=== PATIENT | male | born 1960 | race African-American/Black ===

== ENCOUNTER 2016-04-05 10:54 | Inpatient (IN) | payer MEDICAID ==
[~2016-04-05] VITALS: Ht 172.7 cm; Wt 81.6 kg
[2016-04-05] VITALS (7 sets, daily range): BP systolic 98–145; BP diastolic 60–99
--- NOTE | 2016-04-05 11:02 | Emergency Room Report ---
History of Present Illness General Chief Complaint: Generalized Weakness Source: Patient, EMS Present Illness HPI Patient is a 55-year-old male presented after increased generalized weakness. The patient was brought in from a [facility]. The patient was having difficulty leaving the building. Patient denies any current complaints however he appears to be somewhat weak. Patient states that he does not drink alcohol and has not had any fever.History is limited by patient's poor cooperation. Allergies: Coded Allergies: UNABLE TO ASSESS (Unverified , 04/05/16) Patient History Past Medical History: see triage record Reviewed Nursing Documentation: PMH: Agreed, PSxH: Agreed Nursing Documentation-PMH Past Medical History: Deferred Review of Systems All Other Systems: negative except mentioned in HPI Physical Exam Vital Signs Date Time Temp Pulse Resp B/P Pulse Ox O2 Delivery O2 Flow Rate FiO2 04/05/16 10:48 67 16 153/95 98 Room Air Sp02 EP Interpretation: reviewed, normal General Appearance: normal inspection, well appearing, no apparent distress, alert, GCS 15 Head: atraumatic ENT: normal ENT inspection, hearing grossly normal, normal voice Neck: normal inspection, full range of motion, supple, no bony tend Respiratory: normal inspection, lungs clear, normal breath sounds, no respiratory distress, no retraction, no wheezing Cardiovascular #1: regular rate, rhythm, no edema Gastrointestinal: normal inspection, normal bowel sounds, non tender, soft, no guarding, no hernia Genitourinary: no CVA tenderness Musculoskeletal: normal range of motion, other - tremor, Neurologic: normal inspection, alert, responsive, speech normal, motor weakness - generalized Psychiatric: normal inspection, judgement/insight normal, mood/affect normal Skin: normal inspection, normal color, no rash Procedures Critical Care Time Critical Care Time Patient had a critical medical condition which untreated could potentially result in life or limb threatening injury. Total critical care time excluding procedures approximately 45 minutes. Medical Decision Making Diagnostic Impression: Primary Impression: Hypothermia Qualified Codes: T68.XXXA - Hypothermia, initial encounter Additional Impression: Generalized weakness ER Course Patient presented for generalized weakness.Patient presented for generalized weakness. Differential diagnosis included was not limited to anemia, urinary tract infection, electrolyte abnormality, hypothyroidism, myocardial infarction , myasthenia gravis, dehydration, among others. Because of complexity of patient's case laboratory testing and imaging studies were ordered.Patient started on IV fluids as well as a bear hugger. The patient was noted to have some improvement in his temperature. EKG showed evidence of hypothermia the patient's initial core temperature was 85.5 and was gradually rewarmed with warmed IV fluids.Dr. Massey was contacted for inpatient management of the patient's severe hypothermia which is likely due to environmental exposure Labs Test 04/05/16 11:30 White Blood Count 10.3 K/UL (4.8-10.8) Red Blood Count 2.98 M/UL (4.70-6.10) Hemoglobin 8.2 G/DL (14.2-18.0) Hematocrit 26.8 % (42.0-52.0) Mean Corpuscular Volume 90 FL (80-99) Mean Corpuscular Hemoglobin 27.6 PG (27.0-31.0) Mean Corpuscular Hemoglobin Concent 30.7 G/DL (32.0-36.0) Red Cell Distribution Width 19.2 % (11.6-14.8) Platelet Count 983 K/UL (150-450) Mean Platelet Volume 5.8 FL (6.5-10.1) Neutrophils (%) (Auto) % (45.0-75.0) Lymphocytes (%) (Auto) % (20.0-45.0) Monocytes (%) (Auto) % (1.0-10.0) Eosinophils (%) (Auto) % (0.0-3.0) Basophils (%) (Auto) % (0.0-2.0) Differential Total Cells Counted 100 Neutrophils % (Manual) 76 % (45-75) Lymphocytes % (Manual) 13 % (20-45) Monocytes % (Manual) 6 % (1-10) Eosinophils % (Manual) 0 % (0-3) Basophils % (Manual) 0 % (0-2) Band Neutrophils 5 % (0-8) Platelet Estimate Increased Platelet Morphology Normal Hypochromasia 1+ Anisocytosis 1+ Urine Color Pale yellow Urine Appearance Clear Urine pH 5 (4.5-8.0) Urine Specific [place] 1.015 (1.005-1.035) Urine Protein 1+ (NEGATIVE) Urine Glucose (UA) Negative (NEGATIVE) Urine Ketones Negative (NEGATIVE) Urine Occult Blood Negative (NEGATIVE) Urine Nitrite Negative (NEGATIVE) Urine Bilirubin Negative (NEGATIVE) Urine Urobilinogen Normal MG/DL (0.0-1.0) Urine Leukocyte Esterase Negative (NEGATIVE) Urine RBC 0-2 /HPF (0 - 0) Urine WBC 0-2 /HPF (0 - 0) Urine Squamous Epithelial Cells Few /LPF (NONE/OCC) Urine Bacteria Few /HPF (NONE) Urine Hyaline Casts 0-2 /LPF (NONE) Sodium Level 135 mEQ/L (135-145) Potassium Level 4.3 mEQ/L (3.4-4.9) Chloride Level 96 mEQ/L (98-107) Carbon Dioxide Level 24 mEQ/L (20-30) Anion Gap 15 (5-15) Blood Urea Nitrogen 14 mg/dL (7-23) Creatinine 0.7 mg/dL (0.7-1.2) Estimat Glomerular Filtration Rate > 60 mL/min (>60) Glucose Level 138 mg/dL (74-106) Calcium Level 8.9 mg/dL (8.6-10.2) Total Bilirubin < 0.2 mg/dL (0.0-1.2) Aspartate Amino Transf (AST/SGOT) 30 U/L (5-40) Alanine Aminotransferase (ALT/SGPT) 24 U/L (3-41) Alkaline Phosphatase 108 U/L (40-129) Total Protein 6.8 g/dL (6.6-8.7) Albumin 2.6 g/dL (3.5-5.2) Globulin 4.2 g/dL Albumin/Globulin Ratio 0.6 (1.0-2.7) Serum Alcohol < 10 mg/dL EKG Diagnostic Results Rate: normal Rhythm: NSR ST Segments: other - jpoint elevation, gautam waves Last Vital Signs Date Time Temp Pulse Resp B/P Pulse Ox O2 Delivery O2 Flow Rate FiO2 04/05/16 10:48 67 16 153/95 98 Room Air Status: unchanged Disposition: ADMITTED INPATIENT Condition: Yousif Mcadams Apr 05, 2016 11:02
[2016-04-05 11:48] LABS: MEAN CORPUSCULAR HEMOGLOBIN 27.6 PG (27.0-31.0); MEAN CORPUSCULAR HGB CONC 30.7 G/DL (32.0-36.0); MEAN CORPUSCULAR VOLUME 90 FL (80-99); MEAN PLATELET VOLUME 5.8 FL (6.5-10.1); PLATELET COUNT 983 K/UL (150-450); RED BLOOD COUNT 2.98 M/UL (4.70-6.10); RED CELL DISTRIBUTION WIDTH 19.2 % (11.6-14.8); WHITE BLOOD COUNT 10.3 K/UL (4.8-10.8)
[2016-04-05 11:52] LABS: APPEARANCE,URINE CLEAR; KETONES,URINE NEGATIVE (NEGATIVE); LEUKOCYTE ESTERASE ,URINE NEGATIVE (NEGATIVE); NITRITE,URINE NEGATIVE (NEGATIVE); PH,URINE 5 (4.5-8.0); PROTEIN,URINE 1+ (NEGATIVE); UROBILINOGEN,URINE NORMAL MG/DL (0.0-1.0)
[2016-04-05 11:59] LABS: ALANINE AMINOTRANSFERASE 24 U/L (3-41); ALBUMIN/GLOBULIN RATIO 0.6 (1.0-2.7); ALCOHOL < 10 mg/dL; ANION GAP 15 (5-15); ASPARTATE AMINO TRANSFERASE 30 U/L (5-40); CALCIUM 8.9 mg/dL (8.6-10.2); CARBON DIOXIDE 24 mEQ/L (20-30); CHLORIDE 96 mEQ/L (98-107); CREATININE 0.7 mg/dL (0.7-1.2); GLOMERULAR FILTRATION RATE > 60 mL/min (>60); HEMOLYSIS 16; POTASSIUM 4.3 mEQ/L (3.4-4.9); SODIUM 135 mEQ/L (135-145); TOTAL PROTEIN 6.8 g/dL (6.6-8.7)
[2016-04-05 12:11] LABS: BACTERIA,URINE FEW /HPF; HYALINE CASTS, URINE 0-2 /LPF; RBC,URINE 0-2 /HPF (0 - 0); SQUAMOUS EPITHELIAL CELL,UR FEW /LPF (NONE/OCC); WBC,URINE 0-2 /HPF (0 - 0)
[2016-04-05 12:17] LABS: ANISOCYTOSIS 1+; BAND NEUTROPHILS % (MANUAL) 5 % (0-8); BASOPHILS % (MANUAL) 0 % (0-2); EOSINOPHILS % (MANUAL) 0 % (0-3); HYPOCHROMASIA 1+; LYMPHOCYTES % (MANUAL) 13 % (20-45); NEUTROPHILS % (MANUAL) 76 % (45-75); PLATELET ESTIMATE INCREASED; PLATELET MORPHOLOGY NORMAL; TOTAL CELLS COUNTED 100
[2016-04-05] MEDS: LR 1000ml 1,000 ML IV SCH ×6 (12:47→19:05)
[2016-04-05] MEDS ORDERED: NKM (13:39)
[2016-04-05] MEDS ORDERED: Mylanta II UD 30ml ORAL PRN (14:45)
[2016-04-05] MEDS ORDERED: LORazepam Inj 2mg/ml 1ml IV PRN (14:45)
[2016-04-05] MEDS ORDERED: Zolpidem 5mg tab ORAL PRN (14:45)
[2016-04-05] MEDS ORDERED: Miralax 17gm pkt ORAL PRN (14:45)
[2016-04-05] MEDS ORDERED: Morphine Sulfate 2mg/ml Inj IVP PRN (14:45)
--- NOTE | 2016-04-05 15:26 | Infectious Diseases Prog Note ---
Assessment/Plan Problems: (1) Sepsis Assessment & Plan: will send blood culture and start vancomycin and cefepime empirically . (2) Leukocytosis Assessment & Plan: rule out sepsis, will send culture of the blood. (3) Hypothermia Assessment & Plan: unclear etiology need to rule out ischemic injury , monitor electrolytes and lactic acid. (4) Generalized weakness Assessment & Plan: suspect hypothermia related, start warming blanket , and IFV for hydration Subjective Allergies: Coded Allergies: UNABLE TO ASSESS (Unverified , 04/05/16) Objective Vital Signs Last 24 Hour Vital Signs Date Time Temp Pulse Resp B/P Pulse Ox O2 Delivery O2 Flow Rate FiO2 04/05/16 15:15 90.1 67 14 103/74 100 Room Air 04/05/16 13:33 87.5 59 12 100/75 100 Room Air 04/05/16 12:54 89.0 57 13 109/78 98 Room Air 04/05/16 11:45 66 19 145/99 100 Room Air 04/05/16 11:30 85.5 04/05/16 10:48 67 16 153/95 98 Room Air Height (Feet): 5 Height (Inches): 8.00 Weight (Pounds): 180 Laboratory Tests Test 04/05/16 11:30 White Blood Count 10.3 K/UL (4.8-10.8) Red Blood Count 2.98 M/UL (4.70-6.10) L Hemoglobin 8.2 G/DL (14.2-18.0) L Hematocrit 26.8 % (42.0-52.0) L Mean Corpuscular Volume 90 FL (80-99) Mean Corpuscular Hemoglobin 27.6 PG (27.0-31.0) Mean Corpuscular Hemoglobin Concent 30.7 G/DL (32.0-36.0) L Red Cell Distribution Width 19.2 % (11.6-14.8) H Platelet Count 983 K/UL (150-450) H Mean Platelet Volume 5.8 FL (6.5-10.1) L Neutrophils (%) (Auto) % (45.0-75.0) Lymphocytes (%) (Auto) % (20.0-45.0) Monocytes (%) (Auto) % (1.0-10.0) Eosinophils (%) (Auto) % (0.0-3.0) Basophils (%) (Auto) % (0.0-2.0) Differential Total Cells Counted 100 Neutrophils % (Manual) 76 % (45-75) H Lymphocytes % (Manual) 13 % (20-45) L Monocytes % (Manual) 6 % (1-10) Eosinophils % (Manual) 0 % (0-3) Basophils % (Manual) 0 % (0-2) Band Neutrophils 5 % (0-8) Platelet Estimate Increased H Platelet Morphology Normal Hypochromasia 1+ Anisocytosis 1+ Urine Color Pale yellow Urine Appearance Clear Urine pH 5 (4.5-8.0) Urine Specific [place] 1.015 (1.005-1.035) Urine Protein 1+ (NEGATIVE) H Urine Glucose (UA) Negative (NEGATIVE) Urine Ketones Negative (NEGATIVE) Urine Occult Blood Negative (NEGATIVE) Urine Nitrite Negative (NEGATIVE) Urine Bilirubin Negative (NEGATIVE) Urine Urobilinogen Normal MG/DL (0.0-1.0) Urine Leukocyte Esterase Negative (NEGATIVE) Urine RBC 0-2 /HPF (0 - 0) H Urine WBC 0-2 /HPF (0 - 0) Urine Squamous Epithelial Cells Few /LPF (NONE/OCC) Urine Bacteria Few /HPF (NONE) Urine Hyaline Casts 0-2 /LPF (NONE) H Sodium Level 135 mEQ/L (135-145) Potassium Level 4.3 mEQ/L (3.4-4.9) Chloride Level 96 mEQ/L (98-107) L Carbon Dioxide Level 24 mEQ/L (20-30) Anion Gap 15 (5-15) Blood Urea Nitrogen 14 mg/dL (7-23) Creatinine 0.7 mg/dL (0.7-1.2) Estimat Glomerular Filtration Rate > 60 mL/min (>60) Glucose Level 138 mg/dL (74-106) H Calcium Level 8.9 mg/dL (8.6-10.2) Total Bilirubin < 0.2 mg/dL (0.0-1.2) Aspartate Amino Transf (AST/SGOT) 30 U/L (5-40) Alanine Aminotransferase (ALT/SGPT) 24 U/L (3-41) Alkaline Phosphatase 108 U/L (40-129) Total Protein 6.8 g/dL (6.6-8.7) Albumin 2.6 g/dL (3.5-5.2) L Globulin 4.2 g/dL Albumin/Globulin Ratio 0.6 (1.0-2.7) L Serum Alcohol < 10 mg/dL Current Medications Medications (Trade) Dose Ordered Sig/Jenn Route PRN Reason Start Time Stop Time Status Last Admin Dose Admin Acetaminophen (Tylenol) 650 mg Q4H PRN ORAL fever 04/05/16 14:45 05/05/16 14:44 UNV Al Hydroxide/Mg Hydroxide (Mylanta II) 30 ml Q6H PRN ORAL dyspepsia 04/05/16 14:45 05/05/16 14:44 UNV Cefepime HCl/ Dextrose (Maxipime/D5W 50ml) 50 ml @ 100 mls/hr EVERY 12 HOURS IVPB 04/05/16 21:00 04/12/16 20:59 UNV Dextrose STAT PRN IV Hypoglycemia 04/05/16 14:45 05/05/16 14:44 UNV Lactated Ringer's 1,000 ml @ 200 mls/hr Q5H IV 04/05/16 11:45 05/05/16 11:44 04/05/16 12:47 Lactated Ringer's (Lactated Ringer's 1000ml) 1,000 ml @ 999 mls/hr Q1H1M IV 04/05/16 14:00 05/05/16 13:59 04/05/16 14:47 Lorazepam (Ativan 2mg/ml 1ml) 0.5 mg Q4H PRN IV For Anxiety 04/05/16 14:45 04/12/16 14:44 UNV Morphine Sulfate (Morphine Sulfate) 1 mg EVERY 4 HOURS PRN IVP For Pain 04/05/16 14:45 04/12/16 14:44 UNV Ondansetron HCl (Zofran) 4 mg Q6H PRN IVP Nausea & Vomiting 04/05/16 14:45 05/05/16 14:44 UNV Polyethylene Glycol (Miralax) 17 gm HSPRN PRN ORAL Constipation 04/05/16 14:45 05/05/16 14:44 UNV Vancomycin HCl 1 gm/Dextrose 250 ml @ 167 mls/hr Q12HR IVPB 04/05/16 21:00 04/10/16 20:59 UNV Zolpidem Tartrate (Ambien) 5 mg HSPRN PRN ORAL Insomnia 04/05/16 14:45 05/05/16 14:44 Sixto Schneider M.D. Apr 05, 2016 15:26
--- NOTE | 2016-04-05 18:04 | Cardiac Electrophysiology PN ---
Subjective Subjective [id number]. Hypothermia, Severe anemia Hb 8.2 Objective Last 24 Hour Vital Signs Date Time Temp Pulse Resp B/P Pulse Ox O2 Delivery O2 Flow Rate FiO2 04/05/16 16:12 91.1 71 21 102/60 100 Room Air 71 04/05/16 15:15 90.1 67 14 103/74 100 Room Air 04/05/16 13:33 87.5 59 12 100/75 100 Room Air 04/05/16 12:54 89.0 57 13 109/78 98 Room Air 04/05/16 11:45 66 19 145/99 100 Room Air 04/05/16 11:30 85.5 04/05/16 10:48 67 16 153/95 98 Room Air Laboratory Tests Test 04/05/16 11:30 White Blood Count 10.3 K/UL (4.8-10.8) Red Blood Count 2.98 M/UL (4.70-6.10) L Hemoglobin 8.2 G/DL (14.2-18.0) L Hematocrit 26.8 % (42.0-52.0) L Mean Corpuscular Volume 90 FL (80-99) Mean Corpuscular Hemoglobin 27.6 PG (27.0-31.0) Mean Corpuscular Hemoglobin Concent 30.7 G/DL (32.0-36.0) L Red Cell Distribution Width 19.2 % (11.6-14.8) H Platelet Count 983 K/UL (150-450) H Mean Platelet Volume 5.8 FL (6.5-10.1) L Neutrophils (%) (Auto) % (45.0-75.0) Lymphocytes (%) (Auto) % (20.0-45.0) Monocytes (%) (Auto) % (1.0-10.0) Eosinophils (%) (Auto) % (0.0-3.0) Basophils (%) (Auto) % (0.0-2.0) Differential Total Cells Counted 100 Neutrophils % (Manual) 76 % (45-75) H Lymphocytes % (Manual) 13 % (20-45) L Monocytes % (Manual) 6 % (1-10) Eosinophils % (Manual) 0 % (0-3) Basophils % (Manual) 0 % (0-2) Band Neutrophils 5 % (0-8) Platelet Estimate Increased H Platelet Morphology Normal Hypochromasia 1+ Anisocytosis 1+ Urine Color Pale yellow Urine Appearance Clear Urine pH 5 (4.5-8.0) Urine Specific [place] 1.015 (1.005-1.035) Urine Protein 1+ (NEGATIVE) H Urine Glucose (UA) Negative (NEGATIVE) Urine Ketones Negative (NEGATIVE) Urine Occult Blood Negative (NEGATIVE) Urine Nitrite Negative (NEGATIVE) Urine Bilirubin Negative (NEGATIVE) Urine Urobilinogen Normal MG/DL (0.0-1.0) Urine Leukocyte Esterase Negative (NEGATIVE) Urine RBC 0-2 /HPF (0 - 0) H Urine WBC 0-2 /HPF (0 - 0) Urine Squamous Epithelial Cells Few /LPF (NONE/OCC) Urine Bacteria Few /HPF (NONE) Urine Hyaline Casts 0-2 /LPF (NONE) H Sodium Level 135 mEQ/L (135-145) Potassium Level 4.3 mEQ/L (3.4-4.9) Chloride Level 96 mEQ/L (98-107) L Carbon Dioxide Level 24 mEQ/L (20-30) Anion Gap 15 (5-15) Blood Urea Nitrogen 14 mg/dL (7-23) Creatinine 0.7 mg/dL (0.7-1.2) Estimat Glomerular Filtration Rate > 60 mL/min (>60) Glucose Level 138 mg/dL (74-106) H Calcium Level 8.9 mg/dL (8.6-10.2) Total Bilirubin < 0.2 mg/dL (0.0-1.2) Aspartate Amino Transf (AST/SGOT) 30 U/L (5-40) Alanine Aminotransferase (ALT/SGPT) 24 U/L (3-41) Alkaline Phosphatase 108 U/L (40-129) Total Protein 6.8 g/dL (6.6-8.7) Albumin 2.6 g/dL (3.5-5.2) L Globulin 4.2 g/dL Albumin/Globulin Ratio 0.6 (1.0-2.7) L Serum Alcohol < 10 mg/dL DOROTHEA LEIGH Apr 05, 2016 18:04
[2016-04-05 19:08] LABS: PATH BLOOD SMEAR/OMC SENT TO PATHOLOGIST
--- NOTE | 2016-04-05 19:55 | Consultation ---
Consult Note Consult Note NEUROLOGY CONSULTATION: Full note dictated #[id number] Mr. Abelardo Chiang is a 55 y/o, RH, BM with a nebulous PH. He was apparently found in a [facility] looking ill. He was brought to the [facility] ER where his initial core temperature was 85.5 degrees F. He was thought to be possibly septic and has been admitted since then. ON EXAM: Lethargic. Aroused briefly. Unable to cooperate with mental status or motor exam. IMPRESSION: Severe encephalopathy - etiology ? 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 REC: CT of brain in AM Labs. EEG Treatment of sepsis as per . Warm body. 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 Anibal Magdaleno M.D., M.S.P.H. ANIBAL MAGDALENO Apr 05, 2016 19:55
[2016-04-05] MEDS ORDERED: Thiamine HCl 100 MG in D5W 50 ML IVPB ONE (21:30)
--- NOTE | 2016-04-05 23:07 | Consultation ---
DATE OF CONSULTATION: CONSULTING PHYSICIAN: Sixto Reilly M.D. REQUESTING PHYSICIAN: Michael Flower D.O. REASON FOR CONSULTATION: Hypothermia, weakness, and sepsis. HISTORY OF PRESENT ILLNESS: The patient is a 55-year-old male, who was brought in to [facility] for generalized weakness and was found to have hypothermic. The patient was at [facility] and he felt weak and could not leave the building. Denied any headache or blurry vision. No lightheadedness or dizziness. No recent alcohol or drug abuse. No chest pain. No palpitations. No nausea, vomiting, or diarrhea. In the emergency room, his blood pressure was 153/95 and saturating 98% on room air. Labs showed mild leukocytosis. Urinalysis was negative for any infection. Serum alcohol was less than 10. The patient was hypothermic and critical condition, so he was admitted to the hospital and I was asked by the primary provider for antibiotics recommendation and to rule out sepsis. PAST MEDICAL HISTORY: Unable to obtain at this point. The patient is a poor historian. PAST SURGICAL HISTORY: Unknown. MEDICATIONS: He was on Tylenol, morphine, MiraLAX, Zofran, Ambien, Ativan, Mylanta, dextrose, and Lactated Ringer. ALLERGY: Unable to assess. The patient does not answer questions appropriately. SOCIAL HISTORY: No recent drugs, tobacco, or alcohol. He is retired. He lives with family. FAMILY HISTORY: Not contributory. REVIEW OF SYSTEMS: A 14-point of system reviewed were all negative apart from the one I mentioned above in my History and Physical. PHYSICAL EXAMINATION: VITAL SIGNS: Temperature 90.1 degrees, pulse 67, respirations 14, blood pressure 103/73, and pulse oximetry 100% on room air. GENERAL: A middle-aged male, up in bed, alert, and not in distress. HEENT: Normocephalic and atraumatic. Pupils are reactive to light. Normal oral mucosa. No thrush. NECK: Supple. No lymphadenopathy. Good range of motion. LUNGS: Clear bilaterally. Normal breathing sounds. No wheezing. No rhonchi. CARDIOVASCULAR: Regular rate and rhythm. No murmur. No gallop. ABDOMEN: Soft, nontender, and nondistended. Positive bowel sounds. No hepatosplenomegaly. EXTREMITY: No edema. No cyanosis. SKIN: No rash. No hives. LABORATORY DATA: Laboratory showed white count of 10.3, hemoglobin of 8.2, hematocrit of 26.8, and platelet count of 983,000. BUN of 14 and creatinine 0.7. AST of 30, ALT of 24, and total protein of 6.8. Urinalysis showed few bacteria, negative leukocyte esterase, and negative nitrate. Toxicology, seroma alcohol was less than 10. ASSESSMENT AND PLAN: 1. Sepsis. We will send blood culture and start vancomycin and cefepime empirically and monitor culture results. 2. Leukocytosis, rule out sepsis. Send blood culture and urine culture. Start wide spectrum antibiotic therapy. 3. Hypothermia. Recommend warming blanket. Unclear etiology at this point. Need to rule out ischemic injury versus sepsis. Continue to monitor and provide lactic acid and warming device to bring his temperature up. 4. Generalized weakness, suspect due to hypothermia. Start warming blanket. Continue intravenous fluid for hydration. Check TSH. We will send blood culture to rule out infection. Sixto Reilly M.D. DR: BABS JOB#: [id number] CC:
[2016-04-06] VITALS: BP 114/78
--- NOTE | 2016-04-06 00:48 | Consultation ---
DATE OF CONSULTATION: 04/05/2016 CARDIOLOGY CONSULTATION CONSULTING PHYSICIAN: Don Paez M.D. REFERRING PHYSICIAN: Sangeeta Massey M.D. REASON FOR CONSULTATION: Generalized weakness and hypothermia. HISTORY OF PRESENT ILLNESS: The patient is a 55-year-old gentleman, who was brought in from a [facility] after he had an episode of generalized weakness. The patient was having difficulty in the building. The patient did not have any fever and does not drink alcohol. However, the patient is a poor historian. The patient was seen in the emergency room and was found to be very hypothermic. Temperature was 85.5 and the EKG showed evidence of hypothermia. The patient was then admitted to a step-down unit and a Cardiology consultation was obtained for further evaluation and management. At the time of my evaluation, the patient is in sinus rhythm. Denies any chest pain or shortness of breath. He has not had any arrhythmias. PAST MEDICAL HISTORY: Negative. MEDICATIONS: At home includes and ibuprofen. FAMILY HISTORY: Noncontributory. REVIEW OF SYSTEM: His review of systems was negative other than what was mentioned in history of present illness. PHYSICAL EXAMINATION: VITAL SIGNS: Blood pressure is 109/78, pulse is 80, respirations 14, and he is afebrile. HEAD AND NECK: Shows no JVD. LUNGS: Clear. CARDIOVASCULAR: Shows regular S1 and S2 with no gallop or murmur. ABDOMEN: Soft. EXTREMITIES: No pitting edema. LABORATORY DATA: His labs show white count of 10.3, hemoglobin 8.1, hematocrit 26.8, and platelet count of 983,000. Sodium 135, potassium 4.3, BUN of 14, creatinine 0.7, and glucose of 138. Urine toxicology screen was negative. Alcohol urinalysis was negative. ASSESSMENT AND PLAN: Generalized weakness due to combination of hypothermia as well as profound anemia. His hemoglobin is only 8.2. He has no obvious source of gastrointestinal bleed. We will watch the patient on telemetry. We will get an echocardiogram to rule out for ejection fraction and wall motion abnormality and repeat the echocardiogram and completely rule out myocardial infarction protocol. The patient will be also evaluated by Gastrointestinal and Hematology in view of severe thrombocytosis as well as anemia with hemoglobin of 8.2. Thank you very much, Dr. Massey, for allowing me to participate in the care of this patient. Please do not hesitate to contact me for any questions regarding my evaluation. Don Paez M.D. DR: ARIAN JOB#: [id number] CC:
--- NOTE | 2016-04-06 01:08 | Consultation ---
DATE OF CONSULTATION: 04/05/2016 NEUROLOGY CONSULTATION REQUESTING PHYSICIAN: Sangeeta Massey M.D. HISTORY: Mr. Abelardo Chiang is a 55-year-old, right-handed, black gentleman, with a nebulous past history. He was apparently found in a [facility] looking quite ill. The paramedics were called in and he was brought into [facility]. When he was first examined his initial core temperature was 85.5 degrees Fahrenheit. He was given warm intravenous fluids and his temperature was brought up. He was then thought to be possibly septic and started on antibiotics and then admitted for further evaluation and management. This consultation was requested to evaluate the patient for his altered mental state and generalized weakness. The patient was unable to give me any history. PAST MEDICAL HISTORY: Unavailable. FAMILY HISTORY: Unavailable. PERSONAL HISTORY: Unavailable other than him being homeless. PRESENT MEDICATIONS: Include cefepime, vancomycin, Tylenol p.r.n., morphine p.r.n., MiraLAX p.r.n., Zofran p.r.n., Ambien p.r.n., Ativan as needed, Mylanta p.r.n. PHYSICAL EXAMINATION: GENERAL: He is a well-developed relatively well-nourished, black gentleman, lying in bed, in no acute distress being warmed with Pippa hugger blanket. VITAL SIGNS: Pulse 80 per minute, blood pressure 109/78 mmHg, respirations 14 per minute, temperature 91.1 degrees Fahrenheit rectal. HEAD: Normocephalic and atraumatic. EENT: Examination benign. NECK: No neck rigidity was observed. NEUROLOGICAL EXAMINATION: MENTAL STATUS EXAMINATION: He was lethargic and could only be aroused briefly with vigorous vocal stimulation and on painful stimulation. He was unable to cooperate for further mental status testing. SPEECH: He was significantly dysarthric when he said a few words. LANGUAGE: Could not be tested adequately because of his altered mental state. CRANIAL NERVE EXAMINATION: II: He did blink to threat. III, IV & : The external ocular movements were full. The pupils were 3 mm in diameter, equal, round, regular, and reactive to light. V: He had normal facial sensations, and the temporales, masseters, and pterygoids functioned normally. VII: He had normal facial expressions and no facial asymmetry. VIII: He seemed to be able to hear and had no nystagmus. IX & X: The gag reflex was present but diminished. XI: The sternocleidomastoids and trapezii did function. XII: The tongue was in the midline without any fasciculations or atrophy. MOTOR SYSTEM: The tone was normal in all four extremities. Examination of muscle mass revealed no focal wasting. Examination of power was exceedingly difficult to perform because of his inability to cooperate however when deep painful stimuli were applied he moved all four extremities equally with relatively good strength. SENSORY EXAMINATION: He responded appropriately to deep pain. He was unable to cooperate for the sensory modalities. REFLEXES: A 2++ and bilaterally symmetrical at the biceps, triceps, brachioradialis and knees and 1+ at both knees and ankles. The plantar responses were flexor bilaterally. COORDINATION: Could not be tested. STANCE: Could not be tested. GAIT: Could not be tested. DIAGNOSTIC IMPRESSION: 1. Mr. Abelardo Chiang is a 55-year-old, right-handed, black gentleman, with nebulous past history who was found in a [facility] with an altered mental state and generally weak. When he was brought into the [facility] he was significantly hypothermic and possibly septic. Since he has been here he has improved minimally and continues to be cognitively impoverished and lethargic. 2. On neurological examination, at this time, he is lethargic and can only be aroused for brief periods of time. He is significantly dysarthric and unable to cooperate for further mental status testing, but does not demonstrate any focal or lateralizing findings. 3. Laboratory data on admission revealed that his WBC count was at 10.3, he was significantly anemic with a hemoglobin of 8.2, his platelet count was elevated to 987,000 and his WBC count showed left-sided shift. His chemistry panel revealed that his glucose was elevated to 138. His albumin was low at 2.6. His serum alcohol was <10. The Urinalysis was relatively benign. 4. The patient's history and neurological examination are most compatible with possible sepsis associated with significant hypothermia, the source of the sepsis is unclear at this point in time. RECOMMENDATIONS: 1. Agree with management thus far. 2. Agree with aggressive treatment of possible sepsis with broad-spectrum antibiotics as per Dr. Reilly. 3. Agree with warming the patient up with a Pippa hugger blanket. 4. The patient should be worked up thoroughly for other treatable causes of altered mental state. 5. An EEG will be ordered to evaluate the patient for the degree and type of cerebral dysfunction. 6. CT scan of the brain without contrast will be ordered to evaluate the patient for intracranial pathology. 7. If the patient is not significantly better in the next day or so we may have to perform a lumbar puncture to exclude a central nervous system infectious process. 8. Depending on how the patient fares over the next day or so, further recommendations will be given. Thank you for entrusting me with the care of Mr. Chiang. I shall follow him with you. Royal Magdaleno M.D., M.S.P.H. DR: Federico JOB#: [id number] [facility]
[2016-04-06 04:00] VITALS: BP 104/54
[2016-04-06 06:14] LABS: MEAN CORPUSCULAR HEMOGLOBIN 28.7 PG (27.0-31.0); MEAN CORPUSCULAR HGB CONC 30.5 G/DL (32.0-36.0); MEAN CORPUSCULAR VOLUME 94 FL (80-99); MEAN PLATELET VOLUME 6.4 FL (6.5-10.1); PLATELET COUNT 895 K/UL (150-450); RED BLOOD COUNT 2.74 M/UL (4.70-6.10); RED CELL DISTRIBUTION WIDTH 20.9 % (11.6-14.8); WHITE BLOOD COUNT 9.6 K/UL (4.8-10.8)
[2016-04-06 06:43] LABS: TROPONIN I < 0.30 ng/mL (<=0.30)
[2016-04-06 08:00] VITALS: BP 113/61
[2016-04-06 08:02] LABS: HEMOGLOBIN A1C 6.3 % (< 6.0)
[2016-04-06 08:05] LABS: CRP QUANT 16.5 mg/dL (< 0.5); MAGNESIUM 1.8 mg/dL (1.7-2.5); PHOSPHORUS 5.1 mg/dL (2.5-4.8)
[2016-04-06 08:06] LABS: ALANINE AMINOTRANSFERASE 22 U/L (3-41); ALBUMIN/GLOBULIN RATIO 0.5 (1.0-2.7); ANION GAP 14 (5-15); ASPARTATE AMINO TRANSFERASE 24 U/L (5-40); CALCIUM 8.5 mg/dL (8.6-10.2); CARBON DIOXIDE 26 mEQ/L (20-30); CHLORIDE 104 mEQ/L (98-107); CHOLESTEROL 145 mg/dL (< 200); CHOLESTEROL/HDL RATIO 3.8 (3.3-4.4); CREATININE 0.9 mg/dL (0.7-1.2); GLOMERULAR FILTRATION RATE > 60 mL/min (>60); HEMOLYSIS 1; LDL CHOLESTEROL (CALC.) 91 mg/dL (60-99); POTASSIUM 4.4 mEQ/L (3.4-4.9); SODIUM 144 mEQ/L (135-145)
[2016-04-06] MEDS ORDERED: Acetaminophen 500mg (ES) tab ORAL PRN (08:15)
[2016-04-06 08:25] LABS: FERRITIN 613 ng/mL (10-230)
[2016-04-06 08:34] LABS: ANISOCYTOSIS 2+; BAND NEUTROPHILS % (MANUAL) 10 % (0-8); BASOPHILS % (MANUAL) 0 % (0-2); EOSINOPHILS % (MANUAL) 0 % (0-3); HYPOCHROMASIA 1+; LYMPHOCYTES % (MANUAL) 11 % (20-45); NEUTROPHILS % (MANUAL) 70 % (45-75); NUCLEATED RED BLOOD CELLS 1 /100 WBC; PLATELET ESTIMATE INCREASED; PLATELET MORPHOLOGY NORMAL; POLYCHROMASIA OCCASIONAL; TOTAL CELLS COUNTED 100
--- NOTE | 2016-04-06 09:25 | Cardiac Electrophysiology PN ---
Assessment/Plan Assessment/Plan 1. Generalized weakness due to combination of hypothermia as well as profound anemia. His hemoglobin is only 7.9. We will watch the patient on telemetry. 2D echocardiogram pending. 2. Severe thrombocytosis almost a Million as well as anemia with hemoglobin of 8.2.Follow up Dr Giang. Stool OB pending. 3. AMS. Head CT and EEG and neuro follow up Dr Magdaleno. WD RN Subjective Subjective Alert in NAD. No arrhythmia on tele.Scheduled for CT scan of head today. Objective Last 24 Hour Vital Signs Date Time Temp Pulse Resp B/P Pulse Ox O2 Delivery O2 Flow Rate FiO2 04/06/16 04:00 96.8 92 20 104/54 100 Room Air 92 04/06/16 04:00 90 04/06/16 00:00 96.8 89 22 114/78 97 Room Air 04/06/16 00:00 87 04/05/16 20:00 96 04/05/16 20:00 96.1 82 13 98/62 98 Room Air 04/05/16 17:59 91.4 80 14 109/78 96 Room Air 04/05/16 17:30 91.1 73 21 102/60 100 Room Air 73 04/05/16 16:12 91.1 71 21 102/60 100 Room Air 71 04/05/16 15:15 90.1 67 14 103/74 100 Room Air 04/05/16 13:33 87.5 59 12 100/75 100 Room Air 04/05/16 12:54 89.0 57 13 109/78 98 Room Air 04/05/16 11:45 66 19 145/99 100 Room Air 04/05/16 11:30 85.5 04/05/16 10:48 67 16 153/95 98 Room Air Intake and Output 04/05/16 04/06/16 19:00 07:00 Intake Total 710 ml 1060 ml Output Total 1000 ml Balance 710 ml 60 ml Intake Oral 0 ml 500 ml IV Total 700 ml 550 ml Other 10 ml 10 ml Output Urine Total 1000 ml # Voids 1 3 Laboratory Tests Test 04/05/16 11:30 04/06/16 04:30 White Blood Count 10.3 K/UL (4.8-10.8) 9.6 K/UL (4.8-10.8) Red Blood Count 2.98 M/UL (4.70-6.10) L 2.74 M/UL (4.70-6.10) L Hemoglobin 8.2 G/DL (14.2-18.0) L 7.9 G/DL (14.2-18.0) L Hematocrit 26.8 % (42.0-52.0) L 25.7 % (42.0-52.0) L Mean Corpuscular Volume 90 FL (80-99) 94 FL (80-99) Mean Corpuscular Hemoglobin 27.6 PG (27.0-31.0) 28.7 PG (27.0-31.0) Mean Corpuscular Hemoglobin Concent 30.7 G/DL (32.0-36.0) L 30.5 G/DL (32.0-36.0) L Red Cell Distribution Width 19.2 % (11.6-14.8) H 20.9 % (11.6-14.8) H Platelet Count 983 K/UL (150-450) H 895 K/UL (150-450) H Mean Platelet Volume 5.8 FL (6.5-10.1) L 6.4 FL (6.5-10.1) L Neutrophils (%) (Auto) % (45.0-75.0) % (45.0-75.0) Lymphocytes (%) (Auto) % (20.0-45.0) % (20.0-45.0) Monocytes (%) (Auto) % (1.0-10.0) % (1.0-10.0) Eosinophils (%) (Auto) % (0.0-3.0) % (0.0-3.0) Basophils (%) (Auto) % (0.0-2.0) % (0.0-2.0) Differential Total Cells Counted 100 100 Neutrophils % (Manual) 76 % (45-75) H 70 % (45-75) Lymphocytes % (Manual) 13 % (20-45) L 11 % (20-45) L Monocytes % (Manual) 6 % (1-10) 9 % (1-10) Eosinophils % (Manual) 0 % (0-3) 0 % (0-3) Basophils % (Manual) 0 % (0-2) 0 % (0-2) Band Neutrophils 5 % (0-8) 10 % (0-8) H Platelet Estimate Increased H Increased H Platelet Morphology Normal Normal Hypochromasia 1+ 1+ Anisocytosis 1+ 2+ Urine Color Pale yellow Urine Appearance Clear Urine pH 5 (4.5-8.0) Urine Specific [place] 1.015 (1.005-1.035) Urine Protein 1+ (NEGATIVE) H Urine Glucose (UA) Negative (NEGATIVE) Urine Ketones Negative (NEGATIVE) Urine Occult Blood Negative (NEGATIVE) Urine Nitrite Negative (NEGATIVE) Urine Bilirubin Negative (NEGATIVE) Urine Urobilinogen Normal MG/DL (0.0-1.0) Urine Leukocyte Esterase Negative (NEGATIVE) Urine RBC 0-2 /HPF (0 - 0) H Urine WBC 0-2 /HPF (0 - 0) Urine Squamous Epithelial Cells Few /LPF (NONE/OCC) Urine Bacteria Few /HPF (NONE) Urine Hyaline Casts 0-2 /LPF (NONE) H Jak2 V617F Mutation Detection Pending JAK2 V617F Mutation Background Pending JAK2 V617F Reviewed By Pending Sodium Level 135 mEQ/L (135-145) 144 mEQ/L (135-145) Potassium Level 4.3 mEQ/L (3.4-4.9) 4.4 mEQ/L (3.4-4.9) Chloride Level 96 mEQ/L (98-107) L 104 mEQ/L (98-107) Carbon Dioxide Level 24 mEQ/L (20-30) 26 mEQ/L (20-30) Anion Gap 15 (5-15) 14 (5-15) Blood Urea Nitrogen 14 mg/dL (7-23) 12 mg/dL (7-23) Creatinine 0.7 mg/dL (0.7-1.2) 0.9 mg/dL (0.7-1.2) Estimat Glomerular Filtration Rate > 60 mL/min (>60) > 60 mL/min (>60) Glucose Level 138 mg/dL (74-106) H 176 mg/dL (74-106) H Calcium Level 8.9 mg/dL (8.6-10.2) 8.5 mg/dL (8.6-10.2) L Total Bilirubin < 0.2 mg/dL (0.0-1.2) < 0.2 mg/dL (0.0-1.2) Aspartate Amino Transf (AST/SGOT) 30 U/L (5-40) 24 U/L (5-40) Alanine Aminotransferase (ALT/SGPT) 24 U/L (3-41) 22 U/L (3-41) Alkaline Phosphatase 108 U/L (40-129) 112 U/L (40-129) Total Protein 6.8 g/dL (6.6-8.7) 6.0 g/dL (6.6-8.7) L Albumin 2.6 g/dL (3.5-5.2) L 2.2 g/dL (3.5-5.2) L Globulin 4.2 g/dL 3.8 g/dL Albumin/Globulin Ratio 0.6 (1.0-2.7) L 0.5 (1.0-2.7) L Serum Alcohol < 10 mg/dL Rapid Plasma Reagin Pending Nucleated Red Blood Cells 1 /100 WBC Polychromasia Occasional Hemoglobin A1c 6.3 % (< 6.0) H Uric Acid 8.0 mg/dL (3.0-7.5) H Phosphorus Level 5.1 mg/dL (2.5-4.8) H Magnesium Level 1.8 mg/dL (1.7-2.5) Ferritin 613 ng/mL (10-230) H Gamma Glutamyl Transpeptidase 58 U/L (8-61) Total Creatine Kinase 41 U/L (38-174) Troponin I < 0.30 ng/mL (<=0.30) C-Reactive Protein, Quantitative 16.5 mg/dL (< 0.5) H Pro-B-Type Natriuretic Peptide 351 pg/mL (0-125) H Triglycerides Level 78 mg/dL (< 150) Cholesterol Level 145 mg/dL (< 200) LDL Cholesterol 91 mg/dL (60-99) HDL Cholesterol 38 mg/dL (> 60) Cholesterol/HDL Ratio 3.8 (3.3-4.4) Vitamin B12 Level 1927 pg/mL (211-946) H Folate Pending Thyroid Stimulating Hormone (TSH) 5.150 uIU/mL (0.300-4.500) Free Thyroxine 1.28 ng/dL (0.86-1.85) Objective HEAD AND NECK: Shows no JVD. LUNGS: Clear. CARDIOVASCULAR: Shows regular S1 and S2 with no gallop or murmur. ABDOMEN: Soft. EXTREMITIES: No pitting edema. DOROTHEA LEIGH Apr 06, 2016 09:25
[2016-04-06] MEDS: Aspirin Baby 81mg ORAL SCH (10:43)
--- NOTE | 2016-04-06 11:38 | Consultation ---
History of Present Illness General Date patient seen: Apr 06, 2016 Chief Complaint: Generalized Weakness Reason for Consultation: inpatient management Present Illness HPI 55-year-old male, apparently homelessBIBA with CC of increased generalized weakness. The patient was brought in from a [facility]. Pt was found to be hypotermic and having chills. He is admitted to telemetry for further work up. Allergies: Coded Allergies: UNABLE TO ASSESS (Unverified , 04/05/16) Medication History Scheduled No Known Medications* (NKM - No Known Medications*), 0 ., (Reported) Patient History Healthcare decision maker Resuscitation status Full Code Advanced Directive on File Past Medical/Surgical History Past Medical/Surgical History: (1) Generalized weakness Review of Systems All Other Systems: negative except mentioned in HPI Physical Exam General Appearance: WD/WN Lines, tubes and drains: PICC HEENT: atraumatic Neck: non-tender, normal alignment Respiratory/Chest: chest wall non-tender, lungs clear Cardiovascular/Chest: normal peripheral pulses, normal rate Abdomen: normal bowel sounds, non tender Genitourinary/Rectal: normal genital exam, heme negative stool Last 24 Hour Vital Signs Date Time Temp Pulse Resp B/P Pulse Ox O2 Delivery O2 Flow Rate FiO2 04/06/16 08:00 97 04/06/16 08:00 97.1 89 20 113/61 100 Room Air 04/06/16 04:00 96.8 92 20 104/54 100 Room Air 92 04/06/16 04:00 90 04/06/16 00:00 96.8 89 22 114/78 97 Room Air 04/06/16 00:00 87 04/05/16 20:00 96 04/05/16 20:00 96.1 82 13 98/62 98 Room Air 04/05/16 17:59 91.4 80 14 109/78 96 Room Air 04/05/16 17:30 91.1 73 21 102/60 100 Room Air 73 04/05/16 16:12 91.1 71 21 102/60 100 Room Air 71 04/05/16 15:15 90.1 67 14 103/74 100 Room Air 04/05/16 13:33 87.5 59 12 100/75 100 Room Air 04/05/16 12:54 89.0 57 13 109/78 98 Room Air 04/05/16 11:45 66 19 145/99 100 Room Air Intake and Output 04/05/16 04/06/16 19:00 07:00 Intake Total 710 ml 1060 ml Output Total 1000 ml Balance 710 ml 60 ml Intake Oral 0 ml 500 ml IV Total 700 ml 550 ml Other 10 ml 10 ml Output Urine Total 1000 ml # Voids 1 3 Laboratory Tests Test 04/06/16 04:30 White Blood Count 9.6 K/UL (4.8-10.8) Red Blood Count 2.74 M/UL (4.70-6.10) L Hemoglobin 7.9 G/DL (14.2-18.0) L Hematocrit 25.7 % (42.0-52.0) L Mean Corpuscular Volume 94 FL (80-99) Mean Corpuscular Hemoglobin 28.7 PG (27.0-31.0) Mean Corpuscular Hemoglobin Concent 30.5 G/DL (32.0-36.0) L Red Cell Distribution Width 20.9 % (11.6-14.8) H Platelet Count 895 K/UL (150-450) H Mean Platelet Volume 6.4 FL (6.5-10.1) L Neutrophils (%) (Auto) % (45.0-75.0) Lymphocytes (%) (Auto) % (20.0-45.0) Monocytes (%) (Auto) % (1.0-10.0) Eosinophils (%) (Auto) % (0.0-3.0) Basophils (%) (Auto) % (0.0-2.0) Differential Total Cells Counted 100 Neutrophils % (Manual) 70 % (45-75) Lymphocytes % (Manual) 11 % (20-45) L Monocytes % (Manual) 9 % (1-10) Eosinophils % (Manual) 0 % (0-3) Basophils % (Manual) 0 % (0-2) Band Neutrophils 10 % (0-8) H Nucleated Red Blood Cells 1 /100 WBC Platelet Estimate Increased H Platelet Morphology Normal Polychromasia Occasional Hypochromasia 1+ Anisocytosis 2+ Sodium Level 144 mEQ/L (135-145) Potassium Level 4.4 mEQ/L (3.4-4.9) Chloride Level 104 mEQ/L (98-107) Carbon Dioxide Level 26 mEQ/L (20-30) Anion Gap 14 (5-15) Blood Urea Nitrogen 12 mg/dL (7-23) Creatinine 0.9 mg/dL (0.7-1.2) Estimat Glomerular Filtration Rate > 60 mL/min (>60) Glucose Level 176 mg/dL (74-106) H Hemoglobin A1c 6.3 % (< 6.0) H Uric Acid 8.0 mg/dL (3.0-7.5) H Calcium Level 8.5 mg/dL (8.6-10.2) L Phosphorus Level 5.1 mg/dL (2.5-4.8) H Magnesium Level 1.8 mg/dL (1.7-2.5) Ferritin 613 ng/mL (10-230) H Total Bilirubin < 0.2 mg/dL (0.0-1.2) Gamma Glutamyl Transpeptidase 58 U/L (8-61) Aspartate Amino Transf (AST/SGOT) 24 U/L (5-40) Alanine Aminotransferase (ALT/SGPT) 22 U/L (3-41) Alkaline Phosphatase 112 U/L (40-129) Total Creatine Kinase 41 U/L (38-174) Troponin I < 0.30 ng/mL (<=0.30) C-Reactive Protein, Quantitative 16.5 mg/dL (< 0.5) H Pro-B-Type Natriuretic Peptide 351 pg/mL (0-125) H Total Protein 6.0 g/dL (6.6-8.7) L Albumin 2.2 g/dL (3.5-5.2) L Globulin 3.8 g/dL Albumin/Globulin Ratio 0.5 (1.0-2.7) L Triglycerides Level 78 mg/dL (< 150) Cholesterol Level 145 mg/dL (< 200) LDL Cholesterol 91 mg/dL (60-99) HDL Cholesterol 38 mg/dL (> 60) Cholesterol/HDL Ratio 3.8 (3.3-4.4) Vitamin B12 Level 1927 pg/mL (211-946) H Folate Pending Thyroid Stimulating Hormone (TSH) 5.150 uIU/mL (0.300-4.500) Free Thyroxine 1.28 ng/dL (0.86-1.85) Height (Feet): 5 Height (Inches): 8.00 Weight (Pounds): 180 Medications Current Medications Medications (Trade) Dose Ordered Sig/Jenn Route PRN Reason Start Time Stop Time Status Last Admin Dose Admin Acetaminophen (Tylenol) 500 mg 30 MIN BEFORE BLOOD PRN ORAL 30 MIN PRIOR TO BLOOD TRANSFUS 04/06/16 08:15 05/06/16 08:14 Acetaminophen (Tylenol) 650 mg Q4H PRN ORAL fever 04/05/16 14:45 05/05/16 14:44 Al Hydroxide/Mg Hydroxide (Mylanta II) 30 ml Q6H PRN ORAL dyspepsia 04/05/16 14:45 05/05/16 14:44 Aspirin (ASA) 81 mg DAILY ORAL 04/06/16 10:00 05/06/16 09:59 04/06/16 10:43 Cefepime HCl/ Dextrose (Maxipime/D5W 50ml) 50 ml @ 100 mls/hr EVERY 12 HOURS IVPB 04/05/16 21:00 04/12/16 20:59 04/06/16 08:50 Dextrose STAT PRN IV Hypoglycemia 04/05/16 14:45 05/05/16 14:44 Diphenhydramine HCl (Benadryl) 50 mg 30MIN BEFORE BLOOD PRN ORAL PRIOR TO BLOOD TRANSFUSION 04/06/16 08:15 05/06/16 08:14 Lorazepam (Ativan 2mg/ml 1ml) 0.5 mg Q4H PRN IV For Anxiety 04/05/16 14:45 04/12/16 14:44 Morphine Sulfate (Morphine Sulfate) 1 mg EVERY 4 HOURS PRN IVP For Pain 04/05/16 14:45 04/12/16 14:44 Ondansetron HCl (Zofran) 4 mg Q6H PRN IVP Nausea & Vomiting 04/05/16 14:45 05/05/16 14:44 Polyethylene Glycol (Miralax) 17 gm HSPRN PRN ORAL Constipation 04/05/16 14:45 05/05/16 14:44 Vancomycin HCl 1.25 gm/Dextrose 250 ml @ 167 mls/hr Q12HR@0600,1800 IVPB 04/05/16 19:30 04/10/16 19:29 04/06/16 05:30 Zolpidem Tartrate (Ambien) 5 mg HSPRN PRN ORAL Insomnia 04/05/16 14:45 05/05/16 14:44 Assessment/Plan Problem List: (1) Hypothermia ICD Codes: T68.XXXA - Hypothermia, initial encounter SNOMED: 940319467 Qualifiers: Qualified Codes: T68.XXXA - Hypothermia, initial encounter (2) Generalized weakness ICD Codes: R53.1 - Weakness SNOMED: 33793911 (3) Sepsis ICD Codes: A41.9 - Sepsis, unspecified organism SNOMED: 59829466 (4) Symptomatic anemia ICD Codes: D64.9 - Anemia, unspecified SNOMED: 745108744 Assessment/Plan mechanical warming mccormick culture broad spectrum abx marriage and family social worker pt/ot MARSHA CAMEJO Apr 06, 2016 11:38
[2016-04-06 12:00] VITALS: BP 124/81
[2016-04-06 12:54] LABS: INR 1.2 (0.9-1.1); PROTHROMBIN TIME 12.3 SEC (9.30-11.50)
[2016-04-06 13:21] LABS: RETICULOCYTE COUNT 1.8 % (0.0-2.0)
--- NOTE | 2016-04-06 15:59 | General Progress Note ---
Assessment/Plan Assessment/Plan Assessment: 1. Anemia 2/2 chronic disease, ferritin elevated, tibc low. Does not have iron deficiency and occult pending 2. Thrombocytosis is likely related to hx of anemia - reactive process 3. Leukocytosis, rule out sepsis. Send blood culture and urine culture. on wide spectrum antibiotic therapy. 4. Hypothermia. Recommend warming blanket. Unclear etiology at this point. 5. Generalized weakness, suspect due to hypothermia. 6. Coagulopathy 7. Weakness Recommendations: 1. Monitor counts 2. Transfuse as needed 3. pRBC transfuse if hgb <7 4. Transfuse plt if plt <10k 5. Imaging US abd 6. Anemia w/u reviewed 7. Jak2 mutation analysis pending 8. DOES not need a bone marrow bx 9. Consider GI eval for anemia in 55 yo male 10. Alcohol cessation recommended 11. Followup renal, ID, cards, pulm recs Sincerely, Chuy Benitez MD Subjective Constitutional: Reports: no symptoms HEENT: Reports: no symptoms Cardiovascular: Reports: no symptoms Respiratory: Reports: no symptoms Gastrointestinal/Abdominal: Reports: no symptoms Genitourinary: Reports: no symptoms Neurologic/Psychiatric: Reports: no symptoms Endocrine: Reports: no symptoms Hematologic/Lymphatic: Reports: anemia Allergies: Coded Allergies: UNABLE TO ASSESS (Unverified , 04/05/16) Subjective stable, no bleeding reported Objective Last 24 Hour Vital Signs Date Time Temp Pulse Resp B/P Pulse Ox O2 Delivery O2 Flow Rate FiO2 04/06/16 12:00 102 04/06/16 12:00 98.1 102 20 124/81 100 Room Air 04/06/16 08:00 97 04/06/16 08:00 97.1 89 20 113/61 100 Room Air 04/06/16 04:00 96.8 92 20 104/54 100 Room Air 92 04/06/16 04:00 90 04/06/16 00:00 96.8 89 22 114/78 97 Room Air 04/06/16 00:00 87 04/05/16 20:00 96 04/05/16 20:00 96.1 82 13 98/62 98 Room Air 04/05/16 17:59 91.4 80 14 109/78 96 Room Air 04/05/16 17:30 91.1 73 21 102/60 100 Room Air 73 04/05/16 16:12 91.1 71 21 102/60 100 Room Air 71 Intake and Output 04/05/16 04/06/16 19:00 07:00 Intake Total 710 ml 1060 ml Output Total 1000 ml Balance 710 ml 60 ml Intake Oral 0 ml 500 ml IV Total 700 ml 550 ml Other 10 ml 10 ml Output Urine Total 1000 ml # Voids 1 3 Laboratory Tests 04/06/16 04:30: White Blood Count 9.6, Red Blood Count 2.74L, Hemoglobin 7.9L, Hematocrit 25.7L , Mean Corpuscular Volume 94, Mean Corpuscular Hemoglobin 28.7, Mean Corpuscular Hemoglobin Concent 30.5L, Red Cell Distribution Width 20.9H, Platelet Count 895H, Mean Platelet Volume 6.4L, Neutrophils (%) (Auto) , Lymphocytes (%) (Auto) , Monocytes (%) (Auto) , Eosinophils (%) (Auto) , Basophils (%) (Auto) , Differential Total Cells Counted 100, Neutrophils % ( Manual) 70, Lymphocytes % (Manual) 11L, Monocytes % (Manual) 9, Eosinophils % ( Manual) 0, Basophils % (Manual) 0, Band Neutrophils 10H, Nucleated Red Blood Cells 1, Platelet Estimate IncreasedH, Platelet Morphology Normal, Polychromasia Occasional, Hypochromasia 1+, Anisocytosis 2+, Sodium Level 144, Potassium Level 4.4, Chloride Level 104, Carbon Dioxide Level 26, Anion Gap 14, Blood Urea Nitrogen 12, Creatinine 0.9, Estimat Glomerular Filtration Rate > 60 , Glucose Level 176H, Hemoglobin A1c 6.3H, Uric Acid 8.0H, Calcium Level 8.5L, Phosphorus Level 5.1H, Magnesium Level 1.8, Ferritin 613H, Total Bilirubin < 0.2 , Gamma Glutamyl Transpeptidase 58, Aspartate Amino Transf (AST/SGOT) 24, Alanine Aminotransferase (ALT/SGPT) 22, Alkaline Phosphatase 112, Total Creatine Kinase 41, Troponin I < 0.30, C-Reactive Protein, Quantitative 16.5H, Pro-B-Type Natriuretic Peptide 351H, Total Protein 6.0L, Albumin 2.2L, Globulin 3.8, Albumin/Globulin Ratio 0.5L, Triglycerides Level 78, Cholesterol Level 145 , LDL Cholesterol 91, HDL Cholesterol 38, Cholesterol/HDL Ratio 3.8, Vitamin B12 Level 1927H, Folate [Pending], Thyroid Stimulating Hormone (TSH) 5.150H, Free Thyroxine 1.28 04/06/16 12:30: Erythrocyte Sedimentation Rate 137H, Reticulocyte Count 1.8, Prothrombin Time 12.3H, Prothromb Time International Ratio 1.2H, Activated Partial Thromboplast Time 34H, Iron Level 19L, Total Iron Binding Capacity 193L, Percent Iron Saturation 10L, Unsaturated Iron Binding 174, Lactate Dehydrogenase 169, Carcinoembryonic Antigen 4.8H Height (Feet): 5 Height (Inches): 8.00 Weight (Pounds): 180 General Appearance: no apparent distress EENT: normal ENT inspection Neck: supple Cardiovascular: regular rhythm Respiratory/Chest: chest wall non-tender Abdomen: non tender Genitourinary/Rectal: heme negative stool Extremities: non-tender Edema: 1+ Leg (L), 1+ Leg (R) Edema: mild edema Neurologic: alert Skin: warm/dry Chuy Benitez Apr 06, 2016 15:59
[2016-04-06 16:09] VITALS: BP 120/75
--- NOTE | 2016-04-06 18:00 | Infectious Diseases Prog Note ---
Assessment/Plan Problems: (1) Sepsis Assessment & Plan: will send blood culture and start vancomycin and cefepime empirically . (2) Leukocytosis Assessment & Plan: rule out sepsis, will send culture of the blood. (3) Hypothermia Assessment & Plan: unclear etiology need to rule out ischemic injury , monitor electrolytes and lactic acid. (4) Generalized weakness Assessment & Plan: suspect hypothermia related, start warming blanket , and IFV for hydration (5) DVT (deep vein thrombosis) in Assessment & Plan: recommend anticoagulation and inr monitor, hematology is following Subjective Constitutional: Reports: no symptoms HEENT: Reports: no symptoms Respiratory: Reports: no symptoms Cardiovascular: Reports: no symptoms Gastrointestinal/Abdominal: Reports: no symptoms Genitourinary: Reports: no symptoms Neurologic: Reports: no symptoms Psychiatric: Reports: no symptoms Skin: Reports: no symptoms Allergies: Coded Allergies: UNABLE TO ASSESS (Unverified , 04/05/16) Objective Vital Signs Last 24 Hour Vital Signs Date Time Temp Pulse Resp B/P Pulse Ox O2 Delivery O2 Flow Rate FiO2 04/06/16 17:09 98.1 04/06/16 16:09 98.1 103 14 120/75 96 Room Air 04/06/16 16:00 102 04/06/16 12:00 102 04/06/16 12:00 98.1 102 20 124/81 100 Room Air 04/06/16 08:00 97 04/06/16 08:00 97.1 89 20 113/61 100 Room Air 04/06/16 04:00 96.8 92 20 104/54 100 Room Air 92 04/06/16 04:00 90 04/06/16 00:00 96.8 89 22 114/78 97 Room Air 04/06/16 00:00 87 04/05/16 20:00 96 04/05/16 20:00 96.1 82 13 98/62 98 Room Air 04/05/16 17:59 91.4 80 14 109/78 96 Room Air Height (Feet): 5 Height (Inches): 8.00 Weight (Pounds): 180 General Appearance: WD/WN, no acute distress HEENT: normocephalic, atraumatic, anicteric, mucous membranes moist Respiratory/Chest: chest wall non-tender, lungs clear, normal breath sounds, no respiratory distress, no accessory muscle use Cardiovascular: normal peripheral pulses, normal rate, regular rhythm, no gallop/murmur Abdomen: normal bowel sounds, soft, non tender, no organomegaly, non distended , no mass Extremities: no cyanosis, no clubbing, other - swelling Laboratory Tests Test 04/06/16 04:30 04/06/16 12:30 White Blood Count 9.6 K/UL (4.8-10.8) Red Blood Count 2.74 M/UL (4.70-6.10) L Hemoglobin 7.9 G/DL (14.2-18.0) L Hematocrit 25.7 % (42.0-52.0) L Mean Corpuscular Volume 94 FL (80-99) Mean Corpuscular Hemoglobin 28.7 PG (27.0-31.0) Mean Corpuscular Hemoglobin Concent 30.5 G/DL (32.0-36.0) L Red Cell Distribution Width 20.9 % (11.6-14.8) H Platelet Count 895 K/UL (150-450) H Mean Platelet Volume 6.4 FL (6.5-10.1) L Neutrophils (%) (Auto) % (45.0-75.0) Lymphocytes (%) (Auto) % (20.0-45.0) Monocytes (%) (Auto) % (1.0-10.0) Eosinophils (%) (Auto) % (0.0-3.0) Basophils (%) (Auto) % (0.0-2.0) Differential Total Cells Counted 100 Neutrophils % (Manual) 70 % (45-75) Lymphocytes % (Manual) 11 % (20-45) L Monocytes % (Manual) 9 % (1-10) Eosinophils % (Manual) 0 % (0-3) Basophils % (Manual) 0 % (0-2) Band Neutrophils 10 % (0-8) H Nucleated Red Blood Cells 1 /100 WBC Platelet Estimate Increased H Platelet Morphology Normal Polychromasia Occasional Hypochromasia 1+ Anisocytosis 2+ Sodium Level 144 mEQ/L (135-145) Potassium Level 4.4 mEQ/L (3.4-4.9) Chloride Level 104 mEQ/L (98-107) Carbon Dioxide Level 26 mEQ/L (20-30) Anion Gap 14 (5-15) Blood Urea Nitrogen 12 mg/dL (7-23) Creatinine 0.9 mg/dL (0.7-1.2) Estimat Glomerular Filtration Rate > 60 mL/min (>60) Glucose Level 176 mg/dL (74-106) H Hemoglobin A1c 6.3 % (< 6.0) H Uric Acid 8.0 mg/dL (3.0-7.5) H Calcium Level 8.5 mg/dL (8.6-10.2) L Phosphorus Level 5.1 mg/dL (2.5-4.8) H Magnesium Level 1.8 mg/dL (1.7-2.5) Ferritin 613 ng/mL (10-230) H Total Bilirubin < 0.2 mg/dL (0.0-1.2) Gamma Glutamyl Transpeptidase 58 U/L (8-61) Aspartate Amino Transf (AST/SGOT) 24 U/L (5-40) Alanine Aminotransferase (ALT/SGPT) 22 U/L (3-41) Alkaline Phosphatase 112 U/L (40-129) Total Creatine Kinase 41 U/L (38-174) Troponin I < 0.30 ng/mL (<=0.30) C-Reactive Protein, Quantitative 16.5 mg/dL (< 0.5) H Pro-B-Type Natriuretic Peptide 351 pg/mL (0-125) H Total Protein 6.0 g/dL (6.6-8.7) L Albumin 2.2 g/dL (3.5-5.2) L Globulin 3.8 g/dL Albumin/Globulin Ratio 0.5 (1.0-2.7) L Triglycerides Level 78 mg/dL (< 150) Cholesterol Level 145 mg/dL (< 200) LDL Cholesterol 91 mg/dL (60-99) HDL Cholesterol 38 mg/dL (> 60) Cholesterol/HDL Ratio 3.8 (3.3-4.4) Vitamin B12 Level 1927 pg/mL (211-946) H Folate Pending Thyroid Stimulating Hormone (TSH) 5.150 uIU/mL (0.300-4.500) Free Thyroxine 1.28 ng/dL (0.86-1.85) Erythrocyte Sedimentation Rate 137 MM/HR (0-20) H Reticulocyte Count 1.8 % (0.0-2.0) Prothrombin Time 12.3 SEC (9.30-11.50) H Prothromb Time International Ratio 1.2 (0.9-1.1) H Activated Partial Thromboplast Time 34 SEC (23-33) H Iron Level 19 ug/dL (59-158) L Total Iron Binding Capacity 193 ug/dL (250-400) L Percent Iron Saturation 10 % (15-50) L Unsaturated Iron Binding 174 ug/dL (112-346) Lactate Dehydrogenase 169 U/L (135-230) Carcinoembryonic Antigen 4.8 ng/mL H Current Medications Medications (Trade) Dose Ordered Sig/Jenn Route PRN Reason Start Time Stop Time Status Last Admin Dose Admin Acetaminophen (Tylenol) 500 mg 30 MIN BEFORE BLOOD PRN ORAL 30 MIN PRIOR TO BLOOD TRANSFUS 04/06/16 08:15 05/06/16 08:14 04/06/16 16:10 Acetaminophen (Tylenol) 650 mg Q4H PRN ORAL fever 04/05/16 14:45 05/05/16 14:44 Al Hydroxide/Mg Hydroxide (Mylanta II) 30 ml Q6H PRN ORAL dyspepsia 04/05/16 14:45 05/05/16 14:44 Aspirin (ASA) 81 mg DAILY ORAL 04/06/16 10:00 05/06/16 09:59 04/06/16 10:43 Cefepime HCl/ Dextrose (Maxipime/D5W 50ml) 50 ml @ 100 mls/hr EVERY 12 HOURS IVPB 04/05/16 21:00 04/12/16 20:59 04/06/16 08:50 Dextrose STAT PRN IV Hypoglycemia 04/05/16 14:45 05/05/16 14:44 Diphenhydramine HCl (Benadryl) 50 mg 30MIN BEFORE BLOOD PRN ORAL PRIOR TO BLOOD TRANSFUSION 04/06/16 08:15 05/06/16 08:14 04/06/16 16:09 Lorazepam (Ativan 2mg/ml 1ml) 0.5 mg Q4H PRN IV For Anxiety 04/05/16 14:45 04/12/16 14:44 Morphine Sulfate (Morphine Sulfate) 1 mg EVERY 4 HOURS PRN IVP For Pain 04/05/16 14:45 04/12/16 14:44 Ondansetron HCl (Zofran) 4 mg Q6H PRN IVP Nausea & Vomiting 04/05/16 14:45 05/05/16 14:44 Polyethylene Glycol (Miralax) 17 gm HSPRN PRN ORAL Constipation 04/05/16 14:45 05/05/16 14:44 Vancomycin HCl 1.25 gm/Dextrose 250 ml @ 167 mls/hr Q12HR@0600,1800 IVPB 04/05/16 19:30 04/10/16 19:29 04/06/16 05:30 Zolpidem Tartrate (Ambien) 5 mg HSPRN PRN ORAL Insomnia 04/05/16 14:45 05/05/16 14:44 Sixto Reilly M.D. Apr 06, 2016 18:00
[2016-04-06] MEDS ORDERED: NS 275ml ONE (18:09)
[2016-04-06] MEDS ORDERED: Tubing IV Secondary IV ONE (18:09)
--- NOTE | 2016-04-06 18:10 | Neurology Progress Note ---
Interim History Interim History Interim History Mr. Chiang feels much better today. He is awake and responsive today. He has been warmed up. He tells me that he has been homeless for quite some time now. 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 He remembers that he was cold and went into a adventism and when he was walking out of the adventism he collapsed. Review of Systems Neuro Review of Systems Benign. Objective Physical Exam Last Vital Signs Date Time Temp Pulse Resp B/P Pulse Ox O2 Delivery O2 Flow Rate FiO2 04/06/16 17:09 98.1 04/06/16 16:09 103 14 120/75 96 Room Air Laboratory Tests Test 04/06/16 04:30 04/06/16 12:30 White Blood Count 9.6 K/UL (4.8-10.8) Red Blood Count 2.74 M/UL (4.70-6.10) L Hemoglobin 7.9 G/DL (14.2-18.0) L Hematocrit 25.7 % (42.0-52.0) L Mean Corpuscular Volume 94 FL (80-99) Mean Corpuscular Hemoglobin 28.7 PG (27.0-31.0) Mean Corpuscular Hemoglobin Concent 30.5 G/DL (32.0-36.0) L Red Cell Distribution Width 20.9 % (11.6-14.8) H Platelet Count 895 K/UL (150-450) H Mean Platelet Volume 6.4 FL (6.5-10.1) L Neutrophils (%) (Auto) % (45.0-75.0) Lymphocytes (%) (Auto) % (20.0-45.0) Monocytes (%) (Auto) % (1.0-10.0) Eosinophils (%) (Auto) % (0.0-3.0) Basophils (%) (Auto) % (0.0-2.0) Differential Total Cells Counted 100 Neutrophils % (Manual) 70 % (45-75) Lymphocytes % (Manual) 11 % (20-45) L Monocytes % (Manual) 9 % (1-10) Eosinophils % (Manual) 0 % (0-3) Basophils % (Manual) 0 % (0-2) Band Neutrophils 10 % (0-8) H Nucleated Red Blood Cells 1 /100 WBC Platelet Estimate Increased H Platelet Morphology Normal Polychromasia Occasional Hypochromasia 1+ Anisocytosis 2+ Sodium Level 144 mEQ/L (135-145) Potassium Level 4.4 mEQ/L (3.4-4.9) Chloride Level 104 mEQ/L (98-107) Carbon Dioxide Level 26 mEQ/L (20-30) Anion Gap 14 (5-15) Blood Urea Nitrogen 12 mg/dL (7-23) Creatinine 0.9 mg/dL (0.7-1.2) Estimat Glomerular Filtration Rate > 60 mL/min (>60) Glucose Level 176 mg/dL (74-106) H Hemoglobin A1c 6.3 % (< 6.0) H Uric Acid 8.0 mg/dL (3.0-7.5) H Calcium Level 8.5 mg/dL (8.6-10.2) L Phosphorus Level 5.1 mg/dL (2.5-4.8) H Magnesium Level 1.8 mg/dL (1.7-2.5) Ferritin 613 ng/mL (10-230) H Total Bilirubin < 0.2 mg/dL (0.0-1.2) Gamma Glutamyl Transpeptidase 58 U/L (8-61) Aspartate Amino Transf (AST/SGOT) 24 U/L (5-40) Alanine Aminotransferase (ALT/SGPT) 22 U/L (3-41) Alkaline Phosphatase 112 U/L (40-129) Total Creatine Kinase 41 U/L (38-174) Troponin I < 0.30 ng/mL (<=0.30) C-Reactive Protein, Quantitative 16.5 mg/dL (< 0.5) H Pro-B-Type Natriuretic Peptide 351 pg/mL (0-125) H Total Protein 6.0 g/dL (6.6-8.7) L Albumin 2.2 g/dL (3.5-5.2) L Globulin 3.8 g/dL Albumin/Globulin Ratio 0.5 (1.0-2.7) L Triglycerides Level 78 mg/dL (< 150) Cholesterol Level 145 mg/dL (< 200) LDL Cholesterol 91 mg/dL (60-99) HDL Cholesterol 38 mg/dL (> 60) Cholesterol/HDL Ratio 3.8 (3.3-4.4) Vitamin B12 Level 1927 pg/mL (211-946) H Folate Pending Thyroid Stimulating Hormone (TSH) 5.150 uIU/mL (0.300-4.500) Free Thyroxine 1.28 ng/dL (0.86-1.85) Erythrocyte Sedimentation Rate 137 MM/HR (0-20) H Reticulocyte Count 1.8 % (0.0-2.0) Prothrombin Time 12.3 SEC (9.30-11.50) H Prothromb Time International Ratio 1.2 (0.9-1.1) H Activated Partial Thromboplast Time 34 SEC (23-33) H Iron Level 19 ug/dL (59-158) L Total Iron Binding Capacity 193 ug/dL (250-400) L Percent Iron Saturation 10 % (15-50) L Unsaturated Iron Binding 174 ug/dL (112-346) Lactate Dehydrogenase 169 U/L (135-230) Carcinoembryonic Antigen 4.8 ng/mL H Neurologic Exam Objective PHYSICAL EXAMINATION: GENERAL: He is a well-developed relatively well-nourished, black gentleman, lying in bed, in no acute distress. HEAD: Normocephalic and atraumatic. EENT: Examination benign. NECK: No neck rigidity was observed. NEUROLOGICAL EXAMINATION: MENTAL STATUS EXAMINATION: He was awake but subdued. He was oriented to person, place and time. He was able to recall 3/3 words immediately and could remember them in 1 and 3 minutes. He was able to remember presidents Obama through Jonas. SPEECH: He was mildly dysarthric and hypophonic. LANGUAGE: Normal. CRANIAL NERVE EXAMINATION: II: The visual lim were intact on confrontation testing. III, IV & : The external ocular movements were full. The pupils were 3 mm in diameter, equal, round, regular, and reactive to light. V: He had normal facial sensations, and the temporales, masseters, and pterygoids functioned normally. VII: He had normal facial expressions and no facial asymmetry. VIII: He was able to hear well and had no nystagmus. IX: The palate moved symmetrically on phonation. X: He had no hoarseness of voice. XI: The sternocleidomastoids and trapezii did function. XII: The tongue was in the midline without any fasciculations or atrophy. MOTOR SYSTEM: The tone was normal in all four extremities. Examination of muscle mass revealed no focal wasting. Examination of power revealed G 5/5 power except for G 4+/5 in the iliopsoas muscles. SENSORY EXAMINATION: He responded appropriately to deep pain. He was unable to cooperate for the sensory modalities. REFLEXES: 2+ and bilaterally symmetrical at the biceps, triceps, brachioradialis and knees and 1+ at both knees and ankles. The plantar responses were flexor bilaterally. COORDINATION: He performed well on finger to nose testing. STANCE: Could not be tested. GAIT: Could not be tested. Impression/Recommendations Diagnostic Impression 1. Mr. Abelardo Chiang is a 55-year-old, right-handed, black gentleman, with nebulous past history who was found in a adventism with an altered mental state and generally weak. When he was brought into the [facility] Emergency Room he was significantly hypothermic and possibly septic. He had then improved minimally but continued to be cognitively impoverished and lethargic. 2. He feels much better today. He is awake and responsive. He has been warmed up. 3. On neurological examination, at this time, he is awake but subdued, he is fully oriented,has mild memory problems, and mild proximal lower extremity weakness. 4. Laboratory data on admission revealed that his WBC count was at 10.3, he was significantly anemic with a hemoglobin of 8.2, his platelet count was elevated to 987,000 and his WBC count showed left-sided shift. His chemistry panel revealed that his glucose was elevated to 138. His albumin was low at 2.6. His serum alcohol was <10. The urinalysis was relatively benign. His ESR was elevated to 137. 5. The patient's history and neurological examination are most compatible with possible sepsis associated with significant hypothermia, the source of the sepsis is unclear at this point in time. 6. He has improved significantly today. Recommendations 1. Continue present management. 2. Aggressive treatment of possible sepsis with broad-spectrum antibiotics as per Dr. Reilly. 3. Await EEG to evaluate the patient for the degree and type of cerebral dysfunction. 4. Await CT scan of the brain without contrast to evaluate the patient for intracranial pathology. 5. Observe. Anibal Magdaleno M.D., M.ANIBAL CARRASQUILLO Apr 06, 2016 18:10
[2016-04-06] MEDS: Heparin 25,000u/D5W 500ml 500 ML IV SCH (19:26)
[2016-04-06] MEDS ORDERED: Heparin 5000 units/ml inj IV ONE (19:30)
[2016-04-06 20:04] VITALS: BP 116/76
--- NOTE | 2016-04-06 20:24 | Cardiology Report ---
APPROVED REPORT EXAM: Two-dimensional and M-mode echocardiogram with Doppler and color Doppler. M-Mode DIMENSIONS IVSd1.3 (0.7-1.1cm)Left Atrium (MM)4.0 (1.6-4.0cm) LVDd5.2 (3.5-5.6cm)Aortic Root3.7 (2.0-3.7cm) PWd1.1 (0.7-1.1cm)Aortic Cusp Exc.1.8 (1.5-2.0cm) LVDs4.7 (2.5-4.0cm) PWs1.2 cm Technically difficult study due to poor acoustic windows. Left ventricular ejection fraction estimated to be 45-50%. Mid anterior septal hypokinesis. Trivial circumferential pericardial effusion. Mild left ventricular enlargment. Mild left ventricular hypertrophy. Enlargment of right ventricule. Focal aortic valve sclerosis with adequate cusp excursion Thickened mitral valve leaflets with normal excursion. Mitral annulus and aortic root calcification. Pulmonic valve not well visualized. Normal tricuspid valve structure. IVC at 1.8cm with physiologic collapse. A color flow and spectral Doppler study was performed and revealed: Trace aortic regurgitation. Trace mitral regurgitation. Mitral inflow velocities not indicated. Mild tricuspid regurgitation. Tricuspid systolic velocities suggests peak right ventricular systolic pressure of 42mmHg. Consistent with mild pulmonary hypertension.
[2016-04-07] VITALS (23 sets, daily range): BP systolic 105–148; BP diastolic 51–98
[2016-04-07 02:04] LABS: BASOPHILS % (AUTO) 0.4 % (0.0-2.0); LYMPHOCYTES % (AUTO) 22.8 % (20.0-45.0); MEAN CORPUSCULAR HEMOGLOBIN 28.8 PG (27.0-31.0); MEAN CORPUSCULAR HGB CONC 33.2 G/DL (32.0-36.0); MEAN CORPUSCULAR VOLUME 87 FL (80-99); MEAN PLATELET VOLUME 5.9 FL (6.5-10.1); MONOCYTES % (AUTO) 9.8 % (1.0-10.0); NEUTROPHILS % (AUTO) 66.9 % (45.0-75.0); PLATELET COUNT 765 K/UL (150-450); RED BLOOD COUNT 2.88 M/UL (4.70-6.10); RED CELL DISTRIBUTION WIDTH 17.5 % (11.6-14.8); WHITE BLOOD COUNT 9.9 K/UL (4.8-10.8)
--- NOTE | 2016-04-07 06:07 | History and Physical Report ---
DATE OF ADMISSION: 04/05/2016 HISTORY OF PRESENT ILLNESS: The patient has been admitted for severe hyponatremia. The patient is completely encephalopathic, cannot get any reliable history from him at this point, but the patient apparently history of alcoholism, he is homeless, awake and oriented x2, but only complains of neck pain. However, is a very poor historian. At this point, he is confused and cannot give any reliable history also complains of he cannot walk. The patient has severe environmental exposure to cold. Initial temperature is about 85.5. PAST MEDICAL HISTORY: Alcohol abuse and degenerative joint disease. PAST SURGICAL HISTORY: None. The patient apparently homeless. MEDICATIONS: None. SOCIAL HISTORY: The patient smokes, history of alcohol abuse, illicit drug abuse. FAMILY HISTORY: Noncontributory. REVIEW OF SYSTEMS: HEENT: Denies headache. Respiratory: Denies shortness of breath. No cough. Cardiovascular: Denies chest pain. Gastrointestinal: Denies nausea, vomiting, or diarrhea. Extremities: Denies lower extremity pain. extremity weakness and unable to walk. Very poor historian . PHYSICAL EXAMINATION: VITAL SIGNS: Temperature is 97.1 degrees, pulse 89, and blood pressure 113/61. HEENT: PERRLA. NECK: Supple. No lymphadenopathy. CHEST: Clear to auscultation. GASTROINTESTINAL: Soft, nontender, and nondistended. No organomegaly. EXTREMITIES: 1+ edema. Reflexes are equal on both sides. Oriented to time and name only. LABORATORY DATA: WBC is 10.3 hemoglobin 13.2, and platelets 183,000. Sodium is 144, potassium 4.4, BUN 12, creatinine , and glucose is 176. TSH of 5.1. ASSESSMENT AND PLAN: Alcohol abuse, hypothermia, altered mental status, encephalopathy rule out etiology, sepsis, and severe hypothermia. PLAN: We have initiated measures and have consult with Dr. Paez, Dr. Alexis, Dr. Reilly, and Dr. Mueller and Dr. Magdaleno for the above-mentioned diagnoses and treatment and to see if there is ulcer in brain involved or there is any stroke causing . Ali Edilberto Massey DR: Noni JOB#: [id number] CC:
[2016-04-07] MEDS: Aspirin Baby 81mg ORAL SCH (08:26)
--- NOTE | 2016-04-07 11:02 | General Progress Note ---
Assessment/Plan Assessment/Plan Assessment: 1. Anemia 2/2 chronic disease, ferritin elevated, tibc low. Does not have iron deficiency 2. Thrombocytosis is likely related to hx of anemia - reactive process 3. Leukocytosis, rule out sepsis. Send blood culture and urine culture. on wide spectrum antibiotic therapy. 4. Hypothermia. Recommend warming blanket. Unclear etiology at this point. 5. Generalized weakness, suspect due to hypothermia. 6. Coagulopathy 7. Weakness Recommendations: 1. Monitor counts 2. Transfuse as needed 3. pRBC transfuse if hgb <7 4. Transfuse plt if plt <10k 5. Imaging US abd 6. Anemia w/u reviewed 7. Jak2 mutation analysis pending 8. DOES not need a bone marrow bx 9. Consider GI eval for anemia in 55 yo male 10. Alcohol cessation recommended 11. Followup renal, ID, cards, pulm recs 12. DW Staff Sincerely, Chuy Benitez MD Subjective Constitutional: Reports: no symptoms HEENT: Reports: no symptoms Cardiovascular: Reports: no symptoms Respiratory: Reports: no symptoms Gastrointestinal/Abdominal: Reports: no symptoms Genitourinary: Reports: no symptoms Neurologic/Psychiatric: Reports: no symptoms Endocrine: Reports: no symptoms Hematologic/Lymphatic: Reports: anemia Allergies: Coded Allergies: UNABLE TO ASSESS (Unverified , 04/05/16) Subjective stable, no bleeding reported today Objective Last 24 Hour Vital Signs Date Time Temp Pulse Resp B/P Pulse Ox O2 Delivery O2 Flow Rate FiO2 04/07/16 08:00 98.4 135 20 133/87 93 Room Air 04/07/16 08:00 115 04/07/16 04:07 98.1 107 22 138/77 98 Room Air 04/07/16 04:00 110 04/07/16 00:06 98.4 105 21 137/86 100 Room Air 04/07/16 00:00 108 04/06/16 20:04 98.1 100 14 116/76 97 Room Air 04/06/16 20:00 101 04/06/16 17:09 98.1 04/06/16 16:09 98.1 103 14 120/75 96 Room Air 04/06/16 16:00 102 04/06/16 12:00 102 04/06/16 12:00 98.1 102 20 124/81 100 Room Air Intake and Output 04/06/16 04/07/16 18:59 06:59 Intake Total 517 ml 1189.930 ml Output Total 500 ml 1000 ml Balance 17 ml 189.930 ml Intake Oral 300 ml 200 ml IV Total 217 ml 739.930 ml Blood Product 250 ml Output Urine Total 500 ml 1000 ml # Voids 3 # Bowel Movements 2 Laboratory Tests 04/06/16 12:30: Erythrocyte Sedimentation Rate 137H, Reticulocyte Count 1.8, Prothrombin Time 12.3H, Prothromb Time International Ratio 1.2H, Activated Partial Thromboplast Time 34H, Iron Level 19L, Total Iron Binding Capacity 193L, Percent Iron Saturation 10L, Unsaturated Iron Binding 174, Lactate Dehydrogenase 169, Carcinoembryonic Antigen 4.8H 04/07/16 01:45: Activated Partial Thromboplast Time 69H, White Blood Count 9.9, Red Blood Count 2.88L, Hemoglobin 8.3L, Hematocrit 25.0L, Mean Corpuscular Volume 87, Mean Corpuscular Hemoglobin 28.8, Mean Corpuscular Hemoglobin Concent 33.2, Red Cell Distribution Width 17.5H, Platelet Count 765H, Mean Platelet Volume 5.9L, Neutrophils (%) (Auto) 66.9, Lymphocytes (%) (Auto) 22.8, Monocytes (%) (Auto) 9.8, Eosinophils (%) (Auto) 0.0, Basophils (%) (Auto) 0.4 Height (Feet): 5 Height (Inches): 8.00 Weight (Pounds): 180 General Appearance: no apparent distress EENT: TMs normal Neck: supple Cardiovascular: regular rhythm Respiratory/Chest: chest wall non-tender Abdomen: no organomegaly Extremities: non-tender Edema: no edema noted Leg (L), no edema noted Leg (R) Edema: mild edema Neurologic: alert Skin: warm/dry Chuy Bentiez Apr 07, 2016 11:02
--- NOTE | 2016-04-07 11:24 | Pulmonology Progress Note ---
Assessment/Plan Problems: (1) DVT (deep venous thrombosis) (2) Hypothermia (3) Generalized weakness (4) Sepsis Assessment & Plan: all cultures are negative, (5) Symptomatic anemia Assessment/Plan heparin drip start coumadine dc antibiotcs, cultures are negative, pt is afebrile, no sign of any infection, if pt spikes temp or wbc rises will reculture ct angio to rule out PE Subjective ROS Limited/Unobtainable: No Interval Events: no new complains Allergies: Coded Allergies: UNABLE TO ASSESS (Unverified , 04/05/16) Objective Last 24 Hour Vital Signs Date Time Temp Pulse Resp B/P Pulse Ox O2 Delivery O2 Flow Rate FiO2 04/07/16 08:00 98.4 135 20 133/87 93 Room Air 04/07/16 08:00 115 04/07/16 04:07 98.1 107 22 138/77 98 Room Air 04/07/16 04:00 110 04/07/16 00:06 98.4 105 21 137/86 100 Room Air 04/07/16 00:00 108 04/06/16 20:04 98.1 100 14 116/76 97 Room Air 04/06/16 20:00 101 04/06/16 17:09 98.1 04/06/16 16:09 98.1 103 14 120/75 96 Room Air 04/06/16 16:00 102 04/06/16 12:00 102 04/06/16 12:00 98.1 102 20 124/81 100 Room Air Intake and Output 04/06/16 04/07/16 19:00 07:00 Intake Total 350 ml 1213.323 ml Output Total 500 ml 1000 ml Balance -150 ml 213.323 ml Intake Oral 300 ml 200 ml IV Total 50 ml 763.323 ml Blood Product 250 ml Output Urine Total 500 ml 1000 ml # Voids 3 # Bowel Movements 2 General Appearance: WD/WN HEENT: normocephalic, atraumatic Respiratory/Chest: chest wall non-tender, lungs clear Cardiovascular: normal peripheral pulses, normal rate Abdomen: normal bowel sounds, no organomegaly Neurologic/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 Complete 04/05/16 11:42 Rectum VRE Culture - Final NO VANCOMYCIN RESISTANT ENTEROCOCCUS ... Complete Laboratory Tests 04/06/16 12:30: Erythrocyte Sedimentation Rate 137H, Reticulocyte Count 1.8, Prothrombin Time 12.3H, Prothromb Time International Ratio 1.2H, Activated Partial Thromboplast Time 34H, Iron Level 19L, Total Iron Binding Capacity 193L, Percent Iron Saturation 10L, Unsaturated Iron Binding 174, Lactate Dehydrogenase 169, Carcinoembryonic Antigen 4.8H 04/07/16 01:45: Activated Partial Thromboplast Time 69H, White Blood Count 9.9, Red Blood Count 2.88L, Hemoglobin 8.3L, Hematocrit 25.0L, Mean Corpuscular Volume 87, Mean Corpuscular Hemoglobin 28.8, Mean Corpuscular Hemoglobin Concent 33.2, Red Cell Distribution Width 17.5H, Platelet Count 765H, Mean Platelet Volume 5.9L, Neutrophils (%) (Auto) 66.9, Lymphocytes (%) (Auto) 22.8, Monocytes (%) (Auto) 9.8, Eosinophils (%) (Auto) 0.0, Basophils (%) (Auto) 0.4 Current Medications Medications (Trade) Dose Ordered Sig/Jenn Route PRN Reason Start Time Stop Time Status Last Admin Dose Admin Acetaminophen (Tylenol) 500 mg 30 MIN BEFORE BLOOD PRN ORAL 30 MIN PRIOR TO BLOOD TRANSFUS 04/06/16 08:15 05/06/16 08:14 04/06/16 16:10 Acetaminophen (Tylenol) 650 mg Q4H PRN ORAL fever 04/05/16 14:45 05/05/16 14:44 Al Hydroxide/Mg Hydroxide (Mylanta II) 30 ml Q6H PRN ORAL dyspepsia 04/05/16 14:45 05/05/16 14:44 Aspirin 81 mg 81 mg DAILY ORAL 04/06/16 10:00 05/06/16 09:59 04/07/16 08:26 Cefepime HCl/ Dextrose (Maxipime/D5W 50ml) 50 ml @ 100 mls/hr EVERY 12 HOURS IVPB 04/05/16 21:00 04/12/16 20:59 04/07/16 08:26 Dextrose STAT PRN IV Hypoglycemia 04/05/16 14:45 05/05/16 14:44 Diphenhydramine HCl (Benadryl) 50 mg 30MIN BEFORE BLOOD PRN ORAL PRIOR TO BLOOD TRANSFUSION 04/06/16 08:15 05/06/16 08:14 04/06/16 16:09 Heparin Sodium/ Dextrose (Heparin) 500 ml @ 29.393 mls/ hr adjust per protocol IV 04/06/16 19:30 05/06/16 19:29 04/06/16 19:26 Lorazepam (Ativan 2mg/ml 1ml) 0.5 mg Q4H PRN IV For Anxiety 04/05/16 14:45 04/12/16 14:44 Morphine Sulfate (Morphine Sulfate) 1 mg EVERY 4 HOURS PRN IVP For Pain 04/05/16 14:45 04/12/16 14:44 Ondansetron HCl (Zofran) 4 mg Q6H PRN IVP Nausea & Vomiting 04/05/16 14:45 05/05/16 14:44 Polyethylene Glycol (Miralax) 17 gm HSPRN PRN ORAL Constipation 04/05/16 14:45 05/05/16 14:44 Vancomycin HCl 1.25 gm/Dextrose 250 ml @ 167 mls/hr Q12HR@0600,1800 IVPB 04/05/16 19:30 04/10/16 19:29 04/07/16 05:49 Zolpidem Tartrate (Ambien) 5 mg HSPRN PRN ORAL Insomnia 04/05/16 14:45 05/05/16 14:44 MARSHA CAMEJO Apr 07, 2016 11:24
--- NOTE | 2016-04-07 11:25 | Neurology Progress Note ---
Interim History Interim History Interim History Mr. Chiang continues to feel much better. He is awake and responsive. He is able to maintain his temperature using regular blankets. He denies any new neurologic symptoms. The mind is clear. He feels stronger generally. Review of Systems Neuro Review of Systems Benign. Objective Physical Exam Last Vital Signs Date Time Temp Pulse Resp B/P Pulse Ox O2 Delivery O2 Flow Rate FiO2 04/07/16 08:00 98.4 135 20 133/87 93 Room Air Laboratory Tests Test 04/06/16 12:30 04/07/16 01:45 Erythrocyte Sedimentation Rate 137 MM/HR (0-20) H Reticulocyte Count 1.8 % (0.0-2.0) Prothrombin Time 12.3 SEC (9.30-11.50) H Prothromb Time International Ratio 1.2 (0.9-1.1) H Activated Partial Thromboplast Time 34 SEC (23-33) H 69 SEC (23-33) H Iron Level 19 ug/dL (59-158) L Total Iron Binding Capacity 193 ug/dL (250-400) L Percent Iron Saturation 10 % (15-50) L Unsaturated Iron Binding 174 ug/dL (112-346) Lactate Dehydrogenase 169 U/L (135-230) Carcinoembryonic Antigen 4.8 ng/mL H White Blood Count 9.9 K/UL (4.8-10.8) Red Blood Count 2.88 M/UL (4.70-6.10) L Hemoglobin 8.3 G/DL (14.2-18.0) L Hematocrit 25.0 % (42.0-52.0) L Mean Corpuscular Volume 87 FL (80-99) Mean Corpuscular Hemoglobin 28.8 PG (27.0-31.0) Mean Corpuscular Hemoglobin Concent 33.2 G/DL (32.0-36.0) Red Cell Distribution Width 17.5 % (11.6-14.8) H Platelet Count 765 K/UL (150-450) H Mean Platelet Volume 5.9 FL (6.5-10.1) L Neutrophils (%) (Auto) 66.9 % (45.0-75.0) Lymphocytes (%) (Auto) 22.8 % (20.0-45.0) Monocytes (%) (Auto) 9.8 % (1.0-10.0) Eosinophils (%) (Auto) 0.0 % (0.0-3.0) Basophils (%) (Auto) 0.4 % (0.0-2.0) Neurologic Exam Objective PHYSICAL EXAMINATION: GENERAL: He is a well-developed, relatively well-nourished, black gentleman, lying in bed, in no acute distress. HEAD: Normocephalic and atraumatic. EENT: Examination benign. NECK: No neck rigidity was observed. NEUROLOGICAL EXAMINATION: MENTAL STATUS EXAMINATION: He was awake and more alert. He was oriented to person, place and time. He was able to recall 3/3 words immediately and could remember them in 1 and 3 minutes. He was able to remember presidents Obama through Jonas. SPEECH: He was mildly dysarthric and hypophonic. LANGUAGE: Normal. CRANIAL NERVE EXAMINATION: II: The visual lim were intact on confrontation testing. III, IV & : The external ocular movements were full. The pupils were 3 mm in diameter, equal, round, regular, and reactive to light. V: He had normal facial sensations, and the temporales, masseters, and pterygoids functioned normally. VII: He had normal facial expressions and no facial asymmetry. VIII: He was able to hear well and had no nystagmus. IX: The palate moved symmetrically on phonation. X: He had no hoarseness of voice. XI: The sternocleidomastoids and trapezii did function. XII: The tongue was in the midline without any fasciculations or atrophy. MOTOR SYSTEM: The tone was normal in all four extremities. Examination of muscle mass revealed no focal wasting. Examination of power revealed G 5/5 power except for G 4++/5 in the iliopsoas muscles. SENSORY EXAMINATION: He responded appropriately to deep pain. He was unable to cooperate for the sensory modalities. REFLEXES: 1++ and bilaterally symmetrical at the biceps, triceps, brachioradialis and knees. 1+ at both ankles. The plantar responses were flexor bilaterally. COORDINATION: He performed well on finger to nose testing. STANCE: Could not be tested. GAIT: Could not be tested. Impression/Recommendations Diagnostic Impression 1. Mr. Abelardo Chiang is a 55-year-old, right-handed, black gentleman, with nebulous past history who was found in a taoist with an altered mental state and generally weak. When he was brought into the [facility] Emergency Room he was significantly hypothermic and possibly septic. He had then improved minimally but continued to be cognitively impoverished and lethargic. 2. He feels much better today. He is awake and more alert. He is able to maintain his body temperature with regular blankets. 3. On neurological examination, at this time, he is awake and more alert, he is fully oriented, has mild memory problems, and mild proximal lower extremity weakness. 4. Laboratory data on admission revealed that his WBC count was at 10.3, he was significantly anemic with a hemoglobin of 8.2, his platelet count was elevated to 987,000 and his WBC count showed left-sided shift. His chemistry panel revealed that his glucose was elevated to 138. His albumin was low at 2.6. His serum alcohol was <10. The urinalysis was relatively benign. His ESR was elevated to 137. 5. The EEG done on 04/06/16 revealed a mild encephalopathy. 6. The patient's history and neurological examination are most compatible with possible sepsis associated with significant hypothermia, the source of the sepsis is unclear at this point in time. 7. He has improved significantly today. Recommendations 1. Continue present management. 2. Aggressive treatment of possible sepsis with broad-spectrum antibiotics as per Dr. Reilly. 3. Await CT scan of the brain without contrast to evaluate the patient for intracranial pathology. 4. Observe. Anibal Vega M.D., M.S.P.H. ANIBAL VEGA Apr 07, 2016 11:25
--- NOTE | 2016-04-07 11:32 | General Progress Note ---
Assessment/Plan Problem List: (1) Hypothermia ICD Codes: T68.XXXA - Hypothermia, initial encounter SNOMED: 279852980 Qualifiers: Qualified Codes: T68.XXXA - Hypothermia, initial encounter (2) Symptomatic anemia ICD Codes: D64.9 - Anemia, unspecified SNOMED: 070705490 (3) Generalized weakness ICD Codes: R53.1 - Weakness SNOMED: 95411207 Status: progressing Assessment/Plan afebrile vitals stable hypothermia r/o sepsis reviewed chart and labs Subjective Constitutional: Reports: no symptoms HEENT: Reports: no symptoms Respiratory: Reports: no symptoms Allergies: Coded Allergies: UNABLE TO ASSESS (Unverified , 04/05/16) Objective Last 24 Hour Vital Signs Date Time Temp Pulse Resp B/P Pulse Ox O2 Delivery O2 Flow Rate FiO2 04/07/16 08:00 98.4 135 20 133/87 93 Room Air 04/07/16 08:00 115 04/07/16 04:07 98.1 107 22 138/77 98 Room Air 04/07/16 04:00 110 04/07/16 00:06 98.4 105 21 137/86 100 Room Air 04/07/16 00:00 108 04/06/16 20:04 98.1 100 14 116/76 97 Room Air 04/06/16 20:00 101 04/06/16 17:09 98.1 04/06/16 16:09 98.1 103 14 120/75 96 Room Air 04/06/16 16:00 102 04/06/16 12:00 102 04/06/16 12:00 98.1 102 20 124/81 100 Room Air Intake and Output 04/06/16 04/07/16 19:00 07:00 Intake Total 350 ml 1213.323 ml Output Total 500 ml 1000 ml Balance -150 ml 213.323 ml Intake Oral 300 ml 200 ml IV Total 50 ml 763.323 ml Blood Product 250 ml Output Urine Total 500 ml 1000 ml # Voids 3 # Bowel Movements 2 Laboratory Tests 04/06/16 12:30: Erythrocyte Sedimentation Rate 137H, Reticulocyte Count 1.8, Prothrombin Time 12.3H, Prothromb Time International Ratio 1.2H, Activated Partial Thromboplast Time 34H, Iron Level 19L, Total Iron Binding Capacity 193L, Percent Iron Saturation 10L, Unsaturated Iron Binding 174, Lactate Dehydrogenase 169, Carcinoembryonic Antigen 4.8H 04/07/16 01:45: Activated Partial Thromboplast Time 69H, White Blood Count 9.9, Red Blood Count 2.88L, Hemoglobin 8.3L, Hematocrit 25.0L, Mean Corpuscular Volume 87, Mean Corpuscular Hemoglobin 28.8, Mean Corpuscular Hemoglobin Concent 33.2, Red Cell Distribution Width 17.5H, Platelet Count 765H, Mean Platelet Volume 5.9L, Neutrophils (%) (Auto) 66.9, Lymphocytes (%) (Auto) 22.8, Monocytes (%) (Auto) 9.8, Eosinophils (%) (Auto) 0.0, Basophils (%) (Auto) 0.4 Height (Feet): 5 Height (Inches): 8.00 Weight (Pounds): 180 Sangeeta Massey MD Apr 07, 2016 11:32
[2016-04-07] MEDS ORDERED: Diltiazem 25mg/5ml IV ONE (12:00)
[2016-04-07] MEDS ORDERED: Metoprolol 5mg/5ml Inj IVP PRN (12:00)
[2016-04-07] MEDS ORDERED: Heparin 5000 units/ml inj IV ONE (12:00)
[2016-04-07] MEDS: Heparin 25,000u/D5W 500ml 500 ML IV SCH (12:04)
[2016-04-07] MEDS ORDERED: Digoxin 0.5mg/2ml Inj IVP ONE (12:20)
--- NOTE | 2016-04-07 16:39 | Infectious Diseases Prog Note ---
Assessment/Plan Problems: (1) Sepsis Assessment & Plan: await blood culture, continue vancomycin and cefepime empirically . (2) Leukocytosis Assessment & Plan: rule out sepsis, await culture of the blood, continue wide spectrum antibiotics for now until blood culture is negative for 48 hours . (3) Hypothermia Assessment & Plan: unclear etiology need to rule out ischemic injury , monitor electrolytes and lactic acid. (4) Generalized weakness Assessment & Plan: suspect hypothermia related, check TSH (5) DVT (deep venous thrombosis) Assessment & Plan: continue anticoagulation, monitor INR, CTA of the lung to rule out PE is pending Subjective ROS Limited/Unobtainable: Yes Allergies: Coded Allergies: UNABLE TO ASSESS (Unverified , 04/05/16) Subjective he is more awake and alert today, no longer hypothermic, denied any fever or chills. Objective Vital Signs Last 24 Hour Vital Signs Date Time Temp Pulse Resp B/P Pulse Ox O2 Delivery O2 Flow Rate FiO2 04/07/16 15:00 98 19 120/67 99 Room Air 04/07/16 14:30 98 19 120/56 99 Room Air 04/07/16 14:00 100 20 119/51 100 Room Air 04/07/16 13:34 104 114/98 04/07/16 13:30 100 22 109/61 99 Room Air 04/07/16 13:29 102 114/88 04/07/16 13:00 100 04/07/16 13:00 119 21 105/88 100 Room Air 04/07/16 12:30 98.0 141 22 114/88 100 Room Air 04/07/16 12:20 141 04/07/16 12:00 126 04/07/16 11:54 160 133/87 04/07/16 08:00 98.4 135 20 133/87 93 Room Air 04/07/16 08:00 115 04/07/16 04:07 98.1 107 22 138/77 98 Room Air 04/07/16 04:00 110 04/07/16 00:06 98.4 105 21 137/86 100 Room Air 04/07/16 00:00 108 04/06/16 20:04 98.1 100 14 116/76 97 Room Air 04/06/16 20:00 101 04/06/16 17:09 98.1 Height (Feet): 5 Height (Inches): 8.00 Weight (Pounds): 180 General Appearance: WD/WN, no acute distress HEENT: normocephalic, atraumatic, anicteric, mucous membranes moist, PERRL Respiratory/Chest: chest wall non-tender, normal breath sounds, no respiratory distress, no accessory muscle use, respiratory distress Cardiovascular: normal peripheral pulses, normal rate, regular rhythm, no gallop/murmur, no JVD Abdomen: normal bowel sounds, soft, non tender, no organomegaly, non distended , no mass, no scars Extremities: no cyanosis, no clubbing Skin: no rash Microbiology Date/Time Source Procedure Growth Status 04/05/16 11:42 Nasal Nares MRSA Culture - Final NO METHICILLIN RESISTANT STAPH AUREUS... Complete 04/05/16 11:42 Rectum VRE Culture - Final NO VANCOMYCIN RESISTANT ENTEROCOCCUS ... Complete Laboratory Tests Test 04/07/16 01:45 04/07/16 05:05 White Blood Count 9.9 K/UL (4.8-10.8) Red Blood Count 2.88 M/UL (4.70-6.10) L Hemoglobin 8.3 G/DL (14.2-18.0) L Hematocrit 25.0 % (42.0-52.0) L Mean Corpuscular Volume 87 FL (80-99) Mean Corpuscular Hemoglobin 28.8 PG (27.0-31.0) Mean Corpuscular Hemoglobin Concent 33.2 G/DL (32.0-36.0) Red Cell Distribution Width 17.5 % (11.6-14.8) H Platelet Count 765 K/UL (150-450) H Mean Platelet Volume 5.9 FL (6.5-10.1) L Neutrophils (%) (Auto) 66.9 % (45.0-75.0) Lymphocytes (%) (Auto) 22.8 % (20.0-45.0) Monocytes (%) (Auto) 9.8 % (1.0-10.0) Eosinophils (%) (Auto) 0.0 % (0.0-3.0) Basophils (%) (Auto) 0.4 % (0.0-2.0) Activated Partial Thromboplast Time 69 SEC (23-33) H 5'-Nucleotidase Pending Current Medications Medications (Trade) Dose Ordered Sig/Jenn Route PRN Reason Start Time Stop Time Status Last Admin Dose Admin Acetaminophen (Tylenol) 500 mg 30 MIN BEFORE BLOOD PRN ORAL 30 MIN PRIOR TO BLOOD TRANSFUS 04/06/16 08:15 05/06/16 08:14 04/06/16 16:10 Acetaminophen (Tylenol) 650 mg Q4H PRN ORAL fever 04/05/16 14:45 05/05/16 14:44 Al Hydroxide/Mg Hydroxide (Mylanta II) 30 ml Q6H PRN ORAL dyspepsia 04/05/16 14:45 05/05/16 14:44 Aspirin 81 mg 81 mg DAILY ORAL 04/06/16 10:00 05/06/16 09:59 04/07/16 08:26 Dextrose (Dextrose 50%) STAT PRN IV Hypoglycemia 04/05/16 14:45 05/05/16 14:44 Diltiazem HCl/ Dextrose (Cardizem/D5W 100ml) 125 ml @ 0 mls/hr Q24H IV 04/07/16 13:00 04/08/16 12:59 04/07/16 13:34 Diphenhydramine HCl (Benadryl) 50 mg 30MIN BEFORE BLOOD PRN ORAL PRIOR TO BLOOD TRANSFUSION 04/06/16 08:15 05/06/16 08:14 04/06/16 16:09 Heparin Sodium/ Dextrose (Heparin) 500 ml @ 29.393 mls/ hr adjust per protocol IV 04/06/16 19:30 05/06/16 19:29 04/07/16 12:04 Lorazepam (Ativan 2mg/ml 1ml) 0.5 mg Q4H PRN IV For Anxiety 04/05/16 14:45 04/12/16 14:44 Metoprolol Tartrate (Lopressor) 5 mg Q1H PRN IVP spb more than 120 04/07/16 12:00 05/07/16 11:59 Morphine Sulfate (Morphine Sulfate) 1 mg EVERY 4 HOURS PRN IVP For Pain 04/05/16 14:45 04/12/16 14:44 Ondansetron HCl (Zofran) 4 mg Q6H PRN IVP Nausea & Vomiting 04/05/16 14:45 05/05/16 14:44 Polyethylene Glycol (Miralax) 17 gm HSPRN PRN ORAL Constipation 04/05/16 14:45 05/05/16 14:44 Warfarin Sodium (Coumadin per pharmacy) 1 ea DAILY PRN MISC Per rx protocol 04/07/16 11:30 05/07/16 11:29 Warfarin Sodium 7.5 mg 7.5 mg COUMADIN ONCE ORAL 04/07/16 17:00 04/07/16 17:01 Zolpidem Tartrate (Ambien) 5 mg HSPRN PRN ORAL Insomnia 04/05/16 14:45 05/05/16 14:44 Sixto Reilly M.D. Apr 07, 2016 16:39
[2016-04-07] MEDS ORDERED: Warfarin Sodium 7.5mg ORAL ONE (17:00)
--- NOTE | 2016-04-07 17:00 | Cardiac Electrophysiology PN ---
Assessment/Plan Status Narrative Technically difficult study due to poor acoustic windows. Left ventricular ejection fraction estimated to be 45-50%. Mid anterior septal hypokinesis. Trivial circumferential pericardial effusion. Mild left ventricular enlargment. Mild left ventricular hypertrophy. Enlargment of right ventricule. Focal aortic valve sclerosis with adequate cusp excursion Thickened mitral valve leaflets with normal excursion. Mitral annulus and aortic root calcification. Pulmonic valve not well visualized. Normal tricuspid valve structure. IVC at 1.8cm with physiologic collapse. Assessment/Plan 1. Recurrent SVT. Add Digoxin 0.25 mg po daily and start Cardizem 60 mg po q6 hr. DC Cardizem drip. 2. Generalized weakness due to combination of hypothermia, profound anemia. His hemoglobin is only 7.9. 3.Mild Cardiomyopathy EF 45-50% Could be due to SVT tachy myopathy. 4. Severe thrombocytosis almost a Million as well as anemia with hemoglobin of 8.2.Follow up Dr Giang. 5. AMS. Head CT and EEG and neuro follow up Dr Magdaleno. 6. Right leg Soleus DVT on Heparin and Coumadin per pharmacy. BRIGIDA RN and Dr Mueller Transfer to tele Subjective Subjective Transferred to ICU for recurrent SVT with rate 170s. Got 0.5 mg IV Digoxin. On Cardizem drip.Alert in NAD. Objective Last 24 Hour Vital Signs Date Time Temp Pulse Resp B/P Pulse Ox O2 Delivery O2 Flow Rate FiO2 04/07/16 16:00 99.0 87 18 138/96 100 Room Air 04/07/16 15:30 98 19 133/55 100 Room Air 04/07/16 15:00 98 19 120/67 99 Room Air 04/07/16 14:30 98 19 120/56 99 Room Air 04/07/16 14:00 100 20 119/51 100 Room Air 04/07/16 13:34 104 114/98 04/07/16 13:30 100 22 109/61 99 Room Air 04/07/16 13:29 102 114/88 04/07/16 13:00 100 04/07/16 13:00 119 21 105/88 100 Room Air 04/07/16 12:30 98.0 141 22 114/88 100 Room Air 04/07/16 12:20 141 04/07/16 12:00 126 04/07/16 11:54 160 133/87 04/07/16 08:00 98.4 135 20 133/87 93 Room Air 04/07/16 08:00 115 04/07/16 04:07 98.1 107 22 138/77 98 Room Air 04/07/16 04:00 110 04/07/16 00:06 98.4 105 21 137/86 100 Room Air 04/07/16 00:00 108 04/06/16 20:04 98.1 100 14 116/76 97 Room Air 04/06/16 20:00 101 04/06/16 17:09 98.1 Intake and Output 04/06/16 04/07/16 19:00 07:00 Intake Total 350 ml 1213.323 ml Output Total 500 ml 1000 ml Balance -150 ml 213.323 ml Intake Oral 300 ml 200 ml IV Total 50 ml 763.323 ml Blood Product 250 ml Output Urine Total 500 ml 1000 ml # Voids 3 # Bowel Movements 2 Laboratory Tests Test 04/07/16 01:45 04/07/16 05:05 White Blood Count 9.9 K/UL (4.8-10.8) Red Blood Count 2.88 M/UL (4.70-6.10) L Hemoglobin 8.3 G/DL (14.2-18.0) L Hematocrit 25.0 % (42.0-52.0) L Mean Corpuscular Volume 87 FL (80-99) Mean Corpuscular Hemoglobin 28.8 PG (27.0-31.0) Mean Corpuscular Hemoglobin Concent 33.2 G/DL (32.0-36.0) Red Cell Distribution Width 17.5 % (11.6-14.8) H Platelet Count 765 K/UL (150-450) H Mean Platelet Volume 5.9 FL (6.5-10.1) L Neutrophils (%) (Auto) 66.9 % (45.0-75.0) Lymphocytes (%) (Auto) 22.8 % (20.0-45.0) Monocytes (%) (Auto) 9.8 % (1.0-10.0) Eosinophils (%) (Auto) 0.0 % (0.0-3.0) Basophils (%) (Auto) 0.4 % (0.0-2.0) Activated Partial Thromboplast Time 69 SEC (23-33) H 5'-Nucleotidase Pending Microbiology Date/Time Source Procedure Growth Status 04/05/16 11:42 Nasal Nares MRSA Culture - Final NO METHICILLIN RESISTANT STAPH AUREUS... Complete 04/05/16 11:42 Rectum VRE Culture - Final NO VANCOMYCIN RESISTANT ENTEROCOCCUS ... Complete Objective HEAD AND NECK: Shows no JVD. LUNGS: Clear. CARDIOVASCULAR: Shows regular S1 and S2 with no gallop or murmur. ABDOMEN: Soft. EXTREMITIES: No pitting edema. DOROTHEA LEIGH Apr 07, 2016 17:00
[2016-04-07] MEDS ORDERED: Tubing Blood Filter IV ONE (17:36)
[2016-04-07] MEDS ORDERED: NS 275ml ONE (17:36)
--- NOTE | 2016-04-07 18:00 | General Progress Note ---
Assessment/Plan Assessment/Plan Assessment: 1. 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 For distal DVTs, evidence for improved outcomes with anticoagulation is equivocal and thus can consider this later option as well. Reference: Paraleti 2014 in "How do I treat" [place] [employer] Guidelines 2. Thrombocytosis is likely related to hx of anemia - reactive process 3. Leukocytosis, rule out sepsis. Send blood culture and urine culture. on wide spectrum antibiotic therapy. 4. Hypothermia. Recommend warming blanket. Unclear etiology at this point. 5. Generalized weakness, suspect due to hypothermia. 6. Coagulopathy 7. Anemia 2/2 chronic disease, ferritin elevated, tibc low. Does not have iron deficiency Recommendations: 1. Monitor counts 2. Transfuse as needed 3. pRBC transfuse if hgb <7 4. Transfuse plt if plt <10k 5. Imaging US abd 6. Anemia w/u reviewed 7. Jak2 mutation analysis pending 8. DOES not need a bone marrow bx 9. Followup renal, ID, cards, pulm recs 10. DW Staff Sincerely, Chuy Benitez MD Subjective Constitutional: Reports: no symptoms HEENT: Reports: no symptoms Cardiovascular: Reports: no symptoms Respiratory: Reports: no symptoms Gastrointestinal/Abdominal: Reports: poor appetite Genitourinary: Reports: no symptoms Neurologic/Psychiatric: Reports: no symptoms Endocrine: Reports: no symptoms Hematologic/Lymphatic: Reports: anemia Allergies: Coded Allergies: UNABLE TO ASSESS (Unverified , 04/05/16) Subjective stable, no bleeding, newly diagnosed distal dvt Objective Last 24 Hour Vital Signs Date Time Temp Pulse Resp B/P Pulse Ox O2 Delivery O2 Flow Rate FiO2 04/07/16 17:22 92 04/07/16 17:21 92 127/87 04/07/16 17:00 98 18 127/87 99 Room Air 04/07/16 16:30 88 16 138/94 99 Room Air 04/07/16 16:00 99.0 87 18 138/96 100 Room Air 04/07/16 15:30 98 19 133/55 100 Room Air 04/07/16 15:00 98 19 120/67 99 Room Air 04/07/16 14:30 98 19 120/56 99 Room Air 04/07/16 14:00 100 20 119/51 100 Room Air 04/07/16 13:34 104 114/98 04/07/16 13:30 100 22 109/61 99 Room Air 04/07/16 13:29 102 114/88 04/07/16 13:00 100 04/07/16 13:00 119 21 105/88 100 Room Air 04/07/16 12:30 98.0 141 22 114/88 100 Room Air 04/07/16 12:20 141 04/07/16 12:00 126 04/07/16 11:54 160 133/87 04/07/16 08:00 98.4 135 20 133/87 93 Room Air 04/07/16 08:00 115 04/07/16 04:07 98.1 107 22 138/77 98 Room Air 04/07/16 04:00 110 04/07/16 00:06 98.4 105 21 137/86 100 Room Air 04/07/16 00:00 108 04/06/16 20:04 98.1 100 14 116/76 97 Room Air 04/06/16 20:00 101 Intake and Output 04/06/16 04/07/16 19:00 07:00 Intake Total 350 ml 1213.323 ml Output Total 500 ml 1000 ml Balance -150 ml 213.323 ml Intake Oral 300 ml 200 ml IV Total 50 ml 763.323 ml Blood Product 250 ml Output Urine Total 500 ml 1000 ml # Voids 3 # Bowel Movements 2 Laboratory Tests 04/07/16 01:45: White Blood Count 9.9, Red Blood Count 2.88L, Hemoglobin 8.3L, Hematocrit 25.0L , Mean Corpuscular Volume 87, Mean Corpuscular Hemoglobin 28.8, Mean Corpuscular Hemoglobin Concent 33.2, Red Cell Distribution Width 17.5H, Platelet Count 765H, Mean Platelet Volume 5.9L, Neutrophils (%) (Auto) 66.9, Lymphocytes (%) (Auto) 22.8, Monocytes (%) (Auto) 9.8, Eosinophils (%) (Auto) 0.0, Basophils (%) (Auto) 0.4, Activated Partial Thromboplast Time 69H 04/07/16 05:05: 5'-Nucleotidase [Pending] 04/07/16 17:25: Vancomycin Level Trough [Pending] Height (Feet): 5 Height (Inches): 8.00 Weight (Pounds): 180 General Appearance: no apparent distress EENT: TMs normal Neck: supple Cardiovascular: regular rhythm Respiratory/Chest: normal breath sounds Abdomen: non tender Extremities: non-tender Edema: 1+ Leg (L), 1+ Leg (R) Edema: mild edema Neurologic: alert Skin: normal pigmentation Chuy Benitez Apr 07, 2016 18:00
--- NOTE | 2016-04-07 18:37 | Electroencephalogram ---
DATE OF PROCEDURE: 04/06/2016 REQUESTING PHYSICIAN: Sangeeta Massey M.D. PROCEDURE PERFORMED: Electroencephalogram. HISTORY: This EEG was performed on a 55-year-old gentleman, who was found with an alteration in mental state and severe hypothermia. The patient has been warmed up, but continues to have an altered mental state and thus this EEG was performed to evaluate the patient for the degree and type of cerebral dysfunction. TECHNICAL NOTE: This EEG was performed on a [employer] with electrodes placed on the scalp according to the International 10-20 system. [id number] and [id number] montages were used. The EEG was technically satisfactory and was performed in the awake, drowsy, and sleep states. OBSERVATIONS: In the reportedly awake state, the background activity consisted of 8-8.5 Hz alpha activity with intermixed theta frequencies. Drowsiness was characterized by dissolution of alpha rhythm and the appearance of slow frequencies in the 5-6 Hz theta range. Stage II sleep was characterized by further slowing of the background in the delta and theta range, the presence of vertex waves, and 14 Hz sleep spindles. No focal abnormalities or epileptiform discharges were seen. IMPRESSION: This is an abnormal EEG characterized by an unusually large amount of intermixed theta activity seen during the reportedly awake state. COMMENT: This study is consistent with an encephalopathy of a mild degree. Royal Magdaleno M.D., M.S.P.H. DR: SMITH JOB#: [id number] [facility]
--- NOTE | 2016-04-07 20:33 | Cardiology Report ---
APPROVED REPORT EKG Measurement Heart [id number] Normal sinus rhythm ST elevation, consider early repolarization, pericarditis, or injury Nonspecific T wave abnormality Prolonged QT Abnormal ECG
[2016-04-07] MEDS ORDERED: Cefepime HCl 1 GM in D5W 55 ML IVPB SCH (21:00)
[2016-04-08] VITALS (11 sets, daily range): BP systolic 116–156; BP diastolic 73–103
[2016-04-08] MEDS: Heparin 25,000u/D5W 500ml 500 ML IV SCH (03:20)
[2016-04-08 05:26] LABS: BASOPHILS % (AUTO) 0.4 % (0.0-2.0); EOSINOPHILS % (AUTO) 0.1 % (0.0-3.0); MEAN CORPUSCULAR HEMOGLOBIN 28.9 PG (27.0-31.0); MEAN CORPUSCULAR HGB CONC 33.1 G/DL (32.0-36.0); MEAN CORPUSCULAR VOLUME 87 FL (80-99); MEAN PLATELET VOLUME 5.8 FL (6.5-10.1); MONOCYTES % (AUTO) 7.2 % (1.0-10.0); NEUTROPHILS % (AUTO) 69.2 % (45.0-75.0); PLATELET COUNT 733 K/UL (150-450); RED BLOOD COUNT 3.04 M/UL (4.70-6.10); RED CELL DISTRIBUTION WIDTH 17.4 % (11.6-14.8); WHITE BLOOD COUNT 11.4 K/UL (4.8-10.8)
[2016-04-08 05:33] LABS: INR 1.2 (0.9-1.1); PROTHROMBIN TIME 12.1 SEC (9.30-11.50)
[2016-04-08] MEDS ORDERED: Heparin 25,000u/D5W 500ml 500 ML IV SCH ×2 (06:00→09:20)
[2016-04-08 06:10] LABS: ALANINE AMINOTRANSFERASE 16 U/L (3-41); ALBUMIN/GLOBULIN RATIO 0.4 (1.0-2.7); ANION GAP 13 (5-15); ASPARTATE AMINO TRANSFERASE 21 U/L (5-40); CALCIUM 8.9 mg/dL (8.6-10.2); CARBON DIOXIDE 26 mEQ/L (20-30); CHLORIDE 104 mEQ/L (98-107); GLOMERULAR FILTRATION RATE > 60 mL/min (>60); HEMOLYSIS 0; MAGNESIUM 1.6 mg/dL (1.7-2.5); PHOSPHORUS 4.5 mg/dL (2.5-4.8); POTASSIUM 3.7 mEQ/L (3.4-4.9); SODIUM 143 mEQ/L (135-145); TOTAL PROTEIN 6.4 g/dL (6.6-8.7)
[2016-04-08] MEDS ORDERED: Heparin 5000 units/ml inj IV ONE (06:30)
[2016-04-08] MEDS ORDERED: Acetaminophen 500mg (ES) tab ORAL PRN (07:15)
[2016-04-08] MEDS ORDERED: Metoprolol 5mg/5ml Inj IVP PRN (08:00)
[2016-04-08] MEDS ORDERED: Mylanta II UD 30ml ORAL PRN (08:45)
[2016-04-08] MEDS ORDERED: Miralax 17gm pkt ORAL PRN (09:00)
[2016-04-08] MEDS ORDERED: LORazepam Inj 2mg/ml 1ml IV PRN (09:00)
[2016-04-08] MEDS ORDERED: Morphine Sulfate 2mg/ml Inj IVP PRN (09:00)
--- NOTE | 2016-04-08 09:16 | Cardiac Electrophysiology PN ---
Assessment/Plan Status Narrative Technically difficult study due to poor acoustic windows. Left ventricular ejection fraction estimated to be 45-50%. Mid anterior septal hypokinesis. Trivial circumferential pericardial effusion. Mild left ventricular enlargment. Mild left ventricular hypertrophy. Enlargment of right ventricule. Focal aortic valve sclerosis with adequate cusp excursion Thickened mitral valve leaflets with normal excursion. Mitral annulus and aortic root calcification. Pulmonic valve not well visualized. Normal tricuspid valve structure. IVC at 1.8cm with physiologic collapse. Assessment/Plan 1. Recurrent SVT. Continue Digoxin 0.25 mg po daily and Cardizem 60 mg po q6 hr. 2. Generalized weakness due to combination of hypothermia, profound anemia. His hemoglobin is only 7.9. 3. 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 Switch Cardizem to Coreg and add lisinopril in am if no SVT. 4. Severe thrombocytosis almost a Million as well as anemia with hemoglobin of 8.2.Follow up Dr Giang. 5. AMS. Head CT and EEG and neuro follow up Dr Magdaleno. 6. Right leg Soleus DVT on Heparin and Coumadin per pharmacy. BRIGIDA RN Subjective Subjective Transferred out of ICU as SVT did not recur on Dig and Cardizem.Alert in NAD. Objective Last 24 Hour Vital Signs Date Time Temp Pulse Resp B/P Pulse Ox O2 Delivery O2 Flow Rate FiO2 04/08/16 06:36 80 131/75 04/08/16 06:00 80 16 132/79 99 Room Air 04/08/16 05:00 80 18 130/79 99 Room Air 04/08/16 04:00 80 04/08/16 04:00 97.5 77 18 136/80 100 Room Air 04/08/16 03:00 77 18 125/73 99 Room Air 04/08/16 02:00 77 12 141/101 97 Room Air 04/08/16 01:00 80 14 156/103 100 Room Air 04/08/16 00:39 86 140/87 04/08/16 00:00 98.6 77 16 128/80 100 Room Air 04/07/16 23:01 78 04/07/16 23:00 78 11 138/93 100 Room Air 04/07/16 22:00 81 12 130/84 100 Room Air 04/07/16 21:00 78 12 137/93 100 Room Air 04/07/16 20:30 76 12 145/93 98 Room Air 04/07/16 20:00 80 04/07/16 20:00 97.7 79 12 142/86 99 Room Air 04/07/16 19:30 80 12 120/79 98 Room Air 04/07/16 19:00 81 20 120/78 99 Room Air 04/07/16 18:30 87 22 136/89 98 Room Air 04/07/16 18:00 91 18 148/98 99 Room Air 04/07/16 17:30 90 18 138/94 100 Room Air 04/07/16 17:22 92 04/07/16 17:21 92 127/87 04/07/16 17:00 98 18 127/87 99 Room Air 04/07/16 16:30 88 16 138/94 99 Room Air 04/07/16 16:00 99.0 87 18 138/96 100 Room Air 04/07/16 15:30 98 19 133/55 100 Room Air 04/07/16 15:00 98 19 120/67 99 Room Air 04/07/16 14:30 98 19 120/56 99 Room Air 04/07/16 14:00 100 20 119/51 100 Room Air 04/07/16 13:34 104 114/98 04/07/16 13:30 100 22 109/61 99 Room Air 04/07/16 13:29 102 114/88 04/07/16 13:00 100 04/07/16 13:00 119 21 105/88 100 Room Air 04/07/16 12:30 98.0 141 22 114/88 100 Room Air 04/07/16 12:20 141 04/07/16 12:00 126 04/07/16 11:54 160 133/87 Intake and Output 04/07/16 04/08/16 19:00 07:00 Intake Total 937.05 ml 790.4 ml Output Total 1100 ml 1380 ml Balance -162.95 ml -589.6 ml Intake Oral 440 ml 320 ml IV Total 497.05 ml 470.4 ml Output Urine Total 1100 ml 1380 ml # Bowel Movements 1 1 Laboratory Tests Test 04/07/16 17:25 04/07/16 21:20 04/08/16 04:00 D-Dimer 2778 ng/mL (<500) H Vancomycin Level Trough 19.8 ug/mL (5.0-12.0) H Stool Occult Blood Pending White Blood Count 11.4 K/UL (4.8-10.8) H Red Blood Count 3.04 M/UL (4.70-6.10) L Hemoglobin 8.8 G/DL (14.2-18.0) L Hematocrit 26.5 % (42.0-52.0) L Mean Corpuscular Volume 87 FL (80-99) Mean Corpuscular Hemoglobin 28.9 PG (27.0-31.0) Mean Corpuscular Hemoglobin Concent 33.1 G/DL (32.0-36.0) Red Cell Distribution Width 17.4 % (11.6-14.8) H Platelet Count 733 K/UL (150-450) H Mean Platelet Volume 5.8 FL (6.5-10.1) L Neutrophils (%) (Auto) 69.2 % (45.0-75.0) Lymphocytes (%) (Auto) 23.0 % (20.0-45.0) Monocytes (%) (Auto) 7.2 % (1.0-10.0) Eosinophils (%) (Auto) 0.1 % (0.0-3.0) Basophils (%) (Auto) 0.4 % (0.0-2.0) Prothrombin Time 12.1 SEC (9.30-11.50) H Prothromb Time International Ratio 1.2 (0.9-1.1) H Activated Partial Thromboplast Time 55 SEC (23-33) H Sodium Level 143 mEQ/L (135-145) Potassium Level 3.7 mEQ/L (3.4-4.9) Chloride Level 104 mEQ/L (98-107) Carbon Dioxide Level 26 mEQ/L (20-30) Anion Gap 13 (5-15) Blood Urea Nitrogen 13 mg/dL (7-23) Creatinine 1.0 mg/dL (0.7-1.2) Estimat Glomerular Filtration Rate > 60 mL/min (>60) Glucose Level 99 mg/dL (74-106) Calcium Level 8.9 mg/dL (8.6-10.2) Phosphorus Level 4.5 mg/dL (2.5-4.8) Magnesium Level 1.6 mg/dL (1.7-2.5) L Total Bilirubin < 0.2 mg/dL (0.0-1.2) Aspartate Amino Transf (AST/SGOT) 21 U/L (5-40) Alanine Aminotransferase (ALT/SGPT) 16 U/L (3-41) Alkaline Phosphatase 103 U/L (40-129) Total Protein 6.4 g/dL (6.6-8.7) L Albumin 2.1 g/dL (3.5-5.2) L Globulin 4.3 g/dL Albumin/Globulin Ratio 0.4 (1.0-2.7) L Thyroid Stimulating Hormone (TSH) 4.040 uIU/mL (0.300-4.500) Digoxin Level 0.6 ng/mL (0.5-2.0) Microbiology Date/Time Source Procedure Growth Status 04/05/16 11:42 Nasal Nares MRSA Culture - Final NO METHICILLIN RESISTANT STAPH AUREUS... Complete 04/05/16 11:42 Rectum VRE Culture - Final NO VANCOMYCIN RESISTANT ENTEROCOCCUS ... Complete Objective HEAD AND NECK: Shows no JVD. LUNGS: Clear. CARDIOVASCULAR: Shows regular S1 and S2 with no gallop or murmur. ABDOMEN: Soft. EXTREMITIES: No pitting edema. DOROTHEA LEIGH Apr 08, 2016 09:16
[2016-04-08] MEDS: Aspirin Baby 81mg ORAL SCH (09:22)
[2016-04-08] MEDS: Cefepime HCl 1 GM in D5W 55 ML IVPB SCH ×2 (09:27→20:21)
--- NOTE | 2016-04-08 11:05 | General Progress Note ---
Assessment/Plan Assessment/Plan Assessment: 1. 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 For distal DVTs, evidence for improved outcomes with anticoagulation is equivocal and thus can consider this later option as well. Reference: Paraleti 2014 in "How do I treat" [place] [employer] Guidelines 2. Thrombocytosis is likely related to hx of anemia - reactive process 3. Leukocytosis, rule out sepsis. Send blood culture and urine culture. on wide spectrum antibiotic therapy. 4. Hypothermia. Recommend warming blanket. Unclear etiology at this point. 5. Generalized weakness, suspect due to hypothermia. 6. Coagulopathy 7. Anemia 2/2 chronic disease, ferritin elevated, tibc low. Does not have iron deficiency Recommendations: 1. Monitor counts 2. Transfuse as needed 3. pRBC transfuse if hgb <7 4. Transfuse plt if plt <10k 5. Imaging US abd 6. Anemia w/u reviewed 7. Jak2 mutation analysis pending 8. DOES not need a bone marrow bx 9. Followup renal, ID, cards, pulm recs 10. DW Staff Sincerely, Chuy Benitez MD Subjective Constitutional: Reports: no symptoms HEENT: Reports: no symptoms Cardiovascular: Reports: no symptoms Respiratory: Reports: no symptoms Gastrointestinal/Abdominal: Reports: poor appetite Genitourinary: Reports: no symptoms Neurologic/Psychiatric: Reports: no symptoms Endocrine: Reports: no symptoms Hematologic/Lymphatic: Reports: anemia Allergies: Coded Allergies: UNABLE TO ASSESS (Unverified , 04/05/16) Subjective stable, no bleeding, on coumadin Objective Last 24 Hour Vital Signs Date Time Temp Pulse Resp B/P Pulse Ox O2 Delivery O2 Flow Rate FiO2 04/08/16 09:23 82 04/08/16 08:00 77 04/08/16 08:00 97.5 82 16 141/100 97 Room Air 04/08/16 06:36 80 131/75 04/08/16 06:00 80 16 132/79 99 Room Air 04/08/16 05:00 80 18 130/79 99 Room Air 04/08/16 04:00 80 04/08/16 04:00 97.5 77 18 136/80 100 Room Air 04/08/16 03:00 77 18 125/73 99 Room Air 04/08/16 02:00 77 12 141/101 97 Room Air 04/08/16 01:00 80 14 156/103 100 Room Air 04/08/16 00:39 86 140/87 04/08/16 00:00 98.6 77 16 128/80 100 Room Air 04/07/16 23:01 78 04/07/16 23:00 78 11 138/93 100 Room Air 04/07/16 22:00 81 12 130/84 100 Room Air 04/07/16 21:00 78 12 137/93 100 Room Air 04/07/16 20:30 76 12 145/93 98 Room Air 04/07/16 20:00 80 04/07/16 20:00 97.7 79 12 142/86 99 Room Air 04/07/16 19:30 80 12 120/79 98 Room Air 04/07/16 19:00 81 20 120/78 99 Room Air 04/07/16 18:30 87 22 136/89 98 Room Air 04/07/16 18:00 91 18 148/98 99 Room Air 04/07/16 17:30 90 18 138/94 100 Room Air 04/07/16 17:22 92 04/07/16 17:21 92 127/87 04/07/16 17:00 98 18 127/87 99 Room Air 04/07/16 16:30 88 16 138/94 99 Room Air 04/07/16 16:00 99.0 87 18 138/96 100 Room Air 04/07/16 15:30 98 19 133/55 100 Room Air 04/07/16 15:00 98 19 120/67 99 Room Air 04/07/16 14:30 98 19 120/56 99 Room Air 04/07/16 14:00 100 20 119/51 100 Room Air 04/07/16 13:34 104 114/98 04/07/16 13:30 100 22 109/61 99 Room Air 04/07/16 13:29 102 114/88 04/07/16 13:00 100 04/07/16 13:00 119 21 105/88 100 Room Air 04/07/16 12:30 98.0 141 22 114/88 100 Room Air 04/07/16 12:20 141 04/07/16 12:00 126 04/07/16 11:54 160 133/87 Intake and Output 04/07/16 04/08/16 19:00 07:00 Intake Total 937.05 ml 790.4 ml Output Total 1100 ml 1380 ml Balance -162.95 ml -589.6 ml Intake Oral 440 ml 320 ml IV Total 497.05 ml 470.4 ml Output Urine Total 1100 ml 1380 ml # Bowel Movements 1 1 Laboratory Tests 04/07/16 17:25: D-Dimer 2778H, Vancomycin Level Trough 19.8H 04/07/16 21:20: Stool Occult Blood [Pending] 04/08/16 04:00: White Blood Count 11.4H, Red Blood Count 3.04L, Hemoglobin 8.8L, Hematocrit 26.5L, Mean Corpuscular Volume 87, Mean Corpuscular Hemoglobin 28.9, Mean Corpuscular Hemoglobin Concent 33.1, Red Cell Distribution Width 17.4H, Platelet Count 733H, Mean Platelet Volume 5.8L, Neutrophils (%) (Auto) 69.2, Lymphocytes (%) (Auto) 23.0, Monocytes (%) (Auto) 7.2, Eosinophils (%) (Auto) 0.1, Basophils (%) (Auto) 0.4, Prothrombin Time 12.1H, Prothromb Time International Ratio 1.2H, Activated Partial Thromboplast Time 55H, Sodium Level 143, Potassium Level 3.7, Chloride Level 104, Carbon Dioxide Level 26, Anion Gap 13, Blood Urea Nitrogen 13, Creatinine 1.0, Estimat Glomerular Filtration Rate > 60, Glucose Level 99, Calcium Level 8.9, Phosphorus Level 4.5, Magnesium Level 1.6L, Total Bilirubin < 0.2, Aspartate Amino Transf (AST/SGOT) 21, Alanine Aminotransferase (ALT/SGPT) 16, Alkaline Phosphatase 103, Total Protein 6.4L, Albumin 2.1L, Globulin 4.3, Albumin/Globulin Ratio 0.4L, Thyroid Stimulating Hormone (TSH) 4.040, Digoxin Level 0.6 Height (Feet): 5 Height (Inches): 8.00 Weight (Pounds): 180 General Appearance: WD/WN EENT: normal ENT inspection Neck: supple Cardiovascular: normal rate Respiratory/Chest: normal breath sounds, no accessory muscle use Abdomen: normal bowel sounds Genitourinary/Rectal: normal rectal exam Extremities: non-tender Edema: 1+ Leg (L), 1+ Leg (R) Edema: mild edema Neurologic: alert Chuy Benitez Apr 08, 2016 11:05
--- NOTE | 2016-04-08 13:52 | Pulmonology Progress Note ---
Assessment/Plan Problems: (1) DVT (deep venous thrombosis) (2) Hypothermia (3) Generalized weakness (4) Sepsis Assessment & Plan: all cultures are negative, (5) Symptomatic anemia Assessment/Plan I started the Heparin drip becuase of dvt and pulmonary hypertension seen on ECHO and ordered CT angio to look for PE, since patient is refusing CT angio, I will dc the heparin and coumadine and follow Hematology recommendation about F /U for dvt. Subjective Interval Events: no new compliand, refusing CT angio Constitutional: Reports: no symptoms HEENT: Repors: no symptoms Allergies: Coded Allergies: UNABLE TO ASSESS (Unverified , 04/05/16) Objective Last 24 Hour Vital Signs Date Time Temp Pulse Resp B/P Pulse Ox O2 Delivery O2 Flow Rate FiO2 04/08/16 12:07 73 118/77 04/08/16 12:00 70 04/08/16 12:00 97.7 73 18 118/77 96 Room Air 04/08/16 09:23 82 04/08/16 08:00 77 04/08/16 08:00 97.5 82 16 141/100 97 Room Air 04/08/16 06:36 80 131/75 04/08/16 06:00 80 16 132/79 99 Room Air 04/08/16 05:00 80 18 130/79 99 Room Air 04/08/16 04:00 80 04/08/16 04:00 97.5 77 18 136/80 100 Room Air 04/08/16 03:00 77 18 125/73 99 Room Air 04/08/16 02:00 77 12 141/101 97 Room Air 04/08/16 01:00 80 14 156/103 100 Room Air 04/08/16 00:39 86 140/87 04/08/16 00:00 98.6 77 16 128/80 100 Room Air 04/07/16 23:01 78 04/07/16 23:00 78 11 138/93 100 Room Air 04/07/16 22:00 81 12 130/84 100 Room Air 04/07/16 21:00 78 12 137/93 100 Room Air 04/07/16 20:30 76 12 145/93 98 Room Air 04/07/16 20:00 80 04/07/16 20:00 97.7 79 12 142/86 99 Room Air 04/07/16 19:30 80 12 120/79 98 Room Air 04/07/16 19:00 81 20 120/78 99 Room Air 04/07/16 18:30 87 22 136/89 98 Room Air 04/07/16 18:00 91 18 148/98 99 Room Air 04/07/16 17:30 90 18 138/94 100 Room Air 04/07/16 17:22 92 04/07/16 17:21 92 127/87 04/07/16 17:00 98 18 127/87 99 Room Air 04/07/16 16:30 88 16 138/94 99 Room Air 04/07/16 16:00 99.0 87 18 138/96 100 Room Air 04/07/16 15:30 98 19 133/55 100 Room Air 04/07/16 15:00 98 19 120/67 99 Room Air 04/07/16 14:30 98 19 120/56 99 Room Air 04/07/16 14:00 100 20 119/51 100 Room Air Intake and Output 04/07/16 04/08/16 19:00 07:00 Intake Total 937.05 ml 790.4 ml Output Total 1100 ml 1380 ml Balance -162.95 ml -589.6 ml Intake Oral 440 ml 320 ml IV Total 497.05 ml 470.4 ml Output Urine Total 1100 ml 1380 ml # Bowel Movements 1 1 General Appearance: WD/WN HEENT: normocephalic, atraumatic Respiratory/Chest: chest wall non-tender, lungs clear Cardiovascular: normal peripheral pulses, normal rate Abdomen: normal bowel sounds, soft, non tender, no organomegaly Neurologic/Psychiatric: histologist II-XII grossly normal Laboratory Tests 04/07/16 17:25: D-Dimer 2778H, Vancomycin Level Trough 19.8H 04/07/16 21:20: Stool Occult Blood [Pending] 04/08/16 04:00: White Blood Count 11.4H, Red Blood Count 3.04L, Hemoglobin 8.8L, Hematocrit 26.5L, Mean Corpuscular Volume 87, Mean Corpuscular Hemoglobin 28.9, Mean Corpuscular Hemoglobin Concent 33.1, Red Cell Distribution Width 17.4H, Platelet Count 733H, Mean Platelet Volume 5.8L, Neutrophils (%) (Auto) 69.2, Lymphocytes (%) (Auto) 23.0, Monocytes (%) (Auto) 7.2, Eosinophils (%) (Auto) 0.1, Basophils (%) (Auto) 0.4, Prothrombin Time 12.1H, Prothromb Time International Ratio 1.2H, Activated Partial Thromboplast Time 55H, Sodium Level 143, Potassium Level 3.7, Chloride Level 104, Carbon Dioxide Level 26, Anion Gap 13, Blood Urea Nitrogen 13, Creatinine 1.0, Estimat Glomerular Filtration Rate > 60, Glucose Level 99, Calcium Level 8.9, Phosphorus Level 4.5, Magnesium Level 1.6L, Total Bilirubin < 0.2, Aspartate Amino Transf (AST/SGOT) 21, Alanine Aminotransferase (ALT/SGPT) 16, Alkaline Phosphatase 103, Total Protein 6.4L, Albumin 2.1L, Globulin 4.3, Albumin/Globulin Ratio 0.4L, Thyroid Stimulating Hormone (TSH) 4.040, Digoxin Level 0.6 04/08/16 12:50: Activated Partial Thromboplast Time 91H Current Medications Medications (Trade) Dose Ordered Sig/Jenn Route PRN Reason Start Time Stop Time Status Last Admin Dose Admin Acetaminophen (Tylenol) 500 mg 30 MIN BEFORE BLOOD PRN ORAL 30 MIN PRIOR TO BLOOD TRANSFUS 04/08/16 07:15 05/08/16 07:14 Acetaminophen (Tylenol) 650 mg Q4H PRN ORAL fever 04/08/16 09:00 05/08/16 08:59 Al Hydroxide/Mg Hydroxide (Mylanta II) 30 ml Q6H PRN ORAL dyspepsia 04/08/16 08:45 05/08/16 08:44 Aspirin (ASA) 81 mg DAILY ORAL 04/08/16 09:00 05/08/16 08:59 04/08/16 09:22 Cefepime HCl 1 gm/ Dextrose 55 ml @ 110 mls/hr EVERY 12 HOURS IVPB 04/08/16 09:00 04/14/16 08:59 04/08/16 09:27 Dextrose (Dextrose 50%) STAT PRN IV Hypoglycemia 04/08/16 09:00 05/08/16 08:59 Digoxin (Lanoxin) 0.25 mg DAILY ORAL 04/08/16 09:00 05/08/16 08:59 04/08/16 09:23 Diltiazem HCl (Cardizem) 60 mg EVERY 6 HOURS ORAL 04/08/16 12:00 2/12/17 11:59 04/08/16 12:07 Diphenhydramine HCl (Benadryl) 50 mg 30MIN BEFORE BLOOD PRN ORAL PRIOR TO BLOOD TRANSFUSION 04/08/16 07:15 05/08/16 07:14 Heparin Sodium/ Dextrose 500 ml @ 32.659 mls/ hr adjust per protocol IV 04/08/16 09:20 05/08/16 09:19 Lorazepam (Ativan 2mg/ml 1ml) 0.5 mg Q4H PRN IV For Anxiety 04/08/16 09:00 04/15/16 08:59 Metoprolol Tartrate (Lopressor) 5 mg Q1H PRN IVP spb more than 120 04/08/16 08:00 05/08/16 07:59 Morphine Sulfate (Morphine Sulfate) 1 mg Q4H PRN IVP For Pain 04/08/16 09:00 04/15/16 08:59 Ondansetron HCl (Zofran) 4 mg Q6H PRN IVP Nausea & Vomiting 04/08/16 08:45 05/08/16 08:44 Polyethylene Glycol (Miralax) 17 gm HSPRN PRN ORAL Constipation 04/08/16 09:00 05/08/16 08:59 Vancomycin HCl (Vanco rx to dose) 1 ea DAILY PRN MISC . 04/06/16 09:00 05/06/16 08:59 Vancomycin HCl/ Dextrose (Vancomycin/D5W 250ml) 250 ml @ 167 mls/hr Q12HR@0600,1800 IVPB 04/08/16 18:00 04/11/16 17:59 Warfarin Sodium (Coumadin per pharmacy) 1 ea DAILY PRN MISC Per rx protocol 04/08/16 09:00 05/08/16 08:59 Zolpidem Tartrate (Ambien) 5 mg HSPRN PRN ORAL Insomnia 04/08/16 18:00 05/08/16 17:59 MARSHA CAMEJO Apr 08, 2016 13:52
--- NOTE | 2016-04-08 16:11 | Neurology Progress Note ---
Interim History Interim History Interim History Mr. Chiagn feels much better. He is awake and responsive. He has been able to maintain his temperature. He denies any new neurologic symptoms. The mind is clear. He feels stronger generally. Plans are to go to a friends home tomorrow. Review of Systems Neuro Review of Systems Benign. Objective Physical Exam Last Vital Signs Date Time Temp Pulse Resp B/P Pulse Ox O2 Delivery O2 Flow Rate FiO2 04/08/16 12:07 73 118/77 04/08/16 12:00 97.7 18 96 Room Air Laboratory Tests Test 04/07/16 17:25 04/07/16 21:20 04/08/16 04:00 04/08/16 12:50 D-Dimer 2778 ng/mL (<500) H Vancomycin Level Trough 19.8 ug/mL (5.0-12.0) H Stool Occult Blood Pending White Blood Count 11.4 K/UL (4.8-10.8) H Red Blood Count 3.04 M/UL (4.70-6.10) L Hemoglobin 8.8 G/DL (14.2-18.0) L Hematocrit 26.5 % (42.0-52.0) L Mean Corpuscular Volume 87 FL (80-99) Mean Corpuscular Hemoglobin 28.9 PG (27.0-31.0) Mean Corpuscular Hemoglobin Concent 33.1 G/DL (32.0-36.0) Red Cell Distribution Width 17.4 % (11.6-14.8) H Platelet Count 733 K/UL (150-450) H Mean Platelet Volume 5.8 FL (6.5-10.1) L Neutrophils (%) (Auto) 69.2 % (45.0-75.0) Lymphocytes (%) (Auto) 23.0 % (20.0-45.0) Monocytes (%) (Auto) 7.2 % (1.0-10.0) Eosinophils (%) (Auto) 0.1 % (0.0-3.0) Basophils (%) (Auto) 0.4 % (0.0-2.0) Prothrombin Time 12.1 SEC (9.30-11.50) H Prothromb Time International Ratio 1.2 (0.9-1.1) H Activated Partial Thromboplast Time 55 SEC (23-33) H 91 SEC (23-33) H Sodium Level 143 mEQ/L (135-145) Potassium Level 3.7 mEQ/L (3.4-4.9) Chloride Level 104 mEQ/L (98-107) Carbon Dioxide Level 26 mEQ/L (20-30) Anion Gap 13 (5-15) Blood Urea Nitrogen 13 mg/dL (7-23) Creatinine 1.0 mg/dL (0.7-1.2) Estimat Glomerular Filtration Rate > 60 mL/min (>60) Glucose Level 99 mg/dL (74-106) Calcium Level 8.9 mg/dL (8.6-10.2) Phosphorus Level 4.5 mg/dL (2.5-4.8) Magnesium Level 1.6 mg/dL (1.7-2.5) L Total Bilirubin < 0.2 mg/dL (0.0-1.2) Aspartate Amino Transf (AST/SGOT) 21 U/L (5-40) Alanine Aminotransferase (ALT/SGPT) 16 U/L (3-41) Alkaline Phosphatase 103 U/L (40-129) Total Protein 6.4 g/dL (6.6-8.7) L Albumin 2.1 g/dL (3.5-5.2) L Globulin 4.3 g/dL Albumin/Globulin Ratio 0.4 (1.0-2.7) L Thyroid Stimulating Hormone (TSH) 4.040 uIU/mL (0.300-4.500) Digoxin Level 0.6 ng/mL (0.5-2.0) Neurologic Exam Objective PHYSICAL EXAMINATION: GENERAL: He is a well-developed, relatively well-nourished, black gentleman, lying in bed, in no acute distress. HEAD: Normocephalic and atraumatic. EENT: Examination benign. NECK: No neck rigidity was observed. NEUROLOGICAL EXAMINATION: MENTAL STATUS EXAMINATION: He was awake and more alert. He was oriented to person, place and time. He was able to recall 3/3 words immediately and could remember them in 1 and 3 minutes. He was able to remember presidents Obama through Jonas. SPEECH: He was mildly dysarthric and hypophonic. LANGUAGE: Normal. CRANIAL NERVE EXAMINATION: II: The visual lim were intact on confrontation testing. III, IV & : The external ocular movements were full. The pupils were 3 mm in diameter, equal, round, regular, and reactive to light. V: He had normal facial sensations, and the temporales, masseters, and pterygoids functioned normally. VII: He had normal facial expressions and no facial asymmetry. VIII: He was able to hear well and had no nystagmus. IX: The palate moved symmetrically on phonation. X: He had no hoarseness of voice. XI: The sternocleidomastoids and trapezii did function. XII: The tongue was in the midline without any fasciculations or atrophy. MOTOR SYSTEM: The tone was normal in all four extremities. Examination of muscle mass revealed no focal wasting. Examination of power revealed G 5/5 power except for G 5-/5 in the iliopsoas muscles. SENSORY EXAMINATION: He responded appropriately to pin prick and light touch. REFLEXES: 1++ and bilaterally symmetrical at the biceps, triceps, brachioradialis and knees. 1+ at both ankles. The plantar responses were flexor bilaterally. COORDINATION: He performed well on finger to nose testing. STANCE: He stood up with support. GAIT: He was able to walk with support. Impression/Recommendations Diagnostic Impression 1. Mr. Abelardo Chiang is a 55-year-old, right-handed, black gentleman, with nebulous past history who was found in a confucianism with an altered mental state and generally weak. When he was brought into the [facility] Emergency Room he was significantly hypothermic and possibly septic. He had then improved minimally but continued to be cognitively impoverished and lethargic. 2. He feels much better. He is awake and alert. He is able to maintain his body temperature. He is able to walk well. 3. On neurological examination, at this time, he is awake and more alert, he is fully oriented, has mild memory problems, and mild proximal lower extremity weakness. He howerver can stand and walk now. 4. Laboratory data on admission revealed that his WBC count was at 10.3, he was significantly anemic with a hemoglobin of 8.2, his platelet count was elevated to 987,000 and his WBC count showed left-sided shift. His chemistry panel revealed that his glucose was elevated to 138. His albumin was low at 2.6. His serum alcohol was <10. The urinalysis was relatively benign. His ESR was elevated to 137. 5. The EEG done on 04/06/16 revealed a mild encephalopathy. 6. The patient's history and neurological examination are most compatible with possible sepsis associated with significant hypothermia. 7. He has improved significantly. Recommendations 1. Continue present management. 2. Aggressive treatment of infectious process as per Dr. Reilly. 3. Await CT scan of the brain without contrast to evaluate the patient for intracranial pathology. 4. Observe. 5. Encourage to increase activity. Anibal Vega M.D., M.S.P.Rox. ANIBAL VEGA Apr 08, 2016 16:11
[2016-04-08] MEDS ORDERED: Zolpidem 5mg tab ORAL PRN (18:00)
--- NOTE | 2016-04-08 18:16 | Infectious Diseases Prog Note ---
Assessment/Plan Problems: (1) Sepsis Assessment & Plan: await blood culture result which was ordered on 04/05, continue vancomycin and cefepime empirically for now . (2) Leukocytosis Assessment & Plan: rule out sepsis, await culture of the blood, continue wide spectrum antibiotics for now until blood culture is negative for 48 hours . (3) Hypothermia Assessment & Plan: improved, unclear etiology need to rule out ischemic injury , monitor electrolytes and lactic acid. (4) Generalized weakness Assessment & Plan: suspect hypothermia related, check TSH (5) DVT (deep venous thrombosis) Assessment & Plan: continue anticoagulation, monitor INR, CTA of the lung to rule out PE is pending Subjective Respiratory: Reports: dry cough Neurologic: Reports: weakness Allergies: Coded Allergies: UNABLE TO ASSESS (Unverified , 04/05/16) All Systems: reviewed and negative except above Subjective he was doing better , no longer hypothermic, denied any fever or chills. Objective Vital Signs Last 24 Hour Vital Signs Date Time Temp Pulse Resp B/P Pulse Ox O2 Delivery O2 Flow Rate FiO2 04/08/16 17:45 81 116/73 04/08/16 16:00 97.6 81 21 116/73 96 Room Air 04/08/16 12:07 73 118/77 04/08/16 12:00 70 04/08/16 12:00 97.7 73 18 118/77 96 Room Air 04/08/16 09:23 82 04/08/16 08:00 77 04/08/16 08:00 97.5 82 16 141/100 97 Room Air 04/08/16 06:36 80 131/75 04/08/16 06:00 80 16 132/79 99 Room Air 04/08/16 05:00 80 18 130/79 99 Room Air 04/08/16 04:00 80 04/08/16 04:00 97.5 77 18 136/80 100 Room Air 04/08/16 03:00 77 18 125/73 99 Room Air 04/08/16 02:00 77 12 141/101 97 Room Air 04/08/16 01:00 80 14 156/103 100 Room Air 04/08/16 00:39 86 140/87 04/08/16 00:00 98.6 77 16 128/80 100 Room Air 04/07/16 23:01 78 04/07/16 23:00 78 11 138/93 100 Room Air 04/07/16 22:00 81 12 130/84 100 Room Air 04/07/16 21:00 78 12 137/93 100 Room Air 04/07/16 20:30 76 12 145/93 98 Room Air 04/07/16 20:00 80 04/07/16 20:00 97.7 79 12 142/86 99 Room Air 04/07/16 19:30 80 12 120/79 98 Room Air 04/07/16 19:00 81 20 120/78 99 Room Air 04/07/16 18:30 87 22 136/89 98 Room Air Height (Feet): 5 Height (Inches): 8.00 Weight (Pounds): 180 General Appearance: WD/WN, no acute distress HEENT: normocephalic, atraumatic, anicteric, mucous membranes moist Respiratory/Chest: chest wall non-tender, normal breath sounds, no respiratory distress, no accessory muscle use Cardiovascular: normal peripheral pulses, normal rate, regular rhythm, no gallop/murmur Abdomen: normal bowel sounds, soft, non tender, no organomegaly, non distended , no mass, no scars Extremities: no cyanosis, no clubbing Skin: no rash, no lesions Laboratory Tests Test 04/07/16 21:20 04/08/16 04:00 04/08/16 12:50 Stool Occult Blood Pending White Blood Count 11.4 K/UL (4.8-10.8) H Red Blood Count 3.04 M/UL (4.70-6.10) L Hemoglobin 8.8 G/DL (14.2-18.0) L Hematocrit 26.5 % (42.0-52.0) L Mean Corpuscular Volume 87 FL (80-99) Mean Corpuscular Hemoglobin 28.9 PG (27.0-31.0) Mean Corpuscular Hemoglobin Concent 33.1 G/DL (32.0-36.0) Red Cell Distribution Width 17.4 % (11.6-14.8) H Platelet Count 733 K/UL (150-450) H Mean Platelet Volume 5.8 FL (6.5-10.1) L Neutrophils (%) (Auto) 69.2 % (45.0-75.0) Lymphocytes (%) (Auto) 23.0 % (20.0-45.0) Monocytes (%) (Auto) 7.2 % (1.0-10.0) Eosinophils (%) (Auto) 0.1 % (0.0-3.0) Basophils (%) (Auto) 0.4 % (0.0-2.0) Prothrombin Time 12.1 SEC (9.30-11.50) H Prothromb Time International Ratio 1.2 (0.9-1.1) H Activated Partial Thromboplast Time 55 SEC (23-33) H 91 SEC (23-33) H Sodium Level 143 mEQ/L (135-145) Potassium Level 3.7 mEQ/L (3.4-4.9) Chloride Level 104 mEQ/L (98-107) Carbon Dioxide Level 26 mEQ/L (20-30) Anion Gap 13 (5-15) Blood Urea Nitrogen 13 mg/dL (7-23) Creatinine 1.0 mg/dL (0.7-1.2) Estimat Glomerular Filtration Rate > 60 mL/min (>60) Glucose Level 99 mg/dL (74-106) Calcium Level 8.9 mg/dL (8.6-10.2) Phosphorus Level 4.5 mg/dL (2.5-4.8) Magnesium Level 1.6 mg/dL (1.7-2.5) L Total Bilirubin < 0.2 mg/dL (0.0-1.2) Aspartate Amino Transf (AST/SGOT) 21 U/L (5-40) Alanine Aminotransferase (ALT/SGPT) 16 U/L (3-41) Alkaline Phosphatase 103 U/L (40-129) Total Protein 6.4 g/dL (6.6-8.7) L Albumin 2.1 g/dL (3.5-5.2) L Globulin 4.3 g/dL Albumin/Globulin Ratio 0.4 (1.0-2.7) L Thyroid Stimulating Hormone (TSH) 4.040 uIU/mL (0.300-4.500) Digoxin Level 0.6 ng/mL (0.5-2.0) Current Medications Medications (Trade) Dose Ordered Sig/Jenn Route PRN Reason Start Time Stop Time Status Last Admin Dose Admin Acetaminophen (Tylenol) 500 mg 30 MIN BEFORE BLOOD PRN ORAL 30 MIN PRIOR TO BLOOD TRANSFUS 04/08/16 07:15 05/08/16 07:14 Acetaminophen (Tylenol) 650 mg Q4H PRN ORAL fever 04/08/16 09:00 05/08/16 08:59 Al Hydroxide/Mg Hydroxide (Mylanta II) 30 ml Q6H PRN ORAL dyspepsia 04/08/16 08:45 05/08/16 08:44 Aspirin (ASA) 81 mg DAILY ORAL 04/08/16 09:00 05/08/16 08:59 04/08/16 09:22 Cefepime HCl 1 gm/ Dextrose 55 ml @ 110 mls/hr EVERY 12 HOURS IVPB 04/08/16 09:00 04/14/16 08:59 04/08/16 09:27 Dextrose (Dextrose 50%) STAT PRN IV Hypoglycemia 04/08/16 09:00 05/08/16 08:59 Digoxin (Lanoxin) 0.25 mg DAILY ORAL 04/08/16 09:00 05/08/16 08:59 04/08/16 09:23 Diltiazem HCl (Cardizem) 60 mg EVERY 6 HOURS ORAL 04/08/16 12:00 05/08/16 11:59 04/08/16 17:45 Diphenhydramine HCl (Benadryl) 50 mg 30MIN BEFORE BLOOD PRN ORAL PRIOR TO BLOOD TRANSFUSION 04/08/16 07:15 05/08/16 07:14 Lorazepam (Ativan 2mg/ml 1ml) 0.5 mg Q4H PRN IV For Anxiety 04/08/16 09:00 04/15/16 08:59 Metoprolol Tartrate (Lopressor) 5 mg Q1H PRN IVP spb more than 120 04/08/16 08:00 05/08/16 07:59 Morphine Sulfate (Morphine Sulfate) 1 mg Q4H PRN IVP For Pain 04/08/16 09:00 04/15/16 08:59 Ondansetron HCl (Zofran) 4 mg Q6H PRN IVP Nausea & Vomiting 04/08/16 08:45 05/08/16 08:44 Polyethylene Glycol (Miralax) 17 gm HSPRN PRN ORAL Constipation 04/08/16 09:00 05/08/16 08:59 Vancomycin HCl (Vanco rx to dose) 1 ea DAILY PRN MISC . 04/06/16 09:00 2/10/17 08:59 Vancomycin HCl/ Dextrose (Vancomycin/D5W 250ml) 250 ml @ 167 mls/hr Q12HR@0600,1800 IVPB 04/08/16 18:00 04/11/16 17:59 04/08/16 17:45 Zolpidem Tartrate (Ambien) 5 mg HSPRN PRN ORAL Insomnia 04/08/16 18:00 05/08/16 17:59 Sixto Reilly M.D. Apr 08, 2016 18:16
[2016-04-09] VITALS: BP 157/112
[2016-04-09 04:00] VITALS: BP 153/85
[2016-04-09 07:47] VITALS: BP 142/89
--- NOTE | 2016-04-09 08:29 | Diagnostic Imaging Report ---
Indication: Altered mental status Technique: Contiguous 5 mm thick transaxial imaging of the head obtained in a Siemens Sensation [address] scanner. Soft tissue and bone windows generated. Total Dose length Product (DLP): [address] Dose Index Volume (CTDIvol): 70.38 mGy Comparison: none Findings: There is mild prominence of the ventricles, basal cisterns, and cerebral sulci consistent with atrophy. Mild, nonspecific, white matter hypoattenuation is noted throughout the brain consistent with chronic small vessel disease. There is no midline shift, edema, acute hemorrhage, mass effect, or abnormal extra-axial fluid collections. Bones and extra osseous soft tissues are unremarkable. Impression: No acute intracranial bleed, mass effect or edema. Mild atrophy of the brain. Nonspecific white matter hypoattenuation probably due to chronic small vessel disease. The CT scanner at [facility] is accredited by the [employer] [employer] and the scans are performed using protocols designed to limit radiation exposure to as low as reasonably achievable to attain images of sufficient resolution adequate for diagnostic evaluation.
[2016-04-09] MEDS: Cefepime HCl 1 GM in D5W 55 ML IVPB SCH ×2 (09:09→20:48)
[2016-04-09] MEDS: Aspirin Baby 81mg ORAL SCH (09:10)
--- NOTE | 2016-04-09 10:45 | Pulmonology Progress Note ---
Assessment/Plan Problems: (1) DVT (deep venous thrombosis) (2) Hypothermia (3) Generalized weakness (4) Sepsis Assessment & Plan: all cultures are negative, (5) Symptomatic anemia Assessment/Plan no need for antibiotics, never had fever, all cultures are negative heart rate controlled DVT in leg is too small to treat dc planning might need placement Subjective ROS Limited/Unobtainable: No Interval Events: looks comfortable Allergies: Coded Allergies: No Known Allergies (Unverified , 04/08/16) Per pt, he is not allergic to any medications or food. Objective Last 24 Hour Vital Signs Date Time Temp Pulse Resp B/P Pulse Ox O2 Delivery O2 Flow Rate FiO2 04/09/16 09:09 83 04/09/16 08:00 71 04/09/16 07:47 97.0 83 18 142/89 95 Room Air 04/09/16 05:43 73 153/85 04/09/16 04:00 73 04/09/16 04:00 97.7 82 18 153/85 97 Room Air 04/09/16 00:10 82 157/112 04/09/16 00:00 98.2 82 18 157/112 96 Room Air 04/09/16 00:00 75 04/08/16 20:00 97.2 77 20 133/79 96 Room Air 04/08/16 20:00 78 04/08/16 17:45 81 116/73 04/08/16 16:00 97.6 81 21 116/73 96 Room Air 04/08/16 16:00 89 04/08/16 12:07 73 118/77 04/08/16 12:00 70 04/08/16 12:00 97.7 73 18 118/77 96 Room Air Intake and Output 04/08/16 04/09/16 19:00 07:00 Intake Total 816.272 ml 617 ml Output Total 400 ml 1300 ml Balance 416.272 ml -683 ml Intake Oral 500 ml 240 ml IV Total 316.272 ml 377 ml Output Urine Total 400 ml 1300 ml General Appearance: WD/WN HEENT: normocephalic, atraumatic Respiratory/Chest: chest wall non-tender, lungs clear, chest wall tender Cardiovascular: normal rate Abdomen: normal bowel sounds, soft, non tender Extremities: no clubbing 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, no motor/sensory deficits Microbiology Date/Time Source Procedure Growth Status 04/07/16 05:05 Blood Blood Culture - Preliminary NO GROWTH AFTER 24 HOURS Resulted 04/07/16 05:00 Blood Blood Culture - Preliminary NO GROWTH AFTER 24 HOURS Resulted Laboratory Tests 04/08/16 12:50: Activated Partial Thromboplast Time 91H 04/08/16 21:30: Stool Occult Blood [Pending] Current Medications Medications (Trade) Dose Ordered Sig/Jenn Route PRN Reason Start Time Stop Time Status Last Admin Dose Admin Acetaminophen (Tylenol) 500 mg 30 MIN BEFORE BLOOD PRN ORAL 30 MIN PRIOR TO BLOOD TRANSFUS 04/08/16 07:15 05/08/16 07:14 Acetaminophen (Tylenol) 650 mg Q4H PRN ORAL fever 04/08/16 09:00 05/08/16 08:59 Al Hydroxide/Mg Hydroxide (Mylanta II) 30 ml Q6H PRN ORAL dyspepsia 04/08/16 08:45 05/08/16 08:44 Aspirin (ASA) 81 mg DAILY ORAL 04/08/16 09:00 05/08/16 08:59 04/09/16 09:10 Cefepime HCl 1 gm/ Dextrose 55 ml @ 110 mls/hr EVERY 12 HOURS IVPB 04/08/16 09:00 04/14/16 08:59 04/09/16 09:09 Dextrose (Dextrose 50%) STAT PRN IV Hypoglycemia 04/08/16 09:00 05/08/16 08:59 Digoxin (Lanoxin) 0.25 mg DAILY ORAL 04/08/16 09:00 05/08/16 08:59 04/09/16 09:09 Diltiazem HCl (Cardizem) 60 mg EVERY 6 HOURS ORAL 04/08/16 12:00 05/08/16 11:59 04/09/16 05:43 Diphenhydramine HCl (Benadryl) 50 mg 30MIN BEFORE BLOOD PRN ORAL PRIOR TO BLOOD TRANSFUSION 04/08/16 07:15 05/08/16 07:14 Lorazepam (Ativan 2mg/ml 1ml) 0.5 mg Q4H PRN IV For Anxiety 04/08/16 09:00 04/15/16 08:59 Metoprolol Tartrate (Lopressor) 5 mg Q1H PRN IVP spb more than 120 04/08/16 08:00 05/08/16 07:59 Morphine Sulfate (Morphine Sulfate) 1 mg Q4H PRN IVP For Pain 04/08/16 09:00 04/15/16 08:59 Ondansetron HCl (Zofran) 4 mg Q6H PRN IVP Nausea & Vomiting 04/08/16 08:45 05/08/16 08:44 Polyethylene Glycol (Miralax) 17 gm HSPRN PRN ORAL Constipation 04/08/16 09:00 05/08/16 08:59 Vancomycin HCl (Vanco rx to dose) 1 ea DAILY PRN MISC . 04/06/16 09:00 05/06/16 08:59 Vancomycin HCl/ Dextrose (Vancomycin/D5W 250ml) 250 ml @ 167 mls/hr Q12HR@0600,1800 IVPB 04/08/16 18:00 04/11/16 17:59 04/09/16 05:43 Zolpidem Tartrate (Ambien) 5 mg HSPRN PRN ORAL Insomnia 04/08/16 18:00 05/08/16 17:59 MARSHA CAMEJO Apr 09, 2016 10:45
[2016-04-09 11:47] VITALS: BP 135/91
--- NOTE | 2016-04-09 12:39 | Cardiac Electrophysiology PN ---
Assessment/Plan Status Narrative Technically difficult study due to poor acoustic windows. Left ventricular ejection fraction estimated to be 45-50%. Mid anterior septal hypokinesis. Trivial circumferential pericardial effusion. Mild left ventricular enlargment. Mild left ventricular hypertrophy. Enlargment of right ventricule. Focal aortic valve sclerosis with adequate cusp excursion Thickened mitral valve leaflets with normal excursion. Mitral annulus and aortic root calcification. Pulmonic valve not well visualized. Normal tricuspid valve structure. IVC at 1.8cm with physiologic collapse. Assessment/Plan 1. Recurrent SVT. Continue Digoxin 0.25 mg po daily and change Cardizem to Lopressor 50 bid. 2. NSVT 5 beats change Cardizem to Lopressor. 2. Generalized weakness due to combination of hypothermia, profound anemia. His hemoglobin is only 7.9. 3. 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 On Lopressor 25 bid and add lisinopril. 4. Severe thrombocytosis almost a Million as well as anemia with hemoglobin of 8.2.Follow up Dr Giang. 5. AMS. Head CT and EEG and neuro follow up Dr Magdaleno. 6. Right leg Soleus DVT. Refusing Heparin. Coumadin per pharmacy. DW RN Subjective Subjective No further SVT on Dig and Cardizem.Alert in NAD.Just 5 beats of NSVT at 5 am. Refusing to take meds or CT angio. Objective Last 24 Hour Vital Signs Date Time Temp Pulse Resp B/P Pulse Ox O2 Delivery O2 Flow Rate FiO2 04/09/16 12:13 73 135/91 04/09/16 11:47 97.0 73 18 135/91 97 Room Air 04/09/16 09:09 83 04/09/16 08:00 71 04/09/16 07:47 97.0 83 18 142/89 95 Room Air 04/09/16 05:43 73 153/85 04/09/16 04:00 73 04/09/16 04:00 97.7 82 18 153/85 97 Room Air 04/09/16 00:10 82 157/112 04/09/16 00:00 98.2 82 18 157/112 96 Room Air 04/09/16 00:00 75 04/08/16 20:00 97.2 77 20 133/79 96 Room Air 04/08/16 20:00 78 04/08/16 17:45 81 116/73 04/08/16 16:00 97.6 81 21 116/73 96 Room Air 04/08/16 16:00 89 Intake and Output 04/08/16 04/09/16 19:00 07:00 Intake Total 816.272 ml 617 ml Output Total 400 ml 1300 ml Balance 416.272 ml -683 ml Intake Oral 500 ml 240 ml IV Total 316.272 ml 377 ml Output Urine Total 400 ml 1300 ml Laboratory Tests Test 04/08/16 12:50 04/08/16 21:30 Activated Partial Thromboplast Time 91 SEC (23-33) H Stool Occult Blood Pending Microbiology Date/Time Source Procedure Growth Status 04/07/16 05:05 Blood Blood Culture - Preliminary NO GROWTH AFTER 24 HOURS Resulted 04/07/16 05:00 Blood Blood Culture - Preliminary NO GROWTH AFTER 24 HOURS Resulted Objective HEAD AND NECK: Shows no JVD. LUNGS: Clear. CARDIOVASCULAR: Shows regular S1 and S2 with no gallop or murmur. ABDOMEN: Soft. EXTREMITIES: No pitting edema. DOROTHEA LEIGH Apr 09, 2016 12:39
--- NOTE | 2016-04-09 13:26 | General Progress Note ---
Assessment/Plan Problem List: (1) Hypothermia ICD Codes: T68.XXXA - Hypothermia, initial encounter SNOMED: 160290422 Qualifiers: Qualified Codes: T68.XXXA - Hypothermia, initial encounter (2) Symptomatic anemia ICD Codes: D64.9 - Anemia, unspecified SNOMED: 769577559 (3) Generalized weakness ICD Codes: R53.1 - Weakness SNOMED: 33952578 Status: progressing Assessment/Plan afebrile vitals stable hypothermia clinicaly improving reviewed chart and labs Subjective ROS Limited/Unobtainable: Yes Allergies: Coded Allergies: No Known Allergies (Unverified , 04/08/16) Per pt, he is not allergic to any medications or food. Objective Last 24 Hour Vital Signs Date Time Temp Pulse Resp B/P Pulse Ox O2 Delivery O2 Flow Rate FiO2 04/09/16 12:13 73 135/91 04/09/16 11:47 97.0 73 18 135/91 97 Room Air 04/09/16 09:09 83 04/09/16 08:00 71 04/09/16 07:47 97.0 83 18 142/89 95 Room Air 04/09/16 05:43 73 153/85 04/09/16 04:00 73 04/09/16 04:00 97.7 82 18 153/85 97 Room Air 04/09/16 00:10 82 157/112 04/09/16 00:00 98.2 82 18 157/112 96 Room Air 04/09/16 00:00 75 04/08/16 20:00 97.2 77 20 133/79 96 Room Air 04/08/16 20:00 78 04/08/16 17:45 81 116/73 04/08/16 16:00 97.6 81 21 116/73 96 Room Air 04/08/16 16:00 89 Intake and Output 04/08/16 04/09/16 19:00 07:00 Intake Total 816.272 ml 617 ml Output Total 400 ml 1300 ml Balance 416.272 ml -683 ml Intake Oral 500 ml 240 ml IV Total 316.272 ml 377 ml Output Urine Total 400 ml 1300 ml Laboratory Tests 04/08/16 21:30: Stool Occult Blood [Pending] Height (Feet): 5 Height (Inches): 8.00 Weight (Pounds): 180 Cardiovascular: normal rate Abdomen: normal bowel sounds, soft Hadadz,Ali MD Apr 09, 2016 13:26
--- NOTE | 2016-04-09 14:20 | General Progress Note ---
Assessment/Plan Assessment/Plan Assessment: 1. Isolated distal deep vein thrombosis (IDDVT) of the soleal vein (asymptomatic ) - given that he is asymptomatic will discontinue anticoagulation and reimage in 2 weeks to see if he has clot extension, and at that time can reconsider anticoagulation. For distal DVTs, evidence for improved outcomes with anticoagulation is equivocal and thus can consider this later option as well. Reference: Paraleti 2014 in "How do I treat" [place] [employer] Guidelines 2. Thrombocytosis is likely related to hx of anemia - reactive process 3. Leukocytosis, rule out sepsis. Send blood culture and urine culture. on wide spectrum antibiotic therapy. 4. Hypothermia. Recommend warming blanket. Unclear etiology at this point. 5. Generalized weakness, suspect due to hypothermia. 6. Coagulopathy 7. Anemia 2/2 chronic disease, ferritin elevated, tibc low. Does not have iron deficiency Recommendations: 1. Monitor counts 2. Transfuse as needed 3. pRBC transfuse if hgb <7 4. Transfuse plt if plt <10k 5. Imaging US abd 6. Anemia w/u reviewed 7. Agree does not require anticoagulation as outpatient 8. DOES not need a bone marrow bx 9. Followup renal, ID, cards, pulm recs 10. Staff Sincerely, Salvador Benitez MD Subjective Constitutional: Reports: no symptoms HEENT: Reports: no symptoms Cardiovascular: Reports: no symptoms Respiratory: Reports: no symptoms Gastrointestinal/Abdominal: Reports: no symptoms Genitourinary: Reports: no symptoms Neurologic/Psychiatric: Reports: no symptoms Endocrine: Reports: no symptoms Hematologic/Lymphatic: Reports: anemia Allergies: Coded Allergies: No Known Allergies (Unverified , 04/08/16) Per pt, he is not allergic to any medications or food. Subjective stable, no fevers, or chills, no bleeding, no hematochezia Objective Last 24 Hour Vital Signs Date Time Temp Pulse Resp B/P Pulse Ox O2 Delivery O2 Flow Rate FiO2 04/09/16 12:13 73 135/91 04/09/16 12:00 76 04/09/16 11:47 97.0 73 18 135/91 97 Room Air 04/09/16 09:09 83 04/09/16 08:00 71 04/09/16 07:47 97.0 83 18 142/89 95 Room Air 04/09/16 05:43 73 153/85 04/09/16 04:00 73 04/09/16 04:00 97.7 82 18 153/85 97 Room Air 04/09/16 00:10 82 157/112 04/09/16 00:00 98.2 82 18 157/112 96 Room Air 04/09/16 00:00 75 04/08/16 20:00 97.2 77 20 133/79 96 Room Air 04/08/16 20:00 78 04/08/16 17:45 81 116/73 04/08/16 16:00 97.6 81 21 116/73 96 Room Air 04/08/16 16:00 89 Intake and Output 04/08/16 04/09/16 18:59 06:59 Intake Total 816.272 ml 617 ml Output Total 400 ml 1300 ml Balance 416.272 ml -683 ml Intake Oral 500 ml 240 ml IV Total 316.272 ml 377 ml Output Urine Total 400 ml 1300 ml Laboratory Tests 04/08/16 21:30: Stool Occult Blood [Pending] Height (Feet): 5 Height (Inches): 8.00 Weight (Pounds): 180 General Appearance: no apparent distress EENT: TMs normal Neck: supple Cardiovascular: regular rhythm Respiratory/Chest: normal breath sounds Abdomen: non tender Extremities: non-tender Edema: 1+ Leg (L), 1+ Leg (R) Edema: mild edema Neurologic: alert Skin: warm/dry SALVADOR BENITEZ Apr 09, 2016 14:19
--- NOTE | 2016-04-09 14:27 | Infectious Diseases Prog Note ---
Assessment/Plan Problems: (1) Sepsis Assessment & Plan: await blood culture result which was ordered on 04/05, continue vancomycin and cefepime empirically for now . (2) Leukocytosis Assessment & Plan: rule out sepsis, await culture of the blood, continue wide spectrum antibiotics for now until blood culture is negative for 48 hours . (3) Hypothermia Assessment & Plan: improved, unclear etiology need to rule out ischemic injury , monitor electrolytes and lactic acid. 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 All Systems: reviewed and negative except above Subjective he was doing well , no longer hypothermic, denied any fever or chills, no nausea or vomiting . Objective Vital Signs Last 24 Hour Vital Signs Date Time Temp Pulse Resp B/P Pulse Ox O2 Delivery O2 Flow Rate FiO2 04/09/16 12:13 73 135/91 04/09/16 12:00 76 04/09/16 11:47 97.0 73 18 135/91 97 Room Air 04/09/16 09:09 83 04/09/16 08:00 71 04/09/16 07:47 97.0 83 18 142/89 95 Room Air 04/09/16 05:43 73 153/85 04/09/16 04:00 73 04/09/16 04:00 97.7 82 18 153/85 97 Room Air 04/09/16 00:10 82 157/112 04/09/16 00:00 98.2 82 18 157/112 96 Room Air 04/09/16 00:00 75 04/08/16 20:00 97.2 77 20 133/79 96 Room Air 04/08/16 20:00 78 04/08/16 17:45 81 116/73 04/08/16 16:00 97.6 81 21 116/73 96 Room Air 04/08/16 16:00 89 Height (Feet): 5 Height (Inches): 8.00 Weight (Pounds): 180 General Appearance: WD/WN, no acute distress HEENT: normocephalic, atraumatic, anicteric, mucous membranes moist, PERRL Respiratory/Chest: chest wall non-tender, normal breath sounds, no respiratory distress, no accessory muscle use Cardiovascular: normal peripheral pulses, normal rate, regular rhythm, no gallop/murmur, no JVD Abdomen: normal bowel sounds, soft, non tender, no organomegaly, non distended , no mass Extremities: no cyanosis, no clubbing Skin: no rash, no lesions, no ulcers Microbiology Date/Time Source Procedure Growth Status 04/07/16 05:05 Blood Blood Culture - Preliminary NO GROWTH AFTER 24 HOURS Resulted 04/07/16 05:00 Blood Blood Culture - Preliminary NO GROWTH AFTER 24 HOURS Resulted Laboratory Tests Test 04/08/16 21:30 Stool Occult Blood Pending Current Medications Medications (Trade) Dose Ordered Sig/Jenn Route PRN Reason Start Time Stop Time Status Last Admin Dose Admin Acetaminophen (Tylenol) 500 mg 30 MIN BEFORE BLOOD PRN ORAL 30 MIN PRIOR TO BLOOD TRANSFUS 04/08/16 07:15 05/08/16 07:14 Acetaminophen (Tylenol) 650 mg Q4H PRN ORAL fever 04/08/16 09:00 05/08/16 08:59 Al Hydroxide/Mg Hydroxide (Mylanta II) 30 ml Q6H PRN ORAL dyspepsia 04/08/16 08:45 05/08/16 08:44 Aspirin (ASA) 81 mg DAILY ORAL 04/08/16 09:00 05/08/16 08:59 04/09/16 09:10 Cefepime HCl 1 gm/ Dextrose 55 ml @ 110 mls/hr EVERY 12 HOURS IVPB 04/08/16 09:00 04/14/16 08:59 04/09/16 09:09 Dextrose (Dextrose 50%) STAT PRN IV Hypoglycemia 04/08/16 09:00 05/08/16 08:59 Digoxin (Lanoxin) 0.25 mg DAILY ORAL 04/08/16 09:00 05/08/16 08:59 04/09/16 09:09 Diphenhydramine HCl (Benadryl) 50 mg 30MIN BEFORE BLOOD PRN ORAL PRIOR TO BLOOD TRANSFUSION 04/08/16 07:15 05/08/16 07:14 Lisinopril (Zestril) 10 mg DAILY ORAL 04/10/16 09:00 05/10/16 08:59 Lorazepam (Ativan 2mg/ml 1ml) 0.5 mg Q4H PRN IV For Anxiety 04/08/16 09:00 04/15/16 08:59 Metoprolol Tartrate (Lopressor) 5 mg Q1H PRN IVP spb more than 120 04/08/16 08:00 05/08/16 07:59 Metoprolol Tartrate (Lopressor) 50 mg Q12HR ORAL 04/09/16 21:00 05/09/16 20:59 Morphine Sulfate (Morphine Sulfate) 1 mg Q4H PRN IVP For Pain 04/08/16 09:00 04/15/16 08:59 Ondansetron HCl (Zofran) 4 mg Q6H PRN IVP Nausea & Vomiting 04/08/16 08:45 05/08/16 08:44 Polyethylene Glycol (Miralax) 17 gm HSPRN PRN ORAL Constipation 04/08/16 09:00 05/08/16 08:59 Vancomycin HCl (Vanco rx to dose) 1 ea DAILY PRN MISC . 04/06/16 09:00 05/06/16 08:59 Vancomycin HCl/ Dextrose (Vancomycin/D5W 250ml) 250 ml @ 167 mls/hr Q12HR@0600,1800 IVPB 04/08/16 18:00 04/11/16 17:59 04/09/16 05:43 Zolpidem Tartrate (Ambien) 5 mg HSPRN PRN ORAL Insomnia 04/08/16 18:00 05/08/16 17:59 Sixto Reilly M.D. Apr 09, 2016 14:27
--- NOTE | 2016-04-09 15:18 | Neurology Progress Note ---
Interim History Interim History Interim History Mr. Chiang feels much better. He is awake and responsive. He has been able to maintain his temperature. He denies any new neurologic symptoms. The mind is clear. He feels stronger generally. His appetite is good. He is steadier on his feet when he walks. Review of Systems Neuro Review of Systems Benign. Objective Physical Exam Last Vital Signs Date Time Temp Pulse Resp B/P Pulse Ox O2 Delivery O2 Flow Rate FiO2 04/09/16 12:13 73 135/91 04/09/16 11:47 97.0 18 97 Room Air Laboratory Tests Test 04/08/16 21:30 Stool Occult Blood Pending Neurologic Exam Objective PHYSICAL EXAMINATION: GENERAL: He is a well-developed, relatively well-nourished, black gentleman, lying in bed, in no acute distress. HEAD: Normocephalic and atraumatic. EENT: Examination benign. NECK: No neck rigidity was observed. NEUROLOGICAL EXAMINATION: MENTAL STATUS EXAMINATION: He was awake and more alert. He was oriented to person, place and time. He was able to recall 3/3 words immediately and could remember them in 1 and 3 minutes. He was able to remember presidents Obama through Jonas. SPEECH: He was mildly dysarthric and hypophonic. LANGUAGE: Normal. CRANIAL NERVE EXAMINATION: II: The visual lim were intact on confrontation testing. III, IV & : The external ocular movements were full. The pupils were 3 mm in diameter, equal, round, regular, and reactive to light. V: He had normal facial sensations, and the temporales, masseters, and pterygoids functioned normally. VII: He had normal facial expressions and no facial asymmetry. VIII: He was able to hear well and had no nystagmus. IX: The palate moved symmetrically on phonation. X: He had no hoarseness of voice. XI: The sternocleidomastoids and trapezii did function. XII: The tongue was in the midline without any fasciculations or atrophy. MOTOR SYSTEM: The tone was normal in all four extremities. Examination of muscle mass revealed no focal wasting. Examination of power revealed G 5/5 power except for G 5-/5 in the iliopsoas muscles. SENSORY EXAMINATION: He responded appropriately to pin prick and light touch. REFLEXES: 1++ and bilaterally symmetrical at the biceps, triceps, brachioradialis and knees. 1+ at both ankles. The plantar responses were flexor bilaterally. COORDINATION: He performed well on finger to nose testing. STANCE: He stood up with support. GAIT: He was able to walk with support. Impression/Recommendations Diagnostic Impression 1. Mr. Abelardo Chiang is a 55-year-old, right-handed, black gentleman, with nebulous past history who was found in a sabianism with an altered mental state and generally weak. When he was brought into the [facility] Emergency Room he was significantly hypothermic and possibly septic. He had then improved minimally but continued to be cognitively impoverished and lethargic. 2. He feels much better now. He is awake and alert. He is able to maintain his body temperature. The mind is clear. The strength is good. He is able to walk well. 3. On neurological examination, at this time, he is awake and alert, he is fully oriented, he has mild memory problems, and mild proximal lower extremity weakness. He however can stand and walk. 4. Laboratory data on admission revealed that his WBC count was at 10.3, he was significantly anemic with a hemoglobin of 8.2, his platelet count was elevated to 987,000 and his WBC count showed left-sided shift. His chemistry panel revealed that his glucose was elevated to 138. His albumin was low at 2.6. His serum alcohol was <10. The urinalysis was relatively benign. His ESR was elevated to 137. 5. The EEG done on 04/06/16 revealed a mild encephalopathy. 6. The CT of the brain done on 04/06/16 revealed atrophy and mild DWM changes but no acute pathology. 7. The patient's history and neurological examination are most compatible with possible sepsis associated with significant hypothermia. 8. He has improved significantly. Recommendations 1. Continue present management. 2. Encourage to increase activity. 3. Make sure patient goes to a safe place when he leaves the hospital. Anibal Magdaleno M.D., M.S.P.ANIBAL HIGGINS Apr 09, 2016 15:18
[2016-04-09 16:00] VITALS: BP 146/91
[2016-04-09] MEDS ORDERED: Acetaminophen 500mg (ES) tab ORAL PRN (18:45)
[2016-04-09 19:00] VITALS: BP 142/80
[2016-04-09] MEDS ORDERED: Metoprolol 5mg/5ml Inj IVP PRN (19:00)
[2016-04-09] MEDS ORDERED: Mylanta II UD 30ml ORAL PRN (20:45)
[2016-04-09] MEDS: Metoprolol 50mg tab ORAL SCH (20:46)
[2016-04-09] MEDS ORDERED: LORazepam Inj 2mg/ml 1ml IV PRN (21:00)
[2016-04-09] MEDS ORDERED: Morphine Sulfate 2mg/ml Inj IVP PRN (21:00)
[2016-04-09] MEDS ORDERED: Metoprolol 50mg tab ORAL SCH (21:00)
[2016-04-10] VITALS: BP 119/62
[2016-04-10 04:00] VITALS: BP 112/60
[2016-04-10 07:28] LABS: BASOPHILS % (AUTO) 0.3 % (0.0-2.0); EOSINOPHILS % (AUTO) 0.1 % (0.0-3.0); LYMPHOCYTES % (AUTO) 14.6 % (20.0-45.0); MEAN CORPUSCULAR HEMOGLOBIN 28.8 PG (27.0-31.0); MEAN CORPUSCULAR VOLUME 87 FL (80-99); MEAN PLATELET VOLUME 6.4 FL (6.5-10.1); MONOCYTES % (AUTO) 8.7 % (1.0-10.0); NEUTROPHILS % (AUTO) 76.3 % (45.0-75.0); PLATELET COUNT 610 K/UL (150-450); RED BLOOD COUNT 3.31 M/UL (4.70-6.10); RED CELL DISTRIBUTION WIDTH 17.4 % (11.6-14.8); WHITE BLOOD COUNT 11.5 K/UL (4.8-10.8)
--- NOTE | 2016-04-10 08:04 | General Progress Note ---
Assessment/Plan Assessment/Plan Assessment: 1. Isolated distal deep vein thrombosis (IDDVT) of the soleal vein (asymptomatic ) - given that he is asymptomatic will discontinue anticoagulation and reimage in 2 weeks to see if he has clot extension, and at that time can reconsider anticoagulation. For distal DVTs, evidence for improved outcomes with anticoagulation is equivocal and thus can consider this later option as well. Reference: Paraleti 2014 in "How do I treat" [place] [employer] Guidelines 2. Thrombocytosis is likely related to hx of anemia - reactive process 3. Leukocytosis, rule out sepsis. Send blood culture and urine culture. on wide spectrum antibiotic therapy. 4. Hypothermia. Recommend warming blanket. Unclear etiology at this point. 5. Generalized weakness, suspect due to hypothermia. 6. Coagulopathy 7. Anemia 2/2 chronic disease, ferritin elevated, tibc low. Does not have iron deficiency, improved Recommendations: 1. Monitor counts, improving 2. Transfuse as needed 3. pRBC transfuse if hgb <7 4. Transfuse plt if plt <10k 5. Imaging US abd 6. Anemia w/u reviewed 7. Agree does not require anticoagulation as outpatient 8. DOES not need a bone marrow bx 9. Followup renal, ID, cards, pulm recs 10. Staff Sincerely, Salvador Benitez MD Subjective Constitutional: Reports: no symptoms HEENT: Reports: no symptoms Cardiovascular: Reports: no symptoms Respiratory: Reports: no symptoms Gastrointestinal/Abdominal: Reports: poor appetite Genitourinary: Reports: no symptoms Neurologic/Psychiatric: Reports: no symptoms Endocrine: Reports: no symptoms Hematologic/Lymphatic: Reports: anemia Allergies: Coded Allergies: No Known Allergies (Unverified , 04/08/16) Per pt, he is not allergic to any medications or food. Subjective stable, no fevers, or chills, no bleeding, no hematochezia Objective Last 24 Hour Vital Signs Date Time Temp Pulse Resp B/P Pulse Ox O2 Delivery O2 Flow Rate FiO2 04/10/16 04:00 97.0 70 18 112/60 96 Room Air 04/10/16 00:00 96.9 72 18 119/62 100 Room Air 04/09/16 20:46 75 146/91 04/09/16 19:00 97.0 82 20 142/80 98 Room Air 04/09/16 16:00 98.1 75 20 146/91 98 Room Air 04/09/16 12:13 73 135/91 04/09/16 12:00 76 04/09/16 11:47 97.0 73 18 135/91 97 Room Air 04/09/16 09:09 83 Intake and Output 04/09/16 04/10/16 19:00 07:00 Intake Total 498 ml 535 ml Balance 498 ml 535 ml Intake Oral 360 ml 480 ml IV Total 138 ml 55 ml # Voids 2 6 # Bowel Movements 1 1 Laboratory Tests 04/10/16 01:45: Stool Occult Blood [Pending] 04/10/16 05:20: White Blood Count 11.5H, Red Blood Count 3.31L, Hemoglobin 9.5L, Hematocrit 28.9L, Mean Corpuscular Volume 87, Mean Corpuscular Hemoglobin 28.8, Mean Corpuscular Hemoglobin Concent 33.0, Red Cell Distribution Width 17.4H, Platelet Count 610H, Mean Platelet Volume 6.4L, Neutrophils (%) (Auto) 76.3H, Lymphocytes (%) (Auto) 14.6L, Monocytes (%) (Auto) 8.7, Eosinophils (%) (Auto) 0.1, Basophils (%) (Auto) 0.3, Prothrombin Time [Pending], Prothromb Time International Ratio [Pending], Activated Partial Thromboplast Time [Pending], Sodium Level [Pending], Potassium Level [Pending], Chloride Level [Pending], Carbon Dioxide Level [Pending], Blood Urea Nitrogen [Pending], Creatinine [ Pending], Estimat Glomerular Filtration Rate [Pending], Glucose Level [Pending] , Calcium Level [Pending], Phosphorus Level [Pending], Magnesium Level [Pending] , Total Bilirubin [Pending], Aspartate Amino Transf (AST/SGOT) [Pending], Alanine Aminotransferase (ALT/SGPT) [Pending], Alkaline Phosphatase [Pending], Total Protein [Pending], Albumin [Pending], Globulin [Pending] Height (Feet): 5 Height (Inches): 8.00 Weight (Pounds): 180 General Appearance: no apparent distress EENT: TMs normal Neck: supple Cardiovascular: regular rhythm Respiratory/Chest: lungs clear Abdomen: normal bowel sounds Extremities: non-tender Edema: 1+ Leg (L), 1+ Leg (R) Edema: mild edema Neurologic: no motor/sensory deficits Skin: warm/dry SALVADOR BENITEZ Apr 10, 2016 08:04
[2016-04-10 08:19] LABS: ALANINE AMINOTRANSFERASE 17 U/L (3-41); ALBUMIN/GLOBULIN RATIO 0.5 (1.0-2.7); ANION GAP 15 (5-15); ASPARTATE AMINO TRANSFERASE 23 U/L (5-40); CALCIUM 8.8 mg/dL (8.6-10.2); CARBON DIOXIDE 26 mEQ/L (20-30); CHLORIDE 100 mEQ/L (98-107); CREATININE 0.8 mg/dL (0.7-1.2); GLOMERULAR FILTRATION RATE > 60 mL/min (>60); HEMOLYSIS 0; MAGNESIUM 1.8 mg/dL (1.7-2.5); PHOSPHORUS 3.5 mg/dL (2.5-4.8); POTASSIUM 3.6 mEQ/L (3.4-4.9); SODIUM 141 mEQ/L (135-145); TOTAL PROTEIN 6.5 g/dL (6.6-8.7)
[2016-04-10 08:33] LABS: INR 1.1 (0.9-1.1); PROTHROMBIN TIME 10.8 SEC (9.30-11.50)
[2016-04-10 08:58] VITALS: BP 166/98
[2016-04-10] MEDS ORDERED: Lisinopril 10mg tab ORAL SCH (09:00)
[2016-04-10] MEDS ORDERED: Miralax 17gm pkt ORAL PRN (09:00)
[2016-04-10] MEDS: Cefepime HCl 1 GM in D5W 55 ML IVPB SCH (10:33)
[2016-04-10] MEDS: Aspirin Baby 81mg ORAL SCH (10:34)
[2016-04-10] MEDS: Lisinopril 10mg tab ORAL SCH (10:34)
[2016-04-10] MEDS: Metoprolol 50mg tab ORAL SCH ×2 (10:34→20:18)
[2016-04-10 12:25] VITALS: BP 156/90
--- NOTE | 2016-04-10 13:24 | General Progress Note ---
Assessment/Plan Problem List: (1) Hypothermia ICD Codes: T68.XXXA - Hypothermia, initial encounter SNOMED: 550668702 Qualifiers: Qualified Codes: T68.XXXA - Hypothermia, initial encounter (2) Symptomatic anemia ICD Codes: D64.9 - Anemia, unspecified SNOMED: 161137448 (3) Generalized weakness ICD Codes: R53.1 - Weakness SNOMED: 48207122 Status: progressing Assessment/Plan vitals stable no wheezing sepsis is improving lytes improved hypothermia resolved clinically improving Subjective ROS Limited/Unobtainable: Yes Constitutional: Reports: no symptoms Allergies: Coded Allergies: No Known Allergies (Unverified , 04/08/16) Per pt, he is not allergic to any medications or food. Objective Last 24 Hour Vital Signs Date Time Temp Pulse Resp B/P Pulse Ox O2 Delivery O2 Flow Rate FiO2 04/10/16 12:25 98.6 89 15 156/90 95 04/10/16 10:34 95 166/98 04/10/16 10:34 166/98 04/10/16 10:34 95 04/10/16 08:58 100.9 95 16 166/98 94 Room Air 04/10/16 04:00 97.0 70 18 112/60 96 Room Air 04/10/16 00:00 96.9 72 18 119/62 100 Room Air 04/09/16 20:46 75 146/91 04/09/16 19:00 97.0 82 20 142/80 98 Room Air 04/09/16 16:00 98.1 75 20 146/91 98 Room Air Intake and Output 04/09/16 04/10/16 19:00 07:00 Intake Total 498 ml 535 ml Balance 498 ml 535 ml Intake Oral 360 ml 480 ml IV Total 138 ml 55 ml # Voids 2 6 # Bowel Movements 1 1 Laboratory Tests 04/10/16 01:45: Stool Occult Blood Positive 04/10/16 05:20: White Blood Count 11.5H, Red Blood Count 3.31L, Hemoglobin 9.5L, Hematocrit 28.9L, Mean Corpuscular Volume 87, Mean Corpuscular Hemoglobin 28.8, Mean Corpuscular Hemoglobin Concent 33.0, Red Cell Distribution Width 17.4H, Platelet Count 610H, Mean Platelet Volume 6.4L, Neutrophils (%) (Auto) 76.3H, Lymphocytes (%) (Auto) 14.6L, Monocytes (%) (Auto) 8.7, Eosinophils (%) (Auto) 0.1, Basophils (%) (Auto) 0.3, Prothrombin Time 10.8, Prothromb Time International Ratio 1.1, Activated Partial Thromboplast Time 30, Sodium Level 141, Potassium Level 3.6, Chloride Level 100, Carbon Dioxide Level 26, Anion Gap 15, Blood Urea Nitrogen 11, Creatinine 0.8, Estimat Glomerular Filtration Rate > 60, Glucose Level 114H, Calcium Level 8.8, Phosphorus Level 3.5, Magnesium Level 1.8, Total Bilirubin < 0.2, Aspartate Amino Transf (AST/SGOT) 23 , Alanine Aminotransferase (ALT/SGPT) 17, Alkaline Phosphatase 88, Total Protein 6.5L, Albumin 2.4L, Globulin 4.1, Albumin/Globulin Ratio 0.5L Height (Feet): 5 Height (Inches): 8.00 Weight (Pounds): 180 EENT: PERRL/EOMI Neck: supple Cardiovascular: normal peripheral pulses Respiratory/Chest: lungs clear Abdomen: soft Sangeeta Massey MD Apr 10, 2016 13:24
--- NOTE | 2016-04-10 13:42 | Neurology Progress Note ---
Interim History Interim History Interim History Mr. Chiang feels better generally. He says he was feeling feverish earlier. He is awake and responsive. He has been able to maintain his temperature. He denies any new neurologic symptoms. The mind is clear. He feels stronger generally. His appetite is good. He is steadier on his feet when he walks. Review of Systems Neuro Review of Systems Benign. Objective Physical Exam Last Vital Signs Date Time Temp Pulse Resp B/P Pulse Ox O2 Delivery O2 Flow Rate FiO2 04/10/16 12:25 98.6 89 15 156/90 95 04/10/16 08:58 Room Air Laboratory Tests Test 04/10/16 01:45 04/10/16 05:20 Stool Occult Blood Positive (NEGATIVE) White Blood Count 11.5 K/UL (4.8-10.8) H Red Blood Count 3.31 M/UL (4.70-6.10) L Hemoglobin 9.5 G/DL (14.2-18.0) L Hematocrit 28.9 % (42.0-52.0) L Mean Corpuscular Volume 87 FL (80-99) Mean Corpuscular Hemoglobin 28.8 PG (27.0-31.0) Mean Corpuscular Hemoglobin Concent 33.0 G/DL (32.0-36.0) Red Cell Distribution Width 17.4 % (11.6-14.8) H Platelet Count 610 K/UL (150-450) H Mean Platelet Volume 6.4 FL (6.5-10.1) L Neutrophils (%) (Auto) 76.3 % (45.0-75.0) H Lymphocytes (%) (Auto) 14.6 % (20.0-45.0) L Monocytes (%) (Auto) 8.7 % (1.0-10.0) Eosinophils (%) (Auto) 0.1 % (0.0-3.0) Basophils (%) (Auto) 0.3 % (0.0-2.0) Prothrombin Time 10.8 SEC (9.30-11.50) Prothromb Time International Ratio 1.1 (0.9-1.1) Activated Partial Thromboplast Time 30 SEC (23-33) Sodium Level 141 mEQ/L (135-145) Potassium Level 3.6 mEQ/L (3.4-4.9) Chloride Level 100 mEQ/L (98-107) Carbon Dioxide Level 26 mEQ/L (20-30) Anion Gap 15 (5-15) Blood Urea Nitrogen 11 mg/dL (7-23) Creatinine 0.8 mg/dL (0.7-1.2) Estimat Glomerular Filtration Rate > 60 mL/min (>60) Glucose Level 114 mg/dL (74-106) H Calcium Level 8.8 mg/dL (8.6-10.2) Phosphorus Level 3.5 mg/dL (2.5-4.8) Magnesium Level 1.8 mg/dL (1.7-2.5) Total Bilirubin < 0.2 mg/dL (0.0-1.2) Aspartate Amino Transf (AST/SGOT) 23 U/L (5-40) Alanine Aminotransferase (ALT/SGPT) 17 U/L (3-41) Alkaline Phosphatase 88 U/L (40-129) Total Protein 6.5 g/dL (6.6-8.7) L Albumin 2.4 g/dL (3.5-5.2) L Globulin 4.1 g/dL Albumin/Globulin Ratio 0.5 (1.0-2.7) L Neurologic Exam Objective PHYSICAL EXAMINATION: GENERAL: He is a well-developed, relatively well-nourished, black gentleman, lying in bed, in no acute distress. HEAD: Normocephalic and atraumatic. EENT: Examination benign. NECK: No neck rigidity was observed. NEUROLOGICAL EXAMINATION: MENTAL STATUS EXAMINATION: He was awake and more alert. He was oriented to person, place and time. He was able to recall 3/3 words immediately and could remember them in 1 and 3 minutes. He was able to remember presidents Obama through Jonas. SPEECH: He was mildly dysarthric and hypophonic. LANGUAGE: Normal. CRANIAL NERVE EXAMINATION: II: The visual lim were intact on confrontation testing. III, IV & : The external ocular movements were full. The pupils were 3 mm in diameter, equal, round, regular, and reactive to light. V: He had normal facial sensations, and the temporales, masseters, and pterygoids functioned normally. VII: He had normal facial expressions and no facial asymmetry. VIII: He was able to hear well and had no nystagmus. IX: The palate moved symmetrically on phonation. X: He had no hoarseness of voice. XI: The sternocleidomastoids and trapezii did function. XII: The tongue was in the midline without any fasciculations or atrophy. MOTOR SYSTEM: The tone was normal in all four extremities. Examination of muscle mass revealed no focal wasting. Examination of power revealed G 5/5 power except for G 5-/5 in the iliopsoas muscles. SENSORY EXAMINATION: He responded appropriately to pin prick and light touch. REFLEXES: 1++ and bilaterally symmetrical at the biceps, triceps, brachioradialis and knees. 1+ at both ankles. The plantar responses were flexor bilaterally. COORDINATION: He performed well on finger to nose testing. STANCE: He stood up with support. GAIT: He was able to walk with support. Impression/Recommendations Diagnostic Impression 1. Mr. Abelardo Chiang is a 55-year-old, right-handed, black gentleman, with nebulous past history who was found in a [facility] with an altered mental state and generally weak. When he was brought into the [facility] Emergency Room he was significantly hypothermic and possibly septic. He had then improved minimally but continued to be cognitively impoverished and lethargic. 2. He feels better generally, but was feeling feverish this morning - his temperature was elevated to 100.9 degrees F. He is awake and alert. The mind is clear. The strength is good. He is able to walk well. 3. On neurological examination, at this time, he is awake and alert, he is fully oriented, he has mild memory problems, and mild proximal lower extremity weakness. He can stand and walk well. 4. Laboratory data on admission revealed that his WBC count was at 10.3, he was significantly anemic with a hemoglobin of 8.2, his platelet count was elevated to 987,000 and his WBC count showed left-sided shift. His chemistry panel revealed that his glucose was elevated to 138. His albumin was low at 2.6. His serum alcohol was <10. The urinalysis was relatively benign. His ESR was elevated to 137. 5. The EEG done on 04/06/16 revealed a mild encephalopathy. 6. The CT of the brain done on 04/06/16 revealed atrophy and mild DWM changes but no acute pathology. 7. The patient's history and neurological examination are most compatible with possible sepsis associated with significant hypothermia. 8. He has improved significantly. 9. He had a fever this morning that has now defervesced. Recommendations 1. Continue present management. 2. Encourage to increase activity. 3. Make sure patient goes to a safe place when he leaves the hospital. Anibal Magdaleno M.D., M.S.P.H. ANIBAL MAGDALENO Apr 10, 2016 13:42
--- NOTE | 2016-04-10 16:12 | Infectious Diseases Prog Note ---
Assessment/Plan Problems: (1) Sepsis Assessment & Plan: blood culture so far negative for 48 hours , but it was done while on antibiotics therapy , will D/C vancomycin and cefepime for now , and monitor vitals, off antibiotics. (2) Leukocytosis Assessment & Plan: no evidence of sepsis, blood culture is negative for 48 hours, suspect due to DVT . (3) Hypothermia Assessment & Plan: improved, unclear etiology need to rule out ischemic injury , monitor electrolytes and lactic acid. (4) Generalized weakness Assessment & Plan: suspect hypothermia related, check TSH (5) DVT (deep venous thrombosis) Assessment & Plan: continue anticoagulation, monitor INR, CTA of the lung was canceled by probation and parole officer Subjective Constitutional: Reports: fatigue Neurologic: Reports: weakness Allergies: Coded Allergies: No Known Allergies (Unverified , 04/08/16) Per pt, he is not allergic to any medications or food. All Systems: reviewed and negative except above Subjective he was doing well , no longer hypothermic, denied any fever or chills, no nausea or vomiting . Objective Vital Signs Last 24 Hour Vital Signs Date Time Temp Pulse Resp B/P Pulse Ox O2 Delivery O2 Flow Rate FiO2 04/10/16 12:25 98.6 89 15 156/90 95 04/10/16 10:34 95 166/98 04/10/16 10:34 166/98 04/10/16 10:34 95 04/10/16 08:58 100.9 95 16 166/98 94 Room Air 04/10/16 04:00 97.0 70 18 112/60 96 Room Air 04/10/16 00:00 96.9 72 18 119/62 100 Room Air 04/09/16 20:46 75 146/91 04/09/16 19:00 97.0 82 20 142/80 98 Room Air Height (Feet): 5 Height (Inches): 8.00 Weight (Pounds): 180 General Appearance: WD/WN, no acute distress HEENT: normocephalic, atraumatic, anicteric, mucous membranes moist, PERRL Respiratory/Chest: chest wall non-tender, lungs clear, normal breath sounds, no respiratory distress, no accessory muscle use Cardiovascular: normal peripheral pulses, normal rate, regular rhythm, no gallop/murmur, no JVD Abdomen: normal bowel sounds, soft, non tender, no organomegaly, non distended , no mass, no scars Extremities: no cyanosis, no clubbing Skin: no rash, no lesions, no ulcers Laboratory Tests Test 04/10/16 01:45 04/10/16 05:20 Stool Occult Blood Positive (NEGATIVE) White Blood Count 11.5 K/UL (4.8-10.8) H Red Blood Count 3.31 M/UL (4.70-6.10) L Hemoglobin 9.5 G/DL (14.2-18.0) L Hematocrit 28.9 % (42.0-52.0) L Mean Corpuscular Volume 87 FL (80-99) Mean Corpuscular Hemoglobin 28.8 PG (27.0-31.0) Mean Corpuscular Hemoglobin Concent 33.0 G/DL (32.0-36.0) Red Cell Distribution Width 17.4 % (11.6-14.8) H Platelet Count 610 K/UL (150-450) H Mean Platelet Volume 6.4 FL (6.5-10.1) L Neutrophils (%) (Auto) 76.3 % (45.0-75.0) H Lymphocytes (%) (Auto) 14.6 % (20.0-45.0) L Monocytes (%) (Auto) 8.7 % (1.0-10.0) Eosinophils (%) (Auto) 0.1 % (0.0-3.0) Basophils (%) (Auto) 0.3 % (0.0-2.0) Prothrombin Time 10.8 SEC (9.30-11.50) Prothromb Time International Ratio 1.1 (0.9-1.1) Activated Partial Thromboplast Time 30 SEC (23-33) Sodium Level 141 mEQ/L (135-145) Potassium Level 3.6 mEQ/L (3.4-4.9) Chloride Level 100 mEQ/L (98-107) Carbon Dioxide Level 26 mEQ/L (20-30) Anion Gap 15 (5-15) Blood Urea Nitrogen 11 mg/dL (7-23) Creatinine 0.8 mg/dL (0.7-1.2) Estimat Glomerular Filtration Rate > 60 mL/min (>60) Glucose Level 114 mg/dL (74-106) H Calcium Level 8.8 mg/dL (8.6-10.2) Phosphorus Level 3.5 mg/dL (2.5-4.8) Magnesium Level 1.8 mg/dL (1.7-2.5) Total Bilirubin < 0.2 mg/dL (0.0-1.2) Aspartate Amino Transf (AST/SGOT) 23 U/L (5-40) Alanine Aminotransferase (ALT/SGPT) 17 U/L (3-41) Alkaline Phosphatase 88 U/L (40-129) Total Protein 6.5 g/dL (6.6-8.7) L Albumin 2.4 g/dL (3.5-5.2) L Globulin 4.1 g/dL Albumin/Globulin Ratio 0.5 (1.0-2.7) L Current Medications Medications (Trade) Dose Ordered Sig/Jenn Route PRN Reason Start Time Stop Time Status Last Admin Dose Admin Acetaminophen (Tylenol) 500 mg 30 MIN BEFORE BLOOD PRN ORAL 30 MIN PRIOR TO BLOOD TRANSFUS 04/09/16 18:45 05/09/16 18:44 Acetaminophen (Tylenol) 650 mg Q4H PRN ORAL fever 04/09/16 21:00 05/09/16 20:59 Al Hydroxide/Mg Hydroxide (Mylanta II) 30 ml Q6H PRN ORAL dyspepsia 04/09/16 20:45 05/09/16 20:44 Aspirin (ASA) 81 mg DAILY ORAL 04/10/16 09:00 05/10/16 08:59 04/10/16 10:34 Dextrose (Dextrose 50%) STAT PRN IV Hypoglycemia 04/10/16 09:00 05/10/16 08:59 Digoxin (Lanoxin) 0.25 mg DAILY ORAL 04/10/16 09:00 05/10/16 08:59 04/10/16 10:34 Diphenhydramine HCl (Benadryl) 50 mg 30MIN BEFORE BLOOD PRN ORAL PRIOR TO BLOOD TRANSFUSION 04/09/16 18:45 05/09/16 18:44 Lisinopril (Zestril) 10 mg DAILY ORAL 04/10/16 09:00 05/10/16 08:59 04/10/16 10:34 Lorazepam (Ativan 2mg/ml 1ml) 0.5 mg Q4H PRN IV For Anxiety 04/09/16 21:00 04/16/16 20:59 Metoprolol Tartrate (Lopressor) 50 mg Q12HR ORAL 04/09/16 21:00 05/09/16 20:59 04/10/16 10:34 Morphine Sulfate (Morphine Sulfate) 1 mg Q4H PRN IVP For Pain 04/09/16 21:00 04/16/16 20:59 Ondansetron HCl (Zofran) 4 mg Q6H PRN IVP Nausea & Vomiting 04/09/16 20:45 05/09/16 20:44 Polyethylene Glycol (Miralax) 17 gm HSPRN PRN ORAL Constipation 04/10/16 09:00 05/10/16 08:59 Zolpidem Tartrate (Ambien) 5 mg HSPRN PRN ORAL Insomnia 04/10/16 18:00 05/10/16 17:59 Sixto Reilly M.D. Apr 10, 2016 16:11
[2016-04-10 16:50] VITALS: BP 155/98
[2016-04-10] MEDS ORDERED: Zolpidem 5mg tab ORAL PRN (18:00)
--- NOTE | 2016-04-10 19:04 | Pulmonology Progress Note ---
Assessment/Plan Problems: (1) DVT (deep venous thrombosis) (2) Hypothermia (3) Generalized weakness (4) Sepsis Assessment & Plan: all cultures are negative, (5) Symptomatic anemia Assessment/Plan no need for antibiotics, never had fever, all cultures are negative heart rate controlled DVT in leg is too small to treat dc planning might need placement Subjective ROS Limited/Unobtainable: No Constitutional: Reports: anorexia, fatigue Skin: Reports: rash, ulcer Musculoskeletal: Reports: pain, swelling Allergies: Coded Allergies: No Known Allergies (Unverified , 04/08/16) Per pt, he is not allergic to any medications or food. Objective Last 24 Hour Vital Signs Date Time Temp Pulse Resp B/P Pulse Ox O2 Delivery O2 Flow Rate FiO2 04/10/16 16:50 99.7 92 14 155/98 94 Room Air 04/10/16 12:25 98.6 89 15 156/90 95 04/10/16 10:34 95 166/98 04/10/16 10:34 166/98 04/10/16 10:34 95 04/10/16 08:58 100.9 95 16 166/98 94 Room Air 04/10/16 04:00 97.0 70 18 112/60 96 Room Air 04/10/16 00:00 96.9 72 18 119/62 100 Room Air 04/09/16 20:46 75 146/91 Intake and Output 04/09/16 04/10/16 19:00 07:00 Intake Total 498 ml 535 ml Balance 498 ml 535 ml Intake Oral 360 ml 480 ml IV Total 138 ml 55 ml # Voids 2 6 # Bowel Movements 1 1 General Appearance: no acute distress HEENT: normocephalic, atraumatic, anicteric, PERRL Respiratory/Chest: chest wall non-tender, decreased breath sounds, accessory muscle use Cardiovascular: normal peripheral pulses, normal rate, regular rhythm, no JVD Abdomen: normal bowel sounds, soft, non tender, no organomegaly Genitourinary: normal external genitalia Extremities: no cyanosis Skin: rash, lesions, ulcers 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, no motor/sensory deficits Laboratory Tests 04/10/16 01:45: Stool Occult Blood Positive 04/10/16 05:20: White Blood Count 11.5H, Red Blood Count 3.31L, Hemoglobin 9.5L, Hematocrit 28.9L, Mean Corpuscular Volume 87, Mean Corpuscular Hemoglobin 28.8, Mean Corpuscular Hemoglobin Concent 33.0, Red Cell Distribution Width 17.4H, Platelet Count 610H, Mean Platelet Volume 6.4L, Neutrophils (%) (Auto) 76.3H, Lymphocytes (%) (Auto) 14.6L, Monocytes (%) (Auto) 8.7, Eosinophils (%) (Auto) 0.1, Basophils (%) (Auto) 0.3, Prothrombin Time 10.8, Prothromb Time International Ratio 1.1, Activated Partial Thromboplast Time 30, Sodium Level 141, Potassium Level 3.6, Chloride Level 100, Carbon Dioxide Level 26, Anion Gap 15, Blood Urea Nitrogen 11, Creatinine 0.8, Estimat Glomerular Filtration Rate > 60, Glucose Level 114H, Calcium Level 8.8, Phosphorus Level 3.5, Magnesium Level 1.8, Total Bilirubin < 0.2, Aspartate Amino Transf (AST/SGOT) 23 , Alanine Aminotransferase (ALT/SGPT) 17, Alkaline Phosphatase 88, Total Protein 6.5L, Albumin 2.4L, Globulin 4.1, Albumin/Globulin Ratio 0.5L Current Medications Medications (Trade) Dose Ordered Sig/Jenn Route PRN Reason Start Time Stop Time Status Last Admin Dose Admin Acetaminophen (Tylenol) 500 mg 30 MIN BEFORE BLOOD PRN ORAL 30 MIN PRIOR TO BLOOD TRANSFUS 04/09/16 18:45 05/09/16 18:44 Acetaminophen (Tylenol) 650 mg Q4H PRN ORAL fever 04/09/16 21:00 05/09/16 20:59 Al Hydroxide/Mg Hydroxide (Mylanta II) 30 ml Q6H PRN ORAL dyspepsia 04/09/16 20:45 05/09/16 20:44 Aspirin (ASA) 81 mg DAILY ORAL 04/10/16 09:00 05/10/16 08:59 04/10/16 10:34 Dextrose (Dextrose 50%) STAT PRN IV Hypoglycemia 04/10/16 09:00 05/10/16 08:59 Digoxin (Lanoxin) 0.25 mg DAILY ORAL 04/10/16 09:00 05/10/16 08:59 04/10/16 10:34 Diphenhydramine HCl (Benadryl) 50 mg 30MIN BEFORE BLOOD PRN ORAL PRIOR TO BLOOD TRANSFUSION 04/09/16 18:45 05/09/16 18:44 Lisinopril (Zestril) 10 mg DAILY ORAL 04/10/16 09:00 05/10/16 08:59 04/10/16 10:34 Lorazepam (Ativan 2mg/ml 1ml) 0.5 mg Q4H PRN IV For Anxiety 04/09/16 21:00 04/16/16 20:59 Metoprolol Tartrate (Lopressor) 50 mg Q12HR ORAL 04/09/16 21:00 05/09/16 20:59 04/10/16 10:34 Morphine Sulfate (Morphine Sulfate) 1 mg Q4H PRN IVP For Pain 04/09/16 21:00 04/16/16 20:59 Ondansetron HCl (Zofran) 4 mg Q6H PRN IVP Nausea & Vomiting 04/09/16 20:45 05/09/16 20:44 Polyethylene Glycol (Miralax) 17 gm HSPRN PRN ORAL Constipation 04/10/16 09:00 05/10/16 08:59 Zolpidem Tartrate (Ambien) 5 mg HSPRN PRN ORAL Insomnia 04/10/16 18:00 05/10/16 17:59 MARSHA CAMEJO Apr 10, 2016 19:04
[2016-04-10 20:00] VITALS: BP 138/70
[2016-04-11] VITALS: BP 149/95
[2016-04-11 04:00] VITALS: BP 146/82
[2016-04-11 08:00] VITALS: BP 145/81
[2016-04-11] MEDS: Aspirin Baby 81mg ORAL SCH (08:23)
[2016-04-11] MEDS: Lisinopril 10mg tab ORAL SCH (08:23)
[2016-04-11] MEDS: Metoprolol 50mg tab ORAL SCH ×2 (08:25→20:13)
--- NOTE | 2016-04-11 08:38 | General Progress Note ---
Assessment/Plan Assessment/Plan Assessment: 1. Isolated distal deep vein thrombosis (IDDVT) of the soleal vein (asymptomatic ) - given that he is asymptomatic, have discontinued anticoagulation and recommend to reimage in 2 weeks to see if he has proximal clot extension, and at that time can reconsider anticoagulation. For distal DVTs, evidence for improved outcomes with anticoagulation is equivocal. Reference: Paraleti 2014 in "How do I treat" [place] [employer] Guidelines 2. Thrombocytosis is likely related to hx of anemia - reactive process 3. Leukocytosis, rule out sepsis. Send blood culture and urine culture. on wide spectrum antibiotic therapy. 4. Hypothermia. Recommend warming blanket. Unclear etiology at this point. 5. Generalized weakness, suspect due to hypothermia. 6. Coagulopathy 7. Anemia 2/2 chronic disease, ferritin elevated, tibc low. Does not have iron deficiency, improved Recommendations: 1. Monitor counts, improving 2. Transfuse as needed 3. pRBC transfuse if hgb <7 4. Transfuse plt if plt <10k 5. Imaging US abd 6. Anemia w/u reviewed 7. Agree does not require anticoagulation 8. DVT ppx with heparin sq 9. Followup renal, ID, cards, pulm recs 10. DW Staff Sincerely, Chuy Benitez MD Subjective Constitutional: Reports: no symptoms HEENT: Reports: no symptoms Cardiovascular: Reports: no symptoms Respiratory: Reports: no symptoms Gastrointestinal/Abdominal: Reports: no symptoms Genitourinary: Reports: no symptoms Neurologic/Psychiatric: Reports: no symptoms Endocrine: Reports: no symptoms Hematologic/Lymphatic: Reports: anemia Allergies: Coded Allergies: No Known Allergies (Unverified , 04/08/16) Per pt, he is not allergic to any medications or food. Subjective stable, no bleeding, h/h better Objective Last 24 Hour Vital Signs Date Time Temp Pulse Resp B/P Pulse Ox O2 Delivery O2 Flow Rate FiO2 04/11/16 08:25 100 145/81 04/11/16 08:24 100 04/11/16 08:23 145/81 04/11/16 08:00 99.1 100 21 145/81 95 Room Air 04/11/16 06:03 98.1 04/11/16 04:02 102.0 04/11/16 04:00 102.0 101 19 146/82 91 Room Air 04/11/16 00:00 102.2 102 20 149/95 96 Room Air 04/10/16 20:18 92 155/98 04/10/16 20:00 97.7 82 18 138/70 100 Room Air 04/10/16 16:50 99.7 92 14 155/98 94 Room Air 04/10/16 12:25 98.6 89 15 156/90 95 04/10/16 10:34 95 166/98 04/10/16 10:34 166/98 04/10/16 10:34 95 04/10/16 08:58 100.9 95 16 166/98 94 Room Air Intake and Output 04/10/16 04/11/16 19:00 07:00 Intake Total 1600 ml 470 ml Output Total 1300 ml 1500 ml Balance 300 ml -1030 ml Intake Oral 1600 ml 470 ml Output Urine Total 1300 ml 1500 ml # Bowel Movements 1 1 Height (Feet): 5 Height (Inches): 8.00 Weight (Pounds): 180 General Appearance: WD/WN EENT: TMs normal Neck: supple Cardiovascular: regular rhythm Respiratory/Chest: normal breath sounds Abdomen: normal bowel sounds Extremities: non-tender Edema: 1+ Leg (L), 1+ Leg (R) Edema: moderate edema Neurologic: alert Skin: warm/dry Chuy Benitez Apr 11, 2016 08:38
[2016-04-11] MEDS ORDERED: Vancomycin 1 GM in D5W 275 ML IVPB SCH (09:00)
[2016-04-11] MEDS ORDERED: Rx Monitoring Vancomycin MISC PRN (09:15)
[2016-04-11] MEDS: Heparin 5000 units/ml inj SUBQ SCH ×3 (09:40→22:15)
[2016-04-11] MEDS ORDERED: Piperacillin/Tazobactam 3.375 GM in D5W 110 ML IVPB SCH (10:00)
[2016-04-11] MEDS: Vancomycin 1 GM in NS 275 ML IVPB SCH ×2 (10:00→22:12)
[2016-04-11] MEDS ORDERED: Vancomycin 1 GM in NS 275 ML IVPB SCH (10:00)
--- NOTE | 2016-04-11 11:47 | General Progress Note ---
Assessment/Plan Problem List: (1) Hypothermia ICD Codes: T68.XXXA - Hypothermia, initial encounter SNOMED: 269308577 Qualifiers: Qualified Codes: T68.XXXA - Hypothermia, initial encounter (2) Symptomatic anemia ICD Codes: D64.9 - Anemia, unspecified SNOMED: 192179689 (3) Generalized weakness ICD Codes: R53.1 - Weakness SNOMED: 79757730 Status: progressing Assessment/Plan afebrile reviewed chart and labs no acute events Subjective ROS Limited/Unobtainable: Yes Allergies: Coded Allergies: No Known Allergies (Unverified , 04/08/16) Per pt, he is not allergic to any medications or food. Objective Last 24 Hour Vital Signs Date Time Temp Pulse Resp B/P Pulse Ox O2 Delivery O2 Flow Rate FiO2 04/11/16 08:25 100 145/81 04/11/16 08:24 100 04/11/16 08:23 145/81 04/11/16 08:00 99.1 100 21 145/81 95 Room Air 04/11/16 06:03 98.1 04/11/16 04:02 102.0 04/11/16 04:00 102.0 101 19 146/82 91 Room Air 04/11/16 00:00 102.2 102 20 149/95 96 Room Air 04/10/16 20:18 92 155/98 04/10/16 20:00 97.7 82 18 138/70 100 Room Air 04/10/16 16:50 99.7 92 14 155/98 94 Room Air 04/10/16 12:25 98.6 89 15 156/90 95 Intake and Output 04/10/16 04/11/16 19:00 07:00 Intake Total 1600 ml 470 ml Output Total 1300 ml 1500 ml Balance 300 ml -1030 ml Intake Oral 1600 ml 470 ml Output Urine Total 1300 ml 1500 ml # Bowel Movements 1 1 Height (Feet): 5 Height (Inches): 8.00 Weight (Pounds): 180 EENT: PERRL/EOMI Neck: supple Cardiovascular: normal rate Respiratory/Chest: lungs clear Sangeeta Massey MD Apr 11, 2016 11:47
[2016-04-11 11:49] VITALS: BP 134/63
--- NOTE | 2016-04-11 11:54 | Neurology Progress Note ---
Interim History Interim History Interim History Mr. Chiang feels better generally. He is still bothered by a cough. He is awake and responsive. He has been able to maintain his temperature. He denies any new neurologic symptoms. The mind is clear. He feels stronger generally. His appetite is good. He is steadier on his feet when he walks. Review of Systems Neuro Review of Systems Benign. Objective Physical Exam Last Vital Signs Date Time Temp Pulse Resp B/P Pulse Ox O2 Delivery O2 Flow Rate FiO2 04/11/16 11:49 98.6 82 21 134/63 95 Room Air Neurologic Exam Objective PHYSICAL EXAMINATION: GENERAL: He is a well-developed, relatively well-nourished, black gentleman, lying in bed, in no acute distress. HEAD: Normocephalic and atraumatic. EENT: Examination benign. NECK: No neck rigidity was observed. NEUROLOGICAL EXAMINATION: MENTAL STATUS EXAMINATION: He was awake and alert. He was oriented to person, place and time. He was able to recall 3/3 words immediately and could remember them in 1 and 3 minutes. He was able to remember presidents Obama through Jonas. SPEECH: Normal. LANGUAGE: Normal. CRANIAL NERVE EXAMINATION: II: The visual lim were intact on confrontation testing. III, IV & : The external ocular movements were full. The pupils were 3 mm in diameter, equal, round, regular, and reactive to light. V: He had normal facial sensations, and the temporales, masseters, and pterygoids functioned normally. VII: He had normal facial expressions and no facial asymmetry. VIII: He was able to hear well and had no nystagmus. IX: The palate moved symmetrically on phonation. X: He had no hoarseness of voice. XI: The sternocleidomastoids and trapezii did function. XII: The tongue was in the midline without any fasciculations or atrophy. MOTOR SYSTEM: The tone was normal in all four extremities. Examination of muscle mass revealed no focal wasting. Examination of power revealed G 5/5 power except for G 5-/5 in the iliopsoas muscles. SENSORY EXAMINATION: He responded appropriately to pin prick and light touch. REFLEXES: 1++ and bilaterally symmetrical at the biceps, triceps, brachioradialis and knees. 1+ at both ankles. The plantar responses were flexor bilaterally. COORDINATION: He performed well on finger to nose testing. STANCE: He stood up with support. GAIT: He was able to walk with support. Impression/Recommendations Diagnostic Impression 1. Mr. Abelardo Chiang is a 55-year-old, right-handed, black gentleman, with nebulous past history who was found in a protest[facility] with an altered mental state and generally weak. When he was brought into the [facility] Emergency Room he was significantly hypothermic and possibly septic. He had then improved minimally but continued to be cognitively impoverished and lethargic. 2. He feels better generally, but is bothered by a cough. He is awake and alert. The mind is clear. The strength is good. He is able to walk well. 3. On neurological examination, at this time, he is awake and alert, he is fully oriented, he has mild memory problems, and mild proximal lower extremity weakness. He can stand and walk well. 4. Laboratory data on admission revealed that his WBC count was at 10.3, he was significantly anemic with a hemoglobin of 8.2, his platelet count was elevated to 987,000 and his WBC count showed left-sided shift. His chemistry panel revealed that his glucose was elevated to 138. His albumin was low at 2.6. His serum alcohol was <10. The urinalysis was relatively benign. His ESR was elevated to 137. 5. The EEG done on 04/06/16 revealed a mild encephalopathy. 6. The CT of the brain done on 04/06/16 revealed atrophy and mild DWM changes but no acute pathology. 7. The patient's history and neurological examination are most compatible with possible sepsis associated with significant hypothermia. 8. He has improved significantly. 9. He is still bothered by a cough. Recommendations 1. Continue present management. 2. Encourage to increase activity. 3. Make sure patient goes to a safe place when he leaves the hospital. Anibal Magdaleno M.D., M.S.P.ANIBAL HIGGINS Apr 11, 2016 11:54
[2016-04-11] MEDS: Piperacillin/Tazobactam 3.375 GM in D5W 110 ML IVPB SCH ×2 (12:10→20:14)
--- NOTE | 2016-04-11 12:17 | Cardiac Electrophysiology PN ---
Assessment/Plan Status Narrative Technically difficult study due to poor acoustic windows. Left ventricular ejection fraction estimated to be 45-50%. Mid anterior septal hypokinesis. Trivial circumferential pericardial effusion. Mild left ventricular enlargment. Mild left ventricular hypertrophy. Enlargment of right ventricule. Focal aortic valve sclerosis with adequate cusp excursion Thickened mitral valve leaflets with normal excursion. Mitral annulus and aortic root calcification. Pulmonic valve not well visualized. Normal tricuspid valve structure. IVC at 1.8cm with physiologic collapse. Assessment/Plan 1. Recurrent SVT. Continue Digoxin 0.25 mg po daily and Lopressor 50 bid. 2. NSVT 5 beats . No syncope.Continue Lopressor. 2. Generalized weakness due to combination of hypothermia, profound anemia. His hemoglobin is only 7.9. 3. 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 On Lopressor 50 bid and lisinopril. 4. Severe thrombocytosis almost a Million as well as anemia with hemoglobin of 8.2.Follow up Dr Giang. 5. AMS. Head CT and EEG and neuro follow up Dr Magdaleno. 6. Isolated distal deep vein thrombosis of the Right soleal vein, Per Dr Giang "given that he is asymptomatic, have discontinued anticoagulation and recommend to reimage in 2 weeks to see if he has proximal clot extension, and at that time can reconsider anticoagulation". 7. Anemia and Stool OB positive. DW RN Subjective Subjective Continue Dig and Metoprolol for SVT.Alert in NAD. Transferred to nonmonitored bed.. Objective Last 24 Hour Vital Signs Date Time Temp Pulse Resp B/P Pulse Ox O2 Delivery O2 Flow Rate FiO2 04/11/16 11:49 98.6 82 21 134/63 95 Room Air 04/11/16 08:25 100 145/81 04/11/16 08:24 100 04/11/16 08:23 145/81 04/11/16 08:00 99.1 100 21 145/81 95 Room Air 04/11/16 06:03 98.1 04/11/16 04:02 102.0 04/11/16 04:00 102.0 101 19 146/82 91 Room Air 04/11/16 00:00 102.2 102 20 149/95 96 Room Air 04/10/16 20:18 92 155/98 04/10/16 20:00 97.7 82 18 138/70 100 Room Air 04/10/16 16:50 99.7 92 14 155/98 94 Room Air 04/10/16 12:25 98.6 89 15 156/90 95 Intake and Output 04/10/16 04/11/16 19:00 07:00 Intake Total 1600 ml 470 ml Output Total 1300 ml 1500 ml Balance 300 ml -1030 ml Intake Oral 1600 ml 470 ml Output Urine Total 1300 ml 1500 ml # Bowel Movements 1 1 Labs Test 04/10/16 01:45 04/10/16 05:20 Stool Occult Blood Positive (NEGATIVE) White Blood Count 11.5 K/UL (4.8-10.8) Red Blood Count 3.31 M/UL (4.70-6.10) Hemoglobin 9.5 G/DL (14.2-18.0) Hematocrit 28.9 % (42.0-52.0) Mean Corpuscular Volume 87 FL (80-99) Mean Corpuscular Hemoglobin 28.8 PG (27.0-31.0) Mean Corpuscular Hemoglobin Concent 33.0 G/DL (32.0-36.0) Red Cell Distribution Width 17.4 % (11.6-14.8) Platelet Count 610 K/UL (150-450) Mean Platelet Volume 6.4 FL (6.5-10.1) Neutrophils (%) (Auto) 76.3 % (45.0-75.0) Lymphocytes (%) (Auto) 14.6 % (20.0-45.0) Monocytes (%) (Auto) 8.7 % (1.0-10.0) Eosinophils (%) (Auto) 0.1 % (0.0-3.0) Basophils (%) (Auto) 0.3 % (0.0-2.0) Prothrombin Time 10.8 SEC (9.30-11.50) Prothromb Time International Ratio 1.1 (0.9-1.1) Activated Partial Thromboplast Time 30 SEC (23-33) Sodium Level 141 mEQ/L (135-145) Potassium Level 3.6 mEQ/L (3.4-4.9) Chloride Level 100 mEQ/L (98-107) Carbon Dioxide Level 26 mEQ/L (20-30) Anion Gap 15 (5-15) Blood Urea Nitrogen 11 mg/dL (7-23) Creatinine 0.8 mg/dL (0.7-1.2) Estimat Glomerular Filtration Rate > 60 mL/min (>60) Glucose Level 114 mg/dL (74-106) Calcium Level 8.8 mg/dL (8.6-10.2) Phosphorus Level 3.5 mg/dL (2.5-4.8) Magnesium Level 1.8 mg/dL (1.7-2.5) Total Bilirubin < 0.2 mg/dL (0.0-1.2) Aspartate Amino Transf (AST/SGOT) 23 U/L (5-40) Alanine Aminotransferase (ALT/SGPT) 17 U/L (3-41) Alkaline Phosphatase 88 U/L (40-129) Total Protein 6.5 g/dL (6.6-8.7) Albumin 2.4 g/dL (3.5-5.2) Globulin 4.1 g/dL Albumin/Globulin Ratio 0.5 (1.0-2.7) Current Medications Medications (Trade) Dose Ordered Sig/Jenn Route PRN Reason Start Time Stop Time Status Last Admin Dose Admin Acetaminophen (Tylenol) 500 mg 30 MIN BEFORE BLOOD PRN ORAL 30 MIN PRIOR TO BLOOD TRANSFUS 04/09/16 18:45 05/09/16 18:44 Acetaminophen (Tylenol) 650 mg Q4H PRN ORAL fever 04/09/16 21:00 05/09/16 20:59 04/11/16 03:03 Al Hydroxide/Mg Hydroxide (Mylanta II) 30 ml Q6H PRN ORAL dyspepsia 04/09/16 20:45 05/09/16 20:44 Aspirin (ASA) 81 mg DAILY ORAL 04/10/16 09:00 05/10/16 08:59 04/11/16 08:23 Dextrose (Dextrose 50%) STAT PRN IV Hypoglycemia 04/10/16 09:00 05/10/16 08:59 Digoxin (Lanoxin) 0.25 mg DAILY ORAL 04/10/16 09:00 05/10/16 08:59 04/11/16 08:24 Diphenhydramine HCl (Benadryl) 50 mg 30MIN BEFORE BLOOD PRN ORAL PRIOR TO BLOOD TRANSFUSION 04/09/16 18:45 05/09/16 18:44 Heparin Sodium (Porcine) (Heparin 5000 units/ml) 5,000 units EVERY 8 HOURS SUBQ 04/11/16 09:00 05/11/16 08:59 04/11/16 09:40 Lisinopril (Zestril) 10 mg DAILY ORAL 04/10/16 09:00 05/10/16 08:59 04/11/16 08:23 Lorazepam (Ativan 2mg/ml 1ml) 0.5 mg Q4H PRN IV For Anxiety 04/09/16 21:00 04/16/16 20:59 Metoprolol Tartrate (Lopressor) 50 mg Q12HR ORAL 04/09/16 21:00 05/09/16 20:59 04/11/16 08:25 Morphine Sulfate (Morphine Sulfate) 1 mg Q4H PRN IVP For Pain 04/09/16 21:00 04/16/16 20:59 Ondansetron HCl (Zofran) 4 mg Q6H PRN IVP Nausea & Vomiting 04/09/16 20:45 05/09/16 20:44 Piperacillin Sod/ Tazobactam Sod/ Dextrose (Zosyn/D5W 100ml) 110 ml @ 27.5 mls/hr Q8H IVPB 04/11/16 11:30 04/18/16 11:29 Polyethylene Glycol (Miralax) 17 gm HSPRN PRN ORAL Constipation 04/10/16 09:00 05/10/16 08:59 Vancomycin HCl 1 ea 1 ea DAILY PRN MISC PRN RX PROTOCOL 04/11/16 09:15 05/11/16 09:14 Vancomycin HCl 1 gm/Sodium Chloride 275 ml @ 183.708 mls/hr Q12H IVPB 04/11/16 10:00 04/16/16 09:59 04/11/16 10:00 Zolpidem Tartrate (Ambien) 5 mg HSPRN PRN ORAL Insomnia 04/10/16 18:00 05/10/16 17:59 Objective HEAD AND NECK: Shows no JVD. LUNGS: Clear. CARDIOVASCULAR: Shows regular S1 and S2 with no gallop or murmur. ABDOMEN: Soft. EXTREMITIES: No pitting edema. DOROTHEA LEIGH Apr 11, 2016 12:17
--- NOTE | 2016-04-11 15:21 | Pulmonology Progress Note ---
Assessment/Plan Problems: (1) DVT (deep venous thrombosis) (2) Hypothermia (3) Generalized weakness (4) Sepsis Assessment & Plan: all cultures are negative, (5) Symptomatic anemia Assessment/Plan no need for antibiotics, never had fever, all cultures are negative heart rate controlled DVT in leg is too small to treat dc planning might need placement Subjective Respiratory: Reports: dry cough, shortness of breath Musculoskeletal: Reports: pain, stiffness, swelling Allergies: Coded Allergies: No Known Allergies (Unverified , 04/08/16) Per pt, he is not allergic to any medications or food. Objective Last 24 Hour Vital Signs Date Time Temp Pulse Resp B/P Pulse Ox O2 Delivery O2 Flow Rate FiO2 04/11/16 11:49 98.6 82 21 134/63 95 Room Air 04/11/16 08:25 100 145/81 04/11/16 08:24 100 04/11/16 08:23 145/81 04/11/16 08:00 99.1 100 21 145/81 95 Room Air 04/11/16 06:03 98.1 04/11/16 04:02 102.0 04/11/16 04:00 102.0 101 19 146/82 91 Room Air 04/11/16 00:00 102.2 102 20 149/95 96 Room Air 04/10/16 20:18 92 155/98 04/10/16 20:00 97.7 82 18 138/70 100 Room Air 04/10/16 16:50 99.7 92 14 155/98 94 Room Air Intake and Output 04/10/16 04/11/16 19:00 07:00 Intake Total 1600 ml 470 ml Output Total 1300 ml 1500 ml Balance 300 ml -1030 ml Intake Oral 1600 ml 470 ml Output Urine Total 1300 ml 1500 ml # Bowel Movements 1 1 General Appearance: no acute distress HEENT: normocephalic, atraumatic, PERRL Respiratory/Chest: chest wall non-tender, decreased breath sounds, accessory muscle use Cardiovascular: normal peripheral pulses, normal rate, regular rhythm, no JVD Abdomen: normal bowel sounds, soft, non tender, no organomegaly, non distended Extremities: no cyanosis Skin: rash, lesions Neurologic/Psychiatric: chemist steroids II-XII grossly normal, no motor/sensory deficits Laboratory Tests 04/11/16 13:00: Hepatitis A IgM Antibody [Pending], Hepatitis B Surface Antigen [Pending], Hepatitis B Core IgM Antibody [Pending], Hepatitis C Antibody [Pending], HIV (1& 2) Antibody Rapid Negative Current Medications Medications (Trade) Dose Ordered Sig/Jenn Route PRN Reason Start Time Stop Time Status Last Admin Dose Admin Acetaminophen (Tylenol) 500 mg 30 MIN BEFORE BLOOD PRN ORAL 30 MIN PRIOR TO BLOOD TRANSFUS 04/09/16 18:45 05/09/16 18:44 Acetaminophen (Tylenol) 650 mg Q4H PRN ORAL fever 04/09/16 21:00 05/09/16 20:59 04/11/16 03:03 Al Hydroxide/Mg Hydroxide (Mylanta II) 30 ml Q6H PRN ORAL dyspepsia 04/09/16 20:45 05/09/16 20:44 Aspirin (ASA) 81 mg DAILY ORAL 04/10/16 09:00 05/10/16 08:59 04/11/16 08:23 Dextrose (Dextrose 50%) STAT PRN IV Hypoglycemia 04/10/16 09:00 05/10/16 08:59 Digoxin (Lanoxin) 0.25 mg DAILY ORAL 04/10/16 09:00 05/10/16 08:59 04/11/16 08:24 Diphenhydramine HCl (Benadryl) 50 mg 30MIN BEFORE BLOOD PRN ORAL PRIOR TO BLOOD TRANSFUSION 04/09/16 18:45 05/09/16 18:44 Heparin Sodium (Porcine) (Heparin 5000 units/ml) 5,000 units EVERY 8 HOURS SUBQ 04/11/16 09:00 05/11/16 08:59 04/11/16 09:40 Lisinopril (Zestril) 10 mg DAILY ORAL 04/10/16 09:00 05/10/16 08:59 04/11/16 08:23 Lorazepam (Ativan 2mg/ml 1ml) 0.5 mg Q4H PRN IV For Anxiety 04/09/16 21:00 04/16/16 20:59 Metoprolol Tartrate (Lopressor) 50 mg Q12HR ORAL 04/09/16 21:00 05/09/16 20:59 04/11/16 08:25 Morphine Sulfate (Morphine Sulfate) 1 mg Q4H PRN IVP For Pain 04/09/16 21:00 04/16/16 20:59 Ondansetron HCl (Zofran) 4 mg Q6H PRN IVP Nausea & Vomiting 04/09/16 20:45 05/09/16 20:44 Piperacillin Sod/ Tazobactam Sod/ Dextrose (Zosyn/D5W 100ml) 110 ml @ 27.5 mls/hr Q8H IVPB 04/11/16 11:30 04/18/16 11:29 04/11/16 12:10 Polyethylene Glycol (Miralax) 17 gm HSPRN PRN ORAL Constipation 04/10/16 09:00 05/10/16 08:59 Vancomycin HCl 1 ea 1 ea DAILY PRN MISC PRN RX PROTOCOL 04/11/16 09:15 05/11/16 09:14 Vancomycin HCl 1 gm/Sodium Chloride 275 ml @ 183.708 mls/hr Q12H IVPB 04/11/16 10:00 04/16/16 09:59 04/11/16 10:00 Zolpidem Tartrate (Ambien) 5 mg HSPRN PRN ORAL Insomnia 04/10/16 18:00 05/10/16 17:59 MARSHA CAMEJO Apr 11, 2016 15:21
--- NOTE | 2016-04-11 15:59 | Infectious Diseases Prog Note ---
Assessment/Plan Problems: (1) Sepsis Assessment & Plan: spiked fever this am off antibiotics, unclear source, his blood culture on 04/07 so far remained negative, but it was done while on antibiotics therapy , will restart vancomycin and add zosyn for now , repeat blood culture , and order WBC thallium scan to look for source of infection. (2) Leukocytosis Assessment & Plan: with recurrent fever off antibiotics, needs to rule out occult infection, will order WBC thalium scan, and restart wide spectrum antibiotics . (3) Hypothermia Assessment & Plan: improved, unclear etiology need to rule out ischemic injury , monitor electrolytes and lactic acid. 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 All Systems: reviewed and negative except above Subjective he had fever earlier, off antibiotics, no chills, no nausea or vomiting, no diarrhea. Objective Vital Signs Last 24 Hour Vital Signs Date Time Temp Pulse Resp B/P Pulse Ox O2 Delivery O2 Flow Rate FiO2 04/11/16 11:49 98.6 82 21 134/63 95 Room Air 04/11/16 08:25 100 145/81 04/11/16 08:24 100 04/11/16 08:23 145/81 04/11/16 08:00 99.1 100 21 145/81 95 Room Air 04/11/16 06:03 98.1 04/11/16 04:02 102.0 04/11/16 04:00 102.0 101 19 146/82 91 Room Air 04/11/16 00:00 102.2 102 20 149/95 96 Room Air 04/10/16 20:18 92 155/98 04/10/16 20:00 97.7 82 18 138/70 100 Room Air 04/10/16 16:50 99.7 92 14 155/98 94 Room Air Height (Feet): 5 Height (Inches): 8.00 Weight (Pounds): 180 General Appearance: WD/WN, no acute distress HEENT: normocephalic, atraumatic, anicteric, mucous membranes moist Respiratory/Chest: chest wall non-tender, lungs clear, normal breath sounds, no respiratory distress, no accessory muscle use Cardiovascular: normal peripheral pulses, normal rate, regular rhythm, no gallop/murmur, no JVD Abdomen: normal bowel sounds, soft, non tender, no organomegaly, non distended , no mass, no scars Extremities: no cyanosis, no clubbing Skin: no rash, no lesions, no ulcers Laboratory Tests Test 04/11/16 13:00 Hepatitis A IgM Antibody Pending Hepatitis B Surface Antigen Pending Hepatitis B Core IgM Antibody Pending Hepatitis C Antibody Pending HIV (1&2) Antibody Rapid Negative (NEGATIVE) Current Medications Medications (Trade) Dose Ordered Sig/Jenn Route PRN Reason Start Time Stop Time Status Last Admin Dose Admin Acetaminophen (Tylenol) 500 mg 30 MIN BEFORE BLOOD PRN ORAL 30 MIN PRIOR TO BLOOD TRANSFUS 04/09/16 18:45 05/09/16 18:44 Acetaminophen (Tylenol) 650 mg Q4H PRN ORAL fever 04/09/16 21:00 05/09/16 20:59 04/11/16 03:03 Al Hydroxide/Mg Hydroxide (Mylanta II) 30 ml Q6H PRN ORAL dyspepsia 04/09/16 20:45 05/09/16 20:44 Aspirin (ASA) 81 mg DAILY ORAL 04/10/16 09:00 05/10/16 08:59 04/11/16 08:23 Dextrose (Dextrose 50%) STAT PRN IV Hypoglycemia 04/10/16 09:00 05/10/16 08:59 Digoxin (Lanoxin) 0.25 mg DAILY ORAL 04/10/16 09:00 05/10/16 08:59 04/11/16 08:24 Diphenhydramine HCl (Benadryl) 50 mg 30MIN BEFORE BLOOD PRN ORAL PRIOR TO BLOOD TRANSFUSION 04/09/16 18:45 05/09/16 18:44 Heparin Sodium (Porcine) (Heparin 5000 units/ml) 5,000 units EVERY 8 HOURS SUBQ 04/11/16 09:00 05/11/16 08:59 04/11/16 09:40 Lisinopril (Zestril) 10 mg DAILY ORAL 04/10/16 09:00 05/10/16 08:59 04/11/16 08:23 Lorazepam (Ativan 2mg/ml 1ml) 0.5 mg Q4H PRN IV For Anxiety 04/09/16 21:00 04/16/16 20:59 Metoprolol Tartrate (Lopressor) 50 mg Q12HR ORAL 04/09/16 21:00 05/09/16 20:59 04/11/16 08:25 Morphine Sulfate (Morphine Sulfate) 1 mg Q4H PRN IVP For Pain 04/09/16 21:00 04/16/16 20:59 Ondansetron HCl (Zofran) 4 mg Q6H PRN IVP Nausea & Vomiting 04/09/16 20:45 05/09/16 20:44 Piperacillin Sod/ Tazobactam Sod/ Dextrose (Zosyn/D5W 100ml) 110 ml @ 27.5 mls/hr Q8H IVPB 04/11/16 11:30 04/18/16 11:29 04/11/16 12:10 Polyethylene Glycol (Miralax) 17 gm HSPRN PRN ORAL Constipation 04/10/16 09:00 05/10/16 08:59 Vancomycin HCl 1 ea 1 ea DAILY PRN MISC PRN RX PROTOCOL 04/11/16 09:15 05/11/16 09:14 Vancomycin HCl 1 gm/Sodium Chloride 275 ml @ 183.708 mls/hr Q12H IVPB 04/11/16 10:00 04/16/16 09:59 04/11/16 10:00 Zolpidem Tartrate (Ambien) 5 mg HSPRN PRN ORAL Insomnia 04/10/16 18:00 05/10/16 17:59 Sixto Reilly M.D. Apr 11, 2016 15:59
[2016-04-11 16:00] VITALS: BP 142/84
[2016-04-11 19:00] VITALS: BP 155/92
[2016-04-12] VITALS: BP 153/98
[2016-04-12] MEDS: Piperacillin/Tazobactam 3.375 GM in D5W 110 ML IVPB SCH ×3 (03:54→19:50)
[2016-04-12 04:00] VITALS: BP 148/89
[2016-04-12] MEDS: Heparin 5000 units/ml inj SUBQ SCH ×3 (06:24→21:56)
[2016-04-12 08:15] VITALS: BP 152/98
[2016-04-12] MEDS: Lisinopril 10mg tab ORAL SCH (08:47)
[2016-04-12] MEDS: Aspirin Baby 81mg ORAL SCH (08:47)
[2016-04-12] MEDS: Metoprolol 50mg tab ORAL SCH ×2 (08:47→21:55)
[2016-04-12] MEDS: Vancomycin 1 GM in NS 275 ML IVPB SCH ×2 (09:57→21:55)
--- NOTE | 2016-04-12 12:08 | Consultation ---
DATE OF CONSULTATION: 04/05/2016 HEMATOLOGY/ONCOLOGY CONSULTATION CONSULTING PHYSICIAN: Chuy Benitez M.D. REFERRING PHYSICIAN: Sangeeta Massey M.D. REASON FOR CONSULTATION: Evaluation of anemia, hemoglobin 8.2. IDENTIFICATION DATA: Dear Dr. Sangeeta Massey, This is a pleasant 55-year-old male with past medical history, which is significant for generalized weakness, otherwise, he was brought in by ambulance from the [facility], unknown 00:52. The patient was having difficulty leaving the building for review of the report. The patient was admitted for weakness, was noted to have severe low hemoglobin, and was found to be septic and leukocytosis. Antibiotics were begun, he was started on antibiotics as well as 01:26. He was started on fluids as well and placed in a warm blanket for hypothermia. His temperature at that time was 89 degrees Fahrenheit and currently is 91.4 degrees Fahrenheit. His temperature is doing well. The patient's prognosis remains poor. Hematology service was consulted for evaluation of the patient's anemia as well as thrombocytosis. PAST MEDICAL HISTORY: Currently no past medical history besides as noted above. PAST SURGICAL HISTORY: None noted. ALLERGIES: Unable to assess. SOCIAL HISTORY: No alcohol, tobacco, or illicit drug use. REVIEW OF SYSTEMS: Unable to assess. PHYSICAL EXAMINATION: GENERAL: No distress. VITAL SIGNS: Temperature 91.4 degrees Fahrenheit, pulse of 80, respiratory rate 12, blood pressure 109/78, and pulse oximetry 96% on room air. PULMONARY: Clear breath sounds. CARDIOVASCULAR: Regular rate and rhythm. ABDOMEN: Soft, nontender, nondistended. EXTREMITIES: A 1+ edema. Laboratory And Diagnostic Data: WBC 10.3, hemoglobin 8.7, hematocrit 27, and platelets are 283,000. BUN of 14 and creatinine 0.7. Serum alcohol less than 10. Urinalysis is negative for any 03:07. ASSESSMENT: 1. Thrombocytosis probably secondary to anemia, reactive process. 2. 03:14. 3. Gastrointestinal bleed. 4. Elevated blood sugar. 5. Generalized weakness. 6. Hypothermia. 7. Neutrophilia. RECOMMENDATIONS: 1. Monitor counts. 2. Occult blood pending. 3. Anemia workup has been ordered. 4. JAK2 bowel pending for thrombocytosis. 5. Review of the peripheral smear ordered. 6. Anemia workup ordered by Nephrology service. 7. Antibiotics as needed. 8. Pippa Hugger for elevation of temperature. 9. DVT prophylaxis with SCDs. 10. Duplex of lower extremity ordered. 11. Regular diet ordered. 12. . Thank you, Dr. Massey, for this kind referral. Please do not hesitate to contact me if you have any further questions. Chuy Benitez M.D. DR: MELANY JOB#: [id number] CC:
[2016-04-12 12:11] VITALS: BP 162/88
--- NOTE | 2016-04-12 12:51 | General Progress Note ---
Assessment/Plan Problem List: (1) Hypothermia ICD Codes: T68.XXXA - Hypothermia, initial encounter SNOMED: 165295361 Qualifiers: Qualified Codes: T68.XXXA - Hypothermia, initial encounter (2) Symptomatic anemia ICD Codes: D64.9 - Anemia, unspecified SNOMED: 910451332 (3) Generalized weakness ICD Codes: R53.1 - Weakness SNOMED: 42240854 Status: progressing Assessment/Plan afebrile vitals stable no wheezing reviewec chart and labs Subjective ROS Limited/Unobtainable: Yes Constitutional: Reports: no symptoms Allergies: Coded Allergies: No Known Allergies (Unverified , 04/08/16) Per pt, he is not allergic to any medications or food. Objective Last 24 Hour Vital Signs Date Time Temp Pulse Resp B/P Pulse Ox O2 Delivery O2 Flow Rate FiO2 04/12/16 12:11 100.2 94 20 162/88 99 Room Air 04/12/16 08:47 105 152/98 04/12/16 08:47 152/98 04/12/16 08:47 105 04/12/16 08:15 97.5 105 20 152/98 97 Room Air 04/12/16 04:00 97.7 100 18 148/89 91 Room Air 04/12/16 00:00 100.0 86 18 153/98 99 Room Air 04/11/16 21:12 100.8 04/11/16 20:13 89 142/84 04/11/16 19:00 101.7 93 18 155/92 98 Room Air 04/11/16 16:00 100.8 89 18 142/84 99 Room Air Intake and Output 04/11/16 04/12/16 19:00 07:00 Intake Total 540 ml 295.0 ml Output Total 900 ml 500 ml Balance -360 ml -205.0 ml Intake Oral 540 ml 240 ml IV Total 55.0 ml Output Urine Total 900 ml 500 ml # Voids 2 3 Laboratory Tests 04/11/16 13:00: Hepatitis A IgM Antibody Negative, Hepatitis B Surface Antigen Negative, Hepatitis B Core IgM Antibody Negative, Hepatitis C Antibody 0.2, HIV (1&2) Antibody Rapid Negative Height (Feet): 5 Height (Inches): 8.00 Weight (Pounds): 180 EENT: PERRL/EOMI Neck: supple Cardiovascular: normal rate Respiratory/Chest: lungs clear Abdomen: soft Sangeeta Massey MD Apr 12, 2016 12:51
--- NOTE | 2016-04-12 15:41 | Pulmonology Progress Note ---
Assessment/Plan Problems: (1) Fever (2) DVT (deep venous thrombosis) (3) Hypothermia (4) Generalized weakness (5) Symptomatic anemia (6) SVT (supraventricular tachycardia) (7) Homelessness Assessment/Plan all cultures are negative, BC 04/07 negative Indium scan symptomatic treatment f/u h/h Subjective ROS Limited/Unobtainable: No Interval Events: no new complains Allergies: Coded Allergies: No Known Allergies (Unverified , 04/08/16) Per pt, he is not allergic to any medications or food. Objective Last 24 Hour Vital Signs Date Time Temp Pulse Resp B/P Pulse Ox O2 Delivery O2 Flow Rate FiO2 04/12/16 14:46 99.1 04/12/16 14:44 99.1 04/12/16 12:11 100.2 94 20 162/88 99 Room Air 04/12/16 08:47 105 152/98 04/12/16 08:47 152/98 04/12/16 08:47 105 04/12/16 08:15 97.5 105 20 152/98 97 Room Air 04/12/16 04:00 97.7 100 18 148/89 91 Room Air 04/12/16 00:00 100.0 86 18 153/98 99 Room Air 04/11/16 20:13 89 142/84 04/11/16 19:00 101.7 93 18 155/92 98 Room Air 04/11/16 16:00 100.8 89 18 142/84 99 Room Air Intake and Output 04/11/16 04/12/16 19:00 07:00 Intake Total 540 ml 295.0 ml Output Total 900 ml 500 ml Balance -360 ml -205.0 ml Intake Oral 540 ml 240 ml IV Total 55.0 ml Output Urine Total 900 ml 500 ml # Voids 2 3 General Appearance: WD/WN HEENT: normocephalic Cardiovascular: normal peripheral pulses, normal rate Abdomen: normal bowel sounds, soft, non tender Extremities: no cyanosis Skin: no lesions Neurologic/Psychiatric: continuous towel roller II-XII grossly normal Current Medications Medications (Trade) Dose Ordered Sig/Jenn Route PRN Reason Start Time Stop Time Status Last Admin Dose Admin Acetaminophen (Tylenol) 500 mg 30 MIN BEFORE BLOOD PRN ORAL 30 MIN PRIOR TO BLOOD TRANSFUS 04/09/16 18:45 05/09/16 18:44 Acetaminophen (Tylenol) 650 mg Q4H PRN ORAL fever 04/09/16 21:00 05/09/16 20:59 04/12/16 11:56 Al Hydroxide/Mg Hydroxide (Mylanta II) 30 ml Q6H PRN ORAL dyspepsia 04/09/16 20:45 05/09/16 20:44 Aspirin (ASA) 81 mg DAILY ORAL 04/10/16 09:00 05/10/16 08:59 04/12/16 08:47 Dextrose (Dextrose 50%) STAT PRN IV Hypoglycemia 04/10/16 09:00 05/10/16 08:59 Digoxin (Lanoxin) 0.25 mg DAILY ORAL 04/10/16 09:00 05/10/16 08:59 04/12/16 08:47 Diphenhydramine HCl (Benadryl) 50 mg 30MIN BEFORE BLOOD PRN ORAL PRIOR TO BLOOD TRANSFUSION 04/09/16 18:45 05/09/16 18:44 Heparin Sodium (Porcine) (Heparin 5000 units/ml) 5,000 units EVERY 8 HOURS SUBQ 04/11/16 09:00 05/11/16 08:59 04/12/16 14:40 Lisinopril (Zestril) 10 mg DAILY ORAL 04/10/16 09:00 05/10/16 08:59 04/12/16 08:47 Lorazepam (Ativan 2mg/ml 1ml) 0.5 mg Q4H PRN IV For Anxiety 04/09/16 21:00 04/16/16 20:59 Metoprolol Tartrate (Lopressor) 50 mg Q12HR ORAL 04/09/16 21:00 05/09/16 20:59 04/12/16 08:47 Morphine Sulfate (Morphine Sulfate) 1 mg Q4H PRN IVP For Pain 04/09/16 21:00 04/16/16 20:59 Ondansetron HCl (Zofran) 4 mg Q6H PRN IVP Nausea & Vomiting 04/09/16 20:45 05/09/16 20:44 Piperacillin Sod/ Tazobactam Sod/ Dextrose (Zosyn/D5W 100ml) 110 ml @ 27.5 mls/hr Q8H IVPB 04/11/16 11:30 04/18/16 11:29 04/12/16 12:30 Polyethylene Glycol (Miralax) 17 gm HSPRN PRN ORAL Constipation 04/10/16 09:00 05/10/16 08:59 04/12/16 08:46 Vancomycin HCl 1 ea 1 ea DAILY PRN MISC PRN RX PROTOCOL 04/11/16 09:15 05/11/16 09:14 Vancomycin HCl 1 gm/Sodium Chloride 275 ml @ 183.708 mls/hr Q12H IVPB 04/11/16 10:00 04/16/16 09:59 04/12/16 09:57 Zolpidem Tartrate (Ambien) 5 mg HSPRN PRN ORAL Insomnia 04/10/16 18:00 05/10/16 17:59 MARSHA CAMEJO Apr 12, 2016 15:41
[2016-04-12 16:00] VITALS: BP 137/77
--- NOTE | 2016-04-12 16:50 | Cardiac Electrophysiology PN ---
Assessment/Plan Status Narrative Technically difficult study due to poor acoustic windows. Left ventricular ejection fraction estimated to be 45-50%. Mid anterior septal hypokinesis. Trivial circumferential pericardial effusion. Mild left ventricular enlargment. Mild left ventricular hypertrophy. Enlargment of right ventricule. Focal aortic valve sclerosis with adequate cusp excursion Thickened mitral valve leaflets with normal excursion. Mitral annulus and aortic root calcification. Pulmonic valve not well visualized. Normal tricuspid valve structure. IVC at 1.8cm with physiologic collapse. Assessment/Plan 1. Recurrent SVT. Stable on Digoxin 0.25 mg po daily and Lopressor 50 bid. 2. NSVT 5 beats . No syncope.Continue Lopressor. EF 45-50% 2. Generalized weakness due to combination of hypothermia, profound anemia. His hemoglobin is only 7.9. 3. 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 On Lopressor 50 bid and lisinopril. 4. Severe thrombocytosis almost a Million as well as anemia with hemoglobin of 8.2. Follow up Dr Giang. 5. AMS. Head CT and EEG and neuro follow up Dr Magdaleno. 6. Isolated distal deep vein thrombosis of the Right soleal vein, Per Dr Giang "given that he is asymptomatic. Off anticoagulation and to reimage in 2 weeks to see if he has proximal clot extension, and at that time can reconsider anticoagulation". 7. Anemia and Stool OB positive. 8. Fever and sepsis on broadspectrum antibiotics. BRIGIDA RN and Dr Mueller Subjective Subjective On Dig and Metoprolol for SVT. Off tele.Off and on fever Objective Last 24 Hour Vital Signs Date Time Temp Pulse Resp B/P Pulse Ox O2 Delivery O2 Flow Rate FiO2 04/12/16 16:00 97.3 89 20 137/77 100 Room Air 04/12/16 14:46 99.1 04/12/16 14:44 99.1 04/12/16 12:11 100.2 94 20 162/88 99 Room Air 04/12/16 08:47 105 152/98 04/12/16 08:47 152/98 04/12/16 08:47 105 04/12/16 08:15 97.5 105 20 152/98 97 Room Air 04/12/16 04:00 97.7 100 18 148/89 91 Room Air 04/12/16 00:00 100.0 86 18 153/98 99 Room Air 04/11/16 20:13 89 142/84 04/11/16 19:00 101.7 93 18 155/92 98 Room Air Intake and Output 04/11/16 04/12/16 19:00 07:00 Intake Total 540 ml 295.0 ml Output Total 900 ml 500 ml Balance -360 ml -205.0 ml Intake Oral 540 ml 240 ml IV Total 55.0 ml Output Urine Total 900 ml 500 ml # Voids 2 3 Current Medications Medications (Trade) Dose Ordered Sig/Jenn Route PRN Reason Start Time Stop Time Status Last Admin Dose Admin Acetaminophen (Tylenol) 500 mg 30 MIN BEFORE BLOOD PRN ORAL 30 MIN PRIOR TO BLOOD TRANSFUS 04/09/16 18:45 05/09/16 18:44 Acetaminophen (Tylenol) 650 mg Q4H PRN ORAL fever 04/09/16 21:00 05/09/16 20:59 04/12/16 11:56 Al Hydroxide/Mg Hydroxide (Mylanta II) 30 ml Q6H PRN ORAL dyspepsia 04/09/16 20:45 05/09/16 20:44 Aspirin (ASA) 81 mg DAILY ORAL 04/10/16 09:00 05/10/16 08:59 04/12/16 08:47 Dextrose (Dextrose 50%) STAT PRN IV Hypoglycemia 04/10/16 09:00 05/10/16 08:59 Digoxin (Lanoxin) 0.25 mg DAILY ORAL 04/10/16 09:00 05/10/16 08:59 04/12/16 08:47 Diphenhydramine HCl (Benadryl) 50 mg 30MIN BEFORE BLOOD PRN ORAL PRIOR TO BLOOD TRANSFUSION 04/09/16 18:45 05/09/16 18:44 Heparin Sodium (Porcine) (Heparin 5000 units/ml) 5,000 units EVERY 8 HOURS SUBQ 04/11/16 09:00 05/11/16 08:59 04/12/16 14:40 Lisinopril (Zestril) 10 mg DAILY ORAL 04/10/16 09:00 05/10/16 08:59 04/12/16 08:47 Lorazepam (Ativan 2mg/ml 1ml) 0.5 mg Q4H PRN IV For Anxiety 04/09/16 21:00 04/16/16 20:59 Metoprolol Tartrate (Lopressor) 50 mg Q12HR ORAL 04/09/16 21:00 05/09/16 20:59 04/12/16 08:47 Morphine Sulfate (Morphine Sulfate) 1 mg Q4H PRN IVP For Pain 04/09/16 21:00 04/16/16 20:59 Ondansetron HCl (Zofran) 4 mg Q6H PRN IVP Nausea & Vomiting 04/09/16 20:45 05/09/16 20:44 Piperacillin Sod/ Tazobactam Sod/ Dextrose (Zosyn/D5W 100ml) 110 ml @ 27.5 mls/hr Q8H IVPB 04/11/16 11:30 04/18/16 11:29 04/12/16 12:30 Polyethylene Glycol (Miralax) 17 gm HSPRN PRN ORAL Constipation 04/10/16 09:00 05/10/16 08:59 04/12/16 08:46 Vancomycin HCl 1 ea 1 ea DAILY PRN MISC PRN RX PROTOCOL 04/11/16 09:15 05/11/16 09:14 Vancomycin HCl 1 gm/Sodium Chloride 275 ml @ 183.708 mls/hr Q12H IVPB 04/11/16 10:00 04/16/16 09:59 04/12/16 09:57 Zolpidem Tartrate (Ambien) 5 mg HSPRN PRN ORAL Insomnia 04/10/16 18:00 05/10/16 17:59 Objective HEAD AND NECK: Shows no JVD. LUNGS: Clear. CARDIOVASCULAR: Shows regular S1 and S2 with no gallop or murmur. ABDOMEN: Soft. EXTREMITIES: No pitting edema. DOROTHEA LEIGH Apr 12, 2016 16:50
--- NOTE | 2016-04-12 16:52 | Infectious Diseases Prog Note ---
Assessment/Plan Problems: (1) Sepsis Assessment & Plan: has mild fever this am on antibiotics, unclear source, his blood culture on 04/07 so far remained negative, but it was done while on antibiotics therapy , will continue vancomycin and and zosyn for now , repeat blood culture , and await WBC thallium scan result to look for source of infection. (2) Leukocytosis Assessment & Plan: with recurrent fever off antibiotics, needs to rule out occult infection, await WBC thalium scan, and continue wide spectrum antibiotics . (3) Hypothermia Assessment & Plan: improved, unclear etiology need to rule out ischemic injury , monitor electrolytes and lactic acid. (4) Generalized weakness Assessment & Plan: suspect hypothermia related, check TSH (5) DVT (deep venous thrombosis) Assessment & Plan: continue anticoagulation, monitor INR, CTA of the lung was canceled by live hanger Subjective Constitutional: Reports: fatigue Allergies: Coded Allergies: No Known Allergies (Unverified , 04/08/16) Per pt, he is not allergic to any medications or food. All Systems: reviewed and negative except above Subjective he denied any fever today,no chills, no nausea or vomiting, no diarrhea. Objective Vital Signs Last 24 Hour Vital Signs Date Time Temp Pulse Resp B/P Pulse Ox O2 Delivery O2 Flow Rate FiO2 04/12/16 16:00 97.3 89 20 137/77 100 Room Air 04/12/16 14:46 99.1 04/12/16 14:44 99.1 04/12/16 12:11 100.2 94 20 162/88 99 Room Air 04/12/16 08:47 105 152/98 04/12/16 08:47 152/98 04/12/16 08:47 105 04/12/16 08:15 97.5 105 20 152/98 97 Room Air 04/12/16 04:00 97.7 100 18 148/89 91 Room Air 04/12/16 00:00 100.0 86 18 153/98 99 Room Air 04/11/16 20:13 89 142/84 04/11/16 19:00 101.7 93 18 155/92 98 Room Air Height (Feet): 5 Height (Inches): 8.00 Weight (Pounds): 180 General Appearance: WD/WN, no acute distress HEENT: normocephalic, atraumatic, anicteric, mucous membranes moist Respiratory/Chest: chest wall non-tender, lungs clear, normal breath sounds, no respiratory distress, no accessory muscle use Cardiovascular: normal peripheral pulses, normal rate, regular rhythm, no gallop/murmur Abdomen: normal bowel sounds, soft, non tender, no organomegaly, non distended , no mass, no scars Extremities: no cyanosis, no clubbing Skin: no rash, no lesions, no ulcers Current Medications Medications (Trade) Dose Ordered Sig/Jenn Route PRN Reason Start Time Stop Time Status Last Admin Dose Admin Acetaminophen (Tylenol) 500 mg 30 MIN BEFORE BLOOD PRN ORAL 30 MIN PRIOR TO BLOOD TRANSFUS 04/09/16 18:45 05/09/16 18:44 Acetaminophen (Tylenol) 650 mg Q4H PRN ORAL fever 04/09/16 21:00 05/09/16 20:59 04/12/16 11:56 Al Hydroxide/Mg Hydroxide (Mylanta II) 30 ml Q6H PRN ORAL dyspepsia 04/09/16 20:45 05/09/16 20:44 Aspirin (ASA) 81 mg DAILY ORAL 04/10/16 09:00 05/10/16 08:59 04/12/16 08:47 Dextrose (Dextrose 50%) STAT PRN IV Hypoglycemia 04/10/16 09:00 05/10/16 08:59 Digoxin (Lanoxin) 0.25 mg DAILY ORAL 04/10/16 09:00 05/10/16 08:59 04/12/16 08:47 Diphenhydramine HCl (Benadryl) 50 mg 30MIN BEFORE BLOOD PRN ORAL PRIOR TO BLOOD TRANSFUSION 04/09/16 18:45 05/09/16 18:44 Heparin Sodium (Porcine) (Heparin 5000 units/ml) 5,000 units EVERY 8 HOURS SUBQ 04/11/16 09:00 05/11/16 08:59 04/12/16 14:40 Lisinopril (Zestril) 10 mg DAILY ORAL 04/10/16 09:00 05/10/16 08:59 04/12/16 08:47 Lorazepam (Ativan 2mg/ml 1ml) 0.5 mg Q4H PRN IV For Anxiety 04/09/16 21:00 04/16/16 20:59 Metoprolol Tartrate (Lopressor) 50 mg Q12HR ORAL 04/09/16 21:00 05/09/16 20:59 04/12/16 08:47 Morphine Sulfate (Morphine Sulfate) 1 mg Q4H PRN IVP For Pain 04/09/16 21:00 04/16/16 20:59 Ondansetron HCl (Zofran) 4 mg Q6H PRN IVP Nausea & Vomiting 04/09/16 20:45 05/09/16 20:44 Piperacillin Sod/ Tazobactam Sod/ Dextrose (Zosyn/D5W 100ml) 110 ml @ 27.5 mls/hr Q8H IVPB 04/11/16 11:30 04/18/16 11:29 04/12/16 12:30 Polyethylene Glycol (Miralax) 17 gm HSPRN PRN ORAL Constipation 04/10/16 09:00 05/10/16 08:59 04/12/16 08:46 Vancomycin HCl 1 ea 1 ea DAILY PRN MISC PRN RX PROTOCOL 04/11/16 09:15 05/11/16 09:14 Vancomycin HCl 1 gm/Sodium Chloride 275 ml @ 183.708 mls/hr Q12H IVPB 04/11/16 10:00 04/16/16 09:59 04/12/16 09:57 Zolpidem Tartrate (Ambien) 5 mg HSPRN PRN ORAL Insomnia 04/10/16 18:00 05/10/16 17:59 Sixto Reilly M.D. Apr 12, 2016 16:52
[2016-04-12 20:00] VITALS: BP 153/98
[2016-04-12 22:08] LABS: ANION GAP 13 (5-15); CARBON DIOXIDE 24 mEQ/L (20-30); CHLORIDE 100 mEQ/L (98-107); CREATININE 0.9 mg/dL (0.7-1.2); GLOMERULAR FILTRATION RATE > 60 mL/min (>60); HEMOLYSIS 7; POTASSIUM 3.9 mEQ/L (3.4-4.9); SODIUM 137 mEQ/L (135-145)
[2016-04-13] VITALS: BP 151/52
--- NOTE | 2016-04-13 | General Progress Note ---
Assessment/Plan Assessment/Plan Assessment: 1. Isolated distal deep vein thrombosis (IDDVT) of the soleal vein (asymptomatic ) - given that he is asymptomatic, have discontinued anticoagulation and recommend to reimage in 2 weeks to see if he has proximal clot extension, and at that time can reconsider anticoagulation. For distal DVTs, evidence for improved outcomes with anticoagulation is equivocal. Reference: Paraleti 2014 in "How do I treat" [place] [employer] Guidelines 2. Thrombocytosis is likely related to hx of anemia - reactive process, better 3. Leukocytosis, rule out sepsis. Send blood culture and urine culture. on wide spectrum antibiotic therapy. Better 4. Hypothermia.Improved. 5. Generalized weakness, suspect due to hypothermia. 6. Coagulopathy, better 7. Anemia 2/2 chronic disease, ferritin elevated, tibc low. Does not have iron deficiency, improved Recommendations: 1. Monitor counts 2. Transfuse as needed 3. pRBC transfuse if hgb <7 4. Transfuse plt if plt <10k 5. Imaging US abd 6. Anemia w/u reviewed 7. Agree does not require anticoagulation 8. DVT ppx with heparin sq 9. Followup renal, ID, cards, pulm recs 10. DW Staff Sincerely, Chuy Benitez MD Subjective Constitutional: Reports: no symptoms HEENT: Reports: no symptoms Cardiovascular: Reports: no symptoms Respiratory: Reports: no symptoms Gastrointestinal/Abdominal: Reports: poor appetite Genitourinary: Reports: no symptoms Neurologic/Psychiatric: Reports: no symptoms Endocrine: Reports: no symptoms Hematologic/Lymphatic: Reports: anemia Allergies: Coded Allergies: No Known Allergies (Unverified , 04/08/16) Per pt, he is not allergic to any medications or food. Subjective stable, without bleeding Objective Last 24 Hour Vital Signs Date Time Temp Pulse Resp B/P Pulse Ox O2 Delivery O2 Flow Rate FiO2 04/12/16 21:55 89 137/77 04/12/16 20:49 99.5 04/12/16 20:00 100.4 92 20 153/98 Room Air 04/12/16 16:00 97.3 89 20 137/77 100 Room Air 04/12/16 14:46 99.1 04/12/16 12:11 100.2 94 20 162/88 99 Room Air 04/12/16 08:47 105 152/98 04/12/16 08:47 152/98 04/12/16 08:47 105 04/12/16 08:15 97.5 105 20 152/98 97 Room Air 04/12/16 04:00 97.7 100 18 148/89 91 Room Air 04/12/16 00:00 100.0 86 18 153/98 99 Room Air Intake and Output 04/11/16 04/12/16 19:00 07:00 Intake Total 540 ml 295.0 ml Output Total 900 ml 500 ml Balance -360 ml -205.0 ml Intake Oral 540 ml 240 ml IV Total 55.0 ml Output Urine Total 900 ml 500 ml # Voids 2 3 Laboratory Tests 04/12/16 20:55: Sodium Level 137, Potassium Level 3.9, Chloride Level 100, Carbon Dioxide Level 24, Anion Gap 13, Blood Urea Nitrogen 11, Creatinine 0.9, Estimat Glomerular Filtration Rate > 60, Glucose Level 143H, Calcium Level 8.0L, Vancomycin Level Trough 10.2 Height (Feet): 5 Height (Inches): 8.00 Weight (Pounds): 180 General Appearance: no apparent distress EENT: TMs normal Neck: supple Cardiovascular: normal peripheral pulses Respiratory/Chest: normal breath sounds Abdomen: no mass Extremities: normal range of motion Edema: 1+ Leg (L), 1+ Leg (R) Edema: mild edema Neurologic: alert Skin: warm/dry Chuy Benitez Apr 13, 2016 00:00
[2016-04-13] MEDS: Piperacillin/Tazobactam 3.375 GM in D5W 110 ML IVPB SCH ×2 (02:47→11:30)
[2016-04-13 04:00] VITALS: BP 142/82
[2016-04-13] MEDS: Heparin 5000 units/ml inj SUBQ SCH ×3 (05:31→21:23)
[2016-04-13 08:00] VITALS: BP 157/91
[2016-04-13] MEDS ORDERED: Vancomycin 1.25 GM in NS 275 ML IVPB SCH (09:00)
[2016-04-13] MEDS: Metoprolol 50mg tab ORAL SCH ×2 (09:24→21:22)
[2016-04-13] MEDS: Aspirin Baby 81mg ORAL SCH (09:24)
[2016-04-13] MEDS: Lisinopril 10mg tab ORAL SCH (09:25)
--- NOTE | 2016-04-13 11:39 | General Progress Note ---
Assessment/Plan Problem List: (1) Hypothermia ICD Codes: T68.XXXA - Hypothermia, initial encounter SNOMED: 796682826 Qualifiers: Qualified Codes: T68.XXXA - Hypothermia, initial encounter (2) Symptomatic anemia ICD Codes: D64.9 - Anemia, unspecified SNOMED: 489946562 (3) Generalized weakness ICD Codes: R53.1 - Weakness SNOMED: 47486599 Status: progressing Assessment/Plan apparently refusing to go to senior care reviewed chart and labs Subjective ROS Limited/Unobtainable: Yes Constitutional: Reports: no symptoms Allergies: Coded Allergies: No Known Allergies (Unverified , 04/08/16) Per pt, he is not allergic to any medications or food. Objective Last 24 Hour Vital Signs Date Time Temp Pulse Resp B/P Pulse Ox O2 Delivery O2 Flow Rate FiO2 04/13/16 10:23 102.4 04/13/16 09:25 157/91 04/13/16 09:25 97 04/13/16 09:24 97 157/91 04/13/16 08:00 102.4 97 19 157/91 98 Room Air 04/13/16 04:00 96.8 87 18 142/82 99 Room Air 04/13/16 00:00 98.8 87 18 151/52 93 Room Air 04/12/16 21:55 89 137/77 04/12/16 20:00 100.4 92 20 153/98 Room Air 04/12/16 16:00 97.3 89 20 137/77 100 Room Air 04/12/16 14:46 99.1 04/12/16 12:11 100.2 94 20 162/88 99 Room Air Intake and Output 04/12/16 04/13/16 19:00 07:00 Intake Total 480 ml 595.0 ml Output Total 300 ml Balance 180 ml 595.0 ml Intake Oral 480 ml 485 ml IV Total 110.0 ml Output Urine Total 300 ml # Voids 3 6 # Bowel Movements 2 Laboratory Tests 04/12/16 20:55: Sodium Level 137, Potassium Level 3.9, Chloride Level 100, Carbon Dioxide Level 24, Anion Gap 13, Blood Urea Nitrogen 11, Creatinine 0.9, Estimat Glomerular Filtration Rate > 60, Glucose Level 143H, Calcium Level 8.0L, Vancomycin Level Trough 10.2 Height (Feet): 5 Height (Inches): 8.00 Weight (Pounds): 180 EENT: PERRL/EOMI Cardiovascular: normal rate Respiratory/Chest: lungs clear Abdomen: soft Sangeeta Massey MD Apr 13, 2016 11:39
[2016-04-13 12:00] VITALS: BP 139/75
[2016-04-13] MEDS: Vancomycin oral 125mg/2.5ml ORAL SCH ×2 (13:31→17:04)
--- NOTE | 2016-04-13 13:46 | General Progress Note ---
Assessment/Plan Assessment/Plan Assessment: 1. Isolated distal deep vein thrombosis (IDDVT) of the soleal vein (asymptomatic ) - given that he is asymptomatic, does not require anticoagulation and recommend to reimage in 2 weeks. Reference: Paraleti 2014 in "How do I treat" [place] [employer]emat[employer] Guidelines 2. Thrombocytosis is likely related to hx of anemia - reactive process, improved 3. Leukocytosis, rule out sepsis. Send blood culture and urine culture. on wide spectrum antibiotic therapy. Better 4. Hypothermia.Improved. 5. Generalized weakness, suspect due to hypothermia. 6. Coagulopathy, better 7. Anemia 2/2 chronic disease, ferritin elevated, tibc low. Does not have iron deficiency, improved Recommendations: 1. Monitor counts 2. Transfuse as needed 3. pRBC transfuse if hgb <7 4. Transfuse plt if plt <10k 5. Anemia w/u reviewed 6. Agree does not require anticoagulation 7. DVT ppx with heparin sq 8. Followup renal, ID, cards, pulm recs 9. DW Staff Sincerely, Chuy Benitez MD Subjective Constitutional: Reports: no symptoms HEENT: Reports: no symptoms Cardiovascular: Reports: no symptoms Respiratory: Reports: no symptoms Gastrointestinal/Abdominal: Reports: poor appetite Genitourinary: Reports: no symptoms Neurologic/Psychiatric: Reports: no symptoms Endocrine: Reports: no symptoms Hematologic/Lymphatic: Reports: anemia Allergies: Coded Allergies: No Known Allergies (Unverified , 04/08/16) Per pt, he is not allergic to any medications or food. Subjective stable, is without any bleeding Objective Last 24 Hour Vital Signs Date Time Temp Pulse Resp B/P Pulse Ox O2 Delivery O2 Flow Rate FiO2 04/13/16 12:00 100.8 82 20 139/75 93 Room Air 04/13/16 10:23 102.4 04/13/16 09:25 157/91 04/13/16 09:25 97 04/13/16 09:24 97 157/91 04/13/16 08:00 102.4 97 19 157/91 98 Room Air 04/13/16 04:00 96.8 87 18 142/82 99 Room Air 04/13/16 00:00 98.8 87 18 151/52 93 Room Air 04/12/16 21:55 89 137/77 04/12/16 20:00 100.4 92 20 153/98 Room Air 04/12/16 16:00 97.3 89 20 137/77 100 Room Air 04/12/16 14:46 99.1 Intake and Output 04/12/16 04/13/16 19:00 07:00 Intake Total 480 ml 595.0 ml Output Total 300 ml Balance 180 ml 595.0 ml Intake Oral 480 ml 485 ml IV Total 110.0 ml Output Urine Total 300 ml # Voids 3 6 # Bowel Movements 2 Laboratory Tests 04/12/16 20:55: Sodium Level 137, Potassium Level 3.9, Chloride Level 100, Carbon Dioxide Level 24, Anion Gap 13, Blood Urea Nitrogen 11, Creatinine 0.9, Estimat Glomerular Filtration Rate > 60, Glucose Level 143H, Calcium Level 8.0L, Vancomycin Level Trough 10.2 Height (Feet): 5 Height (Inches): 8.00 Weight (Pounds): 180 General Appearance: no apparent distress EENT: normal ENT inspection Neck: supple Cardiovascular: regular rhythm Respiratory/Chest: normal breath sounds Abdomen: non tender Extremities: non-tender Edema: 1+ Leg (L), 1+ Leg (R) Edema: mild edema Neurologic: alert Skin: warm/dry Chuy Benitez Apr 13, 2016 13:46
--- NOTE | 2016-04-13 15:35 | Cardiac Electrophysiology PN ---
Assessment/Plan Status Narrative Technically difficult study due to poor acoustic windows. Left ventricular ejection fraction estimated to be 45-50%. Mid anterior septal hypokinesis. Trivial circumferential pericardial effusion. Mild left ventricular enlargment. Mild left ventricular hypertrophy. Enlargment of right ventricule. Focal aortic valve sclerosis with adequate cusp excursion Thickened mitral valve leaflets with normal excursion. Mitral annulus and aortic root calcification. Pulmonic valve not well visualized. Normal tricuspid valve structure. IVC at 1.8cm with physiologic collapse. Assessment/Plan 1. Recurrent SVT. Continue Digoxin 0.25 mg daily and Lopressor 50 bid. 2. NSVT 5 beats . No syncope.Continue Lopressor. EF 45-50% 2. Generalized weakness due to combination of hypothermia, profound anemia. His hemoglobin is only 7.9. 3. 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 On Lopressor 50 bid and lisinopril. 4. Severe thrombocytosis almost a Million as well as anemia with hemoglobin of 8.2. Follow up Dr Giang. 5. AMS. Head CT and EEG and neuro follow up Dr Magdaleno. 6. Isolated distal deep vein thrombosis of the Right soleal vein, Per Dr Giang "given that he is asymptomatic. Off anticoagulation and to reimage in 2 weeks to see if he has proximal clot extension, and at that time can reconsider anticoagulation". 7. Anemia and Stool OB positive. 8. Fever and sepsis on broadspectrum antibiotics. BRIGIDA RN. Repeat labs in am. Subjective Subjective No events overnight. Comfortable in NAD. Objective Last 24 Hour Vital Signs Date Time Temp Pulse Resp B/P Pulse Ox O2 Delivery O2 Flow Rate FiO2 04/13/16 12:00 100.8 82 20 139/75 93 Room Air 04/13/16 10:23 102.4 04/13/16 09:25 157/91 04/13/16 09:25 97 04/13/16 09:24 97 157/91 04/13/16 08:00 102.4 97 19 157/91 98 Room Air 04/13/16 04:00 96.8 87 18 142/82 99 Room Air 04/13/16 00:00 98.8 87 18 151/52 93 Room Air 04/12/16 21:55 89 137/77 04/12/16 20:00 100.4 92 20 153/98 Room Air 04/12/16 16:00 97.3 89 20 137/77 100 Room Air Intake and Output 04/12/16 04/13/16 19:00 07:00 Intake Total 480 ml 595.0 ml Output Total 300 ml Balance 180 ml 595.0 ml Intake Oral 480 ml 485 ml IV Total 110.0 ml Output Urine Total 300 ml # Voids 3 6 # Bowel Movements 2 Laboratory Tests Test 04/12/16 20:55 Sodium Level 137 mEQ/L (135-145) Potassium Level 3.9 mEQ/L (3.4-4.9) Chloride Level 100 mEQ/L (98-107) Carbon Dioxide Level 24 mEQ/L (20-30) Anion Gap 13 (5-15) Blood Urea Nitrogen 11 mg/dL (7-23) Creatinine 0.9 mg/dL (0.7-1.2) Estimat Glomerular Filtration Rate > 60 mL/min (>60) Glucose Level 143 mg/dL (74-106) H Calcium Level 8.0 mg/dL (8.6-10.2) L Vancomycin Level Trough 10.2 ug/mL (5.0-12.0) Microbiology Date/Time Source Procedure Growth Status 04/13/16 01:00 Stool Clostridium difficile Toxin Assay - Final Complete Objective HEAD AND NECK: Shows no JVD. LUNGS: Clear. CARDIOVASCULAR: Shows regular S1 and S2 with no gallop or murmur. ABDOMEN: Soft. EXTREMITIES: No pitting edema. DOROTHEA LEIGH Apr 13, 2016 15:35
[2016-04-13 16:00] VITALS: BP 154/87
--- NOTE | 2016-04-13 17:07 | Infectious Diseases Prog Note ---
Assessment/Plan Problems: (1) C. difficile colitis Assessment & Plan: with leukocytosis , and sepsis, will start him on oral vancomycin for 14 days, and stop zosyn and vancomycin. (2) Sepsis Assessment & Plan: due to C diff colitis, will stop vancomycin and zosyn and start oral vancomycin , blood culture on 04/07 so far remained negative, WBC thallium scan didn't show any focus of infection as per discussion with radiologist . (3) Hypothermia Assessment & Plan: improved, unclear etiology need to rule out ischemic injury , monitor electrolytes and lactic acid. (4) Generalized weakness Assessment & Plan: due to the above , improving, continue PT/OT (5) DVT (deep venous thrombosis) Assessment & Plan: continue anticoagulation, monitor INR, CTA of the lung was canceled by diplomatic courier Subjective Constitutional: Denies: anorexia, chills, drenching sweats, fatigue, fever, no symptoms, other HEENT: Denies: congestion, coryza, dysphagia, hearing change, no symptoms, other, visual change Respiratory: Denies: dry cough, no symptoms, other, productive cough, shortness of breath Breasts: Denies: discharge, no symptoms, other, swelling, tenderness Cardiovascular: Denies: chest pain, dyspnea on exertion, no symptoms, other, palpitations Gastrointestinal/Abdominal: Denies: bloating, blood in stool, constipation, diarrhea, nausea, no symptoms, other, vomiting Genitourinary: Denies: dysuria, frequency, hematuria, no symptoms, nocturia, other Neurologic: Denies: confusion, headache, no symptoms, numbness, other, weakness Psychiatric: Denies: anxiety, depression, no symptoms, other Skin: Denies: no symptoms, other, rash, ulcer Allergies: Coded Allergies: No Known Allergies (Unverified , 04/08/16) Per pt, he is not allergic to any medications or food. Subjective he denied any fever today,no chills, no nausea or vomiting, no diarrhea. Objective Vital Signs Last 24 Hour Vital Signs Date Time Temp Pulse Resp B/P Pulse Ox O2 Delivery O2 Flow Rate FiO2 04/13/16 16:00 101.5 18 154/87 95 Room Air 04/13/16 12:00 100.8 82 20 139/75 93 Room Air 04/13/16 10:23 102.4 04/13/16 09:25 157/91 04/13/16 09:25 97 04/13/16 09:24 97 157/91 04/13/16 08:00 102.4 97 19 157/91 98 Room Air 04/13/16 04:00 96.8 87 18 142/82 99 Room Air 04/13/16 00:00 98.8 87 18 151/52 93 Room Air 04/12/16 21:55 89 137/77 04/12/16 20:00 100.4 92 20 153/98 Room Air Height (Feet): 5 Height (Inches): 8.00 Weight (Pounds): 180 General Appearance: WD/WN, no acute distress HEENT: normocephalic, atraumatic, anicteric, mucous membranes moist Respiratory/Chest: chest wall non-tender, lungs clear, normal breath sounds, no respiratory distress, no accessory muscle use Cardiovascular: normal peripheral pulses, normal rate, regular rhythm, no gallop/murmur Abdomen: normal bowel sounds, soft, non tender, no organomegaly, non distended , no mass Extremities: no cyanosis, no clubbing Skin: no rash, no lesions, no ulcers Microbiology Date/Time Source Procedure Growth Status 04/13/16 01:00 Stool Clostridium difficile Toxin Assay - Final Complete Laboratory Tests Test 04/12/16 20:55 Sodium Level 137 mEQ/L (135-145) Potassium Level 3.9 mEQ/L (3.4-4.9) Chloride Level 100 mEQ/L (98-107) Carbon Dioxide Level 24 mEQ/L (20-30) Anion Gap 13 (5-15) Blood Urea Nitrogen 11 mg/dL (7-23) Creatinine 0.9 mg/dL (0.7-1.2) Estimat Glomerular Filtration Rate > 60 mL/min (>60) Glucose Level 143 mg/dL (74-106) H Calcium Level 8.0 mg/dL (8.6-10.2) L Vancomycin Level Trough 10.2 ug/mL (5.0-12.0) Current Medications Medications (Trade) Dose Ordered Sig/Jenn Route PRN Reason Start Time Stop Time Status Last Admin Dose Admin Acetaminophen (Tylenol) 500 mg 30 MIN BEFORE BLOOD PRN ORAL 30 MIN PRIOR TO BLOOD TRANSFUS 04/09/16 18:45 05/09/16 18:44 Acetaminophen (Tylenol) 650 mg Q4H PRN ORAL fever 04/09/16 21:00 05/09/16 20:59 04/13/16 09:24 Al Hydroxide/Mg Hydroxide (Mylanta II) 30 ml Q6H PRN ORAL dyspepsia 04/09/16 20:45 05/09/16 20:44 Aspirin (ASA) 81 mg DAILY ORAL 04/10/16 09:00 05/10/16 08:59 04/13/16 09:24 Dextrose (Dextrose 50%) STAT PRN IV Hypoglycemia 04/10/16 09:00 05/10/16 08:59 Digoxin (Lanoxin) 0.25 mg DAILY ORAL 04/10/16 09:00 05/10/16 08:59 04/13/16 09:25 Diphenhydramine HCl (Benadryl) 50 mg 30MIN BEFORE BLOOD PRN ORAL PRIOR TO BLOOD TRANSFUSION 04/09/16 18:45 05/09/16 18:44 Heparin Sodium (Porcine) (Heparin 5000 units/ml) 5,000 units EVERY 8 HOURS SUBQ 04/11/16 09:00 05/11/16 08:59 04/13/16 13:33 Lisinopril (Zestril) 10 mg DAILY ORAL 04/10/16 09:00 05/10/16 08:59 04/13/16 09:25 Lorazepam (Ativan 2mg/ml 1ml) 0.5 mg Q4H PRN IV For Anxiety 04/09/16 21:00 04/16/16 20:59 Metoprolol Tartrate (Lopressor) 50 mg Q12HR ORAL 04/09/16 21:00 05/09/16 20:59 04/13/16 09:24 Morphine Sulfate (Morphine Sulfate) 1 mg Q4H PRN IVP For Pain 04/09/16 21:00 04/16/16 20:59 Ondansetron HCl (Zofran) 4 mg Q6H PRN IVP Nausea & Vomiting 04/09/16 20:45 05/09/16 20:44 Polyethylene Glycol (Miralax) 17 gm HSPRN PRN ORAL Constipation 04/10/16 09:00 05/10/16 08:59 04/12/16 08:46 Vancomycin HCl (Vancomycin) 125 mg Q6HR ORAL 04/13/16 13:30 04/20/16 13:29 04/13/16 13:31 Zolpidem Tartrate (Ambien) 5 mg HSPRN PRN ORAL Insomnia 04/10/16 18:00 05/10/16 17:59 Sixto Reilly M.D. Apr 13, 2016 17:07
--- NOTE | 2016-04-13 17:28 | Pulmonology Progress Note ---
Assessment/Plan Problems: (1) C. difficile colitis (2) Fever (3) DVT (deep venous thrombosis) (4) Hypothermia (5) Generalized weakness (6) Symptomatic anemia (7) SVT (supraventricular tachycardia) (8) Homelessness Assessment/Plan Cdiff most likely secondary to intiatil abx use on admission all cultures are negative, BC 04/07 negative Indium scan symptomatic treatment on oral vancomycin Subjective ROS Limited/Unobtainable: No Interval Events: improivng Allergies: Coded Allergies: No Known Allergies (Unverified , 04/08/16) Per pt, he is not allergic to any medications or food. Objective Last 24 Hour Vital Signs Date Time Temp Pulse Resp B/P Pulse Ox O2 Delivery O2 Flow Rate FiO2 04/13/16 16:00 101.5 18 154/87 95 Room Air 04/13/16 12:00 100.8 82 20 139/75 93 Room Air 04/13/16 10:23 102.4 04/13/16 09:25 157/91 04/13/16 09:25 97 04/13/16 09:24 97 157/91 04/13/16 08:00 102.4 97 19 157/91 98 Room Air 04/13/16 04:00 96.8 87 18 142/82 99 Room Air 04/13/16 00:00 98.8 87 18 151/52 93 Room Air 04/12/16 21:55 89 137/77 04/12/16 20:00 100.4 92 20 153/98 Room Air Intake and Output 04/12/16 04/13/16 18:59 06:59 Intake Total 480 ml 595.0 ml Output Total 300 ml Balance 180 ml 595.0 ml Intake Oral 480 ml 485 ml IV Total 110.0 ml Output Urine Total 300 ml # Voids 3 6 # Bowel Movements 2 General Appearance: WD/WN HEENT: normocephalic, atraumatic Respiratory/Chest: chest wall non-tender, lungs clear Cardiovascular: normal peripheral pulses, normal rate Abdomen: normal bowel sounds, soft, non tender Skin: no rash Microbiology Date/Time Source Procedure Growth Status 04/13/16 01:00 Stool Clostridium difficile Toxin Assay - Final Complete Laboratory Tests 04/12/16 20:55: Sodium Level 137, Potassium Level 3.9, Chloride Level 100, Carbon Dioxide Level 24, Anion Gap 13, Blood Urea Nitrogen 11, Creatinine 0.9, Estimat Glomerular Filtration Rate > 60, Glucose Level 143H, Calcium Level 8.0L, Vancomycin Level Trough 10.2 Current Medications Medications (Trade) Dose Ordered Sig/Jenn Route PRN Reason Start Time Stop Time Status Last Admin Dose Admin Acetaminophen (Tylenol) 500 mg 30 MIN BEFORE BLOOD PRN ORAL 30 MIN PRIOR TO BLOOD TRANSFUS 04/09/16 18:45 05/09/16 18:44 Acetaminophen (Tylenol) 650 mg Q4H PRN ORAL fever 04/09/16 21:00 05/09/16 20:59 04/13/16 17:04 Al Hydroxide/Mg Hydroxide (Mylanta II) 30 ml Q6H PRN ORAL dyspepsia 04/09/16 20:45 05/09/16 20:44 Aspirin (ASA) 81 mg DAILY ORAL 04/10/16 09:00 05/10/16 08:59 04/13/16 09:24 Dextrose (Dextrose 50%) STAT PRN IV Hypoglycemia 04/10/16 09:00 05/10/16 08:59 Digoxin (Lanoxin) 0.25 mg DAILY ORAL 04/10/16 09:00 05/10/16 08:59 04/13/16 09:25 Diphenhydramine HCl (Benadryl) 50 mg 30MIN BEFORE BLOOD PRN ORAL PRIOR TO BLOOD TRANSFUSION 04/09/16 18:45 05/09/16 18:44 Heparin Sodium (Porcine) (Heparin 5000 units/ml) 5,000 units EVERY 8 HOURS SUBQ 04/11/16 09:00 05/11/16 08:59 04/13/16 13:33 Lisinopril (Zestril) 10 mg DAILY ORAL 04/10/16 09:00 05/10/16 08:59 04/13/16 09:25 Lorazepam (Ativan 2mg/ml 1ml) 0.5 mg Q4H PRN IV For Anxiety 04/09/16 21:00 04/16/16 20:59 Metoprolol Tartrate (Lopressor) 50 mg Q12HR ORAL 04/09/16 21:00 05/09/16 20:59 04/13/16 09:24 Morphine Sulfate (Morphine Sulfate) 1 mg Q4H PRN IVP For Pain 04/09/16 21:00 1/21/17 20:59 Ondansetron HCl (Zofran) 4 mg Q6H PRN IVP Nausea & Vomiting 04/09/16 20:45 05/09/16 20:44 Polyethylene Glycol (Miralax) 17 gm HSPRN PRN ORAL Constipation 04/10/16 09:00 05/10/16 08:59 04/12/16 08:46 Vancomycin HCl (Vancomycin) 125 mg Q6HR ORAL 04/13/16 13:30 04/20/16 13:29 04/13/16 17:04 Zolpidem Tartrate (Ambien) 5 mg HSPRN PRN ORAL Insomnia 04/10/16 18:00 05/10/16 17:59 MARSHA CAMEJO Apr 13, 2016 17:28
--- NOTE | 2016-04-13 19:00 | Neurology Progress Note ---
Interim History Interim History Interim History Mr. Chiang feels well. The cough is better.. He continues to be awake and responsive. He has been able to maintain his temperature. He denies any new neurologic symptoms. The mind is clear. He feels stronger generally. His appetite is good. He is steadier on his feet when he walks. Review of Systems Neuro Review of Systems Benign. Objective Physical Exam Last Vital Signs Date Time Temp Pulse Resp B/P Pulse Ox O2 Delivery O2 Flow Rate FiO2 04/13/16 16:00 101.5 18 154/87 95 Room Air 04/13/16 12:00 82 Laboratory Tests Test 04/12/16 20:55 Sodium Level 137 mEQ/L (135-145) Potassium Level 3.9 mEQ/L (3.4-4.9) Chloride Level 100 mEQ/L (98-107) Carbon Dioxide Level 24 mEQ/L (20-30) Anion Gap 13 (5-15) Blood Urea Nitrogen 11 mg/dL (7-23) Creatinine 0.9 mg/dL (0.7-1.2) Estimat Glomerular Filtration Rate > 60 mL/min (>60) Glucose Level 143 mg/dL (74-106) H Calcium Level 8.0 mg/dL (8.6-10.2) L Vancomycin Level Trough 10.2 ug/mL (5.0-12.0) Neurologic Exam Objective PHYSICAL EXAMINATION: GENERAL: He is a well-developed, relatively well-nourished, black gentleman, lying in bed, in no acute distress. HEAD: Normocephalic and atraumatic. EENT: Examination benign. NECK: No neck rigidity was observed. NEUROLOGICAL EXAMINATION: MENTAL STATUS EXAMINATION: He was awake and alert. He was oriented to person, place and time. He was able to recall 3/3 words immediately and could remember them in 1 and 3 minutes. He was able to remember presidents Obama through Jonas. SPEECH: Normal. LANGUAGE: Normal. CRANIAL NERVE EXAMINATION: II: The visual lim were intact on confrontation testing. III, IV & : The external ocular movements were full. The pupils were 3 mm in diameter, equal, round, regular, and reactive to light. V: He had normal facial sensations, and the temporales, masseters, and pterygoids functioned normally. VII: He had normal facial expressions and no facial asymmetry. VIII: He was able to hear well and had no nystagmus. IX: The palate moved symmetrically on phonation. X: He had no hoarseness of voice. XI: The sternocleidomastoids and trapezii did function. XII: The tongue was in the midline without any fasciculations or atrophy. MOTOR SYSTEM: The tone was normal in all four extremities. Examination of muscle mass revealed no focal wasting. Examination of power revealed G 5/5 power except for G 5-/5 in the iliopsoas muscles. SENSORY EXAMINATION: He responded appropriately to pin prick and light touch. REFLEXES: 1++ and bilaterally symmetrical at the biceps, triceps, brachioradialis and knees. 1+ at both ankles. The plantar responses were flexor bilaterally. COORDINATION: He performed well on finger to nose testing. STANCE: He stood up with support. GAIT: He was able to walk with support. Impression/Recommendations Diagnostic Impression 1. Mr. Abelardo Chiang is a 55-year-old, right-handed, black gentleman, with nebulous past history who was found in a religious with an altered mental state and generally weak. When he was brought into the [facility] he was significantly hypothermic and possibly septic. He had then improved minimally but continued to be cognitively impoverished and lethargic. 2. He feels much better and his cough has resolved. He is awake and alert. The mind is clear. The strength is good. He is able to walk well. 3. On neurological examination, at this time, he is awake and alert, he is fully oriented, he has mild memory problems, and mild proximal lower extremity weakness. He can stand and walk well. 4. Laboratory data on admission revealed that his WBC count was at 10.3, he was significantly anemic with a hemoglobin of 8.2, his platelet count was elevated to 987,000 and his WBC count showed left-sided shift. His chemistry panel revealed that his glucose was elevated to 138. His albumin was low at 2.6. His serum alcohol was <10. The urinalysis was relatively benign. His ESR was elevated to 137. 5. The EEG done on 04/06/16 revealed a mild encephalopathy. 6. The CT of the brain done on 04/06/16 revealed atrophy and mild DWM changes but no acute pathology. 7. The patient's history and neurological examination are most compatible with possible sepsis associated with significant hypothermia. 8. He has improved significantly. Recommendations 1. Continue present management. 2. Encourage to increase activity. 3. Make sure patient goes to a safe place when he leaves the hospital. Anibal Magdaleno M.D., M.S.[facility].H. ANIBAL MAGDALENO Apr 13, 2016 19:00
[2016-04-13 19:39] VITALS: BP 150/88
[2016-04-14] VITALS (7 sets, daily range): BP systolic 129–162; BP diastolic 62–100
[2016-04-14] MEDS: Vancomycin oral 125mg/2.5ml ORAL SCH ×4 (00:51→18:32)
[2016-04-14] MEDS: Heparin 5000 units/ml inj SUBQ SCH ×3 (06:30→21:28)
[2016-04-14 07:05] LABS: BASOPHILS % (AUTO) 0.5 % (0.0-2.0); EOSINOPHILS % (AUTO) 0.1 % (0.0-3.0); LYMPHOCYTES % (AUTO) 22.5 % (20.0-45.0); MEAN CORPUSCULAR HEMOGLOBIN 29.2 PG (27.0-31.0); MEAN CORPUSCULAR HGB CONC 32.9 G/DL (32.0-36.0); MEAN CORPUSCULAR VOLUME 89 FL (80-99); MEAN PLATELET VOLUME 6.5 FL (6.5-10.1); MONOCYTES % (AUTO) 8.1 % (1.0-10.0); NEUTROPHILS % (AUTO) 68.8 % (45.0-75.0); PLATELET COUNT 290 K/UL (150-450); RED BLOOD COUNT 2.74 M/UL (4.70-6.10); RED CELL DISTRIBUTION WIDTH 16.9 % (11.6-14.8); WHITE BLOOD COUNT 14.9 K/UL (4.8-10.8)
[2016-04-14 07:11] LABS: INR 1.2 (0.9-1.1); PROTHROMBIN TIME 12.3 SEC (9.30-11.50)
[2016-04-14 07:22] LABS: MAGNESIUM 1.7 mg/dL (1.7-2.5); PHOSPHORUS 3.1 mg/dL (2.5-4.8)
[2016-04-14 07:26] LABS: ALANINE AMINOTRANSFERASE 14 U/L (3-41); ALBUMIN/GLOBULIN RATIO 0.4 (1.0-2.7); ANION GAP 16 (5-15); ASPARTATE AMINO TRANSFERASE 26 U/L (5-40); CALCIUM 8.6 mg/dL (8.6-10.2); CARBON DIOXIDE 24 mEQ/L (20-30); CHLORIDE 104 mEQ/L (98-107); CREATININE 0.7 mg/dL (0.7-1.2); GLOMERULAR FILTRATION RATE > 60 mL/min (>60); HEMOLYSIS 0; POTASSIUM 3.5 mEQ/L (3.4-4.9); SODIUM 144 mEQ/L (135-145); TOTAL PROTEIN 6.6 g/dL (6.6-8.7)
[2016-04-14] MEDS: Lisinopril 10mg tab ORAL SCH (09:41)
[2016-04-14] MEDS: Aspirin Baby 81mg ORAL SCH (09:41)
[2016-04-14] MEDS: Metoprolol 50mg tab ORAL SCH ×2 (09:41→21:27)
--- NOTE | 2016-04-14 10:39 | General Progress Note ---
Assessment/Plan Problem List: (1) Hypothermia ICD Codes: T68.XXXA - Hypothermia, initial encounter SNOMED: 838219769 Qualifiers: Qualified Codes: T68.XXXA - Hypothermia, initial encounter (2) Symptomatic anemia ICD Codes: D64.9 - Anemia, unspecified SNOMED: 320479929 (3) Generalized weakness ICD Codes: R53.1 - Weakness SNOMED: 40521592 Status: progressing Assessment/Plan apparently refusing to go to jail reviewed chart and labs non compliant no acute events Subjective ROS Limited/Unobtainable: Yes Constitutional: Reports: no symptoms Allergies: Coded Allergies: No Known Allergies (Unverified , 04/08/16) Per pt, he is not allergic to any medications or food. Objective Last 24 Hour Vital Signs Date Time Temp Pulse Resp B/P Pulse Ox O2 Delivery O2 Flow Rate FiO2 04/14/16 09:41 97 157/96 04/14/16 09:41 157/96 04/14/16 09:41 97 04/14/16 08:00 99.9 97 20 157/96 89 Room Air 04/14/16 04:00 100.0 96 19 162/81 97 Room Air 04/14/16 02:08 100.8 04/14/16 00:15 100.4 90 19 157/96 90 Room Air 04/13/16 21:22 83 150/88 04/13/16 19:39 98.4 83 19 150/88 98 Room Air 04/13/16 19:25 98.4 04/13/16 16:00 101.5 18 154/87 95 Room Air 04/13/16 12:00 100.8 82 20 139/75 93 Room Air Intake and Output 04/13/16 04/14/16 19:00 07:00 Intake Total 515 ml 360 ml Output Total 300 ml Balance 215 ml 360 ml Intake Oral 240 ml 360 ml IV Total 275 ml Output Urine Total 300 ml # Voids 2 # Bowel Movements 2 Laboratory Tests 04/14/16 05:35: White Blood Count 14.9H, Red Blood Count 2.74L, Hemoglobin 8.0L, Hematocrit 24.3L, Mean Corpuscular Volume 89, Mean Corpuscular Hemoglobin 29.2, Mean Corpuscular Hemoglobin Concent 32.9, Red Cell Distribution Width 16.9H, Platelet Count 290, Mean Platelet Volume 6.5, Neutrophils (%) (Auto) 68.8, Lymphocytes (%) (Auto) 22.5, Monocytes (%) (Auto) 8.1, Eosinophils (%) (Auto) 0.1, Basophils (%) (Auto) 0.5, Prothrombin Time 12.3H, Prothromb Time International Ratio 1.2H, Activated Partial Thromboplast Time 35H, Sodium Level 144, Potassium Level 3.5, Chloride Level 104, Carbon Dioxide Level 24, Anion Gap 16H, Blood Urea Nitrogen 6L, Creatinine 0.7, Estimat Glomerular Filtration Rate > 60, Glucose Level 94, Calcium Level 8.6, Phosphorus Level 3.1, Magnesium Level 1.7, Total Bilirubin 0.4, Aspartate Amino Transf (AST/SGOT) 26, Alanine Aminotransferase (ALT/SGPT) 14, Alkaline Phosphatase 90, Total Protein 6.6, Albumin 2.0L, Globulin 4.6, Albumin/Globulin Ratio 0.4L Height (Feet): 5 Height (Inches): 8.00 Weight (Pounds): 180 EENT: PERRL/EOMI Cardiovascular: normal rate Respiratory/Chest: lungs clear Sangeeta Massey MD Apr 14, 2016 10:39
--- NOTE | 2016-04-14 15:48 | Cardiac Electrophysiology PN ---
Assessment/Plan Status Narrative Technically difficult study due to poor acoustic windows. Left ventricular ejection fraction estimated to be 45-50%. Mid anterior septal hypokinesis. Trivial circumferential pericardial effusion. Mild left ventricular enlargment. Mild left ventricular hypertrophy. Enlargment of right ventricule. Focal aortic valve sclerosis with adequate cusp excursion Thickened mitral valve leaflets with normal excursion. Mitral annulus and aortic root calcification. Pulmonic valve not well visualized. Normal tricuspid valve structure. IVC at 1.8cm with physiologic collapse. Assessment/Plan 1. Recurrent SVT. Continue Digoxin 0.25 mg daily and Lopressor 50 bid. 2. NSVT 5 beats . No syncope.Continue Lopressor. EF 45-50% 2. Generalized weakness due to combination of hypothermia, profound anemia. His hemoglobin is only 7.9. 3. 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 On Lopressor 50 bid and lisinopril. 4. Severe thrombocytosis almost a Million . Down to [address] Giang. 5. AMS. Had CT and EEG and neuro follow up by Dr Magdaleno. 6. Isolated distal deep vein thrombosis of the Right soleal vein, Per Dr Giang "given that he is asymptomatic. Off anticoagulation and to reimage in 2 weeks to see if he has proximal clot extension, and at that time can reconsider anticoagulation". 7. Anemia and Stool OB positive. 8. Fever and sepsis on po vancomycin for C Diff per Dr Reilly. BRIGIDA RN. Subjective Subjective No events overnight. Comfortable in NAD.No chest pain or SOB.Still has fever despite antibiotics. Objective Last 24 Hour Vital Signs Date Time Temp Pulse Resp B/P Pulse Ox O2 Delivery O2 Flow Rate FiO2 04/14/16 12:28 100.2 04/14/16 12:00 100.6 76 20 145/83 92 Room Air 04/14/16 09:41 97 157/96 04/14/16 09:41 157/96 04/14/16 09:41 97 04/14/16 08:00 99.9 97 20 157/96 89 Room Air 04/14/16 04:00 100.0 96 19 162/81 97 Room Air 04/14/16 00:15 100.4 90 19 157/96 90 Room Air 04/13/16 21:22 83 150/88 04/13/16 19:39 98.4 83 19 150/88 98 Room Air 04/13/16 19:25 98.4 04/13/16 16:00 101.5 18 154/87 95 Room Air Intake and Output 04/13/16 04/14/16 19:00 07:00 Intake Total 515 ml 360 ml Output Total 300 ml Balance 215 ml 360 ml Intake Oral 240 ml 360 ml IV Total 275 ml Output Urine Total 300 ml # Voids 2 # Bowel Movements 2 Laboratory Tests Test 04/14/16 05:35 White Blood Count 14.9 K/UL (4.8-10.8) H Red Blood Count 2.74 M/UL (4.70-6.10) L Hemoglobin 8.0 G/DL (14.2-18.0) L Hematocrit 24.3 % (42.0-52.0) L Mean Corpuscular Volume 89 FL (80-99) Mean Corpuscular Hemoglobin 29.2 PG (27.0-31.0) Mean Corpuscular Hemoglobin Concent 32.9 G/DL (32.0-36.0) Red Cell Distribution Width 16.9 % (11.6-14.8) H Platelet Count 290 K/UL (150-450) Mean Platelet Volume 6.5 FL (6.5-10.1) Neutrophils (%) (Auto) 68.8 % (45.0-75.0) Lymphocytes (%) (Auto) 22.5 % (20.0-45.0) Monocytes (%) (Auto) 8.1 % (1.0-10.0) Eosinophils (%) (Auto) 0.1 % (0.0-3.0) Basophils (%) (Auto) 0.5 % (0.0-2.0) Prothrombin Time 12.3 SEC (9.30-11.50) H Prothromb Time International Ratio 1.2 (0.9-1.1) H Activated Partial Thromboplast Time 35 SEC (23-33) H Sodium Level 144 mEQ/L (135-145) Potassium Level 3.5 mEQ/L (3.4-4.9) Chloride Level 104 mEQ/L (98-107) Carbon Dioxide Level 24 mEQ/L (20-30) Anion Gap 16 (5-15) H Blood Urea Nitrogen 6 mg/dL (7-23) L Creatinine 0.7 mg/dL (0.7-1.2) Estimat Glomerular Filtration Rate > 60 mL/min (>60) Glucose Level 94 mg/dL (74-106) Calcium Level 8.6 mg/dL (8.6-10.2) Phosphorus Level 3.1 mg/dL (2.5-4.8) Magnesium Level 1.7 mg/dL (1.7-2.5) Total Bilirubin 0.4 mg/dL (0.0-1.2) Aspartate Amino Transf (AST/SGOT) 26 U/L (5-40) Alanine Aminotransferase (ALT/SGPT) 14 U/L (3-41) Alkaline Phosphatase 90 U/L (40-129) Total Protein 6.6 g/dL (6.6-8.7) Albumin 2.0 g/dL (3.5-5.2) L Globulin 4.6 g/dL Albumin/Globulin Ratio 0.4 (1.0-2.7) L Microbiology Date/Time Source Procedure Growth Status 04/12/16 06:20 Blood Blood Culture - Preliminary NO GROWTH AFTER 24 HOURS Resulted 04/13/16 01:00 Stool Clostridium difficile Toxin Assay - Final Complete Objective HEAD AND NECK: Shows no JVD. LUNGS: Clear. CARDIOVASCULAR: Shows regular S1 and S2 with no gallop or murmur. ABDOMEN: Soft. EXTREMITIES: No pitting edema. DOROTHEA LEIGH Apr 14, 2016 15:48
--- NOTE | 2016-04-14 17:15 | Pulmonology Progress Note ---
Assessment/Plan Problems: (1) C. difficile colitis Assessment & Plan: [facility], (2) Fever (3) DVT (deep venous thrombosis) (4) Hypothermia (5) Generalized weakness (6) Symptomatic anemia (7) SVT (supraventricular tachycardia) (8) Homelessness Assessment/Plan Cdiff most likely secondary to intiatil abx use on admission on oral vancomycin consider Falgyl IV Subjective ROS Limited/Unobtainable: No Interval Events: still febrile, despite oral vancomycin HEENT: Repors: no symptoms Allergies: Coded Allergies: No Known Allergies (Unverified , 04/08/16) Per pt, he is not allergic to any medications or food. Objective Last 24 Hour Vital Signs Date Time Temp Pulse Resp B/P Pulse Ox O2 Delivery O2 Flow Rate FiO2 04/14/16 16:00 97.6 82 20 130/64 100 Room Air 04/14/16 12:28 100.2 04/14/16 12:00 100.6 76 20 145/83 92 Room Air 04/14/16 09:41 97 157/96 04/14/16 09:41 157/96 04/14/16 09:41 97 04/14/16 08:00 99.9 97 20 157/96 89 Room Air 04/14/16 04:00 100.0 96 19 162/81 97 Room Air 04/14/16 00:15 100.4 90 19 157/96 90 Room Air 04/13/16 21:22 83 150/88 04/13/16 19:39 98.4 83 19 150/88 98 Room Air 04/13/16 19:25 98.4 Intake and Output 04/13/16 04/14/16 19:00 07:00 Intake Total 515 ml 360 ml Output Total 300 ml Balance 215 ml 360 ml Intake Oral 240 ml 360 ml IV Total 275 ml Output Urine Total 300 ml # Voids 2 # Bowel Movements 2 General Appearance: WD/WN HEENT: normocephalic, atraumatic Respiratory/Chest: chest wall non-tender, lungs clear Cardiovascular: normal peripheral pulses, normal rate Extremities: no cyanosis Skin: no rash Microbiology Date/Time Source Procedure Growth Status 04/12/16 06:20 Blood Blood Culture - Preliminary NO GROWTH AFTER 24 HOURS Resulted 04/13/16 01:00 Stool Clostridium difficile Toxin Assay - Final Complete Laboratory Tests 04/14/16 05:35: White Blood Count 14.9H, Red Blood Count 2.74L, Hemoglobin 8.0L, Hematocrit 24.3L, Mean Corpuscular Volume 89, Mean Corpuscular Hemoglobin 29.2, Mean Corpuscular Hemoglobin Concent 32.9, Red Cell Distribution Width 16.9H, Platelet Count 290, Mean Platelet Volume 6.5, Neutrophils (%) (Auto) 68.8, Lymphocytes (%) (Auto) 22.5, Monocytes (%) (Auto) 8.1, Eosinophils (%) (Auto) 0.1, Basophils (%) (Auto) 0.5, Prothrombin Time 12.3H, Prothromb Time International Ratio 1.2H, Activated Partial Thromboplast Time 35H, Sodium Level 144, Potassium Level 3.5, Chloride Level 104, Carbon Dioxide Level 24, Anion Gap 16H, Blood Urea Nitrogen 6L, Creatinine 0.7, Estimat Glomerular Filtration Rate > 60, Glucose Level 94, Calcium Level 8.6, Phosphorus Level 3.1, Magnesium Level 1.7, Total Bilirubin 0.4, Aspartate Amino Transf (AST/SGOT) 26, Alanine Aminotransferase (ALT/SGPT) 14, Alkaline Phosphatase 90, Total Protein 6.6, Albumin 2.0L, Globulin 4.6, Albumin/Globulin Ratio 0.4L Current Medications Medications (Trade) Dose Ordered Sig/Jenn Route PRN Reason Start Time Stop Time Status Last Admin Dose Admin Acetaminophen (Tylenol) 500 mg 30 MIN BEFORE BLOOD PRN ORAL 30 MIN PRIOR TO BLOOD TRANSFUS 04/09/16 18:45 05/09/16 18:44 Acetaminophen (Tylenol) 650 mg Q4H PRN ORAL fever 04/09/16 21:00 05/09/16 20:59 04/14/16 09:42 Al Hydroxide/Mg Hydroxide (Mylanta II) 30 ml Q6H PRN ORAL dyspepsia 04/09/16 20:45 05/09/16 20:44 Aspirin (ASA) 81 mg DAILY ORAL 04/10/16 09:00 05/10/16 08:59 04/14/16 09:41 Dextrose (Dextrose 50%) STAT PRN IV Hypoglycemia 04/10/16 09:00 05/10/16 08:59 Digoxin (Lanoxin) 0.25 mg DAILY ORAL 04/10/16 09:00 05/10/16 08:59 04/14/16 09:41 Diphenhydramine HCl (Benadryl) 50 mg 30MIN BEFORE BLOOD PRN ORAL PRIOR TO BLOOD TRANSFUSION 04/09/16 18:45 05/09/16 18:44 Heparin Sodium (Porcine) (Heparin 5000 units/ml) 5,000 units EVERY 8 HOURS SUBQ 04/11/16 09:00 05/11/16 08:59 04/14/16 14:21 Lisinopril (Zestril) 10 mg DAILY ORAL 04/10/16 09:00 05/10/16 08:59 04/14/16 09:41 Lorazepam (Ativan 2mg/ml 1ml) 0.5 mg Q4H PRN IV For Anxiety 04/09/16 21:00 04/16/16 20:59 Metoprolol Tartrate (Lopressor) 50 mg Q12HR ORAL 04/09/16 21:00 05/09/16 20:59 04/14/16 09:41 Morphine Sulfate (Morphine Sulfate) 1 mg Q4H PRN IVP For Pain 04/09/16 21:00 04/16/16 20:59 Ondansetron HCl (Zofran) 4 mg Q6H PRN IVP Nausea & Vomiting 04/09/16 20:45 05/09/16 20:44 Polyethylene Glycol (Miralax) 17 gm HSPRN PRN ORAL Constipation 04/10/16 09:00 05/10/16 08:59 04/12/16 08:46 Vancomycin HCl (Vancomycin) 125 mg Q6HR ORAL 04/13/16 13:30 04/20/16 13:29 04/14/16 12:29 Zolpidem Tartrate (Ambien) 5 mg HSPRN PRN ORAL Insomnia 04/10/16 18:00 05/10/16 17:59 MARSHA CAMEJO Apr 14, 2016 17:15
--- NOTE | 2016-04-14 17:27 | Infectious Diseases Prog Note ---
Assessment/Plan Problems: (1) C. difficile colitis Assessment & Plan: with leukocytosis , and sepsis, continue oral vancomycin for 14 days, avoid PPI and Imodium (2) Sepsis Assessment & Plan: due to C diff colitis, continue oral vancomycin , blood culture on 04/07 so far remained negative, WBC thallium scan didn't show any focus of infection as per discussion with radiologist . (3) Hypothermia Assessment & Plan: improved, unclear etiology need to rule out ischemic injury , monitor electrolytes and lactic acid. (4) Generalized weakness Assessment & Plan: due to the above , improving, continue PT/OT (5) DVT (deep venous thrombosis) Assessment & Plan: continue anticoagulation, monitor INR, CTA of the lung was canceled by twisthand Subjective Constitutional: Denies: anorexia, chills, drenching sweats, fatigue, fever, no symptoms, other HEENT: Denies: congestion, coryza, dysphagia, hearing change, no symptoms, other, visual change Respiratory: Denies: dry cough, no symptoms, other, productive cough, shortness of breath Breasts: Denies: discharge, no symptoms, other, swelling, tenderness Cardiovascular: Denies: chest pain, dyspnea on exertion, no symptoms, other, palpitations Gastrointestinal/Abdominal: Denies: bloating, blood in stool, constipation, diarrhea, nausea, no symptoms, other, vomiting Genitourinary: Denies: dysuria, frequency, hematuria, no symptoms, nocturia, other Neurologic: Denies: confusion, headache, no symptoms, numbness, other, weakness Psychiatric: Denies: anxiety, depression, no symptoms, other Allergies: Coded Allergies: No Known Allergies (Unverified , 04/08/16) Per pt, he is not allergic to any medications or food. Subjective he denied any fever today,no chills, no nausea or vomiting, no diarrhea. Objective Vital Signs Last 24 Hour Vital Signs Date Time Temp Pulse Resp B/P Pulse Ox O2 Delivery O2 Flow Rate FiO2 04/14/16 16:00 97.6 82 20 130/64 100 Room Air 04/14/16 12:28 100.2 04/14/16 12:00 100.6 76 20 145/83 92 Room Air 04/14/16 09:41 97 157/96 04/14/16 09:41 157/96 04/14/16 09:41 97 04/14/16 08:00 99.9 97 20 157/96 89 Room Air 04/14/16 04:00 100.0 96 19 162/81 97 Room Air 04/14/16 00:15 100.4 90 19 157/96 90 Room Air 04/13/16 21:22 83 150/88 04/13/16 19:39 98.4 83 19 150/88 98 Room Air 04/13/16 19:25 98.4 Height (Feet): 5 Height (Inches): 8.00 Weight (Pounds): 180 General Appearance: WD/WN, no acute distress HEENT: normocephalic, atraumatic, anicteric, mucous membranes moist, PERRL Respiratory/Chest: chest wall non-tender, lungs clear, normal breath sounds, no respiratory distress, no accessory muscle use Cardiovascular: normal peripheral pulses, normal rate, regular rhythm, no gallop/murmur Abdomen: normal bowel sounds, soft, non tender, no organomegaly, non distended , no mass, no scars Extremities: no cyanosis, no clubbing Skin: no rash, no lesions, no ulcers Microbiology Date/Time Source Procedure Growth Status 04/12/16 06:20 Blood Blood Culture - Preliminary NO GROWTH AFTER 24 HOURS Resulted 04/13/16 01:00 Stool Clostridium difficile Toxin Assay - Final Complete Laboratory Tests Test 04/14/16 05:35 White Blood Count 14.9 K/UL (4.8-10.8) H Red Blood Count 2.74 M/UL (4.70-6.10) L Hemoglobin 8.0 G/DL (14.2-18.0) L Hematocrit 24.3 % (42.0-52.0) L Mean Corpuscular Volume 89 FL (80-99) Mean Corpuscular Hemoglobin 29.2 PG (27.0-31.0) Mean Corpuscular Hemoglobin Concent 32.9 G/DL (32.0-36.0) Red Cell Distribution Width 16.9 % (11.6-14.8) H Platelet Count 290 K/UL (150-450) Mean Platelet Volume 6.5 FL (6.5-10.1) Neutrophils (%) (Auto) 68.8 % (45.0-75.0) Lymphocytes (%) (Auto) 22.5 % (20.0-45.0) Monocytes (%) (Auto) 8.1 % (1.0-10.0) Eosinophils (%) (Auto) 0.1 % (0.0-3.0) Basophils (%) (Auto) 0.5 % (0.0-2.0) Prothrombin Time 12.3 SEC (9.30-11.50) H Prothromb Time International Ratio 1.2 (0.9-1.1) H Activated Partial Thromboplast Time 35 SEC (23-33) H Sodium Level 144 mEQ/L (135-145) Potassium Level 3.5 mEQ/L (3.4-4.9) Chloride Level 104 mEQ/L (98-107) Carbon Dioxide Level 24 mEQ/L (20-30) Anion Gap 16 (5-15) H Blood Urea Nitrogen 6 mg/dL (7-23) L Creatinine 0.7 mg/dL (0.7-1.2) Estimat Glomerular Filtration Rate > 60 mL/min (>60) Glucose Level 94 mg/dL (74-106) Calcium Level 8.6 mg/dL (8.6-10.2) Phosphorus Level 3.1 mg/dL (2.5-4.8) Magnesium Level 1.7 mg/dL (1.7-2.5) Total Bilirubin 0.4 mg/dL (0.0-1.2) Aspartate Amino Transf (AST/SGOT) 26 U/L (5-40) Alanine Aminotransferase (ALT/SGPT) 14 U/L (3-41) Alkaline Phosphatase 90 U/L (40-129) Total Protein 6.6 g/dL (6.6-8.7) Albumin 2.0 g/dL (3.5-5.2) L Globulin 4.6 g/dL Albumin/Globulin Ratio 0.4 (1.0-2.7) L Current Medications Medications (Trade) Dose Ordered Sig/Jenn Route PRN Reason Start Time Stop Time Status Last Admin Dose Admin Acetaminophen (Tylenol) 500 mg 30 MIN BEFORE BLOOD PRN ORAL 30 MIN PRIOR TO BLOOD TRANSFUS 04/09/16 18:45 05/09/16 18:44 Acetaminophen (Tylenol) 650 mg Q4H PRN ORAL fever 04/09/16 21:00 05/09/16 20:59 04/14/16 09:42 Al Hydroxide/Mg Hydroxide (Mylanta II) 30 ml Q6H PRN ORAL dyspepsia 04/09/16 20:45 05/09/16 20:44 Aspirin (ASA) 81 mg DAILY ORAL 04/10/16 09:00 05/10/16 08:59 04/14/16 09:41 Dextrose (Dextrose 50%) STAT PRN IV Hypoglycemia 04/10/16 09:00 05/10/16 08:59 Digoxin (Lanoxin) 0.25 mg DAILY ORAL 04/10/16 09:00 05/10/16 08:59 04/14/16 09:41 Diphenhydramine HCl (Benadryl) 50 mg 30MIN BEFORE BLOOD PRN ORAL PRIOR TO BLOOD TRANSFUSION 04/09/16 18:45 05/09/16 18:44 Heparin Sodium (Porcine) (Heparin 5000 units/ml) 5,000 units EVERY 8 HOURS SUBQ 04/11/16 09:00 05/11/16 08:59 04/14/16 14:21 Lisinopril (Zestril) 10 mg DAILY ORAL 04/10/16 09:00 05/10/16 08:59 04/14/16 09:41 Lorazepam (Ativan 2mg/ml 1ml) 0.5 mg Q4H PRN IV For Anxiety 04/09/16 21:00 04/16/16 20:59 Metoprolol Tartrate (Lopressor) 50 mg Q12HR ORAL 04/09/16 21:00 05/09/16 20:59 04/14/16 09:41 Morphine Sulfate (Morphine Sulfate) 1 mg Q4H PRN IVP For Pain 04/09/16 21:00 04/16/16 20:59 Ondansetron HCl (Zofran) 4 mg Q6H PRN IVP Nausea & Vomiting 04/09/16 20:45 05/09/16 20:44 Polyethylene Glycol (Miralax) 17 gm HSPRN PRN ORAL Constipation 04/10/16 09:00 05/10/16 08:59 04/12/16 08:46 Vancomycin HCl (Vancomycin) 125 mg Q6HR ORAL 04/13/16 13:30 04/20/16 13:29 04/14/16 12:29 Zolpidem Tartrate (Ambien) 5 mg HSPRN PRN ORAL Insomnia 04/10/16 18:00 05/10/16 17:59 Sixto Reilly M.D. Apr 14, 2016 17:27
--- NOTE | 2016-04-15 00:14 | General Progress Note ---
Assessment/Plan Assessment/Plan Assessment: 1.Leukocytosis, rule out sepsis 2. Anemia 2/2 chronic disease 3. Isolated distal deep vein thrombosis (IDDVT) of the soleal vein (asymptomatic ) - given that he is asymptomatic, does not require anticoagulation and recommend to reimage in 2 weeks. Reference: Paraleti 2014 in "How do I treat" [place] [employer]emat[employer] Guidelines 4. Thrombocytosis is likely related to hx of anemia - reactive process, improved 5. Hypothermia.Improved. 6. Generalized weakness, suspect due to hypothermia. 7. Coagulopathy, better Recommendations: 1. Monitor counts 2. Transfuse as needed 3. pRBC transfuse if hgb <7 4. Transfuse plt if plt <10k 5. Anemia w/u reviewed 6. Agree does not require anticoagulation 7. DVT ppx with heparin sq 8. Followup renal, ID, cards, pulm recs 9. Staff Sincerely, Chuy Benitez MD Subjective Constitutional: Reports: no symptoms HEENT: Reports: no symptoms Cardiovascular: Reports: no symptoms Respiratory: Reports: no symptoms Gastrointestinal/Abdominal: Reports: no symptoms Genitourinary: Reports: no symptoms Neurologic/Psychiatric: Reports: no symptoms Hematologic/Lymphatic: Reports: no symptoms Allergies: Coded Allergies: No Known Allergies (Unverified , 04/08/16) Per pt, he is not allergic to any medications or food. Subjective stable, is without any bleeding Objective Last 24 Hour Vital Signs Date Time Temp Pulse Resp B/P Pulse Ox O2 Delivery O2 Flow Rate FiO2 04/14/16 23:57 99.9 92 20 159/100 93 Room Air 04/14/16 21:27 82 130/64 04/14/16 20:00 98.6 79 17 129/62 95 Room Air 04/14/16 16:00 97.6 82 20 130/64 100 Room Air 04/14/16 12:28 100.2 04/14/16 12:00 100.6 76 20 145/83 92 Room Air 04/14/16 09:41 97 157/96 04/14/16 09:41 157/96 04/14/16 09:41 97 Intake and Output 04/14/16 04/14/16 11:00 23:00 Intake Total 280 ml Balance 280 ml Intake Oral 280 ml # Voids 1 Laboratory Tests 04/14/16 05:35: White Blood Count 14.9H, Red Blood Count 2.74L, Hemoglobin 8.0L, Hematocrit 24.3L, Mean Corpuscular Volume 89, Mean Corpuscular Hemoglobin 29.2, Mean Corpuscular Hemoglobin Concent 32.9, Red Cell Distribution Width 16.9H, Platelet Count 290, Mean Platelet Volume 6.5, Neutrophils (%) (Auto) 68.8, Lymphocytes (%) (Auto) 22.5, Monocytes (%) (Auto) 8.1, Eosinophils (%) (Auto) 0.1, Basophils (%) (Auto) 0.5, Prothrombin Time 12.3H, Prothromb Time International Ratio 1.2H, Activated Partial Thromboplast Time 35H, Sodium Level 144, Potassium Level 3.5, Chloride Level 104, Carbon Dioxide Level 24, Anion Gap 16H, Blood Urea Nitrogen 6L, Creatinine 0.7, Estimat Glomerular Filtration Rate > 60, Glucose Level 94, Calcium Level 8.6, Phosphorus Level 3.1, Magnesium Level 1.7, Total Bilirubin 0.4, Aspartate Amino Transf (AST/SGOT) 26, Alanine Aminotransferase (ALT/SGPT) 14, Alkaline Phosphatase 90, Total Protein 6.6, Albumin 2.0L, Globulin 4.6, Albumin/Globulin Ratio 0.4L Height (Feet): 5 Height (Inches): 8.00 Weight (Pounds): 180 General Appearance: no apparent distress EENT: PERRL/EOMI Neck: supple Cardiovascular: normal rate Respiratory/Chest: no respiratory distress Abdomen: non tender Edema: 1+ Leg (L), 1+ Leg (R) Chuy Benitez Apr 15, 2016 00:14
[2016-04-15] MEDS: Vancomycin oral 125mg/2.5ml ORAL SCH ×4 (00:24→17:18)
[2016-04-15 03:58] VITALS: BP 147/86
[2016-04-15] MEDS: Heparin 5000 units/ml inj SUBQ SCH ×3 (06:23→21:45)
[2016-04-15 08:00] VITALS: BP 146/86
[2016-04-15] MEDS: Metoprolol 50mg tab ORAL SCH ×2 (09:00→21:44)
[2016-04-15] MEDS: Lisinopril 10mg tab ORAL SCH (09:00)
[2016-04-15] MEDS: Aspirin Baby 81mg ORAL SCH (09:00)
--- NOTE | 2016-04-15 09:17 | General Progress Note ---
Assessment/Plan Assessment/Plan Assessment: 1. Leukocytosis, rule out sepsis, is on broad spectrum abx, being treated for c.diff 2. Anemia 2/2 chronic disease 3. Isolated distal deep vein thrombosis (IDDVT) of the soleal vein (asymptomatic ) - given that he is asymptomatic, does not require anticoagulation and recommend to reimage in 2 weeks. Reference: Paraleti 2014 in "How do I treat" [place] [employer] Guidelines 4. Thrombocytosis is likely related to hx of anemia - reactive process, improved 5. Hypothermia.Improved. 6. Generalized weakness, suspect due to hypothermia. 7. Coagulopathy, better Recommendations: 1. Monitor counts 2. Transfuse as needed 3. pRBC transfuse if hgb <7 4. Transfuse plt if plt <10k 5. Anemia w/u reviewed 6. Agree does not require anticoagulation 7. DVT ppx with heparin sq 8. Followup renal, ID, cards, pulm recs 9. DW Staff Sincerely, Chuy Benitez MD Subjective Constitutional: Reports: no symptoms HEENT: Reports: no symptoms Cardiovascular: Reports: no symptoms Respiratory: Reports: no symptoms Gastrointestinal/Abdominal: Reports: poor appetite Genitourinary: Reports: no symptoms Neurologic/Psychiatric: Reports: no symptoms Endocrine: Reports: no symptoms Hematologic/Lymphatic: Reports: anemia Allergies: Coded Allergies: No Known Allergies (Unverified , 04/08/16) Per pt, he is not allergic to any medications or food. Subjective stable, is without any bleeding Objective Last 24 Hour Vital Signs Date Time Temp Pulse Resp B/P Pulse Ox O2 Delivery O2 Flow Rate FiO2 04/15/16 08:00 99.7 102 18 146/86 98 Room Air 04/15/16 03:58 97.9 98 18 147/86 92 Room Air 04/14/16 23:57 99.9 92 20 159/100 93 Room Air 04/14/16 21:27 82 130/64 04/14/16 20:00 98.6 79 17 129/62 95 Room Air 04/14/16 16:00 97.6 82 20 130/64 100 Room Air 04/14/16 12:28 100.2 04/14/16 12:00 100.6 76 20 145/83 92 Room Air 04/14/16 09:41 97 157/96 04/14/16 09:41 157/96 04/14/16 09:41 97 Intake and Output 04/14/16 04/15/16 19:00 07:00 Intake Total 280 ml Output Total 1200 ml Balance -920 ml Intake Oral 280 ml Output Urine Total 1200 ml Height (Feet): 5 Height (Inches): 8.00 Weight (Pounds): 180 General Appearance: no apparent distress EENT: normal ENT inspection Neck: supple Cardiovascular: regular rhythm Respiratory/Chest: lungs clear Genitourinary/Rectal: heme negative stool Extremities: non-tender Edema: 1+ Leg (L), 1+ Leg (R) Edema: mild edema Neurologic: alert Skin: warm/dry Chuy Benitez Apr 15, 2016 09:17
--- NOTE | 2016-04-15 11:04 | Pulmonology Progress Note ---
Assessment/Plan Assessment/Plan ASSESSMENT sepsis C dif colitis hypothermia likely 2 to sepsis acute encephalopathy acute isolated DVT R soleal vein recurrent SVT NSVT ( 5 beats, no evidence of syncope) mild CM (45-50%) anemia severe thrombocytosis - improving mild pulmonary HTN PLAN OF CRE MS floor ID [email or web address] , off all abx x Oral Vanco ; blood cx negative venous Duplex with evidence of acute DVT in isolated vein, per heme - no treatment, patient asymptomatic, need to repeat Duplex in 2 weeks and then decision to be made to treat or not depending on the results hypothermia resolved, likely 2 to sepses cardio follows on BB and Digoxin, ECHO with EF 45-50% and RVSP of 42 c/w mil pulmonary HTN CT head no acute changes EEG with findings of mild encephalopathy neuro follwso monitor HH, stool OB + x 3 CBC in am and transfuse if Hgb below 7.0-per heme GI eval- per PMD discretion no overt bleeding thrombocytosis trending down, likely reactive, heme follows pain management DVT prophylaxis case discussed and evaluated by supervising physician Subjective Allergies: Coded Allergies: No Known Allergies (Unverified , 04/08/16) Per pt, he is not allergic to any medications or food. Subjective no labs this am, afebrile no signs of respiratory distress feeling better Objective Last 24 Hour Vital Signs Date Time Temp Pulse Resp B/P Pulse Ox O2 Delivery O2 Flow Rate FiO2 04/15/16 09:00 89 146/86 04/15/16 09:00 146/86 04/15/16 09:00 89 04/15/16 08:00 99.7 102 18 146/86 98 Room Air 04/15/16 03:58 97.9 98 18 147/86 92 Room Air 04/14/16 23:57 99.9 92 20 159/100 93 Room Air 04/14/16 21:27 82 130/64 04/14/16 20:00 98.6 79 17 129/62 95 Room Air 04/14/16 16:00 97.6 82 20 130/64 100 Room Air 04/14/16 12:28 100.2 04/14/16 12:00 100.6 76 20 145/83 92 Room Air Intake and Output 04/14/16 04/15/16 19:00 07:00 Intake Total 280 ml Output Total 1200 ml Balance -920 ml Intake Oral 280 ml Output Urine Total 1200 ml General Appearance: no acute distress HEENT: normocephalic, atraumatic, anicteric Respiratory/Chest: chest wall non-tender, lungs clear, no respiratory distress , no accessory muscle use Cardiovascular: normal peripheral pulses, normal rate, regular rhythm, no JVD Abdomen: normal bowel sounds, soft, non tender, non distended Genitourinary: normal external genitalia Extremities: no edema, pedal pulses normal Neurologic/Psychiatric: no motor/sensory deficits, alert, oriented x 3, responsive Musculoskeletal: normal muscle bulk Microbiology Date/Time Source Procedure Growth Status 04/13/16 01:00 Stool Clostridium difficile Toxin Assay - Final Complete Current Medications Medications (Trade) Dose Ordered Sig/Jenn Route PRN Reason Start Time Stop Time Status Last Admin Dose Admin Acetaminophen (Tylenol) 500 mg 30 MIN BEFORE BLOOD PRN ORAL 30 MIN PRIOR TO BLOOD TRANSFUS 04/09/16 18:45 05/09/16 18:44 Acetaminophen (Tylenol) 650 mg Q4H PRN ORAL fever 04/09/16 21:00 05/09/16 20:59 04/14/16 09:42 Al Hydroxide/Mg Hydroxide (Mylanta II) 30 ml Q6H PRN ORAL dyspepsia 04/09/16 20:45 05/09/16 20:44 Aspirin (ASA) 81 mg DAILY ORAL 04/10/16 09:00 05/10/16 08:59 04/15/16 09:00 Dextrose (Dextrose 50%) STAT PRN IV Hypoglycemia 04/10/16 09:00 05/10/16 08:59 Digoxin (Lanoxin) 0.25 mg DAILY ORAL 04/10/16 09:00 05/10/16 08:59 04/15/16 09:00 Diphenhydramine HCl (Benadryl) 50 mg 30MIN BEFORE BLOOD PRN ORAL PRIOR TO BLOOD TRANSFUSION 04/09/16 18:45 05/09/16 18:44 Heparin Sodium (Porcine) (Heparin 5000 units/ml) 5,000 units EVERY 8 HOURS SUBQ 04/11/16 09:00 05/11/16 08:59 04/15/16 06:23 Lisinopril (Zestril) 10 mg DAILY ORAL 04/10/16 09:00 05/10/16 08:59 04/15/16 09:00 Lorazepam (Ativan 2mg/ml 1ml) 0.5 mg Q4H PRN IV For Anxiety 04/09/16 21:00 04/16/16 20:59 Metoprolol Tartrate (Lopressor) 50 mg Q12HR ORAL 04/09/16 21:00 05/09/16 20:59 04/15/16 09:00 Morphine Sulfate (Morphine Sulfate) 1 mg Q4H PRN IVP For Pain 04/09/16 21:00 04/16/16 20:59 Ondansetron HCl (Zofran) 4 mg Q6H PRN IVP Nausea & Vomiting 04/09/16 20:45 05/09/16 20:44 Polyethylene Glycol (Miralax) 17 gm HSPRN PRN ORAL Constipation 04/10/16 09:00 05/10/16 08:59 04/12/16 08:46 Vancomycin HCl (Vancomycin) 125 mg Q6HR ORAL 04/13/16 13:30 04/20/16 13:29 04/15/16 06:22 Zolpidem Tartrate (Ambien) 5 mg HSPRN PRN ORAL Insomnia 04/10/16 18:00 05/10/16 17:59 John (Patrick)Jennyfer NP Apr 15, 2016 11:04
--- NOTE | 2016-04-15 11:25 | General Progress Note ---
Assessment/Plan Problem List: (1) Hypothermia ICD Codes: T68.XXXA - Hypothermia, initial encounter SNOMED: 778897353 Qualifiers: Qualified Codes: T68.XXXA - Hypothermia, initial encounter (2) Symptomatic anemia ICD Codes: D64.9 - Anemia, unspecified SNOMED: 946349271 (3) Generalized weakness ICD Codes: R53.1 - Weakness SNOMED: 67224810 Status: progressing Assessment/Plan apparently refusing to go to care home vitals stable no change Subjective ROS Limited/Unobtainable: Yes Constitutional: Reports: no symptoms Allergies: Coded Allergies: No Known Allergies (Unverified , 04/08/16) Per pt, he is not allergic to any medications or food. Objective Last 24 Hour Vital Signs Date Time Temp Pulse Resp B/P Pulse Ox O2 Delivery O2 Flow Rate FiO2 04/15/16 09:00 89 146/86 04/15/16 09:00 146/86 04/15/16 09:00 89 04/15/16 08:00 99.7 102 18 146/86 98 Room Air 04/15/16 03:58 97.9 98 18 147/86 92 Room Air 04/14/16 23:57 99.9 92 20 159/100 93 Room Air 04/14/16 21:27 82 130/64 04/14/16 20:00 98.6 79 17 129/62 95 Room Air 04/14/16 16:00 97.6 82 20 130/64 100 Room Air 04/14/16 12:28 100.2 04/14/16 12:00 100.6 76 20 145/83 92 Room Air Intake and Output 04/14/16 04/15/16 19:00 07:00 Intake Total 280 ml Output Total 1200 ml Balance -920 ml Intake Oral 280 ml Output Urine Total 1200 ml Height (Feet): 5 Height (Inches): 8.00 Weight (Pounds): 180 EENT: PERRL/EOMI Neck: supple Cardiovascular: normal rate Respiratory/Chest: lungs clear Abdomen: soft Sangeeta Massey MD Apr 15, 2016 11:25
[2016-04-15 12:00] VITALS: BP 156/90
[2016-04-15 16:00] VITALS: BP 172/104
--- NOTE | 2016-04-15 16:33 | Cardiac Electrophysiology PN ---
Assessment/Plan Status Narrative Technically difficult study due to poor acoustic windows. Left ventricular ejection fraction estimated to be 45-50%. Mid anterior septal hypokinesis. Trivial circumferential pericardial effusion. Mild left ventricular enlargment. Mild left ventricular hypertrophy. Enlargment of right ventricule. Focal aortic valve sclerosis with adequate cusp excursion Thickened mitral valve leaflets with normal excursion. Mitral annulus and aortic root calcification. Pulmonic valve not well visualized. Normal tricuspid valve structure. IVC at 1.8cm with physiologic collapse. Assessment/Plan 1. Recurrent SVT. Continue Digoxin 0.25 mg daily and Lopressor 50 bid. Check Dig level in AM. 2. NSVT 5 beats . No syncope. Continue Lopressor. EF 45-50% 2. Generalized weakness due to combination of hypothermia, profound anemia. His hemoglobin is only 7.9. 3. 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 On Lopressor 50 bid and lisinopril. 4. Severe thrombocytosis almost a Million. Down to 219. Follow up Dr Giang. 5. AMS. Had CT and EEG and neuro follow up by Dr Magdaleno. 6. Isolated distal deep vein thrombosis of the Right soleal vein, Per Dr Giang "given that he is asymptomatic. Off anticoagulation and reimage in 2 weeks to see if he has proximal clot extension, and at that time can reconsider anticoagulation". 7. Anemia and Stool OB positive. 8. Fever and sepsis on po vancomycin for C. Diff. BRIGIDA RN. Subjective Subjective Comfortable in NAD.No chest pain or SOB.Off and on fever despite antibiotics. Objective Last 24 Hour Vital Signs Date Time Temp Pulse Resp B/P Pulse Ox O2 Delivery O2 Flow Rate FiO2 04/15/16 16:00 99.3 79 16 172/104 Room Air 04/15/16 12:00 98.4 80 18 156/90 99 Room Air 04/15/16 09:00 89 146/86 04/15/16 09:00 146/86 04/15/16 09:00 89 04/15/16 08:00 99.7 102 18 146/86 98 Room Air 04/15/16 03:58 97.9 98 18 147/86 92 Room Air 04/14/16 23:57 99.9 92 20 159/100 93 Room Air 04/14/16 21:27 82 130/64 04/14/16 20:00 98.6 79 17 129/62 95 Room Air Intake and Output 04/14/16 04/15/16 19:00 07:00 Intake Total 280 ml Output Total 1200 ml Balance -920 ml Intake Oral 280 ml Output Urine Total 1200 ml Microbiology Date/Time Source Procedure Growth Status 04/13/16 01:00 Stool Clostridium difficile Toxin Assay - Final Complete Objective HEAD AND NECK: Shows no JVD. LUNGS: Clear. CARDIOVASCULAR: Shows regular S1 and S2 with no gallop or murmur. ABDOMEN: Soft. EXTREMITIES: No pitting edema. DOROTHEA LEIGH Apr 15, 2016 16:33
--- NOTE | 2016-04-15 17:21 | Infectious Diseases Prog Note ---
Assessment/Plan Problems: (1) C. difficile colitis Assessment & Plan: continue oral vancomycin for 14 days, avoid PPI and Imodium (2) Sepsis Assessment & Plan: due to C diff colitis, continue oral vancomycin , blood culture on 04/07 so far remained negative, WBC thallium scan didn't show any focus of infection as per discussion with radiologist . (3) Hypothermia Assessment & Plan: improved, unclear etiology need to rule out ischemic injury , monitor electrolytes and lactic acid. (4) Generalized weakness Assessment & Plan: due to the above , improving, continue PT/OT (5) DVT (deep venous thrombosis) Assessment & Plan: continue anticoagulation, monitor INR, CTA of the lung was canceled by manager branch Subjective Constitutional: Denies: anorexia, chills, drenching sweats, fatigue, fever, no symptoms, other HEENT: Denies: congestion, coryza, dysphagia, hearing change, no symptoms, other, visual change Respiratory: Denies: dry cough, no symptoms, other, productive cough, shortness of breath Breasts: Denies: discharge, no symptoms, other, swelling, tenderness Cardiovascular: Denies: chest pain, dyspnea on exertion, no symptoms, other, palpitations Gastrointestinal/Abdominal: Denies: bloating, blood in stool, constipation, diarrhea, nausea, no symptoms, other, vomiting Genitourinary: Denies: dysuria, frequency, hematuria, no symptoms, nocturia, other Neurologic: Denies: confusion, headache, no symptoms, numbness, other, weakness Psychiatric: Denies: anxiety, depression, no symptoms, other Skin: Denies: no symptoms, other, rash, ulcer Endocrine: Denies: feels cold, feels warm, no symptoms, other Allergies: Coded Allergies: No Known Allergies (Unverified , 04/08/16) Per pt, he is not allergic to any medications or food. Subjective he denied any fever today,no chills, no nausea or vomiting, no diarrhea. Objective Vital Signs Last 24 Hour Vital Signs Date Time Temp Pulse Resp B/P Pulse Ox O2 Delivery O2 Flow Rate FiO2 04/15/16 16:00 99.3 79 16 172/104 Room Air 04/15/16 12:00 98.4 80 18 156/90 99 Room Air 04/15/16 09:00 89 146/86 04/15/16 09:00 146/86 04/15/16 09:00 89 04/15/16 08:00 99.7 102 18 146/86 98 Room Air 04/15/16 03:58 97.9 98 18 147/86 92 Room Air 04/14/16 23:57 99.9 92 20 159/100 93 Room Air 04/14/16 21:27 82 130/64 04/14/16 20:00 98.6 79 17 129/62 95 Room Air Height (Feet): 5 Height (Inches): 8.00 Weight (Pounds): 180 General Appearance: WD/WN, no acute distress HEENT: normocephalic, atraumatic, mucous membranes moist Respiratory/Chest: normal breath sounds, no respiratory distress, no accessory muscle use Cardiovascular: normal peripheral pulses, normal rate, regular rhythm, no gallop/murmur Abdomen: normal bowel sounds, soft, non tender, no organomegaly, non distended , no mass Extremities: no cyanosis, no clubbing Skin: no rash, no lesions, no ulcers Microbiology Date/Time Source Procedure Growth Status 04/13/16 01:00 Stool Clostridium difficile Toxin Assay - Final Complete Current Medications Medications (Trade) Dose Ordered Sig/Jenn Route PRN Reason Start Time Stop Time Status Last Admin Dose Admin Acetaminophen (Tylenol) 500 mg 30 MIN BEFORE BLOOD PRN ORAL 30 MIN PRIOR TO BLOOD TRANSFUS 04/09/16 18:45 05/09/16 18:44 Acetaminophen (Tylenol) 650 mg Q4H PRN ORAL fever 04/09/16 21:00 05/09/16 20:59 04/14/16 09:42 Al Hydroxide/Mg Hydroxide (Mylanta II) 30 ml Q6H PRN ORAL dyspepsia 04/09/16 20:45 05/09/16 20:44 Aspirin (ASA) 81 mg DAILY ORAL 04/10/16 09:00 05/10/16 08:59 04/15/16 09:00 Dextrose (Dextrose 50%) STAT PRN IV Hypoglycemia 04/10/16 09:00 05/10/16 08:59 Digoxin (Lanoxin) 0.25 mg DAILY ORAL 04/10/16 09:00 05/10/16 08:59 04/15/16 09:00 Diphenhydramine HCl (Benadryl) 50 mg 30MIN BEFORE BLOOD PRN ORAL PRIOR TO BLOOD TRANSFUSION 04/09/16 18:45 05/09/16 18:44 Heparin Sodium (Porcine) (Heparin 5000 units/ml) 5,000 units EVERY 8 HOURS SUBQ 04/11/16 09:00 05/11/16 08:59 04/15/16 15:05 Lisinopril (Zestril) 10 mg DAILY ORAL 04/10/16 09:00 05/10/16 08:59 04/15/16 09:00 Lorazepam (Ativan 2mg/ml 1ml) 0.5 mg Q4H PRN IV For Anxiety 04/09/16 21:00 04/16/16 20:59 Metoprolol Tartrate (Lopressor) 50 mg Q12HR ORAL 04/09/16 21:00 05/09/16 20:59 04/15/16 09:00 Morphine Sulfate (Morphine Sulfate) 1 mg Q4H PRN IVP For Pain 04/09/16 21:00 04/16/16 20:59 Ondansetron HCl (Zofran) 4 mg Q6H PRN IVP Nausea & Vomiting 04/09/16 20:45 05/09/16 20:44 Polyethylene Glycol (Miralax) 17 gm HSPRN PRN ORAL Constipation 04/10/16 09:00 05/10/16 08:59 04/12/16 08:46 Vancomycin HCl (Vancomycin) 125 mg Q6HR ORAL 04/13/16 13:30 04/20/16 13:29 04/15/16 12:00 Zolpidem Tartrate (Ambien) 5 mg HSPRN PRN ORAL Insomnia 04/10/16 18:00 05/10/16 17:59 Sixto Reilly M.D. Apr 15, 2016 17:21
[2016-04-15 20:00] VITALS: BP 164/90
[2016-04-15] MEDS ORDERED: cloNIDine 0.2mg Tab ORAL PRN (20:30)
[2016-04-16] VITALS: BP 151/90
[2016-04-16] MEDS: Vancomycin oral 125mg/2.5ml ORAL SCH ×4 (00:35→17:53)
[2016-04-16 04:00] VITALS: BP 155/98
[2016-04-16] MEDS: Heparin 5000 units/ml inj SUBQ SCH ×3 (05:51→21:25)
[2016-04-16] MEDS: Aspirin Baby 81mg ORAL SCH (08:11)
[2016-04-16] MEDS: Lisinopril 10mg tab ORAL SCH (08:12)
[2016-04-16 08:15] VITALS: BP 125/91
[2016-04-16] MEDS: Metoprolol 50mg tab ORAL SCH ×2 (08:17→21:23)
--- NOTE | 2016-04-16 10:47 | General Progress Note ---
Assessment/Plan Assessment/Plan Assessment: 1. Leukocytosis, rule out sepsis, is on broad spectrum abx, being treated for c.diff 2. Anemia 2/2 chronic disease 3. Isolated distal deep vein thrombosis (IDDVT) of the soleal vein (asymptomatic ) - given that he is asymptomatic, does not require anticoagulation and recommend to reimage in 2 weeks. Reference: Paraleti 2014 in "How do I treat" [place] [employer] Guidelines 4. Thrombocytosis is likely related to hx of anemia - reactive process, improved 5. Hypothermia. Has Improved. 6. Generalized weakness, suspect due to hypothermia. 7. Coagulopathy, better Recommendations: 1. Monitor counts 2. Transfuse as needed 3. pRBC transfuse if hgb <7 4. Transfuse plt if plt <10k 5. Anemia w/u has been reviewed 6. Agree does not require anticoagulation 7. DVT ppx with heparin sq 8. Followup renal, ID, cards, pulm recs 9. DW Staff Sincerely, Salvador Benitez MD Subjective Constitutional: Reports: no symptoms HEENT: Reports: no symptoms Cardiovascular: Reports: no symptoms Respiratory: Reports: no symptoms Gastrointestinal/Abdominal: Reports: no symptoms Genitourinary: Reports: no symptoms Neurologic/Psychiatric: Reports: no symptoms Endocrine: Reports: no symptoms Hematologic/Lymphatic: Reports: anemia Allergies: Coded Allergies: No Known Allergies (Unverified , 04/08/16) Per pt, he is not allergic to any medications or food. Subjective stable, without fevers, or chills, no bleeding, no hematochezia Objective Last 24 Hour Vital Signs Date Time Temp Pulse Resp B/P Pulse Ox O2 Delivery O2 Flow Rate FiO2 04/16/16 08:17 91 125/91 04/16/16 08:15 98.4 91 20 125/91 97 Room Air 04/16/16 08:12 125/91 04/16/16 08:11 91 04/16/16 06:53 99.0 04/16/16 04:00 100.6 84 18 155/98 94 Room Air 04/16/16 00:00 100.2 85 18 151/90 92 Room Air 04/15/16 21:44 67 164/90 04/15/16 20:00 98.2 67 18 164/90 95 Room Air 04/15/16 16:00 99.3 79 16 172/104 Room Air 04/15/16 12:00 98.4 80 18 156/90 99 Room Air Intake and Output 04/15/16 04/16/16 19:00 07:00 Intake Total 560 ml 380 ml Output Total 680 ml 400 ml Balance -120 ml -20 ml Intake Oral 560 ml 380 ml Output Urine Total 680 ml 400 ml # Voids 2 Height (Feet): 5 Height (Inches): 8.00 Weight (Pounds): 180 General Appearance: no apparent distress EENT: normal ENT inspection Neck: supple Cardiovascular: regular rhythm Respiratory/Chest: lungs clear Abdomen: no mass Extremities: non-tender Edema: 1+ Leg (L), 1+ Leg (R) Neurologic: alert Skin: warm/dry SALVADOR BENITEZ Apr 16, 2016 10:47
--- NOTE | 2016-04-16 11:21 | General Progress Note ---
Assessment/Plan Problem List: (1) Hypothermia ICD Codes: T68.XXXA - Hypothermia, initial encounter SNOMED: 088120962 Qualifiers: Qualified Codes: T68.XXXA - Hypothermia, initial encounter (2) Symptomatic anemia ICD Codes: D64.9 - Anemia, unspecified SNOMED: 290526315 (3) Generalized weakness ICD Codes: R53.1 - Weakness SNOMED: 97998466 Status: progressing Assessment/Plan afebrile vitals stable no bleeding no acute events Subjective ROS Limited/Unobtainable: Yes Constitutional: Reports: no symptoms Allergies: Coded Allergies: No Known Allergies (Unverified , 04/08/16) Per pt, he is not allergic to any medications or food. Objective Last 24 Hour Vital Signs Date Time Temp Pulse Resp B/P Pulse Ox O2 Delivery O2 Flow Rate FiO2 04/16/16 08:17 91 125/91 04/16/16 08:15 98.4 91 20 125/91 97 Room Air 04/16/16 08:12 125/91 04/16/16 08:11 91 04/16/16 06:53 99.0 04/16/16 04:00 100.6 84 18 155/98 94 Room Air 04/16/16 00:00 100.2 85 18 151/90 92 Room Air 04/15/16 21:44 67 164/90 04/15/16 20:00 98.2 67 18 164/90 95 Room Air 04/15/16 16:00 99.3 79 16 172/104 Room Air 04/15/16 12:00 98.4 80 18 156/90 99 Room Air Intake and Output 04/15/16 04/16/16 19:00 07:00 Intake Total 560 ml 380 ml Output Total 680 ml 400 ml Balance -120 ml -20 ml Intake Oral 560 ml 380 ml Output Urine Total 680 ml 400 ml # Voids 2 Height (Feet): 5 Height (Inches): 8.00 Weight (Pounds): 180 Neck: non-tender Cardiovascular: normal rate Respiratory/Chest: lungs clear Abdomen: soft Sangeeta Massey MD Apr 16, 2016 11:21
[2016-04-16 12:01] VITALS: BP 156/97
[2016-04-16 12:35] LABS: MEAN CORPUSCULAR HEMOGLOBIN 28.1 PG (27.0-31.0); MEAN CORPUSCULAR HGB CONC 31.2 G/DL (32.0-36.0); MEAN CORPUSCULAR VOLUME 90 FL (80-99); MEAN PLATELET VOLUME 5.6 FL (6.5-10.1); PLATELET COUNT 494 K/UL (150-450); RED CELL DISTRIBUTION WIDTH 16.9 % (11.6-14.8)
--- NOTE | 2016-04-16 14:15 | Pulmonology Progress Note ---
Assessment/Plan Assessment/Plan ASSESSMENT sepsis C dif colitis hypothermia likely 2 to sepsis acute encephalopathy acute isolated DVT R soleal vein recurrent SVT NSVT ( 5 beats, no evidence of syncope) mild CM (45-50%) anemia severe thrombocytosis - improving mild pulmonary HTN PLAN OF CRE [facility] floor ID follows , off all abx x Oral Vanco ; blood cx negative venous Duplex with evidence of acute DVT in isolated vein, per heme - no treatment, patient asymptomatic, need to repeat Duplex in 2 weeks and then decision to be made to treat or not depending on the results hypothermia resolved, likely 2 to sepses cardio follows on BB and Digoxin, ECHO with EF 45-50% and RVSP of 42 c/w mil pulmonary HTN CT head no acute changes EEG with findings of mild encephalopathy neuro follwso monitor HH, stool OB + x 3 CBC in am and transfuse if Hgb below 7.0-per heme GI eval- per PMD discretion no overt bleeding thrombocytosis trending down, likely reactive, heme follows pain management DVT prophylaxis case discussed and evaluated by supervising physician Subjective Allergies: Coded Allergies: No Known Allergies (Unverified , 04/08/16) Per pt, he is not allergic to any medications or food. Subjective persistent leukocytosis afebrile no signs of respiratory distress Objective Last 24 Hour Vital Signs Date Time Temp Pulse Resp B/P Pulse Ox O2 Delivery O2 Flow Rate FiO2 04/16/16 12:01 98.6 73 20 156/97 97 Room Air 04/16/16 08:17 91 125/91 04/16/16 08:15 98.4 91 20 125/91 97 Room Air 04/16/16 08:12 125/91 04/16/16 08:11 91 04/16/16 06:53 99.0 04/16/16 04:00 100.6 84 18 155/98 94 Room Air 04/16/16 00:00 100.2 85 18 151/90 92 Room Air 04/15/16 21:44 67 164/90 04/15/16 20:00 98.2 67 18 164/90 95 Room Air 04/15/16 16:00 99.3 79 16 172/104 Room Air Intake and Output 04/15/16 04/16/16 19:00 07:00 Intake Total 560 ml 380 ml Output Total 680 ml 400 ml Balance -120 ml -20 ml Intake Oral 560 ml 380 ml Output Urine Total 680 ml 400 ml # Voids 2 Objective General Appearance: no acute distress HEENT: normocephalic, atraumatic, anicteric Respiratory/Chest: chest wall non-tender, lungs clear, no respiratory distress , no accessory muscle use Cardiovascular: normal peripheral pulses, normal rate, regular rhythm, no JVD Abdomen: normal bowel sounds, soft, non tender, non distended Genitourinary: normal external genitalia Extremities: no edema, pedal pulses normal Neurologic/Psychiatric: no motor/sensory deficits, alert, oriented x 3, responsive Musculoskeletal: normal muscle bulk Laboratory Tests 04/16/16 11:30: White Blood Count 14.0H, Red Blood Count 2.80L, Hemoglobin 7.9L, Hematocrit 25.3L, Mean Corpuscular Volume 90, Mean Corpuscular Hemoglobin 28.1, Mean Corpuscular Hemoglobin Concent 31.2L, Red Cell Distribution Width 16.9H, Platelet Count 494H, Mean Platelet Volume 5.6L, Neutrophils (%) (Auto) , Lymphocytes (%) (Auto) , Monocytes (%) (Auto) , Eosinophils (%) (Auto) , Basophils (%) (Auto) , Neutrophils % (Manual) [Pending], Lymphocytes % (Manual) [Pending], Platelet Estimate [Pending], Platelet Morphology [Pending] Current Medications Medications (Trade) Dose Ordered Sig/Jenn Route PRN Reason Start Time Stop Time Status Last Admin Dose Admin Acetaminophen (Tylenol) 500 mg 30 MIN BEFORE BLOOD PRN ORAL 30 MIN PRIOR TO BLOOD TRANSFUS 04/09/16 18:45 05/09/16 18:44 Acetaminophen (Tylenol) 650 mg Q4H PRN ORAL fever 04/09/16 21:00 05/09/16 20:59 04/16/16 05:54 Al Hydroxide/Mg Hydroxide (Mylanta II) 30 ml Q6H PRN ORAL dyspepsia 04/09/16 20:45 05/09/16 20:44 Aspirin (ASA) 81 mg DAILY ORAL 04/10/16 09:00 05/10/16 08:59 04/16/16 08:11 Clonidine HCl (Catapres) 0.2 mg Q2H PRN ORAL SBP > 170 04/15/16 20:30 05/15/16 20:29 Dextrose (Dextrose 50%) STAT PRN IV Hypoglycemia 04/10/16 09:00 05/10/16 08:59 Digoxin (Lanoxin) 0.25 mg DAILY ORAL 04/10/16 09:00 05/10/16 08:59 04/16/16 08:11 Diphenhydramine HCl (Benadryl) 50 mg 30MIN BEFORE BLOOD PRN ORAL PRIOR TO BLOOD TRANSFUSION 04/09/16 18:45 05/09/16 18:44 Heparin Sodium (Porcine) (Heparin 5000 units/ml) 5,000 units EVERY 8 HOURS SUBQ 04/11/16 09:00 05/11/16 08:59 04/16/16 05:51 Lisinopril (Zestril) 10 mg DAILY ORAL 04/10/16 09:00 05/10/16 08:59 04/16/16 08:12 Lorazepam (Ativan 2mg/ml 1ml) 0.5 mg Q4H PRN IV For Anxiety 04/09/16 21:00 04/16/16 20:59 Metoprolol Tartrate (Lopressor) 50 mg Q12HR ORAL 04/09/16 21:00 05/09/16 20:59 04/16/16 08:17 Morphine Sulfate (Morphine Sulfate) 1 mg Q4H PRN IVP For Pain 04/09/16 21:00 04/16/16 20:59 Ondansetron HCl (Zofran) 4 mg Q6H PRN IVP Nausea & Vomiting 04/09/16 20:45 05/09/16 20:44 Polyethylene Glycol (Miralax) 17 gm HSPRN PRN ORAL Constipation 04/10/16 09:00 05/10/16 08:59 04/12/16 08:46 Vancomycin HCl (Vancomycin) 125 mg Q6HR ORAL 04/13/16 13:30 04/20/16 13:29 04/16/16 12:15 Zolpidem Tartrate (Ambien) 5 mg HSPRN PRN ORAL Insomnia 04/10/16 18:00 05/10/16 17:59 Jennyfer Lopez NP (Vanchtein) Apr 16, 2016 14:15
[2016-04-16 14:41] LABS: BAND NEUTROPHILS % (MANUAL) 0 % (0-8); BASOPHILS % (MANUAL) 0 % (0-2); EOSINOPHILS % (MANUAL) 2 % (0-3); LYMPHOCYTES % (MANUAL) 9 % (20-45); NEUTROPHILS % (MANUAL) 81 % (45-75); PLATELET ESTIMATE INCREASED; PLATELET MORPHOLOGY NORMAL; TOTAL CELLS COUNTED 100
--- NOTE | 2016-04-16 14:46 | Infectious Diseases Prog Note ---
Assessment/Plan Problems: (1) C. difficile colitis Assessment & Plan: continue oral vancomycin for 14 days, avoid PPI and Imodium (2) Sepsis Assessment & Plan: due to C diff colitis, continue oral vancomycin , blood culture on 04/07 so far remained negative, WBC thallium scan didn't show any focus of infection as per discussion with radiologist . (3) Hypothermia Assessment & Plan: improved, unclear etiology , monitor electrolytes and lactic acid. (4) Generalized weakness Assessment & Plan: due to the above , improving, continue PT/OT (5) DVT (deep venous thrombosis) Assessment & Plan: continue anticoagulation, monitor INR, CTA of the lung was canceled by justice of the peace Subjective Constitutional: Denies: anorexia, chills, drenching sweats, fatigue, fever, no symptoms, other HEENT: Denies: congestion, coryza, dysphagia, hearing change, no symptoms, other, visual change Respiratory: Denies: dry cough, no symptoms, other, productive cough, shortness of breath Breasts: Denies: discharge, no symptoms, other, swelling, tenderness Cardiovascular: Denies: chest pain, dyspnea on exertion, no symptoms, other, palpitations Gastrointestinal/Abdominal: Denies: bloating, blood in stool, constipation, diarrhea, nausea, no symptoms, other, vomiting Genitourinary: Denies: dysuria, frequency, hematuria, no symptoms, nocturia, other Neurologic: Denies: confusion, headache, no symptoms, numbness, other, weakness Psychiatric: Denies: anxiety, depression, no symptoms, other Skin: Denies: no symptoms, other, rash, ulcer Endocrine: Denies: feels cold, feels warm, no symptoms, other Hematologic: Denies: bleeding, no symptoms, other, swollen lymph nodes Allergies: Coded Allergies: No Known Allergies (Unverified , 04/08/16) Per pt, he is not allergic to any medications or food. Subjective he denied any fever today,no chills, no nausea or vomiting, no diarrhea. Objective Vital Signs Last 24 Hour Vital Signs Date Time Temp Pulse Resp B/P Pulse Ox O2 Delivery O2 Flow Rate FiO2 04/16/16 12:01 98.6 73 20 156/97 97 Room Air 04/16/16 08:17 91 125/91 04/16/16 08:15 98.4 91 20 125/91 97 Room Air 04/16/16 08:12 125/91 04/16/16 08:11 91 04/16/16 06:53 99.0 04/16/16 04:00 100.6 84 18 155/98 94 Room Air 04/16/16 00:00 100.2 85 18 151/90 92 Room Air 04/15/16 21:44 67 164/90 04/15/16 20:00 98.2 67 18 164/90 95 Room Air 04/15/16 16:00 99.3 79 16 172/104 Room Air Height (Feet): 5 Height (Inches): 8.00 Weight (Pounds): 180 General Appearance: WD/WN, no acute distress HEENT: normocephalic, atraumatic, anicteric, mucous membranes moist Respiratory/Chest: chest wall non-tender, lungs clear, normal breath sounds, no respiratory distress, no accessory muscle use Cardiovascular: normal peripheral pulses, normal rate, regular rhythm, no gallop/murmur Abdomen: normal bowel sounds, soft, non tender, no organomegaly, non distended , no mass, no scars Extremities: no cyanosis, no clubbing Skin: no rash, no lesions, no ulcers Laboratory Tests Test 04/16/16 11:30 White Blood Count 14.0 K/UL (4.8-10.8) H Red Blood Count 2.80 M/UL (4.70-6.10) L Hemoglobin 7.9 G/DL (14.2-18.0) L Hematocrit 25.3 % (42.0-52.0) L Mean Corpuscular Volume 90 FL (80-99) Mean Corpuscular Hemoglobin 28.1 PG (27.0-31.0) Mean Corpuscular Hemoglobin Concent 31.2 G/DL (32.0-36.0) L Red Cell Distribution Width 16.9 % (11.6-14.8) H Platelet Count 494 K/UL (150-450) H Mean Platelet Volume 5.6 FL (6.5-10.1) L Neutrophils (%) (Auto) % (45.0-75.0) Lymphocytes (%) (Auto) % (20.0-45.0) Monocytes (%) (Auto) % (1.0-10.0) Eosinophils (%) (Auto) % (0.0-3.0) Basophils (%) (Auto) % (0.0-2.0) Differential Total Cells Counted 100 Neutrophils % (Manual) 81 % (45-75) H Lymphocytes % (Manual) 9 % (20-45) L Monocytes % (Manual) 8 % (1-10) Eosinophils % (Manual) 2 % (0-3) Basophils % (Manual) 0 % (0-2) Band Neutrophils 0 % (0-8) Platelet Estimate Increased H Platelet Morphology Normal Red Blood Cell Morphology Normal Current Medications Medications (Trade) Dose Ordered Sig/Jenn Route PRN Reason Start Time Stop Time Status Last Admin Dose Admin Acetaminophen (Tylenol) 500 mg 30 MIN BEFORE BLOOD PRN ORAL 30 MIN PRIOR TO BLOOD TRANSFUS 04/09/16 18:45 05/09/16 18:44 Acetaminophen (Tylenol) 650 mg Q4H PRN ORAL fever 04/09/16 21:00 05/09/16 20:59 04/16/16 05:54 Al Hydroxide/Mg Hydroxide (Mylanta II) 30 ml Q6H PRN ORAL dyspepsia 04/09/16 20:45 05/09/16 20:44 Aspirin (ASA) 81 mg DAILY ORAL 04/10/16 09:00 05/10/16 08:59 04/16/16 08:11 Clonidine HCl (Catapres) 0.2 mg Q2H PRN ORAL SBP > 170 04/15/16 20:30 05/15/16 20:29 Dextrose (Dextrose 50%) STAT PRN IV Hypoglycemia 04/10/16 09:00 05/10/16 08:59 Digoxin (Lanoxin) 0.25 mg DAILY ORAL 04/10/16 09:00 05/10/16 08:59 04/16/16 08:11 Diphenhydramine HCl (Benadryl) 50 mg 30MIN BEFORE BLOOD PRN ORAL PRIOR TO BLOOD TRANSFUSION 04/09/16 18:45 05/09/16 18:44 Heparin Sodium (Porcine) (Heparin 5000 units/ml) 5,000 units EVERY 8 HOURS SUBQ 04/11/16 09:00 05/11/16 08:59 04/16/16 14:16 Lisinopril (Zestril) 10 mg DAILY ORAL 04/10/16 09:00 05/10/16 08:59 04/16/16 08:12 Lorazepam (Ativan 2mg/ml 1ml) 0.5 mg Q4H PRN IV For Anxiety 04/09/16 21:00 04/16/16 20:59 Metoprolol Tartrate (Lopressor) 50 mg Q12HR ORAL 04/09/16 21:00 05/09/16 20:59 04/16/16 08:17 Morphine Sulfate (Morphine Sulfate) 1 mg Q4H PRN IVP For Pain 04/09/16 21:00 04/16/16 20:59 Ondansetron HCl (Zofran) 4 mg Q6H PRN IVP Nausea & Vomiting 04/09/16 20:45 05/09/16 20:44 Polyethylene Glycol (Miralax) 17 gm HSPRN PRN ORAL Constipation 04/10/16 09:00 05/10/16 08:59 04/12/16 08:46 Vancomycin HCl (Vancomycin) 125 mg Q6HR ORAL 04/13/16 13:30 04/20/16 13:29 04/16/16 12:15 Zolpidem Tartrate (Ambien) 5 mg HSPRN PRN ORAL Insomnia 04/10/16 18:00 05/10/16 17:59 Sixto Reilly M.D. Apr 16, 2016 14:46
[2016-04-16] MEDS ORDERED: NS 275ml ONE ×2 (15:04→15:16)
[2016-04-16] MEDS ORDERED: Tubing IV Secondary IV ONE ×2 (15:04→15:16)
[2016-04-16 16:02] VITALS: BP 155/80
--- NOTE | 2016-04-16 17:28 | Diagnostic Imaging Report ---
APPROVED REPORT CPT Code: 17758 Present Symptoms Comments: R/O DVT RIGHT LEG: Venous imaging reveals acute thrombus in the isolated soleal vein. The tip of the thrombus was visualized at mid-calf level. Remainder of the deep venous system within normal limits. No evidence of thrombus within the femoral, popliteal and posterior or anterior tibial segments. Greater saphenous vein also within normal limits. LEFT LEG: Venous imaging reveals a patent deep venous system. There is no evidence of thrombus within the femoral, popliteal or tibial segments. The greater saphenous vein is also within normal limits. Doppler indicates normal spontaneous flow within these segments. CITLALY Rush was notified of abnormal results at 1600 hours.
--- NOTE | 2016-04-16 17:56 | Cardiac Electrophysiology PN ---
Assessment/Plan Status Narrative Technically difficult study due to poor acoustic windows. Left ventricular ejection fraction estimated to be 45-50%. Mid anterior septal hypokinesis. Trivial circumferential pericardial effusion. Mild left ventricular enlargment. Mild left ventricular hypertrophy. Enlargment of right ventricule. Focal aortic valve sclerosis with adequate cusp excursion Thickened mitral valve leaflets with normal excursion. Mitral annulus and aortic root calcification. Pulmonic valve not well visualized. Normal tricuspid valve structure. IVC at 1.8cm with physiologic collapse. Assessment/Plan 1. Recurrent SVT. Continue Digoxin 0.25 mg daily and Lopressor 50 bid. 2. NSVT 5 beats . No syncope. Continue Lopressor. EF 45-50% 2. Generalized weakness due to combination of hypothermia, profound anemia. His hemoglobin is only 7.9. 3. 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 On Lopressor 50 bid and lisinopril 10 daily. 4. Severe thrombocytosis Follow up Dr Giang. 5. AMS. Had CT and EEG and neuro follow up by Dr Magdaleno. 6. Isolated distal deep vein thrombosis of the Right soleal vein, Per Dr Giang "given that he is asymptomatic. Off anticoagulation and reimage in 2 weeks to see if he has proximal clot extension, and at that time can reconsider anticoagulation". 7. Anemia and Stool OB positive. 8. Fever and sepsis on po vancomycin for C. Diff. BRIGIDA RN. Subjective Subjective Comfortable in NAD.No chest pain or SOB. Objective Last 24 Hour Vital Signs Date Time Temp Pulse Resp B/P Pulse Ox O2 Delivery O2 Flow Rate FiO2 04/16/16 16:02 99.0 81 19 155/80 97 Room Air 04/16/16 12:01 98.6 73 20 156/97 97 Room Air 04/16/16 08:17 91 125/91 04/16/16 08:15 98.4 91 20 125/91 97 Room Air 04/16/16 08:12 125/91 04/16/16 08:11 91 04/16/16 06:53 99.0 04/16/16 04:00 100.6 84 18 155/98 94 Room Air 04/16/16 00:00 100.2 85 18 151/90 92 Room Air 04/15/16 21:44 67 164/90 04/15/16 20:00 98.2 67 18 164/90 95 Room Air Intake and Output 04/15/16 04/16/16 19:00 07:00 Intake Total 560 ml 380 ml Output Total 680 ml 400 ml Balance -120 ml -20 ml Intake Oral 560 ml 380 ml Output Urine Total 680 ml 400 ml # Voids 2 Laboratory Tests Test 04/16/16 11:30 White Blood Count 14.0 K/UL (4.8-10.8) H Red Blood Count 2.80 M/UL (4.70-6.10) L Hemoglobin 7.9 G/DL (14.2-18.0) L Hematocrit 25.3 % (42.0-52.0) L Mean Corpuscular Volume 90 FL (80-99) Mean Corpuscular Hemoglobin 28.1 PG (27.0-31.0) Mean Corpuscular Hemoglobin Concent 31.2 G/DL (32.0-36.0) L Red Cell Distribution Width 16.9 % (11.6-14.8) H Platelet Count 494 K/UL (150-450) H Mean Platelet Volume 5.6 FL (6.5-10.1) L Neutrophils (%) (Auto) % (45.0-75.0) Lymphocytes (%) (Auto) % (20.0-45.0) Monocytes (%) (Auto) % (1.0-10.0) Eosinophils (%) (Auto) % (0.0-3.0) Basophils (%) (Auto) % (0.0-2.0) Differential Total Cells Counted 100 Neutrophils % (Manual) 81 % (45-75) H Lymphocytes % (Manual) 9 % (20-45) L Monocytes % (Manual) 8 % (1-10) Eosinophils % (Manual) 2 % (0-3) Basophils % (Manual) 0 % (0-2) Band Neutrophils 0 % (0-8) Platelet Estimate Increased H Platelet Morphology Normal Red Blood Cell Morphology Normal Objective HEAD AND NECK: Shows no JVD. LUNGS: Clear. CARDIOVASCULAR: Shows regular S1 and S2 with no gallop or murmur. ABDOMEN: Soft. EXTREMITIES: No pitting edema. DOROTHEA LEIGH Apr 16, 2016 17:56
[2016-04-16 20:00] VITALS: BP 151/103
[2016-04-17] VITALS (8 sets, daily range): BP systolic 146–161; BP diastolic 84–98
[2016-04-17] MEDS: Vancomycin oral 125mg/2.5ml ORAL SCH ×4 (00:32→18:33)
[2016-04-17] MEDS: Heparin 5000 units/ml inj SUBQ SCH ×3 (07:06→21:35)
[2016-04-17 08:05] LABS: MEAN CORPUSCULAR HEMOGLOBIN 28.4 PG (27.0-31.0); MEAN CORPUSCULAR HGB CONC 31.2 G/DL (32.0-36.0); MEAN CORPUSCULAR VOLUME 91 FL (80-99); MEAN PLATELET VOLUME 5.3 FL (6.5-10.1); PLATELET COUNT 533 K/UL (150-450); RED BLOOD COUNT 2.68 M/UL (4.70-6.10); RED CELL DISTRIBUTION WIDTH 16.6 % (11.6-14.8); WHITE BLOOD COUNT 13.1 K/UL (4.8-10.8)
[2016-04-17 08:44] LABS: ANION GAP 14 (5-15); CALCIUM 8.7 mg/dL (8.6-10.2); CARBON DIOXIDE 25 mEQ/L (20-30); CHLORIDE 101 mEQ/L (98-107); CREATININE 0.7 mg/dL (0.7-1.2); GLOMERULAR FILTRATION RATE > 60 mL/min (>60); HEMOLYSIS 0; POTASSIUM 3.7 mEQ/L (3.4-4.9); SODIUM 140 mEQ/L (135-145)
[2016-04-17] MEDS: Lisinopril 10mg tab ORAL SCH (09:05)
[2016-04-17] MEDS: Aspirin Baby 81mg ORAL SCH (09:05)
[2016-04-17] MEDS: Metoprolol 50mg tab ORAL SCH ×2 (09:05→21:34)
--- NOTE | 2016-04-17 09:25 | General Progress Note ---
Assessment/Plan Assessment/Plan Assessment: 1. Leukocytosis, rule out sepsis, is on broad spectrum abx, being treated for c.diff 2. Anemia 2/2 chronic disease 3. Isolated distal deep vein thrombosis (IDDVT) of the soleal vein (asymptomatic ) - given that he is asymptomatic, does not require anticoagulation and recommend to reimage in 2 weeks. Reference: Paraleti 2014 in "How do I treat" [place] Guidelines 4. Thrombocytosis is likely related to hx of anemia - reactive process, improved 5. Hypothermia. Has Improved. 6. Generalized weakness, suspect due to hypothermia. 7. Coagulopathy, better Recommendations: 1. Monitor counts 2. Transfuse as needed 3. pRBC transfuse to hgb >7 4. Transfuse to plt count >10k 5. Anemia w/u has been reviewed 6. Agree does not require anticoagulation 7. DVT ppx with heparin sq 8. Followup renal, ID, cards, pulm recs 9. DW Staff Sincerely, Salvador Benitez MD Subjective Constitutional: Reports: no symptoms HEENT: Reports: no symptoms Cardiovascular: Reports: no symptoms Respiratory: Reports: no symptoms Gastrointestinal/Abdominal: Reports: no symptoms Genitourinary: Reports: no symptoms Neurologic/Psychiatric: Reports: no symptoms Endocrine: Reports: no symptoms Hematologic/Lymphatic: Reports: anemia Allergies: Coded Allergies: No Known Allergies (Unverified , 04/08/16) Per pt, he is not allergic to any medications or food. Subjective stable, without fevers, or chills, no bleeding, no hematochezia Objective Last 24 Hour Vital Signs Date Time Temp Pulse Resp B/P Pulse Ox O2 Delivery O2 Flow Rate FiO2 04/17/16 09:05 63 153/84 04/17/16 09:05 153/84 04/17/16 09:05 63 04/17/16 08:15 98.4 63 21 153/84 97 Room Air 04/17/16 07:06 99.2 04/17/16 04:00 100.4 92 22 158/93 100 Room Air 04/17/16 00:00 100.1 87 20 152/88 100 Room Air 04/16/16 21:23 75 139/71 04/16/16 20:00 99.1 84 20 151/103 94 Room Air 04/16/16 16:02 99.0 81 19 155/80 97 Room Air 04/16/16 12:01 98.6 73 20 156/97 97 Room Air Intake and Output 04/16/16 04/17/16 18:59 06:59 Intake Total 960 ml 240 ml Balance 960 ml 240 ml Intake Oral 960 ml 240 ml Laboratory Tests 04/16/16 11:30: White Blood Count 14.0H, Red Blood Count 2.80L, Hemoglobin 7.9L, Hematocrit 25.3L, Mean Corpuscular Volume 90, Mean Corpuscular Hemoglobin 28.1, Mean Corpuscular Hemoglobin Concent 31.2L, Red Cell Distribution Width 16.9H, Platelet Count 494H, Mean Platelet Volume 5.6L, Neutrophils (%) (Auto) , Lymphocytes (%) (Auto) , Monocytes (%) (Auto) , Eosinophils (%) (Auto) , Basophils (%) (Auto) , Differential Total Cells Counted 100, Neutrophils % ( Manual) 81H, Lymphocytes % (Manual) 9L, Monocytes % (Manual) 8, Eosinophils % ( Manual) 2, Basophils % (Manual) 0, Band Neutrophils 0, Platelet Estimate IncreasedH, Platelet Morphology Normal, Red Blood Cell Morphology Normal 04/17/16 06:00: Sodium Level 140, Potassium Level 3.7, Chloride Level 101, Carbon Dioxide Level 25, Anion Gap 14, Blood Urea Nitrogen 8, Creatinine 0.7, Estimat Glomerular Filtration Rate > 60, Glucose Level 113H, Calcium Level 8.7 04/17/16 06:10: White Blood Count 13.1H, Red Blood Count 2.68L, Hemoglobin 7.6L, Hematocrit 24.4L, Mean Corpuscular Volume 91, Mean Corpuscular Hemoglobin 28.4, Mean Corpuscular Hemoglobin Concent 31.2L, Red Cell Distribution Width 16.6H, Platelet Count 533H, Mean Platelet Volume 5.3L, Neutrophils (%) (Auto) , Lymphocytes (%) (Auto) , Monocytes (%) (Auto) , Eosinophils (%) (Auto) , Basophils (%) (Auto) , Neutrophils % (Manual) [Pending], Lymphocytes % (Manual) [Pending], Platelet Estimate [Pending], Platelet Morphology [Pending] Height (Feet): 5 Height (Inches): 8.00 Weight (Pounds): 180 General Appearance: no apparent distress EENT: TMs normal Neck: supple Cardiovascular: regular rhythm Respiratory/Chest: lungs clear Abdomen: non tender Extremities: non-tender Edema: 1+ Leg (L), 1+ Leg (R) Edema: mild edema Neurologic: no motor/sensory deficits Skin: normal pigmentation SALVADOR BENITEZ Apr 17, 2016 09:25
[2016-04-17 11:03] LABS: ANISOCYTOSIS 1+; BAND NEUTROPHILS % (MANUAL) 0 % (0-8); BASOPHILS % (MANUAL) 0 % (0-2); EOSINOPHILS % (MANUAL) 0 % (0-3); HYPOCHROMASIA 1+; LYMPHOCYTES % (MANUAL) 23 % (20-45); NEUTROPHILS % (MANUAL) 62 % (45-75); PLATELET ESTIMATE ADEQUATE; PLATELET MORPHOLOGY NORMAL; TOTAL CELLS COUNTED 100
--- NOTE | 2016-04-17 11:45 | Diagnostic Imaging Report ---
Indication: Fever unknown origin Technique: 513 ?Ci of Indium labelled WBCs was injected intravenously. Labelling performed using an in-vitro technique. A whole-body bone scan was then performed in anterior and posterior projections after a 24 hour delay. Comparison: None Findings: . There is a very small single focus of uptake in the left anterior chest, possibly within the chest wall. This is doubtful to be of significance with regard to the question of fever origin. Consider correlation with CT. The remainder of exam is normal. Impression: Tiny focus of left anterior lower chest uptake of questionable significance clinically. Please correlate clinically. Consider evaluation with contrast-enhanced CT of the chest.
--- NOTE | 2016-04-17 11:53 | General Progress Note ---
Assessment/Plan Problem List: (1) Hypothermia ICD Codes: T68.XXXA - Hypothermia, initial encounter SNOMED: 751505000 Qualifiers: Qualified Codes: T68.XXXA - Hypothermia, initial encounter (2) Symptomatic anemia ICD Codes: D64.9 - Anemia, unspecified SNOMED: 927765053 (3) Generalized weakness ICD Codes: R53.1 - Weakness SNOMED: 73939362 Status: progressing Assessment/Plan no wheezing reviewed chart and labs vitals stable refuses placement no fever Subjective ROS Limited/Unobtainable: Yes Constitutional: Reports: no symptoms Allergies: Coded Allergies: No Known Allergies (Unverified , 04/08/16) Per pt, he is not allergic to any medications or food. Objective Last 24 Hour Vital Signs Date Time Temp Pulse Resp B/P Pulse Ox O2 Delivery O2 Flow Rate FiO2 04/17/16 09:05 63 153/84 04/17/16 09:05 153/84 04/17/16 09:05 63 04/17/16 08:15 98.4 63 21 153/84 97 Room Air 04/17/16 07:06 99.2 04/17/16 04:00 100.4 92 22 158/93 100 Room Air 04/17/16 00:00 100.1 87 20 152/88 100 Room Air 04/16/16 21:23 75 139/71 04/16/16 20:00 99.1 84 20 151/103 94 Room Air 04/16/16 16:02 99.0 81 19 155/80 97 Room Air 04/16/16 12:01 98.6 73 20 156/97 97 Room Air Intake and Output 04/16/16 04/17/16 19:00 07:00 Intake Total 960 ml 240 ml Balance 960 ml 240 ml Intake Oral 960 ml 240 ml Laboratory Tests 04/17/16 06:00: Sodium Level 140, Potassium Level 3.7, Chloride Level 101, Carbon Dioxide Level 25, Anion Gap 14, Blood Urea Nitrogen 8, Creatinine 0.7, Estimat Glomerular Filtration Rate > 60, Glucose Level 113H, Calcium Level 8.7 04/17/16 06:10: White Blood Count 13.1H, Red Blood Count 2.68L, Hemoglobin 7.6L, Hematocrit 24.4L, Mean Corpuscular Volume 91, Mean Corpuscular Hemoglobin 28.4, Mean Corpuscular Hemoglobin Concent 31.2L, Red Cell Distribution Width 16.6H, Platelet Count 533H, Mean Platelet Volume 5.3L, Neutrophils (%) (Auto) , Lymphocytes (%) (Auto) , Monocytes (%) (Auto) , Eosinophils (%) (Auto) , Basophils (%) (Auto) , Differential Total Cells Counted 100, Neutrophils % ( Manual) 62, Lymphocytes % (Manual) 23, Monocytes % (Manual) 15H, Eosinophils % ( Manual) 0, Basophils % (Manual) 0, Band Neutrophils 0, Platelet Estimate Adequate, Platelet Morphology Normal, Hypochromasia 1+, Anisocytosis 1+ Height (Feet): 5 Height (Inches): 8.00 Weight (Pounds): 180 EENT: PERRL/EOMI Neck: supple Cardiovascular: normal rate Respiratory/Chest: lungs clear Abdomen: soft Sangeeta Massey MD Apr 17, 2016 11:53
--- NOTE | 2016-04-17 12:19 | Pulmonology Progress Note ---
Assessment/Plan Assessment/Plan ASSESSMENT sepsis C dif colitis hypothermia likely 2 to sepsis acute encephalopathy acute isolated DVT R soleal vein recurrent SVT NSVT ( 5 beats, no evidence of syncope) mild CM (45-50%) anemia severe thrombocytosis - improving mild pulmonary HTN PLAN OF CRE MS floor ID follows , off all abx x Oral Vanco ; blood cx negative indium scan with tiny focus of left anterior lower chest uptake of questionable significance clinically. will do CT chest in am venous Duplex with evidence of acute DVT in isolated vein, per heme - no treatment, patient asymptomatic, need to repeat Duplex in 2 weeks and then decision to be made to treat or not depending on the results hypothermia resolved, likely 2 to sepsis cardio follows on BB and Digoxin, ECHO with EF 45-50% and RVSP of 42 c/w mil pulmonary HTN CT head no acute changes EEG with findings of mild encephalopathy neuro follwso monitor HH, stool OB + x 3 , transfuse 1 u PRBC today GI eval- per PMD discretion no overt bleeding thrombocytosis trending down, likely reactive, heme follows pain management DVT prophylaxis case discussed and evaluated by supervising physician Subjective Allergies: Coded Allergies: No Known Allergies (Unverified , 04/08/16) Per pt, he is not allergic to any medications or food. Subjective persistent leukocytosis afebrile no signs of respiratory distress HH trendign down -7.6/24.4 Objective Last 24 Hour Vital Signs Date Time Temp Pulse Resp B/P Pulse Ox O2 Delivery O2 Flow Rate FiO2 04/17/16 11:53 97.6 74 21 146/86 97 Room Air 04/17/16 09:05 63 153/84 04/17/16 09:05 153/84 04/17/16 09:05 63 04/17/16 08:15 98.4 63 21 153/84 97 Room Air 04/17/16 07:06 99.2 04/17/16 04:00 100.4 92 22 158/93 100 Room Air 04/17/16 00:00 100.1 87 20 152/88 100 Room Air 04/16/16 21:23 75 139/71 04/16/16 20:00 99.1 84 20 151/103 94 Room Air 04/16/16 16:02 99.0 81 19 155/80 97 Room Air Intake and Output 04/16/16 04/17/16 19:00 07:00 Intake Total 960 ml 240 ml Balance 960 ml 240 ml Intake Oral 960 ml 240 ml Objective General Appearance: no acute distress HEENT: normocephalic, atraumatic, anicteric Respiratory/Chest: chest wall non-tender, lungs clear, no respiratory distress , no accessory muscle use Cardiovascular: normal peripheral pulses, normal rate, regular rhythm, no JVD Abdomen: normal bowel sounds, soft, non tender, non distended Genitourinary: normal external genitalia Extremities: no edema, pedal pulses normal Neurologic/Psychiatric: no motor/sensory deficits, alert, oriented x 3, responsive Musculoskeletal: normal muscle bulk Laboratory Tests 04/17/16 06:00: Sodium Level 140, Potassium Level 3.7, Chloride Level 101, Carbon Dioxide Level 25, Anion Gap 14, Blood Urea Nitrogen 8, Creatinine 0.7, Estimat Glomerular Filtration Rate > 60, Glucose Level 113H, Calcium Level 8.7 04/17/16 06:10: White Blood Count 13.1H, Red Blood Count 2.68L, Hemoglobin 7.6L, Hematocrit 24.4L, Mean Corpuscular Volume 91, Mean Corpuscular Hemoglobin 28.4, Mean Corpuscular Hemoglobin Concent 31.2L, Red Cell Distribution Width 16.6H, Platelet Count 533H, Mean Platelet Volume 5.3L, Neutrophils (%) (Auto) , Lymphocytes (%) (Auto) , Monocytes (%) (Auto) , Eosinophils (%) (Auto) , Basophils (%) (Auto) , Differential Total Cells Counted 100, Neutrophils % ( Manual) 62, Lymphocytes % (Manual) 23, Monocytes % (Manual) 15H, Eosinophils % ( Manual) 0, Basophils % (Manual) 0, Band Neutrophils 0, Platelet Estimate Adequate, Platelet Morphology Normal, Hypochromasia 1+, Anisocytosis 1+ Current Medications Medications (Trade) Dose Ordered Sig/Jenn Route PRN Reason Start Time Stop Time Status Last Admin Dose Admin Acetaminophen (Tylenol) 500 mg 30 MIN BEFORE BLOOD PRN ORAL 30 MIN PRIOR TO BLOOD TRANSFUS 04/09/16 18:45 05/09/16 18:44 Acetaminophen (Tylenol) 650 mg Q4H PRN ORAL fever 04/09/16 21:00 05/09/16 20:59 04/17/16 05:37 Al Hydroxide/Mg Hydroxide (Mylanta II) 30 ml Q6H PRN ORAL dyspepsia 04/09/16 20:45 05/09/16 20:44 Aspirin (ASA) 81 mg DAILY ORAL 04/10/16 09:00 05/10/16 08:59 04/17/16 09:05 Clonidine HCl (Catapres) 0.2 mg Q2H PRN ORAL SBP > 170 04/15/16 20:30 05/15/16 20:29 Dextrose (Dextrose 50%) STAT PRN IV Hypoglycemia 04/10/16 09:00 05/10/16 08:59 Digoxin (Lanoxin) 0.25 mg DAILY ORAL 04/10/16 09:00 05/10/16 08:59 04/17/16 09:05 Diphenhydramine HCl (Benadryl) 50 mg 30MIN BEFORE BLOOD PRN ORAL PRIOR TO BLOOD TRANSFUSION 04/09/16 18:45 05/09/16 18:44 Heparin Sodium (Porcine) (Heparin 5000 units/ml) 5,000 units EVERY 8 HOURS SUBQ 04/11/16 09:00 05/11/16 08:59 04/17/16 07:06 Lisinopril (Zestril) 10 mg DAILY ORAL 04/10/16 09:00 05/10/16 08:59 04/17/16 09:05 Metoprolol Tartrate (Lopressor) 50 mg Q12HR ORAL 04/09/16 21:00 05/09/16 20:59 04/17/16 09:05 Ondansetron HCl (Zofran) 4 mg Q6H PRN IVP Nausea & Vomiting 04/09/16 20:45 05/09/16 20:44 Polyethylene Glycol (Miralax) 17 gm HSPRN PRN ORAL Constipation 04/10/16 09:00 05/10/16 08:59 04/12/16 08:46 Vancomycin HCl (Vancomycin) 125 mg Q6HR ORAL 04/13/16 13:30 04/20/16 13:29 04/17/16 07:02 Zolpidem Tartrate (Ambien) 5 mg HSPRN PRN ORAL Insomnia 04/10/16 18:00 05/10/16 17:59 Jennyfer Lopez NP (Vanchtein) Apr 17, 2016 12:19
--- NOTE | 2016-04-17 16:19 | Infectious Diseases Prog Note ---
Assessment/Plan Problems: (1) C. difficile colitis Assessment & Plan: continue oral vancomycin for 14 days, avoid PPI and Imodium (2) Sepsis Assessment & Plan: due to C diff colitis, continue oral vancomycin , blood culture on 04/07 so far remained negative, WBC thallium scan didn't show any focus of infection as per discussion with radiologist . (3) Hypothermia Assessment & Plan: improved, unclear etiology , monitor electrolytes and lactic acid. (4) Generalized weakness Assessment & Plan: due to the above , improving, continue PT/OT (5) DVT (deep venous thrombosis) Assessment & Plan: continue anticoagulation, monitor INR, CTA of the lung was canceled by portfolio manager (6) Recurrent fever, cause unknown Assessment & Plan: will order CT chest with contrast to rule out chest wall abscess, since his indium scan showed small flare in the left lower chest. need work up for autoimmune disease VS occult malignancy Subjective Constitutional: Reports: fever Allergies: Coded Allergies: No Known Allergies (Unverified , 04/08/16) Per pt, he is not allergic to any medications or food. All Systems: reviewed and negative except above Subjective he denied any fever today,no chills, no nausea or vomiting, no diarrhea. Objective Vital Signs Last 24 Hour Vital Signs Date Time Temp Pulse Resp B/P Pulse Ox O2 Delivery O2 Flow Rate FiO2 04/17/16 16:00 99.1 80 18 161/88 100 Room Air 04/17/16 11:53 97.6 74 21 146/86 97 Room Air 04/17/16 09:05 63 153/84 04/17/16 09:05 153/84 04/17/16 09:05 63 04/17/16 08:15 98.4 63 21 153/84 97 Room Air 04/17/16 07:06 99.2 04/17/16 04:00 100.4 92 22 158/93 100 Room Air 04/17/16 00:00 100.1 87 20 152/88 100 Room Air 04/16/16 21:23 75 139/71 04/16/16 20:00 99.1 84 20 151/103 94 Room Air Height (Feet): 5 Height (Inches): 8.00 Weight (Pounds): 180 General Appearance: WD/WN, no acute distress HEENT: normocephalic, atraumatic, anicteric, mucous membranes moist, PERRL Respiratory/Chest: chest wall non-tender, lungs clear, normal breath sounds, no respiratory distress, no accessory muscle use Cardiovascular: normal peripheral pulses, normal rate, regular rhythm, no gallop/murmur, no JVD Abdomen: normal bowel sounds, soft, non tender, no organomegaly, non distended , no mass, no scars Extremities: no cyanosis, no clubbing Skin: no rash, no lesions, no ulcers Laboratory Tests Test 04/17/16 06:00 04/17/16 06:10 Sodium Level 140 mEQ/L (135-145) Potassium Level 3.7 mEQ/L (3.4-4.9) Chloride Level 101 mEQ/L (98-107) Carbon Dioxide Level 25 mEQ/L (20-30) Anion Gap 14 (5-15) Blood Urea Nitrogen 8 mg/dL (7-23) Creatinine 0.7 mg/dL (0.7-1.2) Estimat Glomerular Filtration Rate > 60 mL/min (>60) Glucose Level 113 mg/dL (74-106) H Calcium Level 8.7 mg/dL (8.6-10.2) White Blood Count 13.1 K/UL (4.8-10.8) H Red Blood Count 2.68 M/UL (4.70-6.10) L Hemoglobin 7.6 G/DL (14.2-18.0) L Hematocrit 24.4 % (42.0-52.0) L Mean Corpuscular Volume 91 FL (80-99) Mean Corpuscular Hemoglobin 28.4 PG (27.0-31.0) Mean Corpuscular Hemoglobin Concent 31.2 G/DL (32.0-36.0) L Red Cell Distribution Width 16.6 % (11.6-14.8) H Platelet Count 533 K/UL (150-450) H Mean Platelet Volume 5.3 FL (6.5-10.1) L Neutrophils (%) (Auto) % (45.0-75.0) Lymphocytes (%) (Auto) % (20.0-45.0) Monocytes (%) (Auto) % (1.0-10.0) Eosinophils (%) (Auto) % (0.0-3.0) Basophils (%) (Auto) % (0.0-2.0) Differential Total Cells Counted 100 Neutrophils % (Manual) 62 % (45-75) Lymphocytes % (Manual) 23 % (20-45) Monocytes % (Manual) 15 % (1-10) H Eosinophils % (Manual) 0 % (0-3) Basophils % (Manual) 0 % (0-2) Band Neutrophils 0 % (0-8) Platelet Estimate Adequate Platelet Morphology Normal Hypochromasia 1+ Anisocytosis 1+ Current Medications Medications (Trade) Dose Ordered Sig/Jenn Route PRN Reason Start Time Stop Time Status Last Admin Dose Admin Acetaminophen (Tylenol) 500 mg 30 MIN BEFORE BLOOD PRN ORAL 30 MIN PRIOR TO BLOOD TRANSFUS 04/09/16 18:45 05/09/16 18:44 Acetaminophen (Tylenol) 650 mg Q4H PRN ORAL fever 04/09/16 21:00 05/09/16 20:59 04/17/16 05:37 Al Hydroxide/Mg Hydroxide (Mylanta II) 30 ml Q6H PRN ORAL dyspepsia 04/09/16 20:45 05/09/16 20:44 Aspirin (ASA) 81 mg DAILY ORAL 04/10/16 09:00 05/10/16 08:59 04/17/16 09:05 Clonidine HCl (Catapres) 0.2 mg Q2H PRN ORAL SBP > 170 04/15/16 20:30 05/15/16 20:29 Dextrose (Dextrose 50%) STAT PRN IV Hypoglycemia 04/10/16 09:00 05/10/16 08:59 Digoxin (Lanoxin) 0.25 mg DAILY ORAL 04/10/16 09:00 05/10/16 08:59 04/17/16 09:05 Diphenhydramine HCl (Benadryl) 50 mg 30MIN BEFORE BLOOD PRN ORAL PRIOR TO BLOOD TRANSFUSION 04/09/16 18:45 05/09/16 18:44 Heparin Sodium (Porcine) (Heparin 5000 units/ml) 5,000 units EVERY 8 HOURS SUBQ 04/11/16 09:00 05/11/16 08:59 04/17/16 07:06 Lisinopril (Zestril) 10 mg DAILY ORAL 04/10/16 09:00 05/10/16 08:59 04/17/16 09:05 Metoprolol Tartrate (Lopressor) 50 mg Q12HR ORAL 04/09/16 21:00 05/09/16 20:59 04/17/16 09:05 Ondansetron HCl (Zofran) 4 mg Q6H PRN IVP Nausea & Vomiting 04/09/16 20:45 05/09/16 20:44 Polyethylene Glycol (Miralax) 17 gm HSPRN PRN ORAL Constipation 04/10/16 09:00 05/10/16 08:59 04/12/16 08:46 Vancomycin HCl (Vancomycin) 125 mg Q6HR ORAL 04/13/16 13:30 04/20/16 13:29 04/17/16 13:30 Zolpidem Tartrate (Ambien) 5 mg HSPRN PRN ORAL Insomnia 04/10/16 18:00 05/10/16 17:59 Sixto Reilly M.D. Apr 17, 2016 16:19
[2016-04-18] VITALS (9 sets, daily range): BP systolic 122–179; BP diastolic 59–113
[2016-04-18] MEDS: Vancomycin oral 125mg/2.5ml ORAL SCH ×4 (00:37→18:34)
[2016-04-18] MEDS: Heparin 5000 units/ml inj SUBQ SCH ×3 (06:48→21:30)
[2016-04-18 08:43] LABS: BASOPHILS % (AUTO) 0.4 % (0.0-2.0); EOSINOPHILS % (AUTO) 0.8 % (0.0-3.0); LYMPHOCYTES % (AUTO) 19.6 % (20.0-45.0); MEAN CORPUSCULAR HEMOGLOBIN 28.4 PG (27.0-31.0); MEAN CORPUSCULAR HGB CONC 31.4 G/DL (32.0-36.0); MEAN CORPUSCULAR VOLUME 90 FL (80-99); MEAN PLATELET VOLUME 5.2 FL (6.5-10.1); MONOCYTES % (AUTO) 9.3 % (1.0-10.0); NEUTROPHILS % (AUTO) 69.9 % (45.0-75.0); PLATELET COUNT 619 K/UL (150-450); RED BLOOD COUNT 3.58 M/UL (4.70-6.10); WHITE BLOOD COUNT 10.4 K/UL (4.8-10.8)
[2016-04-18 09:03] LABS: ANION GAP 16 (5-15); CALCIUM 8.8 mg/dL (8.6-10.2); CARBON DIOXIDE 26 mEQ/L (20-30); CHLORIDE 99 mEQ/L (98-107); CREATININE 0.7 mg/dL (0.7-1.2); GLOMERULAR FILTRATION RATE > 60 mL/min (>60); HEMOLYSIS 1; POTASSIUM 3.4 mEQ/L (3.4-4.9); SODIUM 141 mEQ/L (135-145)
[2016-04-18] MEDS: Aspirin Baby 81mg ORAL SCH (09:27)
[2016-04-18] MEDS: Lisinopril 10mg tab ORAL SCH (09:28)
[2016-04-18] MEDS: Metoprolol 50mg tab ORAL SCH ×2 (09:28→21:26)
--- NOTE | 2016-04-18 14:17 | General Progress Note ---
Assessment/Plan Problem List: (1) Hypothermia ICD Codes: T68.XXXA - Hypothermia, initial encounter SNOMED: 167539670 Qualifiers: Qualified Codes: T68.XXXA - Hypothermia, initial encounter (2) Symptomatic anemia ICD Codes: D64.9 - Anemia, unspecified SNOMED: 945963685 (3) Generalized weakness ICD Codes: R53.1 - Weakness SNOMED: 17749356 Status: progressing Assessment/Plan afebrile vitals stable refuses custodial resp insuff sepsis abx per id Subjective ROS Limited/Unobtainable: Yes Constitutional: Reports: no symptoms Allergies: Coded Allergies: No Known Allergies (Unverified , 04/08/16) Per pt, he is not allergic to any medications or food. Objective Last 24 Hour Vital Signs Date Time Temp Pulse Resp B/P Pulse Ox O2 Delivery O2 Flow Rate FiO2 04/18/16 12:03 98.2 76 20 154/101 97 Room Air 04/18/16 09:28 82 157/80 04/18/16 09:28 157/80 04/18/16 09:28 82 04/18/16 08:15 97.6 78 21 122/85 95 Room Air 04/18/16 08:00 98.0 82 20 157/82 98 Room Air 04/18/16 04:00 98.1 79 20 126/59 97 Room Air 04/18/16 00:30 98.1 75 20 165/99 95 Room Air 04/18/16 00:00 98.1 83 20 171/77 94 Room Air 04/17/16 22:50 98.1 81 18 159/97 95 Room Air 04/17/16 22:49 98.1 04/17/16 22:30 98.5 84 155/98 04/17/16 21:34 87 155/94 04/17/16 20:00 98.6 87 20 155/94 95 Room Air 04/17/16 16:00 99.1 80 18 161/88 100 Room Air Intake and Output 04/17/16 04/18/16 19:00 07:00 Intake Total 960 ml 250 ml Output Total 300 ml 1200 ml Balance 660 ml -950 ml Intake Oral 960 ml 250 ml Output Urine Total 300 ml 1200 ml # Voids 1 Laboratory Tests 04/18/16 08:10: White Blood Count 10.4, Red Blood Count 3.58L, Hemoglobin 10.2#L, Hematocrit 32.4#L, Mean Corpuscular Volume 90, Mean Corpuscular Hemoglobin 28.4, Mean Corpuscular Hemoglobin Concent 31.4L, Red Cell Distribution Width 16.0H, Platelet Count 619H, Mean Platelet Volume 5.2L, Neutrophils (%) (Auto) 69.9, Lymphocytes (%) (Auto) 19.6L, Monocytes (%) (Auto) 9.3, Eosinophils (%) (Auto) 0.8, Basophils (%) (Auto) 0.4, Sodium Level 141, Potassium Level 3.4, Chloride Level 99, Carbon Dioxide Level 26, Anion Gap 16H, Blood Urea Nitrogen 7, Creatinine 0.7, Estimat Glomerular Filtration Rate > 60, Glucose Level 160H, Calcium Level 8.8 Height (Feet): 5 Height (Inches): 8.00 Weight (Pounds): 180 EENT: PERRL/EOMI Cardiovascular: normal peripheral pulses Respiratory/Chest: lungs clear Abdomen: soft Sangeeta Massey MD Apr 18, 2016 14:17
--- NOTE | 2016-04-18 15:45 | General Progress Note ---
Assessment/Plan Assessment/Plan Assessment: 1. Leukocytosis, rule out sepsis, is on broad spectrum abx, being treated for c.diff, improved 2. Anemia 2/2 chronic disease - improved s/p transfusion 3. Isolated distal deep vein thrombosis (IDDVT) of the soleal vein (asymptomatic ) - given that he is asymptomatic, does not require anticoagulation and recommend to reimage in 2 weeks (04/27/16) 4. Thrombocytosis is likely related to hx of anemia - reactive process 5. Hypothermia. Improved. 6. Generalized weakness, suspect due to hypothermia. 7. Coagulopathy, better Recommendations: 1. Monitor counts 2. Transfuse as needed 3. pRBC transfuse to hgb >7 4. Transfuse to plt count >10k 5. Anemia w/u has been reviewed 6. Agree does not require anticoagulation 7. DVT ppx with heparin sq 8. Followup renal, ID, cards, pulm recs 9. DW Staff Sincerely, Chuy Benitez MD Subjective Constitutional: Reports: no symptoms HEENT: Reports: no symptoms Cardiovascular: Reports: no symptoms Respiratory: Reports: no symptoms Gastrointestinal/Abdominal: Reports: poor appetite Genitourinary: Reports: no symptoms Neurologic/Psychiatric: Reports: no symptoms Endocrine: Reports: no symptoms Hematologic/Lymphatic: Reports: anemia Allergies: Coded Allergies: No Known Allergies (Unverified , 04/08/16) Per pt, he is not allergic to any medications or food. Subjective stable, is without any bleeding Objective Last 24 Hour Vital Signs Date Time Temp Pulse Resp B/P Pulse Ox O2 Delivery O2 Flow Rate FiO2 04/18/16 12:03 98.2 76 20 154/101 97 Room Air 04/18/16 12:00 97.4 78 20 148/76 98 04/18/16 09:28 82 157/80 04/18/16 09:28 157/80 04/18/16 09:28 82 04/18/16 08:15 97.6 78 21 122/85 95 Room Air 04/18/16 08:00 98.0 82 20 157/82 98 Room Air 04/18/16 04:00 98.1 79 20 126/59 97 Room Air 04/18/16 00:30 98.1 75 20 165/99 95 Room Air 04/18/16 00:00 98.1 83 20 171/77 94 Room Air 04/17/16 22:50 98.1 81 18 159/97 95 Room Air 04/17/16 22:49 98.1 04/17/16 22:30 98.5 84 155/98 04/17/16 21:34 87 155/94 04/17/16 20:00 98.6 87 20 155/94 95 Room Air 04/17/16 16:00 99.1 80 18 161/88 100 Room Air Intake and Output 04/17/16 04/18/16 19:00 07:00 Intake Total 960 ml 250 ml Output Total 300 ml 1200 ml Balance 660 ml -950 ml Intake Oral 960 ml 250 ml Output Urine Total 300 ml 1200 ml # Voids 1 Laboratory Tests 04/18/16 08:10: White Blood Count 10.4, Red Blood Count 3.58L, Hemoglobin 10.2#L, Hematocrit 32.4#L, Mean Corpuscular Volume 90, Mean Corpuscular Hemoglobin 28.4, Mean Corpuscular Hemoglobin Concent 31.4L, Red Cell Distribution Width 16.0H, Platelet Count 619H, Mean Platelet Volume 5.2L, Neutrophils (%) (Auto) 69.9, Lymphocytes (%) (Auto) 19.6L, Monocytes (%) (Auto) 9.3, Eosinophils (%) (Auto) 0.8, Basophils (%) (Auto) 0.4, Sodium Level 141, Potassium Level 3.4, Chloride Level 99, Carbon Dioxide Level 26, Anion Gap 16H, Blood Urea Nitrogen 7, Creatinine 0.7, Estimat Glomerular Filtration Rate > 60, Glucose Level 160H, Calcium Level 8.8 Height (Feet): 5 Height (Inches): 8.00 Weight (Pounds): 180 General Appearance: no apparent distress EENT: TMs normal Neck: supple Cardiovascular: regular rhythm Respiratory/Chest: chest wall non-tender Abdomen: no organomegaly Extremities: normal range of motion Edema: 1+ Leg (L), 1+ Leg (R) Edema: mild edema Neurologic: alert Skin: warm/dry Chuy Benitez Apr 18, 2016 15:45
[2016-04-18] MEDS: cloNIDine 0.2mg Tab ORAL PRN (16:32)
--- NOTE | 2016-04-18 17:36 | Infectious Diseases Prog Note ---
Assessment/Plan Problems: (1) C. difficile colitis Assessment & Plan: continue oral vancomycin for 14 days, avoid PPI and Imodium (2) Sepsis Assessment & Plan: due to C diff colitis, continue oral vancomycin , blood culture on 04/07 so far remained negative, WBC indium scan showed small focus of uptake at the left lower side of his chest, he refused CT scan of the chest with contrast (3) Hypothermia Assessment & Plan: improved, unclear etiology , monitor electrolytes and lactic acid. 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 work up for autoimmune disease in progress Subjective Constitutional: Denies: anorexia, chills, drenching sweats, fatigue, fever, no symptoms, other HEENT: Denies: congestion, coryza, dysphagia, hearing change, no symptoms, other, visual change Respiratory: Denies: dry cough, no symptoms, other, productive cough, shortness of breath Breasts: Denies: discharge, no symptoms, other, swelling, tenderness Cardiovascular: Denies: chest pain, dyspnea on exertion, no symptoms, other, palpitations Gastrointestinal/Abdominal: Denies: bloating, blood in stool, constipation, diarrhea, nausea, no symptoms, other, vomiting Genitourinary: Denies: dysuria, frequency, hematuria, no symptoms, nocturia, other Neurologic: Denies: confusion, headache, no symptoms, numbness, other, weakness Psychiatric: Denies: anxiety, depression, no symptoms, other Skin: Denies: no symptoms, other, rash, ulcer Endocrine: Denies: feels cold, feels warm, no symptoms, other Allergies: Coded Allergies: No Known Allergies (Unverified , 04/08/16) Per pt, he is not allergic to any medications or food. Subjective he refused to have CT chest done. Objective Vital Signs Last 24 Hour Vital Signs Date Time Temp Pulse Resp B/P Pulse Ox O2 Delivery O2 Flow Rate FiO2 04/18/16 16:32 179/92 04/18/16 16:00 97.3 79 17 179/113 97 Room Air 04/18/16 12:03 98.2 76 20 154/101 97 Room Air 04/18/16 12:00 97.4 78 20 148/76 98 04/18/16 09:28 82 157/80 04/18/16 09:28 157/80 04/18/16 09:28 82 04/18/16 08:15 97.6 78 21 122/85 95 Room Air 04/18/16 08:00 98.0 82 20 157/82 98 Room Air 04/18/16 04:00 98.1 79 20 126/59 97 Room Air 04/18/16 00:30 98.1 75 20 165/99 95 Room Air 04/18/16 00:00 98.1 83 20 171/77 94 Room Air 04/17/16 22:50 98.1 81 18 159/97 95 Room Air 04/17/16 22:49 98.1 04/17/16 22:30 98.5 84 155/98 04/17/16 21:34 87 155/94 04/17/16 20:00 98.6 87 20 155/94 95 Room Air Height (Feet): 5 Height (Inches): 8.00 Weight (Pounds): 180 General Appearance: WD/WN, no acute distress HEENT: normocephalic, atraumatic, anicteric, mucous membranes moist, PERRL Respiratory/Chest: chest wall non-tender, lungs clear, normal breath sounds, no respiratory distress, no accessory muscle use Cardiovascular: normal peripheral pulses, normal rate, regular rhythm, no gallop/murmur, no JVD Abdomen: normal bowel sounds, soft, non tender, no organomegaly, non distended , no mass Extremities: no cyanosis, no clubbing Skin: no rash, no lesions, no ulcers Laboratory Tests Test 04/18/16 08:10 White Blood Count 10.4 K/UL (4.8-10.8) Red Blood Count 3.58 M/UL (4.70-6.10) L Hemoglobin 10.2 G/DL (14.2-18.0) #L Hematocrit 32.4 % (42.0-52.0) #L Mean Corpuscular Volume 90 FL (80-99) Mean Corpuscular Hemoglobin 28.4 PG (27.0-31.0) Mean Corpuscular Hemoglobin Concent 31.4 G/DL (32.0-36.0) L Red Cell Distribution Width 16.0 % (11.6-14.8) H Platelet Count 619 K/UL (150-450) H Mean Platelet Volume 5.2 FL (6.5-10.1) L Neutrophils (%) (Auto) 69.9 % (45.0-75.0) Lymphocytes (%) (Auto) 19.6 % (20.0-45.0) L Monocytes (%) (Auto) 9.3 % (1.0-10.0) Eosinophils (%) (Auto) 0.8 % (0.0-3.0) Basophils (%) (Auto) 0.4 % (0.0-2.0) Sodium Level 141 mEQ/L (135-145) Potassium Level 3.4 mEQ/L (3.4-4.9) Chloride Level 99 mEQ/L (98-107) Carbon Dioxide Level 26 mEQ/L (20-30) Anion Gap 16 (5-15) H Blood Urea Nitrogen 7 mg/dL (7-23) Creatinine 0.7 mg/dL (0.7-1.2) Estimat Glomerular Filtration Rate > 60 mL/min (>60) Glucose Level 160 mg/dL (74-106) H Calcium Level 8.8 mg/dL (8.6-10.2) Current Medications Medications (Trade) Dose Ordered Sig/Jenn Route PRN Reason Start Time Stop Time Status Last Admin Dose Admin Acetaminophen (Tylenol) 500 mg 30 MIN BEFORE BLOOD PRN ORAL 30 MIN PRIOR TO BLOOD TRANSFUS 04/09/16 18:45 05/09/16 18:44 04/17/16 21:50 Acetaminophen (Tylenol) 650 mg Q4H PRN ORAL fever 04/09/16 21:00 05/09/16 20:59 04/17/16 05:37 Al Hydroxide/Mg Hydroxide (Mylanta II) 30 ml Q6H PRN ORAL dyspepsia 04/09/16 20:45 05/09/16 20:44 Aspirin (ASA) 81 mg DAILY ORAL 04/10/16 09:00 05/10/16 08:59 04/18/16 09:27 Clonidine HCl (Catapres) 0.2 mg Q2H PRN ORAL SBP > 170 04/15/16 20:30 05/15/16 20:29 04/18/16 16:32 Dextrose (Dextrose 50%) STAT PRN IV Hypoglycemia 04/10/16 09:00 05/10/16 08:59 Digoxin (Lanoxin) 0.25 mg DAILY ORAL 04/10/16 09:00 05/10/16 08:59 04/18/16 09:28 Diphenhydramine HCl (Benadryl) 50 mg 30MIN BEFORE BLOOD PRN ORAL PRIOR TO BLOOD TRANSFUSION 04/09/16 18:45 05/09/16 18:44 04/17/16 21:50 Heparin Sodium (Porcine) (Heparin 5000 units/ml) 5,000 units EVERY 8 HOURS SUBQ 04/11/16 09:00 05/11/16 08:59 04/18/16 06:48 Lisinopril (Zestril) 10 mg DAILY ORAL 04/10/16 09:00 05/10/16 08:59 04/18/16 09:28 Metoprolol Tartrate (Lopressor) 50 mg Q12HR ORAL 04/09/16 21:00 05/09/16 20:59 04/18/16 09:28 Ondansetron HCl (Zofran) 4 mg Q6H PRN IVP Nausea & Vomiting 04/09/16 20:45 05/09/16 20:44 Polyethylene Glycol (Miralax) 17 gm HSPRN PRN ORAL Constipation 04/10/16 09:00 05/10/16 08:59 04/12/16 08:46 Vancomycin HCl (Vancomycin) 125 mg Q6HR ORAL 04/13/16 13:30 04/20/16 13:29 04/18/16 11:29 Zolpidem Tartrate (Ambien) 5 mg HSPRN PRN ORAL Insomnia 04/10/16 18:00 05/10/16 17:59 Sixto Reilly M.D. Apr 18, 2016 17:36
--- NOTE | 2016-04-18 18:40 | Pulmonology Progress Note ---
Assessment/Plan Problems: (1) C. difficile colitis Assessment & Plan: [facility], (2) Fever (3) DVT (deep venous thrombosis) (4) Hypothermia (5) Generalized weakness (6) Symptomatic anemia (7) SVT (supraventricular tachycardia) (8) Homelessness Assessment/Plan Cdiff most likely secondary to intiatil abx use on admission on oral vancomycin consider Falgyl IV Subjective ROS Limited/Unobtainable: Yes Allergies: Coded Allergies: No Known Allergies (Unverified , 04/08/16) Per pt, he is not allergic to any medications or food. Objective Last 24 Hour Vital Signs Date Time Temp Pulse Resp B/P Pulse Ox O2 Delivery O2 Flow Rate FiO2 04/18/16 16:32 179/92 04/18/16 16:00 97.3 79 17 179/113 97 Room Air 04/18/16 12:03 98.2 76 20 154/101 97 Room Air 04/18/16 12:00 97.4 78 20 148/76 98 04/18/16 09:28 82 157/80 04/18/16 09:28 157/80 04/18/16 09:28 82 04/18/16 08:15 97.6 78 21 122/85 95 Room Air 04/18/16 08:00 98.0 82 20 157/82 98 Room Air 04/18/16 04:00 98.1 79 20 126/59 97 Room Air 04/18/16 00:30 98.1 75 20 165/99 95 Room Air 04/18/16 00:00 98.1 83 20 171/77 94 Room Air 04/17/16 22:50 98.1 81 18 159/97 95 Room Air 04/17/16 22:49 98.1 04/17/16 22:30 98.5 84 155/98 04/17/16 21:34 87 155/94 04/17/16 20:00 98.6 87 20 155/94 95 Room Air Intake and Output 04/17/16 04/18/16 19:00 07:00 Intake Total 960 ml 250 ml Output Total 300 ml 1200 ml Balance 660 ml -950 ml Intake Oral 960 ml 250 ml Output Urine Total 300 ml 1200 ml # Voids 1 General Appearance: no acute distress HEENT: normocephalic, atraumatic, PERRL Respiratory/Chest: chest wall non-tender, decreased breath sounds Cardiovascular: normal peripheral pulses, normal rate, regular rhythm Abdomen: hyperactive bowel sounds, distended, guarding Genitourinary: normal external genitalia Extremities: no cyanosis Skin: no rash 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, no motor/sensory deficits Laboratory Tests 04/18/16 08:10: White Blood Count 10.4, Red Blood Count 3.58L, Hemoglobin 10.2#L, Hematocrit 32.4#L, Mean Corpuscular Volume 90, Mean Corpuscular Hemoglobin 28.4, Mean Corpuscular Hemoglobin Concent 31.4L, Red Cell Distribution Width 16.0H, Platelet Count 619H, Mean Platelet Volume 5.2L, Neutrophils (%) (Auto) 69.9, Lymphocytes (%) (Auto) 19.6L, Monocytes (%) (Auto) 9.3, Eosinophils (%) (Auto) 0.8, Basophils (%) (Auto) 0.4, Sodium Level 141, Potassium Level 3.4, Chloride Level 99, Carbon Dioxide Level 26, Anion Gap 16H, Blood Urea Nitrogen 7, Creatinine 0.7, Estimat Glomerular Filtration Rate > 60, Glucose Level 160H, Calcium Level 8.8 Current Medications Medications (Trade) Dose Ordered Sig/Jenn Route PRN Reason Start Time Stop Time Status Last Admin Dose Admin Acetaminophen (Tylenol) 500 mg 30 MIN BEFORE BLOOD PRN ORAL 30 MIN PRIOR TO BLOOD TRANSFUS 04/09/16 18:45 05/09/16 18:44 04/17/16 21:50 Acetaminophen (Tylenol) 650 mg Q4H PRN ORAL fever 04/09/16 21:00 05/09/16 20:59 04/17/16 05:37 Al Hydroxide/Mg Hydroxide (Mylanta II) 30 ml Q6H PRN ORAL dyspepsia 04/09/16 20:45 05/09/16 20:44 Aspirin (ASA) 81 mg DAILY ORAL 04/10/16 09:00 05/10/16 08:59 04/18/16 09:27 Clonidine HCl (Catapres) 0.2 mg Q2H PRN ORAL SBP > 170 04/15/16 20:30 05/15/16 20:29 04/18/16 16:32 Dextrose (Dextrose 50%) STAT PRN IV Hypoglycemia 04/10/16 09:00 2/14/17 08:59 Digoxin (Lanoxin) 0.25 mg DAILY ORAL 04/10/16 09:00 05/10/16 08:59 04/18/16 09:28 Diphenhydramine HCl (Benadryl) 50 mg 30MIN BEFORE BLOOD PRN ORAL PRIOR TO BLOOD TRANSFUSION 04/09/16 18:45 05/09/16 18:44 04/17/16 21:50 Heparin Sodium (Porcine) (Heparin 5000 units/ml) 5,000 units EVERY 8 HOURS SUBQ 04/11/16 09:00 05/11/16 08:59 04/18/16 06:48 Lisinopril (Zestril) 10 mg DAILY ORAL 04/10/16 09:00 05/10/16 08:59 04/18/16 09:28 Metoprolol Tartrate (Lopressor) 50 mg Q12HR ORAL 04/09/16 21:00 05/09/16 20:59 04/18/16 09:28 Ondansetron HCl (Zofran) 4 mg Q6H PRN IVP Nausea & Vomiting 04/09/16 20:45 05/09/16 20:44 Polyethylene Glycol (Miralax) 17 gm HSPRN PRN ORAL Constipation 04/10/16 09:00 05/10/16 08:59 04/12/16 08:46 Vancomycin HCl (Vancomycin) 125 mg Q6HR ORAL 04/13/16 13:30 04/20/16 13:29 04/18/16 18:34 Zolpidem Tartrate (Ambien) 5 mg HSPRN PRN ORAL Insomnia 04/10/16 18:00 05/10/16 17:59 MARSHA CAMEJO Apr 18, 2016 18:40
--- NOTE | 2016-04-18 18:45 | Cardiac Electrophysiology PN ---
Assessment/Plan Status Narrative Technically difficult study due to poor acoustic windows. Left ventricular ejection fraction estimated to be 45-50%. Mid anterior septal hypokinesis. Trivial circumferential pericardial effusion. Mild left ventricular enlargment. Mild left ventricular hypertrophy. Enlargment of right ventricule. Focal aortic valve sclerosis with adequate cusp excursion Thickened mitral valve leaflets with normal excursion. Mitral annulus and aortic root calcification. Pulmonic valve not well visualized. Normal tricuspid valve structure. IVC at 1.8cm with physiologic collapse. Assessment/Plan 1. Recurrent SVT. Continue Digoxin 0.25 mg daily and Lopressor 50 bid. 2. NSVT 5 beats . No syncope. Continue Lopressor. EF 45-50%. No off tele. 3. 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 On Lopressor 50 bid and lisinopril 10 daily. 4. Severe thrombocytosis Follow up Dr Giang. 5. AMS. Had CT and EEG and neuro follow up by Dr Magdaleno. 6. Isolated distal deep vein thrombosis of the Right soleal vein, Per Dr Giang "given that he is asymptomatic. Off anticoagulation and reimage in 2 weeks to see if he has proximal clot extension, and at that time can reconsider anticoagulation". 7. Anemia and Stool OB positive. 8. Fever and sepsis on po vancomycin for C. Diff. 9. Generalized weakness due to combination of hypothermia, profound anemia. His hemoglobin is only 7.9. BRIGIDA RN. Subjective Subjective Comfortable in NAD.No chest pain or SOB.Doesn't have a home but dosesn't want to go to [place]. Objective Last 24 Hour Vital Signs Date Time Temp Pulse Resp B/P Pulse Ox O2 Delivery O2 Flow Rate FiO2 04/18/16 16:32 179/92 04/18/16 16:00 97.3 79 17 179/113 97 Room Air 04/18/16 12:03 98.2 76 20 154/101 97 Room Air 04/18/16 12:00 97.4 78 20 148/76 98 04/18/16 09:28 82 157/80 04/18/16 09:28 157/80 04/18/16 09:28 82 04/18/16 08:15 97.6 78 21 122/85 95 Room Air 04/18/16 08:00 98.0 82 20 157/82 98 Room Air 04/18/16 04:00 98.1 79 20 126/59 97 Room Air 04/18/16 00:30 98.1 75 20 165/99 95 Room Air 04/18/16 00:00 98.1 83 20 171/77 94 Room Air 04/17/16 22:50 98.1 81 18 159/97 95 Room Air 04/17/16 22:49 98.1 04/17/16 22:30 98.5 84 155/98 04/17/16 21:34 87 155/94 04/17/16 20:00 98.6 87 20 155/94 95 Room Air Intake and Output 04/17/16 04/18/16 19:00 07:00 Intake Total 960 ml 250 ml Output Total 300 ml 1200 ml Balance 660 ml -950 ml Intake Oral 960 ml 250 ml Output Urine Total 300 ml 1200 ml # Voids 1 Laboratory Tests Test 04/18/16 08:10 White Blood Count 10.4 K/UL (4.8-10.8) Red Blood Count 3.58 M/UL (4.70-6.10) L Hemoglobin 10.2 G/DL (14.2-18.0) #L Hematocrit 32.4 % (42.0-52.0) #L Mean Corpuscular Volume 90 FL (80-99) Mean Corpuscular Hemoglobin 28.4 PG (27.0-31.0) Mean Corpuscular Hemoglobin Concent 31.4 G/DL (32.0-36.0) L Red Cell Distribution Width 16.0 % (11.6-14.8) H Platelet Count 619 K/UL (150-450) H Mean Platelet Volume 5.2 FL (6.5-10.1) L Neutrophils (%) (Auto) 69.9 % (45.0-75.0) Lymphocytes (%) (Auto) 19.6 % (20.0-45.0) L Monocytes (%) (Auto) 9.3 % (1.0-10.0) Eosinophils (%) (Auto) 0.8 % (0.0-3.0) Basophils (%) (Auto) 0.4 % (0.0-2.0) Sodium Level 141 mEQ/L (135-145) Potassium Level 3.4 mEQ/L (3.4-4.9) Chloride Level 99 mEQ/L (98-107) Carbon Dioxide Level 26 mEQ/L (20-30) Anion Gap 16 (5-15) H Blood Urea Nitrogen 7 mg/dL (7-23) Creatinine 0.7 mg/dL (0.7-1.2) Estimat Glomerular Filtration Rate > 60 mL/min (>60) Glucose Level 160 mg/dL (74-106) H Calcium Level 8.8 mg/dL (8.6-10.2) Objective HEAD AND NECK: Shows no JVD. LUNGS: Clear. CARDIOVASCULAR: Shows regular S1 and S2 with no gallop or murmur. ABDOMEN: Soft. EXTREMITIES: No pitting edema. DOROTHEA LEIGH Apr 18, 2016 18:45
[2016-04-19] VITALS: BP 139/59
[2016-04-19] MEDS: Vancomycin oral 125mg/2.5ml ORAL SCH ×3 (00:35→12:00)
[2016-04-19 04:00] VITALS: BP 142/63
[2016-04-19] MEDS: Heparin 5000 units/ml inj SUBQ SCH ×2 (05:14→13:32)
[2016-04-19 08:00] VITALS: BP 190/115
[2016-04-19] MEDS: Aspirin Baby 81mg ORAL SCH (09:09)
[2016-04-19] MEDS: Lisinopril 10mg tab ORAL SCH (09:09)
[2016-04-19] MEDS: Metoprolol 50mg tab ORAL SCH (09:10)
[2016-04-19] MEDS: cloNIDine 0.2mg Tab ORAL PRN (09:10)
[2016-04-19 12:00] VITALS: BP 143/94
--- NOTE | 2016-04-19 14:58 | General Progress Note ---
Assessment/Plan Problem List: (1) Hypothermia ICD Codes: T68.XXXA - Hypothermia, initial encounter SNOMED: 694898793 Qualifiers: Qualified Codes: T68.XXXA - Hypothermia, initial encounter (2) Symptomatic anemia ICD Codes: D64.9 - Anemia, unspecified SNOMED: 193807125 (3) Generalized weakness ICD Codes: R53.1 - Weakness SNOMED: 48903332 Status: progressing Assessment/Plan refuses care refuses placement so he wanted to sign AMA paper and per rn wants to go AMA I SPOKE W RN AND TOLD HER TO HAVE HIM SIGN AMA PER HIS REQUEST AND THE FACT THAT IS REFUSING PROPER PLACEMENT Subjective ROS Limited/Unobtainable: Yes Constitutional: Reports: no symptoms Allergies: Coded Allergies: No Known Allergies (Unverified , 04/08/16) Per pt, he is not allergic to any medications or food. Objective Last 24 Hour Vital Signs Date Time Temp Pulse Resp B/P Pulse Ox O2 Delivery O2 Flow Rate FiO2 04/19/16 12:00 97.0 66 18 143/94 97 Room Air 04/19/16 10:15 98.2 04/19/16 09:10 190/105 04/19/16 09:10 71 190/105 04/19/16 09:10 71 04/19/16 09:09 190/105 04/19/16 08:00 98.2 70 22 190/115 95 Room Air 04/19/16 04:00 99.8 89 18 142/63 96 Room Air 04/19/16 00:00 100.4 81 18 139/59 95 Room Air 04/18/16 21:26 70 123/85 04/18/16 20:00 98.0 70 18 123/85 100 Room Air 04/18/16 16:32 179/92 04/18/16 16:00 97.3 79 17 179/113 97 Room Air Intake and Output 04/18/16 04/19/16 19:00 07:00 Intake Total 360 ml 360 ml Output Total 600 ml Balance 360 ml -240 ml Intake Oral 360 ml 360 ml Output Urine Total 600 ml # Voids 5 # Bowel Movements 1 Height (Feet): 5 Height (Inches): 8.00 Weight (Pounds): 180 Neck: supple Cardiovascular: normal rate Respiratory/Chest: lungs clear Abdomen: soft Sangeeta Massey MD Apr 19, 2016 14:58
[2016-04-19 16:00] VITALS: BP 172/106
--- NOTE | 2016-04-19 16:18 | Cardiac Electrophysiology PN ---
Assessment/Plan Status Narrative Technically difficult study due to poor acoustic windows. Left ventricular ejection fraction estimated to be 45-50%. Mid anterior septal hypokinesis. Trivial circumferential pericardial effusion. Mild left ventricular enlargment. Mild left ventricular hypertrophy. Enlargment of right ventricule. Focal aortic valve sclerosis with adequate cusp excursion Thickened mitral valve leaflets with normal excursion. Mitral annulus and aortic root calcification. Pulmonic valve not well visualized. Normal tricuspid valve structure. IVC at 1.8cm with physiologic collapse. Assessment/Plan 1. Recurrent SVT. Continue Digoxin 0.25 mg daily and Lopressor 50 bid. 2. NSVT 5 beats . No syncope. Continue Lopressor. EF 45-50%. 3. 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 On Lopressor 50 bid and lisinopril 10 daily. 4. Severe thrombocytosis. Resolving. 5. AMS. Had CT and EEG and neuro follow up by Dr Magdaleno. 6. Isolated distal deep vein thrombosis of the Right soleal vein, Per Dr. Giang "given that he is asymptomatic. Off anticoagulation. 7. Anemia and Stool OB positive. 8. Fever and sepsis on po vancomycin for C. Diff. 9. Generalized weakness due to combination of hypothermia, profound anemia. BRIGIDA RN. OK to DC from cardiac standpoint. Subjective Subjective Comfortable in NAD.No chest pain or SOB.Refusing SNF Placement. DC planning today. Objective Last 24 Hour Vital Signs Date Time Temp Pulse Resp B/P Pulse Ox O2 Delivery O2 Flow Rate FiO2 04/19/16 12:00 97.0 66 18 143/94 97 Room Air 04/19/16 10:15 98.2 04/19/16 09:10 190/105 04/19/16 09:10 71 190/105 04/19/16 09:10 71 04/19/16 09:09 190/105 04/19/16 08:00 98.2 70 22 190/115 95 Room Air 04/19/16 04:00 99.8 89 18 142/63 96 Room Air 04/19/16 00:00 100.4 81 18 139/59 95 Room Air 04/18/16 21:26 70 123/85 04/18/16 20:00 98.0 70 18 123/85 100 Room Air 04/18/16 16:32 179/92 Intake and Output 04/18/16 04/19/16 19:00 07:00 Intake Total 360 ml 360 ml Output Total 600 ml Balance 360 ml -240 ml Intake Oral 360 ml 360 ml Output Urine Total 600 ml # Voids 5 # Bowel Movements 1 Current Medications Medications (Trade) Dose Ordered Sig/Jenn Route PRN Reason Start Time Stop Time Status Last Admin Dose Admin Acetaminophen (Tylenol) 500 mg 30 MIN BEFORE BLOOD PRN ORAL 30 MIN PRIOR TO BLOOD TRANSFUS 04/09/16 18:45 05/09/16 18:44 04/17/16 21:50 Acetaminophen (Tylenol) 650 mg Q4H PRN ORAL fever 04/09/16 21:00 05/09/16 20:59 04/19/16 09:13 Al Hydroxide/Mg Hydroxide (Mylanta II) 30 ml Q6H PRN ORAL dyspepsia 04/09/16 20:45 05/09/16 20:44 Aspirin (ASA) 81 mg DAILY ORAL 04/10/16 09:00 05/10/16 08:59 04/19/16 09:09 Clonidine HCl (Catapres) 0.2 mg Q2H PRN ORAL SBP > 170 04/15/16 20:30 05/15/16 20:29 04/19/16 09:10 Dextrose (Dextrose 50%) STAT PRN IV Hypoglycemia 04/10/16 09:00 05/10/16 08:59 Digoxin (Lanoxin) 0.25 mg DAILY ORAL 04/10/16 09:00 05/10/16 08:59 04/19/16 09:10 Diphenhydramine HCl (Benadryl) 50 mg 30MIN BEFORE BLOOD PRN ORAL PRIOR TO BLOOD TRANSFUSION 04/09/16 18:45 05/09/16 18:44 04/17/16 21:50 Heparin Sodium (Porcine) (Heparin 5000 units/ml) 5,000 units EVERY 8 HOURS SUBQ 04/11/16 09:00 05/11/16 08:59 04/19/16 05:14 Lisinopril (Zestril) 10 mg DAILY ORAL 04/10/16 09:00 05/10/16 08:59 04/19/16 09:09 Metoprolol Tartrate (Lopressor) 50 mg Q12HR ORAL 04/09/16 21:00 05/09/16 20:59 04/19/16 09:10 Ondansetron HCl (Zofran) 4 mg Q6H PRN IVP Nausea & Vomiting 04/09/16 20:45 05/09/16 20:44 Polyethylene Glycol (Miralax) 17 gm HSPRN PRN ORAL Constipation 04/10/16 09:00 05/10/16 08:59 04/12/16 08:46 Vancomycin HCl (Vancomycin) 125 mg Q6HR ORAL 04/13/16 13:30 04/20/16 13:29 04/19/16 12:00 Zolpidem Tartrate (Ambien) 5 mg HSPRN PRN ORAL Insomnia 04/10/16 18:00 05/10/16 17:59 Objective HEAD AND NECK: Shows no JVD. LUNGS: Clear. CARDIOVASCULAR: Shows regular S1 and S2 with no gallop or murmur. ABDOMEN: Soft. EXTREMITIES: No pitting edema. DOROTHEA LEIGH Apr 19, 2016 16:18
--- NOTE | 2016-04-19 16:48 | General Progress Note ---
Assessment/Plan Assessment/Plan Assessment: 1. Leukocytosis, rule out sepsis, is on broad spectrum abx, being treated for c.diff, improved 2. Anemia 2/2 chronic disease - improved s/p transfusion 3. Isolated distal deep vein thrombosis (IDDVT) of the soleal vein (asymptomatic ) - given that he is asymptomatic, does not require anticoagulation and recommend to reimage in 2 weeks (04/27/16) 4. Thrombocytosis is likely related to hx of anemia - reactive process 5. Hypothermia. Has improved. 6. Generalized weakness, suspect due to hypothermia. 7. Coagulopathy, better Recommendations: 1. Monitor counts 2. Transfuse as needed 3. pRBC transfuse to hgb >7 4. Transfuse to plt count >10k 5. Anemia w/u has been reviewed 6. Agree does not require anticoagulation 7. DVT ppx with heparin sq 8. Followup renal, ID, cards, pulm recs 9. DW Staff Sincerely, Chuy Benitez MD Subjective Constitutional: Reports: no symptoms HEENT: Reports: no symptoms Cardiovascular: Reports: no symptoms Respiratory: Reports: no symptoms Gastrointestinal/Abdominal: Reports: poor appetite Genitourinary: Reports: no symptoms Neurologic/Psychiatric: Reports: no symptoms Endocrine: Reports: no symptoms Allergies: Coded Allergies: No Known Allergies (Unverified , 04/08/16) Per pt, he is not allergic to any medications or food. Subjective stable, is without any bleeding, denying homeless resources Objective Last 24 Hour Vital Signs Date Time Temp Pulse Resp B/P Pulse Ox O2 Delivery O2 Flow Rate FiO2 04/19/16 16:00 97.7 77 20 172/106 96 Room Air 04/19/16 12:00 97.0 66 18 143/94 97 Room Air 04/19/16 10:15 98.2 04/19/16 09:10 190/105 04/19/16 09:10 71 190/105 04/19/16 09:10 71 04/19/16 09:09 190/105 04/19/16 08:00 98.2 70 22 190/115 95 Room Air 04/19/16 04:00 99.8 89 18 142/63 96 Room Air 04/19/16 00:00 100.4 81 18 139/59 95 Room Air 04/18/16 21:26 70 123/85 04/18/16 20:00 98.0 70 18 123/85 100 Room Air Intake and Output 04/18/16 04/19/16 19:00 07:00 Intake Total 360 ml 360 ml Output Total 600 ml Balance 360 ml -240 ml Intake Oral 360 ml 360 ml Output Urine Total 600 ml # Voids 5 # Bowel Movements 1 Height (Feet): 5 Height (Inches): 8.00 Weight (Pounds): 180 General Appearance: no apparent distress EENT: TMs normal Neck: supple Cardiovascular: regular rhythm Respiratory/Chest: normal breath sounds Abdomen: normal bowel sounds Extremities: non-tender Edema: mild edema Neurologic: alert Skin: warm/dry Chuy Benitez Apr 19, 2016 16:48
[2016-04-19] MEDS ORDERED: Tubing IV Blood Pump IV ONE (17:02)
[2016-04-19] MEDS ORDERED: NS 275ml ONE (17:02)
--- NOTE | 2016-04-19 17:57 | Infectious Diseases Prog Note ---
Assessment/Plan Problems: (1) C. difficile colitis Assessment & Plan: continue oral vancomycin for 14 days, avoid PPI and Imodium (2) Sepsis Assessment & Plan: due to C diff colitis, continue oral vancomycin , blood culture on 04/07 so far remained negative, WBC indium scan showed small focus of uptake at the left lower side of his chest, he refused CT scan of the chest with contrast (3) Hypothermia Assessment & Plan: improved, unclear etiology , monitor electrolytes and lactic acid. (4) Generalized weakness Assessment & Plan: due to the above , improving, continue PT/OT (5) DVT (deep venous thrombosis) Assessment & Plan: continue anticoagulation, monitor INR, CTA of the lung was canceled by larry operator (6) Recurrent fever, cause unknown Assessment & Plan: resolved, CT chest with contrast to rule out chest wall abscess, was not done since he refused. work up for autoimmune disease in progress Subjective Constitutional: Denies: anorexia, chills, drenching sweats, fatigue, fever, no symptoms, other HEENT: Denies: congestion, coryza, dysphagia, hearing change, no symptoms, other, visual change Respiratory: Denies: dry cough, no symptoms, other, productive cough, shortness of breath Breasts: Denies: discharge, no symptoms, other, swelling, tenderness Cardiovascular: Denies: chest pain, dyspnea on exertion, no symptoms, other, palpitations Gastrointestinal/Abdominal: Denies: bloating, blood in stool, constipation, diarrhea, nausea, no symptoms, other, vomiting Genitourinary: Denies: dysuria, frequency, hematuria, no symptoms, nocturia, other Neurologic: Denies: confusion, headache, no symptoms, numbness, other, weakness Psychiatric: Denies: anxiety, depression, no symptoms, other Skin: Denies: no symptoms, other, rash, ulcer Endocrine: Denies: feels cold, feels warm, no symptoms, other Allergies: Coded Allergies: No Known Allergies (Unverified , 04/08/16) Per pt, he is not allergic to any medications or food. Subjective he refused to have CT chest done. Objective Vital Signs Last 24 Hour Vital Signs Date Time Temp Pulse Resp B/P Pulse Ox O2 Delivery O2 Flow Rate FiO2 04/19/16 16:00 97.7 77 20 172/106 96 Room Air 04/19/16 12:00 97.0 66 18 143/94 97 Room Air 04/19/16 10:15 98.2 04/19/16 09:10 190/105 04/19/16 09:10 71 190/105 04/19/16 09:10 71 04/19/16 09:09 190/105 04/19/16 08:00 98.2 70 22 190/115 95 Room Air 04/19/16 04:00 99.8 89 18 142/63 96 Room Air 04/19/16 00:00 100.4 81 18 139/59 95 Room Air 04/18/16 21:26 70 123/85 04/18/16 20:00 98.0 70 18 123/85 100 Room Air Height (Feet): 5 Height (Inches): 8.00 Weight (Pounds): 180 General Appearance: WD/WN, no acute distress HEENT: normocephalic, atraumatic, anicteric, mucous membranes moist Respiratory/Chest: chest wall non-tender, lungs clear, normal breath sounds, no respiratory distress, no accessory muscle use Cardiovascular: normal peripheral pulses, normal rate, regular rhythm, no gallop/murmur, no JVD Abdomen: normal bowel sounds, soft, non tender, no organomegaly, non distended , no mass Extremities: no cyanosis, no clubbing Skin: no rash, no lesions, no ulcers Sixto Reilly M.D. Apr 19, 2016 17:57
[2016-04-20 09:16] LABS: RHEUMATOID FACTOR SCREEN 18.8 IU/mL (0.0-13.9)
--- NOTE | 2016-04-21 16:57 | Discharge Summary ---
Discharge Summary Hospital Course Date of Admission Apr 05, 2016 at 14:40 Date of Discharge Apr 19, 2016 at 17:03 Admitting Diagnosis sever hypothermia HPI Abelardo Chiang is a 55 year old male who was admitted on Apr 05, 2016 at 14:40 for Severe Hypothermia Hospital Course [id number] Discharge Discharge Disposition Patient left AMA Discharge Diagnoses: Nelly Louise NP Apr 21, 2016 16:57
--- NOTE | 2016-04-22 02:38 | Discharge Summary 2 SIG ---
DATE OF ADMISSION: 04/05/2016 DATE OF DISCHARGE: 04/19/2016 CONSULTANTS: 1. Sixto Reilly M.D. 2. Don Paez M.D. 3. Royal Magdaleno M.D. 4. Miguelangel Mueller M.D. 5. Chuy Benitez M.D. BRIEF HOSPITAL COURSE: The patient is a 55-year-old male, homeless, was brought in from a [facility] for generalized weakness. On arrival to ED, the patient was encephalopathic and on evaluation had severe hypothermia temperature of 85.5 degrees. He was given pancho hugger. EKG showed evidence of hypothermia. Laboratories showed mild leukocytosis. Serum alcohol was less than 10. He was admitted to [facility]. Dr. Reilly was consulted for possible sepsis and was started empirically on vancomycin and cefepime. Dr. Magdaleno was also consulted. On time of admission, the patient was lethargic and can only be aroused for brief periods of time. He was significantly dysarthric and unable to cooperate for mental status testing, but he did not demonstrate any focal or lateralizing findings. CAT scan of the brain done showed no acute intracranial bleed, mass effect, or edema with mild atrophy of the brain and chronic small vessel disease. An EEG was also performed and revealed encephalopathy. He had venous duplex of lower extremity done that revealed an acute thrombus in the isolated soleal vein. He was initially started on heparin drip. Dr. Benitez was consulted and given that the patient is asymptomatic, does not require anticoagulation based on [place] 2014 [place] [employer] guidelines. He was recommended to have re-image in two weeks. He also had thrombocytosis likely related to his anemia secondary to reactive process. An echocardiogram was done and showed ejection fraction of 45% to 50% with mild pulmonary hypertension. Dr. Paez was consulted for recurrent SVTs and nonsustained 5 beats of ventricular tachycardia. He was given digoxin and Lopressor and lisinopril. He had an episode of acute anemia and received three units of packed RBC blood transfusion. Blood cultures did not isolate any growth. He was positive for C. diff and was given oral vancomycin. He continued to have episodes of fever and indium scan was done and showed tiny focus on the left anterior lower chest uptake of questionable significance. He refused to have a chest CT. information services vice president was called in to aid with placement. The patient declined homeless resources and states he is able to go to friend's home via a bus. He was given medications. The patient left against medical advice. FINAL DIAGNOSES: 1. Hypothermia. 2. Acute anemia status post blood transfusion. 3. Thrombocytosis likely related to history of anemia secondary to reactive process. 4. Acute isolated distal deep vein thrombosis of the soleal vein. 5. Anemia secondary to chronic disease. 6. Clostridium difficile colitis. 7. Recurrent supraventricular tachycardia. 8. Nonsustained ventricular tachycardia. 9. Mild cardiomyopathy. 10. Sepsis due to Clostridium difficile colitis. 11. Recurrent fever cause unknown. CT of the chest with contrast to rule out chest wall abscess not done since he refused. 12. Homelessness. 13. Acute metabolic encephalopathy, present on admission. 14. Mild pulmonary hypertension. 15. Noncompliance, as the patient refused to undergo complete workup and left against medical advice. Sangeeta Massey M.D. I have been assigned to dictate discharge summary on this account and I was not involved in the patient's management. Nelly Louise N.P. DR: JAREK JOB#: [id number] CC: [email or web address]
== END 2016-04-19 17:03 | disposition left against medical advice (07) | DRG 720 ==
LOC: EDBD 10:54 → EMR 11:53 → EDBEDREQ 14:04 → 2W 14:40 → EDBEDREQ 14:52 → 2W 16:50 → ICU 04-07 12:50 → 2E 04-08 07:09 → 4E 04-09 15:00
PROC: 30233N1 Transfusion of Nonautologous Red Blood Cells into Peripheral Vein, Percutaneous Approach (ICD-10-PCS; principal; 2016-04-06)
DX: A41.9 Sepsis, unspecified organism (principal); G93.41 Metabolic encephalopathy; I47.2 Ventricular tachycardia; D68.9 Coagulation defect, unspecified; A04.7 Enterocolitis due to Clostridium difficile; I82.491 Acute embolism and thrombosis of other specified deep vein of right lower extremity; Z59.0 Homelessness; F17.200 Nicotine dependence, unspecified, uncomplicated; F10.21 Alcohol dependence, in remission; T68.XXXA Hypothermia, initial encounter; X31.XXXA Exposure to excessive natural cold, initial encounter; D63.8 Anemia in other chronic diseases classified elsewhere; D47.3 Essential (hemorrhagic) thrombocythemia; I47.1 Supraventricular tachycardia; I27.2 Other secondary pulmonary hypertension; I42.9 Cardiomyopathy, unspecified; R53.1 Weakness; Z91.19 Patient's noncompliance with other medical treatment and regimen; D64.9 Anemia, unspecified
CPT/HCPCS: 36415; 70450; 78807; 80048; 80053; 80061; 80162; 80202; 80329; 81001; 81270; 82270; 82378; 82550; 82607; 82728; 82746; 82977; 83036; 83540; 83550; 83615; 83735; 83880; 83915; 84100; 84439; 84443; 84484; 84550; 85007; 85025; 85044; 85060; 85379; 85610; 85651; 85730; 86021; 86039; 86140; 86431; 86592; 86703; 86705; 86709; 86803; 86850; 86900; 86901; 86920; 87040; 87081; 87340; 87493; 93005; 93306; 93970; 95819; A9570